=== PATIENT | female | born 1955 | race Caucasian/White ===

== ENCOUNTER 2023-04-16 07:13 | Outpatient (OUT) | payer MEDICARE, SELFPAY ==
[2023-04-16 07:57] LABS: Basophils Absolute Auto 0.1 10^3/uL (0.0-0.1); Basophils Percent Auto 1.3 % (0.2-2.0); Eosinophils Absolute Auto 0.5 10^3/uL (0.0-0.7); Eosinophils Percent Auto 8.5 % (0.9-7.0); Hematocrit 40.3 % (36.0-48.0); Hemoglobin 13.4 g/dL (12.0-16.0); Immature Granulocytes Abs Auto 0.01 10^3/uL (0.00-0.03); Immature Granulocytes Pct Auto 0.2 % (0.0-0.5); Lymphocytes Absolute Auto 1.9 10^3/uL (1.2-3.8); Lymphocytes Percent Auto 32.1 % (20.5-60.0); Mean Corpuscular HGB Conc 33.3 g/dL (29.9-35.2); Mean Corpuscular Hemoglobin 28.9 pg (26.7-34.0); Mean Corpuscular Volume 86.9 fL (81.0-99.0); Mean Platelet Volume 10.9 fL (9.5-13.5); Monocytes Absolute Auto 0.5 10^3/uL (0.3-0.8); Monocytes Percent Auto 8.8 % (1.7-12.0); Neutrophils Percent Auto 49.1 % (43.0-75.0); Platelet Count 254 10^3/uL (150-450); Red Blood Count 4.64 10^6/uL (4.20-5.40); Red Cell Distribution Width 14.3 % (11.0-15.0)
[2023-04-16 08:22] LABS: Alanine Aminotransferase 41 U/L (14-59); Albumin Globulin Ratio 0.9; Albumin Level 3.4 g/dL (3.4-5.0); Alkaline Phosphatase 111 U/L (46-116); Anion Gap 10.9; Aspartate Amino Transferase 24 U/L (15-37); BUN Creatinine Ratio 16.2; Bilirubin Total 0.2 mg/dL (0.2-1.0); Carbon Dioxide 29.3 mmol/L (21.0-32.0); Chloride 105 mmol/L (98-107); Cholesterol 163 mg/dL (<=200); Estimated GFR (African America >60 (>=60); Estimated GFR (Non-African Ame >60 (>=60); Globulin 3.8 g/dL; Glucose 82 mg/dL (74-106); HDL Cholesterol 54 mg/dL (40-60); LDL Cholesterol Calculated 82.4 mg/dL; Potassium 4.2 mmol/L (3.5-5.1); Sodium 141 mmol/L (136-145); Thyroid Stimulating Hormone 6.297 uIU/mL (0.358-3.740); Total Protein 7.2 g/dL (6.4-8.2); Triglycerides 133 mg/dL (<=150); VLDL CHOLESTEROL 26.6 mg/dL
[2023-04-16 10:04] LABS: Free T4 0.85 ng/dL (0.76-1.46)
== END 2023-04-16 07:14 | disposition home or self-care (01) ==
LOC: LAB 07:13
PROVIDERS: PCP Family Medicine; Visit Provider Family Medicine
DX: N18.2 Chronic kidney disease, stage 2 (mild) (principal); R53.82 Chronic fatigue, unspecified; E78.2 Mixed hyperlipidemia
CPT/HCPCS: 36415; 80053; 80061; 84439; 84443; 85025

== ENCOUNTER 2023-08-08 07:14 | Outpatient (OUT) | payer MEDICARE, SELFPAY ==
--- NOTE | 2023-08-08 | MM_ITS ---
Patient: MOE CAROLINA Exam Date: 08/08/2023 : 1955 Gender:F Ordering : DR RADHA GOLDSMITH . Admission #: [id number] Family : Order #: [id number] CLICK HERE TO VIEW EXAM RADIOLOGY REPORT PROCEDURE: MM TOMOSYNTHESIS SCREENING BI COMPARISON: MG MAMM SCREEN 3D [facility] CAD, 06/17/2021. MG MAMM SCREEN 3D [facility] CAD, 08/06/2022. INDICATIONS: Screening mammogram Calculator Name NCI Breast Cancer Risk Assessment Tool 5 Year Breast Cancer Risk 1.80% Lifetime Breast Cancer Risk 6.10% Personal Breast Cancer No Personal Ovarian Cancer No Treatments None Family Cancers None LOCATION: [facility] BREAST COMPOSITION: Heterogeneously dense,which may obscure small masses. FINDINGS: DIAGNOSTIC CATEGORY 2--BENIGN FINDING. NO CHANGE FROM COMPARISON. Scattered benign-appearing calcifications are present. Scattered benign-appearing lymph nodes are present. RIGHT BREAST: No significant suspicious finding. LEFT BREAST: No significant suspicious finding. RECOMMENDATIONS: ROUTINE MAMMOGRAM AND CLINICAL EVALUATION IN 12 MONTHS. PLEASE NOTE: A NORMAL MAMMOGRAM DOES NOT EXCLUDE THE POSSIBILITY OF BREAST CANCER. A CLINICALLY SUSPICIOUS PALPABLE LUMP SHOULD BE BIOPSIED. Dictated by: Wei Jolly MD on 08/08/2023 at 09:00 Approved by: Wei Jolly MD on 08/08/2023 at 09:02
== END 2023-08-08 07:15 | disposition home or self-care (01) ==
LOC: MAMMO 07:14
PROVIDERS: PCP Family Medicine; Visit Provider Family Medicine
DX: Z12.31 Encounter for screening mammogram for malignant neoplasm of breast (principal)
CPT/HCPCS: 77063; 77067

== ENCOUNTER 2023-10-28 08:37 | Outpatient (OUT) | payer MEDICARE, SELFPAY ==
--- NOTE | 2023-10-28 | RT_ITS ---
[facility] Test Date: 2023-10-28 Pat Name: MOE CAROLINA Department: Room: - Gender: Female Private Wealth Advisor: Karissa Cerda RRT : 1955 Requested By: [id number] Order Number: [id number] Reading MD: Favio Marlow Interpretive Statements Pulmonary function testing was completed according to ATS criteria. Findings were considered accurate and reproducible. No bronchodilator was administered due to normal spirometric values. Spirometry: -FEV1/FVC: Normal @ 76% -FEV1: Normal @ 94% -FVC: Normal @ 94% -MEV76-51%: Normal @ 87% Lung volumes by plethysmography: -RV: Normal @ 92% -TLC: Normal @ 99% Diffusion capacity: -DLCO: Mild reduction @ 78% when corrected for Hb 12.9g/dL Flow-volume loop: -Subtle scooping of the expiratory limb. Je in inspiratory loop suggestive of a glottic maneuver (e.g. cough). Impressions: -Technically normal spirometry, lung volumes, and mild diffusion impairment. Scooping of flow-volume loop may suggest mild obstruction. A decreased DLCO can be seen in, but not restricted to, cardiopulmonary vascular disorders, early interstitial lung disease, and early emphysema. Clinical correlation required. Electronically Signed On 11-09-2023 7:34:02 EST by Favio Marlow
--- OUTSIDE RECORDS SUMMARY | 2023-10-28 08:40 | XMS_ITS | CCD ---
Author Name Unknown Address [address] [place] [address] Organization [facility] Care Team Providers Care Cut Off Machine Helper Name Role Phone MERLINE DAVID Unavailable Unavailable APLINGDAVID Unavailable Unavailable Provider, Unlisted Unavailable Unavailable Agus REDD, Rip Valladares Primary Care Provider VIGREEMA, NICANOR S Referring Unavailable RIP GOLDSMITH Primary Care Unavailable VIGESAA, NICANOR S Referring Unavailable RIP GOLDSMITH Primary Care Unavailable VIGESAA, NICANOR S Referring Unavailable HEMETOPHER, RIP Valladares Primary Care Unavailable VIGESAA, NICANOR S Referring Unavailable HEMETOHPER, RIP Valladares Primary Care Unavailable VIGESAA, NICANOR S Referring Unavailable HEMETOPHER, RIP Valladares Primary Care Unavailable VIGESAA, NICANOR S Referring Unavailable HEMETOPHER, RIP Valladares Primary Care Unavailable VIGESAA, NICANOR S Referring Unavailable HEMETOPHER, RIP Valladares Primary Care Unavailable VIGESAA, NICANOR S Referring Unavailable HEMETOPHER, RIP Valladares Primary Care Unavailable VIGESAA, NICANOR S Referring Unavailable HEMETOPHER, RIP Valladares Primary Care Unavailable VIGESAA, NICANOR S Referring Unavailable HEMETOPHER, RIP Valladares Primary Care Unavailable VIGESAA, JUSTIN OSBORN Admitting Unavailab le VIGESAA, JUSTIN OSBORN Attending Unavailab le AGUS, DR GARCIA Admitting Unavailable HEMETOPHER, DR GARCIA Attending Unavailable AGUS, DR GARCIA Consulting Unavailable AGUS, DR GARCIA Primary Care Unavailable HEMEYER, DR GARCIA Primary Care Unavailable HEMEYER, DR GARCIA Admitting Unavailable HEMETOPHER, DR GARCIA Attending Unavailable HEMEYER, DR GARCIA Consulting Unavailable MARTÍN, DR MARIA E Mena Consulting Unavailable MARIA E CRAWFORD Consulting Unavailable Jacob Jay Unavailable Kizzy Glass Unavailable Rip Goldsmith Primary Care Unavailable Jacob Jay Attending Unavailable Jacob Jay Admitting Unavailable Allergies Allergy Classification Reported Allergen(s) Allergy Type Date of Onset Reaction(s) Facility (6 sources) Shellfish Propensity to adverse reactions to drug 8 Hives, Shortness Of Breath [facility] (6 sources) sweet potato allergenic extract Drug Allergy 8 [facility] (6 sources) Chicken Allergy Propensity to adverse reactions to drug 1 [facility] (6 sources) Shellfish-Deriv ed Products Propensity to adverse reactions to drug 8 [facility] (2 sources) potato allergenic extract; Translations: [POTATO] Drug Allergy 1 [facility] (1 source) Shellfish; Translations: [SHELLFISH DERIVED] Propensity to adverse reactions to drug (disorder) 1 [facility] (1 source) CHICKEN DERIVED; Translations: [CHICKEN DERIVED] Propensity to adverse reactions to drug (disorder) 1 [facility] Rep[facility] (5 sources) Egg Propensity to adverse reactions Unknown [facility] Other (5 sources) Shellfish Propensity to adverse reactions Unknown [facility] [facility] Other (5 sources) Wheat Propensity to adverse reactions Unknown [facility] Other (5 sources) cane sugar Propensity to adverse reactions Unknown [facility] Other (5 sources) potatoes Propensity to adverse reactions Unknown [facility] Other Medications Current Medications Medication Drug Class(es) Dates Sig (Normalized) Sig (Original) 0.25 MG, 0.5 MG Dose 3 ML semaglutide 0.68 MG/ML Pen Injector [Ozempic] (5 sources) Start: 04-25-2023 inject 0.25 mg by subcutaneous injection every week, then inject 0.5 mg by subcutaneous injection every week Ozempic (0.25 or 0.5 MG/DOSE) 2 MG/3ML As directed Subcutaneous Once weekly for 28 days 0.25 mg once weekly for 4 weeks, followed by 0.5 mg once weekly for 4 weeks Apr, Active Ozempic (0.25 or 0.5 MG/DOSE) 2 MG/3ML INJECT 0.25MG SUBCUTANEOUSLY WEEKLY FOR 4 WEEKS FOLLOWED BY 0.5MG ONCE A WEEK FOR 4 WEEKS for 28 Active [id number] 200 actuat albuterol 0.09 mg/actuat metered dose inhaler (12 sources) beta2-Adrenergic Agonist Start: 02-09-2016 take 2 puff(s) by inhalation every four hours as needed Albuterol Sulfate HFA 108 (90 Base) MCG/ACT 2 puffs as needed Inhalation every 4 hrs for 30 days January, Active Start: 02-09-2016 take 2 puff(s) by in halation every four hours as needed Albuterol Sulfate HFA 108 (90 Base) MCG/ACT 2 puffs as needed Inhalation every 4 hrs for 30 days January, Active take 2 puff(s) by in halation every six hours as needed for wheezing albuterol sulfate HFA (VENTOLIN HFA) 108 (90 Base) MCG/ACT inhaler Inhale 2 puffs into the lungs every 6 hours as needed for Wheezing 0 Active aspirin 81 mg chewable tablet (12 sources) Platelet Aggregation Inhibitor, Nonsteroidal Anti-inflammatory Drug take 1 tablet by mouth every twenty-four hours Aspirin 81 MG 1 tablet Orally Once a day Active aspirin 81 MG EC tablet Take 81 mg by mouth daily 3 times a week. 0 Active 120 actuat budesonide 0.16 mg/actuat / formoterol fumarate 0.0045 mg/actuat metered dose inhaler (12 sources) Corticosteroid, beta2-Adrenergic Agonist Symbicort 160-4 .5 MCG/ACT Inhalation for 90 Active take 2 puff(s) by in halation twice daily budesonide-formoterol (SYMBICORT) 160-4. 5 MCG/ACT AERO Inhale 2 puffs into the lungs 2 times daily 0 Active cefuroxime 250 mg oral tablet (5 sources) Cephalosporin Antibacterial take 1 tablet by mouth every twelve hours Cefuroxime Axetil 250 MG 1 tablet Orally every 12 hrs Active cetirizine hydrochloride 10 mg oral tablet (7 sources) Histamine-1 Receptor Antagonist take 1 tablet by mouth once daily cetirizine (ZYRTEC) 10 MG tablet Take 10 mg by mouth daily 0 Active citalopram 10 mg oral tablet (7 sources) Serotonin Reuptake Inhibitor take 1 tablet by mouth once daily citalopram (CELEXA) 10 MG tablet Take 10 mg by mouth daily 0 Active dilTIAZem hydrochloride 30 mg oral tablet (2 sources) Calcium Channel Jami Start: take 1 tablet by mouth twice daily dilTIAZem (CARDIZEM) 30 MG tablet Take 1 tablet by mouth 2 times daily 60 tablet 11 08/13/2021 Active EPINEPHrine (5 sources) alpha-Adrenergic Agonist, beta-Adrenergic Agonist, Catecholamine EpiPen Active metoprolol tartrate 25 mg oral tablet (7 sources) beta-Adrenergic Jami Start: take 1 tablet by mouth twice daily metoprolol tartrate (LOPRESSOR) 25 MG tablet TAKE 1 TABLET BY MOUTH TWICE A DAY 60 tablet 3 08/31/2021 Active montelukast 10 mg oral tablet (7 sources) Leukotriene Receptor Antagonist take 1 tablet by mouth once daily montelukast (SINGULAIR) 10 MG tablet Take 10 mg by mouth nightly 0 Active Multiple Vitamins-Minerals (THERAPEUTIC MULTIVITAMIN-MINERALS ) tablet (7 sources) take 1 tablet by mouth once daily Multiple Vitamins-Minerals (THERAPEUTIC MULTIVITAMIN-MINERA LS) tablet Take 1 tablet by mouth daily 0 Active omeprazole 20 mg delayed release oral capsule (7 sources) Proton Pump Inhibitor take 1 capsule by mouth once daily omeprazole (PRILOSEC) 20 MG delayed release capsule Take 20 mg by mouth daily 0 Active predniSONE 20 mg oral tablet (2 sources) Start: predniSONE (DELTASONE) 20 MG tablet Take 3 tablets night prior to procedure and 3 tablets day of procedure 6 tablet 0 08/13/2021 Active ProAir HFA 108 (90 Base) MCG/ACT (5 sources) take 2 puff(s) by inhalation every four hours as needed ProAir HFA 108 (90 Base) MCG/ACT 2 puffs as needed Inhalation every 4 hrs Active rosuvastatin calcium 20 mg oral tablet (7 sources) HMG-CoA Reductase Inhibitor Start: take 1 tablet by mouth once daily rosuvastatin (CRESTOR) 20 MG tablet TAKE 1 TABLET BY MOUTH EVERY DAY 30 tablet 5 08/24/2021 Active Start: 07-29-2021 take 1 tablet by maurice th once daily rosuvastatin (CRESTOR) 20 MG tablet Take 1 tablet by mouth daily 30 tablet 5 07/29/2021 Active simvastatin 20 mg oral tablet (5 sources) HMG-CoA Reductase Inhibitor take 1 tablet by mouth every twenty-four hours Simvastatin 20 MG 1 tablet in the evening Orally Once a day Active Singulair unknown (5 sources) take 1 tablet by mouth once daily in the evening 5 ml sodium chloride 9 mg/ml injection (1 source) Start: End: sodium chloride (PF) 0.9 % injection 10 mL Completed/Discontinued Medications Medication Drug Class(es) Dates Sig (Normalized) Sig (Original) regadenoson (LEXISCAN) injection 0.4 mg (1 source) Start: 08-04-2021 End: 08-04-2021 regadenoson (LEXISCAN) injection 0.4 mg technetium sestamibi (CARDIOLITE) injection 10 millicurie (1 source) Start: 08-04-2021 End: 08-04-2021 technetium sestamibi (CARDIOLITE) injection 10 millicurie technetium sestamibi (CARDIOLITE) injection 30 millicurie (1 source) Start: 08-04-2021 End: 08-04-2021 technetium sestamibi (CARDIOLITE) injection 30 millicurie Problems Problem Classification Problem Date Documented Date Episodic/Chronic Abdominal pain (1 source) Right lower quadrant pain; Translations: [RIGHT LOWER QUADRANT PAIN] Onset: 08-12-2022 Episodic Asthma (5 sources) Asthma; Translations: [Unspecified asthma, uncomplicated] Chronic Conditions associated with dizziness or vertigo (2 sources) Dizziness; Translations: [Dizziness and giddiness] Episodic Disorders of lipid metabolism (9 sources) Mixed hyperlipidemia; Translations: [Dyslipidemia] Onset: 10-31-2021 Chronic Esophageal disorders (5 sources) Gastroesophageal reflux disease; Translations: [Gastro-esophageal reflux disease without esophagitis] Chronic Essential hypertension (5 sources) Essential hypertension; Translations: [Essential (primary) hypertension] Chronic Genitourinary symptoms and ill-defined conditions (5 sources) Blood in urine; Translations: [Hematuria] Episodic Malaise and fatigue (1 source) Fatigue; Translations: [Other fatigue] Episodic Nonspecific chest pain (3 sources) Chest pain; Translations: [Chest pain, unspecified] Episodic Nutritional deficiencies (1 source) Vitamin D deficiency; Translations: [Vitamin D deficiency, unspecified] Chronic Osteoarthritis (6 sources) Arthritis of knee; Translations: [Unilateral primary osteoarthritis, unspecified knee] Chronic Other lower respiratory disease (1 source) Dyspnea; Translations: [Shortness of breath] Episodic Other nutritional; endocrine; and metabolic disorders (8 sources) Obesity; Translations: [Obesity, unspecified] Chronic Other nutritional; endocrine; and metabolic disorders (5 sources) Obesity, unspecified; Translations: [Obesity, Class I, BMI 30-34.9] Onset: 06-22-2023 Chronic Other nutritional; endocrine; and metabolic disorders (4 sources) Obese class I; Translations: [Body mass index (BMI) 31.0-31.9, adult] Chronic Other nutritional; endocrine; and metabolic disorders (4 sources) Body mass index 40+ - severely obese; Translations: [Body mass index (BMI) 40.0-44.9, adult] Chronic Other nutritional; endocrine; and metabolic disorders (1 source) Body mass index (BMI) 31.0-31.9, adult Chronic Other nutritional; endocrine; and metabolic disorders (1 source) Body mass index (BMI) 40.0-44.9, adult Chronic Other screening for suspected conditions (not mental disorders or infectious disease) (4 sources) Encounter for screening mammogram for malignant neoplasm of breast; Translations: [ENC SCR MAMMO MALIG NEOPLASM BREAST] Onset: 08-06-2022 Episodic Syncope (1 source) Syncope; Translations: [Syncope and collapse] Episodic Urinary tract infections (5 sources) Urinary tract infectious disease; Translations: [UTI (lower urinary tract infection)] Episodic Results Test Name Value Interpretation Reference Range Facility MG MAMM SCREEN 3D ADRIEN CADon 08-06-2022 MG MAMM SCREEN 3D ADRIEN CAD Patient: MOE BRUCE Exam Date: 08/06/2022 : 1955 Gender:F Ordering : DR RIP GOLDSMITH . Admission #: [id number] Family : Order #: [id number] CLICK HERE TO VIEW EXAM RADIOLOGY REPORT PROCEDURE: MAMMOGRAM SCREENING 3D BILATERAL CAD COMPARISON: MG MAMM SCREEN 3D ADRIEN CAD, 06/17/2021. INDICATIONS: Screening mammography Calculator Name NCI Breast Cancer Risk Assessment Tool 5 Year Breast Cancer Risk 1.80% Lifetime Breast Cancer Risk 6.40% Personal Breast Cancer No Personal Ovarian Cancer No Treatments None Family Cancers None LOCATION: [facility] BREAST COMPOSITION: Heterogeneously dense,which may obscure small masses. FINDINGS: DIAGNOSTIC CATEGORY 2--BENIGN FINDING. NO CHANGE FROM COMPARISON. Scattered benign-appearing nodules are present. Scattered benign-appearing calcifications are present. Scattered benign-appearing lymph nodes are present. RIGHT BREAST: No significant suspicious finding. LEFT BREAST: No significant suspicious finding. RECOMMENDATIONS: ROUTINE MAMMOGRAM AND CLINICAL EVALUATION IN 12 MONTHS. PLEASE NOTE: A NORMAL MAMMOGRAM DOES NOT EXCLUDE THE POSSIBILITY OF BREAST CANCER. A CLINICALLY SUSPICIOUS PALPABLE LUMP SHOULD BE BIOPSIED. Dictated by: Maria E Jolly MD on 08/06/2022 at 09:23 Approved by: Maria E Jolly MD on 08/06/2022 at 09:28 Normal [facility] US PELVIS TRANSVAGon 022 US PELVIS TRANSVAG EXAM: Pelvic ultrasound. HISTORY: . Right lower quadrant pain . COMPARISON: None. TECHNIQUE: Transvaginal scanning was performed FINDINGS: Scanning of the pelvis demonstrates uterus to be anteverted and measures 5.7 x 2.2 x 3.6 cm. Within the myometrium of the fundus of uterus there is a 4 x 2 mm hyperechoic area with shadowing consistent with a small uterine fibroid. Endometrial complex measures 5 mm. Right ovary measures 1.4 x 1.8 x 1 cm. Color-flow is noted. No masses are noted. Left ovary measures 1.5 x 1.2 x 1.2 cm. Color-flow is noted. No masses are noted. No free fluid is noted in the cul-de-sac. IMPRESSION: 1. Uterus is anteverted. Within the myometrium of the uterus there is a 4 mm echogenic focus with shadowing consistent with a small calcified fibroid. 2. Both ovaries are unremarkable. 3. No fluid in the cul-de-sac. Electronically authenticated by: MARIA E CRAWFORD Date: 2022-08-06 09:00 Normal [facility] CNOVon 02-17-2022 CNOV Office Visit (OTOLST ) MOE BRUCE ([id number]) 1955 F Date Time Provider Department 02/17/22 3:00 PM TED AYALA During your visit today, we recorded the following information about you: Ted Ayala MD 02/17/2022 3:58 PM Signed HPI HPI Moe Bruce is a 66 year old female who presents with with hearing loss left ear. Patient notes very little change in her hearing. Patient still complains of being slightly off balance and still having tinnitus. ROS General Weight loss: No Fatigue: No Night sweats:No Cardiac Chest pain:No Fast heart rate:No Swelling in the feet:No Respiratory Short of breath:No Cough:No Wheezing:No Gastrointestinal Nausea:No Vomiting:No Indigestion:No Past medical history, family history, and social history reviewed. PE There were no vitals taken for this visit. General: Patient is awake, alert, NAD. Voice is normal. Skin: normal Eyes: Extraocular motion and Gaze is normal. Ears: Right external auditory canal is normal. TMJ: normal. Right tympanic membranes normal. Left external auditory canal is normal. Left tympanic membrane normal. Nose: Septum is normal. Turbinates are normal. Nasopharynx:normal Oral Cavity/Oropharynx: Lips normal Dentition normal Tongue normal. Tonsils normal. Palate and uvula normal. Pharynx posterior normal Hypopharynx: Base of tongue normal Pyriform sinus normal. Larynx: Vocal cords normal. Epiglottis normal. Post cricoid normal. Salivary glands: Parotid normal. Submandibular and sublingual normal. Thyroid: normal. Lymphatic/Neck: Lymph nodes normal. Neurologic: Facial nerve normal. Audiogram reviewed ASSESSMENT/PLAN: 1. Labyrinthitis of left ear - ICD9: 386.30, ICD10: H83.02 (primary diagnosis) 2. Tinnitus, left ear - ICD9: 388.30, ICD10: H93.12 Consider hearing aid evaluation follow-up as needed Ted Ayala MD Findings will be communicated to the referring physician via mail or electronic medical record. Referring Provider: SELF [[id number]] Allergies As of Date: 02/17/2022 Noted Allergy Reaction POTATO 03/08/2018 11 - Vomiting Comments: Violent nausea CHICKEN DERIVED 06/15/2021 11 - Vomiting SHELLFISH CONTAINING PRODUCTS 02/13/2018 4 - Hives 12 - Shortness of Breath Date Reviewed: 02/17/2022 Reviewed by: Temi Harmon Ma - Fully Assessed Reason for Visit: had Audio today [Other] Cmt: hearing seems aobut the same as before. Primary Visit Diagnosis:Labyrinthit is of left ear [H83.02] Other Visit Diagnosis:Tinnitus, left ear [H93.12] Prescriptions as of 02/17/2022 - metoprolol tartrate, short acting, (LOPRESSOR) 25 mg tablet - dilTIAZem (CARDIZEM) 30 mg tablet - citalopram hydrobromide (CELEXA) 10 mg tablet Take 10 mg by mouth once daily. - simvastatin (ZOCOR) 20 mg tablet Take 20 mg by mouth daily at bedtime. - amoxicillin (AMOXIL) 125 mg/5 mL suspension - LOW-DOSE ASPIRIN ORAL - cetirizine (ZYRTEC) 10 mg tablet Take 10 mg by mouth. - Esomeprazole Magnesium 20 mg packet - predniSONE 10 mg tablet pack - montelukast (SINGULAIR) 10 mg tablet Take 10 mg by mouth once daily. Problem List As Of Date 02/17/2022 Noted Resolved Sensorineural hearing loss (SNHL) of left ear w*06/19/2021 Sudden left hearing loss [H91.22] 06/23/2021 Tinnitus, left ear [H93.12] 06/23/2021 Encounter Status:Closed by TED AYALA on 02/17/22 [facility] CNOV Office Visit (PRASANNA ) MOE BRUCE ([id number]) 1955 F Date Time Provider Department 02/17/22 2:30 PM LALA TAVAREZ During your visit today, we recorded the following information about you: Lala Noland, TAI 02/17/2022 4:04 PM Signed [facility] AUDIOLOGIC EVALUATION REPORT Name: Moe Bruce [facility]#: [id number] Date of Service: 02/17/2022 Date of : 1955 Age: [age] year old Referred by: [place] [id number] [id number] Referred for: Evaluation of suspected change in hearing, tinnitus, or balance. Referral documented: In an order in [facility] Patient's major complaints: Reduced hearing in the left ear, Tinnitus in the left ear. balance problem Moe Bruce is a 66 year old female who presents for follow up on a sudden hearing loss in her left ear 6 months ago. She was treated with Prednisone and she reports that her hearing has not improved over the past 6 months. She reports left-sided tinnitus and describes it as static. She also reports feel off balance at times. She denies ear pain or drainage. Ms. Bruce was seen for a recheck audiologic evaluation. See SmartForm Audiogram for additional reported history and symptoms. Risk of Falls Documentation for over 65 years old: No history of falls reported so minimal to no risk INTERPRETATION OF HEARING STATUS RIGHT EAR: Hearing within normal limits LEFT EAR: Sensorineural hearing loss IMPACT ON COMMUNICATION FUNCTION RIGHT EAR: No impact on communication function LEFT EAR: Significant impact on communication function COMPARISON TO PREVIOUS TESTING, if applicable Comparison of today?s results with previous testing on 08/19/2021 suggests a decrease in left hearing thresholds at 250, 500 6000, and 8000 Hz. Her word recognition score improved from 37% to 60%. TESTING, AND RESULTS Following is a brief interpretation of the obtained findings from the audiologic evaluation. Refer to the Auditory Test Record for complete audiometric results. The patient was counseled about the test findings and appropriate audiologic recommendations were made. SUMMARY: Audiogram can be viewed under Forms/Audiology/Smart Form. OUTER EAR: via otoscopic inspection RIGHT EAR: Otoscopic inspection revealed ear canal was clear with minimal amount of nonoccluding cerumen present and identifiable cone of light suggesting WNL middle ear system. LEFT EAR: Otoscopic inspection revealed ear canal was clear with minimal amount of nonoccluding cerumen present and identifiable cone of light suggesting WNL middle ear system. MIDDLE EAR: via acoustic immittance testing RIGHT EAR Tympanometry: Normal ME function. LEFT EAR Tympanometry: Normal ME function. AUDITORY/FACIAL NERVE FUNCTION: via acoustic reflex testing RIGHT EAR PROBE EAR: (ipsi right stimulus ear; contralateral left stimulus ear): Acoustic Reflex Pattern Did not test Acoustic Reflex Decay (left stimulus ear): Did not test. LEFT EAR PROBE EAR: (ipsi left stimulus ear; contralateral right stimulus ear): Acoustic Reflex Pattern (Did not test Acoustic Reflex Decay (right stimulus ear):Did not test. HEARING ASSESSMENT: via pure tone and speech testing RIGHT EAR: Hearing Sensitivity: Normal hearing sensitivity from 250-4000 Hz with a slight notch from 6000 to 8000 Hz. Word Recognition Score: Excellent (90-100%). WRS is consistent with hearing sensitivity. Words were presented at 60 dB HL which approximates the intensity level for normal conversational speech. The NU-6 Order by Difficulty Word List (10 words) was used for testing. LEFT EAR: Hearing Sensitivity: Mild sloping to moderately severe sensorineural hearing loss from 250-4000 Hz sloping to a severe to profound unspecified loss at 6000 and 8000 Hz. Word Recognition Score: Poor (60-69%). WRS is consistent with hearing sensitivity. Words were presented at 85 dB HL which is above intensity level for normal conversational speech. NU-6 word list (25 words) was used. MANAGEMENT PLAN: * Continue medical follow-up with Ted Ayala MD. * The patient was counseled regarding effective communication strategies to enhance communication ability. * The patient was counseled regarding benefits/limitations of hearing aids and provided written educational materials. * Call [phone] to schedule an appointment to assess your need for hearing aids. Request a HAE appointment. Lala Noland, Tai, [facility] Abbrev- iation Definition Degree of hearing sensitivity dB range WNL within normal limits WNL 0 - 20 SNHL sensorineural hearing loss Mild 20-40 CHL conductive hearing loss Moderate 40-55 MHL mixed hearing loss Moderately-Severe 55-70 WRS word recognition score Severe 70-90 ME middle ear Profound 90 + TM tympanic membrane Referring Provider: JAMILA (more content not included)... Normal [facility] LIPID PROFILEon 10-31-2021 CHOL-HDL RATIO NORM SEE BELOW Normal [facility] Comment on above: Result Comment: 3.3 - 4.4 LOW RISK 4.4 - 7.1 AVERAGE RISK 7.1 - 11.0 MODERATE RISK >11.0 HIGH RISK Performed By: #### L IPID, AST #### [facility] [address] [address] [address] Uriel Solomon Cholesterol [Mass/Vol] 192 mg/dL Normal <=200 [facility] Comment on above: Performed By: #### L IPID, AST #### [facility] [address] [address] [address] Uriel Solomon Cholesterol in HDL [Mass/Vol] 65 mg/dL Normal [facility] Comment on above: Performed By: #### L IPID, AST #### [facility] [address] [address] [address] Uriel Solomon Cholesterol in LDL [Mass/Vol] 109.6 mg/dL Normal [facility] Comment on above: Performed By: #### L IPID, AST #### [facility] [address] [address] [address] Uriel Solomon Cholesterol.total/Cho lesterol in HDL [Mass ratio] 3.0 {ratio} Normal [facility] Comment on above: Performed By: #### L IPID, AST #### [facility] [address] [place] [address] Dr. Uriel Solomon HDL NORMAL > or = 60 mg/dl - LO W CARDIOVASCULAR RISK <40 mg/dl - HIGH CARDIOVASCULAR RISK Normal [facility] Comment on above: Performed By: #### L IPID, AST #### [facility] [address] [place] [address] Dr. Uriel Solomon LDL CALC NORMAL SEE BELOW Normal [facility] Comment on above: Result Comment: <100 mg/dl OPTIMAL 100 - 129 mg/dl NEAR OR ABOVE OPTIMAL 130 - 159 mg/dl BORDERLINE HIGH 160 - 189 mg/dl HIGH >190 mg/dl VERY HIGH Performed By: #### L IPID, AST #### [facility] [address] [address] [address] Uriel Solomon Triglyceride [Mass/Vol] 87 mg/dL Normal <=150 [facility] Comment on above: Performed By: #### L IPID, AST #### [facility] [address] [place], [place] [address] Dr. Uriel Solomon VLDL CALC 17.4 mg/dL Normal [facility] Comment on above: Performed By: #### L IPID, AST #### [facility] [address] [place], [place] [address] Dr. Uriel Solomon SGOTon 10-31-2021 AST [Catalytic activity/Vol] 18 U/L Normal 14-36 [facility] Comment on above: Performed By: #### L IPID, AST #### [facility] [address] [place], [place] [address] Dr. Uriel Solomon LEFT HEART CATHon 09-11-2021 LEFT HEART CATH This is a summary report. The complete report is available in the patient's medical record. If you cannot access the medical record, please contact the sending organization for a detailed fax or copy. Recommendations: ?? Continue medical therapy ?? Follow-up with primary care physician Coronary Findings Diagnostic Dominance: Co-dominant Left Main: The vessel is large and is angiographically normal. Gives rise to LAD, HLCx and Cx Left Anterior Descending: The vessel is large. The vessel exhibits minimal luminal irregularities. Gives rise to several diagonal branches which are unremarkable Ramus Intermedius: The vessel is moderate in size. The vessel exhibits minimal luminal irregularities. Left Circumflex: The vessel is large. The vessel exhibits minimal luminal irregularities. Gives rise to High Lateral Cx and OM which branches into sub branches Right Posterior Descending Artery: The vessel is moderate in size. The vessel exhibits minimal luminal irregularities. Large posterior ventricular and PDA which are unremarkable Intervention No interventions have been documented. Left Ventricle Ejection Fraction: 60%.The left ventricular size is normal. The left ventricular systolic function is normal. LV systolic pressure is normal. LV end diastolic pressure is normal. There are no wall motion abnormalities in the left ventricle. The outflow tract is normal. Wall Motion All segments of the heart are normal. Normal [facility] CBC Auto Differentialon 12-0 Absolute Eos # 0.60 High [facility] Absolute Immature Granulocyte NOT REPORTED [facility] Lymph # 1.20 [facility] Absolute Grainger # 0.40 [facility] Basophils (Bld) [#/Vol] 0.00 10*3/uL [facility] Basophils/100 WBC (Bld) 1 % 0 - 2 % [facility] Differential Type YES [facility] ealt Eosinophils/100 WBC (Bld) 11 % High 0 - 5 % [facility] Hematocrit (Bld) [Volume fraction] 40.5 % 36 - 46 % [facility] Hemoglobin.gastrointe stinal spec 1 Ql (Stl) 13.7 g/dL 12.0 - 16.0 g/dL [facility] Immature Granulocytes NOT REPORTED 0 % [facility] [place] Interpretation and review of laboratory results Abnormal [facility] Lymphocytes/100 WBC (Bld) 22 % 15 - 40 % [facility] MCH (RBC) [Entitic mass] 28.9 pg 26 - 34 pg [facility] MCHC (RBC) [Mass/Vol] 33.7 g/dL 31 - 37 g/dL [facility] [place] MCV (RBC) [Entitic vol] 85.7 fL 80 - 100 fL [facility] Monocytes/100 WBC (Bld) 8 % 4 - 8 % [facility] NRBC Automated NOT REPORTED per 100 WBC [facility] Platelet distribution width (Bld) [Ratio] 14.1 % 12.1 - 15.2 % [facility] Platelet Estimate NOT REPORTED [facility] Platelet mean volume (Bld) [Entitic vol] NOT REPORTED 6.0 - 12.0 fL [facility] Platelets (Bld) [#/Vol] 224 10*3/uL [facility] RBC (Bld) [#/Vol] 4.73 10*6/uL 4.0 - 5.2 m/uL [facility] RBC (Bld) [#/Vol] NOT REPORTED [facility] Segmented neutrophils/100 WBC (Bld) 58 % 47 - 75 % [facility] Segs Absolute 3.30 [facility] WBC (Bld) [#/Vol] 5.6 10*3/uL [facility] WBC (Bld) [#/Vol] NOT REPORTED [facility] CBC with Diffon 09-04-2021 Abs. Basophil 0.00 k/uL Normal 0.0-0.2 [facility] Comment on above: Performed By: #### C DP, JOYCELYN, CP #### [facility] [address] [id number] Library Services Dean: Maria E Moy MD #### LIPR #### [place] [phone] Library Services Dean: Moncho Lim MD Abs.Neutrophil (Seg) 3.30 k/uL Normal 2.5-7.0 [facility] Comment on above: Performed By: #### C SOFIYA ZFAST, CP #### [facility] [address] [place] [address] Library Services Dean: Maria E Moy MD #### LIPR #### [place] [phone] Library Services Dean: Moncho Lim MD Auto Diff Performed YES Normal [facility] Comment on above: Performed By: #### C DEE ARRIAZAAST, CP #### [facility] [address] [place] [address] Library Services Dean: Maria E Moy MD #### LIPR #### [place] [address] Library Services Dean: Moncho Lim MD Basophils/100 WBC (Bld) 1 % Normal 0-2 [facility] Comment on above: Performed By: #### C SOFIYA ZFAST, CP #### [facility] [address] [place] [address] Library Services Dean: Maria E Moy MD #### LIPR #### [place] [address] Library Services Dean: Moncho Lim MD Eosinophils (Bld) [#/Vol] 0.60 10*3/uL High 0.0-0.4 [facility] Comment on above: Performed By: #### C DP, ZFAST, CP #### [facility] [address] [phone] ( Library Services Dean: Maria E Moy MD #### LIPR #### [address] [place], [place] [phone] Library Services Dean: Moncho Lim MD Eosinophils/100 WBC (Bld) 11 % High 0-5 [facility] Comment on above: Performed By: #### C DP, ZFAST, CP #### [facility] [address] [place], [place] [phone] Library Services Dean: Maria E Moy MD #### LIPR #### [address] [phone] Library Services Dean: Moncho Lim MD Erythrocyte distribution width (RBC) [Ratio] 14.1 % Normal 12.1-15.2 [facility] Comment on above: Performed By: #### C DP, ZFAST, CP #### [facility] [address] [place], [place] [phone] Library Services Dean: Maria E Moy MD #### LIPR #### [address] [phone] Library Services Dean: Moncho Lim MD Hematocrit (Bld) [Volume fraction] 40.5 % Normal 36-46 [facility] Comment on above: Performed By: #### C DP, ZFAST, CP #### [facility] [address] [place], [place] [phone] Library Services Dean: Maria E Moy MD #### LIPR #### [address] [phone] Library Services Dean: Moncho Lim MD Hemoglobin (Bld) [Mass/Vol] 13.7 g/dL Normal 12.0-16.0 [facility] Comment on above: Performed By: #### C DP, ZFAST, CP #### [facility] [address] [place], [place] [phone] Library Services Dean: Maria E Moy MD #### LIPR #### [facility] [address] [place] [address] Library Services Dean: Moncho Lim MD Lymphocytes (Bld) [#/Vol] 1.20 10*3/uL Normal 1.0-4.8 [facility] Comment on above: Performed By: #### C SOFIYA ZFAST, CP #### [facility] [address] [place] [address] Library Services Dean: Maria E Moy MD #### LIPR #### [address] [phone] Library Services Dean: Moncho Lim MD Lymphocytes/100 WBC (Bld) 22 % Normal 15-40 [facility] Comment on above: Performed By: #### C SOFIYA ZFAST, CP #### [facility] [address] [place] [address] Library Services Dean: Maria E Moy MD #### LIPR #### [address] [address] Library Services Dean: Moncho Lim MD MCH (RBC) [Entitic mass] 28.9 pg Normal 26-34 [facility] Comment on above: Performed By: #### C SOFIYA ZFAST, CP #### [facility] [address] [place] [address] Library Services Dean: Maria E Moy MD #### LIPR #### [address] [address] Library Services Dean: Moncho Lim MD MCHC (RBC) [Mass/Vol] 33.7 g/dL Normal 31-37 [facility] Comment on above: Performed By: #### C DP, ZFAST, CP #### [facility] [address] [place] [address] Library Services Dean: Maria E Moy MD #### LIPR #### [facility] [address] [place] [address] Library Services Dean: Moncho Lim MD MCV (RBC) [Entitic vol] 85.7 fL Normal 80-100 [facility] Comment on above: Performed By: #### C DEE ARRIAZAAST, CP #### [facility] [address] [place] [address] Library Services Dean: Maria E Moy MD #### LIPR #### [address] [address] Library Services Dean: Moncho Lim MD Monocytes (Bld) [#/Vol] 0.40 10*3/uL Normal 0.0-1.0 [facility] Comment on above: Performed By: #### C JOYCELYN ARRIAZA, CP #### [facility] [address] [place] [address] Library Services Dean: Maria E Moy MD #### LIPR #### [address] [address] Library Services Dean: Moncho Lim MD Monocytes/100 WBC (Bld) 8 % Normal 4-8 [facility] Comment on above: Performed By: #### C JOYCELYN ARRIAZA, CP #### [facility] [address] [place] [address] Library Services Dean: Maria E Moy MD #### LIPR #### [address] [address] Library Services Dean: Moncho Lim MD Neutrophil (Seg) 58 % Normal 47-75 [facility] Comment on above: Performed By: #### C JOYCELYN ARRIAZA, CP #### [facility] [address] [place] [address] Library Services Dean: Maria E Moy MD #### LIPR #### [address] [address] Library Services Dean: Moncho Lim MD Platelets (Bld) [#/Vol] 224 10*3/uL Normal 140-450 [facility] Comment on above: Performed By: #### C JOYCELYN ARRIAZA, CP #### [facility] [address] [place], [place] [phone] Library Services Dean: Maria E Moy MD #### LIPR #### [address] [address] Library Services Dean: Moncho Lim MD RBC (Bld) [#/Vol] 4.73 10*6/uL Normal 4.0-5.2 [facility] Comment on above: Performed By: #### C JOYCELYN ARRIAZA, CP #### [facility] [address] [place] [address] Library Services Dean: Maria E Moy MD #### LIPR #### [address] [address] Library Services Dean: Moncho Lim MD WBC (Bld) [#/Vol] 5.6 10*3/uL Normal 3.5-11.0 [facility] Comment on above: Performed By: #### C JOYCELYN ARRIAZA, CP #### [facility] [address] [place], [place] [phone] Library Services Dean: Maria E Moy MD #### LIPR #### [address] [address] Library Services Dean: Moncho Lim MD Abs.Imm.Granulocyte NOT REPORTED Normal 0.00-0.30 [facility] Comment on above: Performed By: #### C JOYCELYN ARRIAZA, CP #### [facility] [address] [place] [address] Library Services Dean: Maria E Moy MD #### LIPR #### [address] [address] Library Services Dean: Moncho Lim MD Immature Granulocyte NOT REPORTED Normal 0 Me [facility] Comment on above: Performed By: #### C DEE ARRIAZAAST, CP #### [facility] [address] [place] [address] Library Services Dean: Maria E Moy MD #### LIPR #### [address] [address] Library Services Dean: Moncho Lim MD MPV NOT REPORTED Normal 6.0-12.0 [facility] Comment on above: Performed By: #### C SOFIYA ZFAST, CP #### [facility] [address] [place] [address] Library Services Dean: Maria E Moy MD #### LIPR #### [address] [address] Library Services Dean: Moncho Lim MD NRBC Automated NOT REPORTED Normal [facility] Comment on above: Performed By: #### C DEE ARRIAZAAST, CP #### [facility] [address] [place] [address] Library Services Dean: Maria E Moy MD #### LIPR #### [address] [address] Library Services Dean: Moncho Lim MD Platelet Comment NOT REPORTED Normal [facility] Comment on above: Performed By: #### C DP ZFAST, CP #### [facility] [address] [place] [address] Library Services Dean: Maria E Moy MD #### LIPR #### [address] [address] Library Services Dean: Moncho Lim MD RBC morphology finding Nom (Bld) NOT REPORTED Normal [facility] Comment on above: Performed By: #### C DP, ZFAST, CP #### [facility] [address] [place], [place] [phone] Library Services Dean: Maria E Moy MD #### LIPR #### [facility] [address] [place], [place] [phone] Library Services Dean: Moncho Lim MD WBC Morphology NOT REPORTED Normal [facility] Comment on above: Performed By: #### C JOYCELYN ARRIAZA CP #### [facility] [address] [place], [place] [phone] Library Services Dean: Maria E Moy MD #### LIPR #### [facility] [address] [place], [place] [phone] Library Services Dean: Moncho Lim MD Comp Metabolic Profon 2020 (cont.) Normal [facility] Comment on above: Result Comment: Aver age GFR for 60-69 years old: 85 mL/min/1.73sq m Chronic Kidney Disease: <60 mL/min/1.73sq m Kidney failure: <15 mL/min/1.73sq m eGFR calculated using average adult body mass. Additional eGFR calculator available at: http://[email or web address].Catacel/multiple_crcl_2012.htm Performed By: #### C JOYCELYN ARRIAZA CP #### [facility] [address] [place], [place] [phone] Library Services Dean: Maria E Moy MD #### LIPR #### [facility] [address] [place] [address] Library Services Dean: Moncho Lim MD Albumin [Mass/Vol] 4.1 g/dL Normal 3.5-5.2 [facility] Comment on above: Performed By: #### C JOYCELYN ARRIAZA CP #### [facility] [address] [place], [place] [phone] Library Services Dean: Maria E Moy MD #### LIPR #### [facility] [address] [place] [address] [phone] Library Services Dean: Moncho Lim MD Alkaline Phos 125 U/L High 35-104 [facility] Comment on above: Performed By: #### C JOYCELYN ARRIAZA, CP #### [facility] [address] [place] [address] Library Services Dean: Maria E Moy MD #### LIPR #### [address] [address] Library Services Dean: Moncho Lim MD ALT [Catalytic activity/Vol] 12 U/L Normal 5-33 [facility] Comment on above: Performed By: #### C JOYCELYN ARRIAZA, CP #### [facility] [address] [place], [place] [phone] Library Services Dean: Maria E Moy MD #### LIPR #### [address] [address] Library Services Dean: Moncho Lim MD Anion gap [Moles/Vol] 11 mmol/L Normal 9-17 [facility] Comment on above: Performed By: #### C JOYCELYN ARRIAZA, CP #### [facility] [address] [place] [address] Library Services Dean: Maria E Moy MD #### LIPR #### [address] [address] Library Services Dean: Moncho Lim MD AST [Catalytic activity/Vol] 15 U/L Normal <32 [facility] Comment on above: Performed By: #### C JOYCELYN ARRIAZA, CP #### [facility] [address] [place] [address] Library Services Dean: Maria E Moy MD #### LIPR #### [address] [address] Library Services Dean: Moncho Lim MD Bilirubin [Mass/Vol] 0.15 mg/dL Low 0.30-1.20 [facility] Comment on above: Performed By: #### C DEE ARRIAZAAST, CP #### [facility] [address] [place], [place] [phone] Library Services Dean: Maria E Moy MD #### LIPR #### [address] [phone] Library Services Dean: Moncho Lim MD BUN/CRE Ratio 18 Normal 9-20 [facility] Comment on above: Performed By: #### C DEE ARRIAZAAST, CP #### [facility] [address] [place], [place] [phone] Library Services Dean: Maria E Moy MD #### LIPR #### [address] [phone] Library Services Dean: Moncho Lim MD Calcium [Mass/Vol] 9.4 mg/dL Normal 8.6-10.4 [facility] Comment on above: Performed By: #### C DEE ARRIAZAAST, CP #### [facility] [address] [place], [place] [phone] Library Services Dean: Maria E Moy MD #### LIPR #### [address] [phone] Library Services Dean: Moncho Lim MD Chloride [Moles/Vol] 103 mmol/L Normal 98-107 [facility] Comment on above: Performed By: #### C DEE ARRIAZAAST, CP #### [facility] [address] [place], [place] [phone] Library Services Dean: Maria E Moy MD #### LIPR #### [address] [phone] Library Services Dean: Moncho Lim MD CO2 [Moles/Vol] 25 mmol/L Normal 20-31 [facility] Comment on above: Performed By: #### C DP, ZFAST, CP #### [facility] [address] [place] [address] Library Services Dean: Maria E Moy MD #### LIPR #### [facility] [address] [place] [address] Library Services Dean: Moncho Lim MD Creatinine [Mass/Vol] 0.71 mg/dL Normal 0.50-0.90 [facility] Comment on above: Performed By: #### C DP ZFAST, CP #### [facility] [address] [place], [place] [phone] Library Services Dean: Maria E Moy MD #### LIPR #### [address] [phone] Library Services Dean: Moncho Lim MD GFR, Amer >60 Normal >60 [facility] Comment on above: Performed By: #### C DP, ZFAST, CP #### [facility] [address] [place] [address] Library Services Dean: Maria E Moy MD #### LIPR #### [address] [address] Library Services Dean: Moncho Lim MD GFR,non Amer >60 Normal >60 [facility] Comment on above: Performed By: #### C DP, ZFAST, CP #### [facility] [address] [place] [address] Library Services Dean: Maria E Moy MD #### LIPR #### [address] [address] Library Services Dean: Moncho Lim MD Glucose [Mass/Vol] 85 mg/dL Normal 70-99 [facility] Comment on above: Performed By: #### C DP, ZFAST, CP #### [facility] [address] [place], [place] [phone] Library Services Dean: Maria E Moy MD #### LIPR #### [address] [phone] Library Services Dean: Moncho Lim MD Potassium [Moles/Vol] 4.3 mmol/L Normal 3.7-5.3 [facility] Comment on above: Performed By: #### C JOYCELYN ARRIAZA, CP #### [facility] [address] [place], [place] [phone] Library Services Dean: Maria E Moy MD #### LIPR #### [address] [phone] Library Services Dean: Moncho Lim MD Protein [Mass/Vol] 7.1 g/dL Normal 6.4-8.3 [facility] Comment on above: Performed By: #### C JOYCELYN ARRIAZA, CP #### [facility] [address] [place], [place] [phone] Library Services Dean: Maria E Moy MD #### LIPR #### [address] [phone] Library Services Dean: Moncho Lim MD Sodium [Moles/Vol] 139 mmol/L Normal 135-144 [facility] Comment on above: Performed By: #### C DEE ARRIAZAAST, CP #### [facility] [address] [place], [place] 1996390 Library Services Dean: Maria E Moy MD #### LIPR #### [address] [phone] Library Services Dean: Moncho Lim MD Urea nitrogen [Mass/Vol] 13 mg/dL Normal 8-23 [facility] Comment on above: Performed By: #### C JOYCELYN ARRIAZA, CP #### [facility] [address] [place], [place] [phone] Library Services Dean: Maria E Moy MD #### LIPR #### [facility] [address] [place], [place] [phone] Library Services Dean: Moncho Lim MD Albumin/Glob Ratio NOT REPORTED Normal 1.0-2.5 [facility] Comment on above: Performed By: #### C DP, ZFAST, CP #### [facility] [address] [place], [place] [phone] Library Services Dean: Maria E Moy MD #### LIPR #### [facility] [address] [place], [place] [phone] Library Services Dean: Moncho Lim MD Staging: NOT REPORTED Normal [facility] Comment on above: Performed By: #### C DP, ZFAST, CP #### [facility] [address] [place], [place] [phone] Library Services Dean: Maria E Moy MD #### LIPR #### [facility] [address] [place], [place] [phone] Library Services Dean: Moncho Lim MD Comprehensive Metabolic [facility] 09-04-2021 Albumin [Mass/Vol] 4.1 g/dL 3.5 - 5.2 g/dL [facility] Albumin/Globulin Ratio NOT REPORTED [facility] ALP (Bld) [Catalytic activity/Vol] 125 U/L High 35 - 104 U/L [facility] ALT [Catalytic activity/Vol] 12 U/L 5 - 33 U/L [facility] Anion gap [Moles/Vol] 11 mmol/L 9 - 17 mmol/L [facility] AST [Catalytic activity/Vol] 15 U/L <32 [facility] Bilirubin [Mass/Vol] 0.15 mg/dL Low 0.30 - 1.20 mg/dL [facility] Calcium [Mass/Vol] 9.4 mg/dL 8.6 - 10. 4 mg/dL [facility] Chloride [Moles/Vol] 103 mmol/L 98 - 10 7 mmol/L [facility] CO2 [Moles/Vol] 25 mmol/L 20 - 31 mmol/L [facility] Creatinine [Mass/Vol] 0.71 mg/dL 0.50 - 0.90 mg/dL [facility] Free PSA/Total PSA [Mass fraction] 7.1 g/dL 6.4 - 8.3 g/dL [facility] GFR >60 >60 mL/min [facility] GFR Non- >60 >60 mL/min [facility] GFR/1.73 sq M.predicted MDRD (S/P/Bld) [Vol rate/Area] [facility] Comment on above: Average GFR for 60-6 9 years old: 85 mL/min/1.73sq m Chronic Kidney Disease: <60 mL/min/1.73sq m Kidney failure: <15 mL/min/1.73sq m eGFR calculated using average adult body mass. Additional eGFR calculator available at: http://www.[employer]/multiple_crcl_2012.htm GFR/1.73 sq M.predicted MDRD (S/P/Bld) [Vol rate/Area] NOT REPORTED [facility] Glucose [Mass/Vol] 85 mg/dL 70 - 99 mg/dL [facility] [place] Interpretation and review of laboratory results Abnormal [facility] Potassium [Moles/Vol] 4.3 mmol/L 3.7 - 5.3 mmol/L [facility] Sodium [Moles/Vol] 139 mmol/L 135 - 144 mmol/L [facility] Urea nitrogen (BldV) [Mass/Vol] 13 mg/dL 8 - 23 mg/dL [facility] Urea nitrogen/Creatinine (Bld) [Mass ratio] 18 [facility] Lipid Panelon 09-04-2021 Cholesterol [Mass/Vol] 173 mg/dL <200 [facility] Comment on above: Cholesterol Guidelines: <200 Desirable 200-240 Borderline >240 Undesirable Cholesterol in HDL [Mass/Vol] 61 mg/dL >40 [facility] Comment on above: HDL Guidelines: <40 Undesirable 40-59 Borderline >59 Desirable Cholesterol in LDL [Mass/Vol] 95 mg/dL 0 - 130 mg/dL [facility] Comment on above: LDL Guidelines: <100 Desirable 100-129 Near to/above Desirable 130-159 Borderline >159 Undesirable Direct (measured) LDL and calculated LDL are not interchangeable tests. Cholesterol in VLDL [Mass/Vol] NOT REPORTED 1 - 30 mg/dL [facility] Cholesterol.total/Cho lesterol in HDL [Mass ratio] 2.8 {ratio} <5 [facility] Triglyceride [Mass/Vol] 85 mg/dL <150 [facility] Comment on above: Triglyceride Guidelines: <150 Desirable 150-199 Borderline 200-499 High >499 Very high Based on AHA Guidelines for fasting triglyceride, July 2012. [facility] Lipid Profileon 09-04-2021 Cholesterol [Mass/Vol] 173 mg/dL Normal <200 [facility] Comment on above: Result Comment: Cholesterol Guidelines: <200 Desirable 200-240 Borderline >240 Undesirable Performed By: #### C JOYCELYN ARRIAZA, CP #### [facility] [address] [place], [place] [phone] Library Services Dean: Maria E Moy MD #### LIPR #### [address] [phone] Library Services Dean: Moncho Lim MD Cholesterol in HDL [Mass/Vol] 61 mg/dL Normal >40 [facility] Comment on above: Result Comment: HDL Guidelines: <40 Undesirable 40-59 Borderline >59 Desirable Performed By: #### C JOYCELYN ARRIAZA, CP #### [facility] [address] [place], [place] [id number] Library Services Dean: Maria E Moy MD #### LIPR #### [facility] Indeed [address] [place] [id number] Library Services Dean: Moncho Lim MD Cholesterol in LDL [Mass/Vol] 95 mg/dL Normal 0-130 [facility] Comment on above: Result Comment: LDL Guidelines: <100 Desirable 100-129 Near to/above Desirable 130-159 Borderline >159 Undesirable Direct (measured) LDL and calculated LDL are not interchangeable tests. Performed By: #### C JOYCELYN ARRIAZA, CP #### [facility] [address] [place], [place] [id number] Library Services Dean: Maria E Moy MD #### LIPR #### [facility] [address] [place] [id number] Library Services Dean: Moncho Lim MD Cholesterol.total/Cho lesterol in HDL [Mass ratio] 2.8 {ratio} Normal <5 [facility] Comment on above: Performed By: #### C JOYCELYN ARRIAZA, CP #### [facility] [address] [place] [address] Library Services Dean: Maria E Moy MD #### LIPR #### [address] [id number] Library Services Dean: Moncho Lim MD Triglyceride [Mass/Vol] 85 mg/dL Normal <150 [facility] Comment on above: Result Comment: Triglyceride Guidelines: <150 Desirable 150-199 Borderline 200-499 High >499 Very high Based on AHA Guidelines for fasting triglyceride, July 2012. Performed By: #### C JOYCELYN ARRIAZA, CP #### [facility] [address] [place], [place] [phone] Library Services Dean: Maria E Moy MD #### LIPR #### [address] [phone] Library Services Dean: Moncho Lim MD Cholesterol,VLDL NOT REPORTED Normal 11-01 [facility] Comment on above: Performed By: #### C JOYCELYN ARRIAZA, CP #### [facility] [address] [place], [place] [phone] Library Services Dean: Maria E Moy MD #### LIPR #### [address] [address] Library Services Dean: Moncho Lim MD Patient Fasting?on 1 Patient Fasting? YES [facility] ashish [facility] Patient fasting?on 1 Patient fasting? YES Normal [facility] Comment on above: Performed By: #### C JOYCELYN ARRIAZA, CP #### [facility] [address] [place], [place] [phone] Library Services Dean: Maria E Moy MD #### LIPR #### [facility] [address] [place] [address] Library Services Dean: MD Beverly Alcaraz 08-19-2021 CNOV Office Visit (OTOLST ) MOE BRUCE ([id number]) 1955 F Date Time Provider Department 08/19/21 2:30 PM TED AYALA OTRIKI During your visit today, we recorded the following information about you: Ted Ayala MD 08/19/2021 4:24 PM Signed HPI Moe Bruce is a 65 year old female who presents with follow-up hearing loss left. Patient still complains of tinnitus on the left and also slightly dizzy. Patient notes no change in her hearing after the 3 injections. ROS General Weight loss: No Fatigue: No Night sweats:No Cardiac Chest pain:No Fast heart rate:No Swelling in the feet:No Respiratory Short of breath:No Cough:No Wheezing:No Gastrointestinal Nausea:No Vomiting:No Indigestion:No Past medical history, family history, and social history reviewed. PE There were no vitals taken for this visit. General: Patient is awake, alert, NAD. Voice is normal. Skin: normal Eyes: Extraocular motion and Gaze is normal. Ears: Right external auditory canal is normal. TMJ: normal. Right tympanic membranes normal. Left external auditory canal is normal. Left tympanic membrane normal. Nose: Septum is normal. Turbinates are normal. Nasopharynx:normal Oral Cavity/Oropharynx: Lips normal Dentition normal Tongue normal. Tonsils normal. Palate and uvula normal. Pharynx posterior normal Hypopharynx: Base of tongue normal Pyriform sinus normal. Larynx: Vocal cords normal. Epiglottis normal. Post cricoid normal. Salivary glands: Parotid normal. Submandibular and sublingual normal. Thyroid: normal. Lymphatic/Neck: Lymph nodes normal. Neurologic: Facial nerve normal. Audiogram reviewed ASSESSMENT/PLAN: 1. Sensorineural hearing loss (SNHL) of left ear with unrestricted hearing of right ear - ICD9: 389.15, ICD10: H90.42 (primary diagnosis) - COMPREHENSIVE AUDIOLOGIC EXAM 2. Dizziness - ICD9: 780.4, ICD10: R42 3. Tinnitus, left ear - ICD9: 388.30, ICD10: H93.12 Follow-up 6 months with audiogram Ted Ayala MD Findings will be communicated to the referring physician via mail or electronic medical record. Referring Provider: SELF [[id number]] Allergies As of Date: 08/19/2021 Noted Allergy Reaction POTATO 03/08/2018 11 - Vomiting Comments: Violent nausea CHICKEN DERIVED 06/15/2021 11 - Vomiting SHELLFISH CONTAINING PRODUCTS 02/13/2018 4 - Hives 12 - Shortness of Breath Date Reviewed: 08/19/2021 Reviewed by: Temi Harmon Ma - Fully Assessed Reason for Visit: 4 week follow up [Other] Cmt: had 3 injections in left ear. no improvement noticed Primary Visit Diagnosis:Sensorineur al hearing loss (SNHL) of left ear with unrestricted hearing of right ear [H90.42] Other Visit Diagnoses:Dizziness [R42] Tinnitus, left ear [H93.12] Order(s):COMPREHENSIV E AUDIOLOGIC EXAM [[id number]] Order #: [id number] Prescriptions as of 08/19/2021 - metoprolol tartrate, short acting, (LOPRESSOR) 25 mg tablet - dilTIAZem (CARDIZEM) 30 mg tablet - citalopram hydrobromide (CELEXA) 10 mg tablet Take 10 mg by mouth once daily. - simvastatin (ZOCOR) 20 mg tablet Take 20 mg by mouth daily at bedtime. - amoxicillin (AMOXIL) 125 mg/5 mL suspension - LOW-DOSE ASPIRIN ORAL - cetirizine (ZYRTEC) 10 mg tablet Take 10 mg by mouth. - Esomeprazole Magnesium 20 mg packet - predniSONE 10 mg tablet pack - montelukast (SINGULAIR) 10 mg tablet Take 10 mg by mouth once daily. Problem List As Of Date 08/19/2021 Noted Resolved Sensorineural hearing loss (SNHL) of left ear w*06/19/2021 Sudden left hearing loss [H91.22] 06/23/2021 Tinnitus, left ear [H93.12] 06/23/2021 Encounter Status:Closed by TED AYALA on 08/19/21 Normal [facility] CNOV Office Visit (OTAUST ) MOE BRUCE ([id number]) 1955 F Date Time Provider Department 08/19/21 2:00 PM LALA TAVAREZ During your visit today, we recorded the following information about you: TAI Castro 08/19/2021 3:31 PM Signed [facility] AUDIOLOGIC EVALUATION REPORT Name: Moe Bruce [facility]#: [id number] Date of Service: 08/19/2021 Date of : 1955 Age: [age] year old [place]erred by: [place] [id number] [place] [address] Referred for: Determination of the effect of treatment for disorder of hearing, tinnitus, or balance. Referral documented: Under recommendations in referring physican's progress note Patient's major complaints: Tinnitus in the right ear, Dizziness/vertigo/imb alance, Sudden hearing loss right Moe Bruce is a 65 year old female who presents with follow up on a sudden sensorineural hearing loss in her left ear. She reports that she has had 3 intratympanic injections and she perceives some improvement though not a lot. She also reports static in her left ear. She reports having balance problems and feeling unsteady. She denies ear pain. Ms. Bruce was seen for a recheck audiologic evaluation. See SmartForm Audiogram for additional reported history and symptoms. Risk of Falls Documentation for over 65 years old: No history of falls reported so minimal to no risk INTERPRETATION OF HEARING STATUS RIGHT EAR: Hearing within normal limits LEFT EAR: Sensorineural hearing loss IMPACT ON COMMUNICATION FUNCTION RIGHT EAR: No impact on communication function LEFT EAR: Significant impact on communication function COMPARISON TO PREVIOUS TESTING, if applicable Comparison of today?s results with previous testing on 06/19/2021 suggests no significant improvement in hearing thresholds and slightly better word understanding. TESTING, AND RESULTS Following is a brief interpretation of the obtained findings from the audiologic evaluation. Refer to the Auditory Test Record for complete audiometric results. The patient was counseled about the test findings and appropriate audiologic recommendations were made. SUMMARY: Audiogram can be viewed under Forms/Audiology/Smart Form. OUTER EAR: via otoscopic inspection RIGHT EAR: Otoscopic inspection revealed ear canal was clear with an identifiable cone of light suggesting WNL middle ear system. LEFT EAR: Otoscopic inspection revealed ear canal was clear with an identifiable cone of light suggesting WNL middle ear system. MIDDLE EAR: via acoustic immittance testing RIGHT EAR Tympanometry: Normal ME function. LEFT EAR Tympanometry: Normal ME function. AUDITORY/FACIAL NERVE FUNCTION: via acoustic reflex testing RIGHT EAR PROBE EAR: (ipsi right stimulus ear; contralateral left stimulus ear): Acoustic Reflex Pattern Did not test Acoustic Reflex Decay (left stimulus ear): Did not test. LEFT EAR PROBE EAR: (ipsi left stimulus ear; contralateral right stimulus ear): Acoustic Reflex Pattern (Did not test Acoustic Reflex Decay (right stimulus ear):Did not test. HEARING ASSESSMENT: via pure tone and speech testing RIGHT EAR: Hearing Sensitivity: Normal hearing sensitivity. Word Recognition Score: Excellent (90-100%). WRS is consistent with hearing sensitivity. Words were presented at 55 dB HL which approximates/is above intensity level for normal conversational speech. The NU-6 Order by Difficulty Word List (10 words) was used for testing. LEFT EAR: Hearing Sensitivity: Normal hearing at 250 and 500 Hz precipitously sloping to a moderately severe sensorineural hearing loss through 4000 Hz and a severe unspecified loss at 8000 Hz. Word Recognition Score: Very Poor (0-59%). WRS is consistent with hearing sensitivity. Words were presented at 80 dB HL which is above intensity level for normal conversational speech. NU-6 word list (50 words) was used. There was contralateral masking for this test. MANAGEMENT PLAN: * Continue medical follow-up with Ted Ayala MD. * The patient was counseled regarding effective communication strategies to enhance communication ability. * The patient was counseled regarding benefits/limitations of hearing aids and provided written educational materials. Briefly discussed CROS technology. * Call [phone] to schedule an appointment to assess your need for hearing aids. Request a HAE appointment. Tai Castro, [facility] Abbrev- iation Definition Degree of hearing sensitivity dB range WNL within normal limits WNL 0 - 20 SNHL sensorineural hearing loss Mild 20-40 CHL conductive hearing loss Moderate 40-55 MHL mixed hearing loss Moderately-Severe 55-70 WRS word recognition score Severe 70-90 ME middle ear Profound 90 + TM tympanic membrane Referring Provider: TED AYALA [1 (more content not included)... Normal [facility] CARDIAC STRESS TESTon 2020 [place] [address] CARDIAC STRESS TEST PATIENT NAME: MOE BRUCE : 1955 MED REC NO: [id number] ROOM: ACCOUNT NO: [id number] ADMIT DATE: 08/04/2021 PROVIDER: Aquilino Ravi DATE OF STUDY: 08/04/2021 Cardiovascular Diagnostics Department Ordering Provider: Justin Ramirez MD Primary Care Provider: Rip Goldsmith MD Interpreting Physician: Aquilino Ravi MD MYOCARDIAL PERFUSION STRESS IMAGING The stress ECG results are reported separately. NUCLEAR IMAGING RESULTS: The overall quality of the study is good. Mild/moderate attenuation artifact was seen. There is no evidence of abnormal lung uptake. Additionally, the right ventricle appears normal. The left ventricular cavity is noted to be normal in size on stress images. There is evidence of transient ischemic dilatation (TID) of the left ventricle. Gated SPECT imaging reveals normal myocardial thickening and wall motion with a calculated left ventricular ejection fraction (EF) of 72%. The rest images demonstrate homogenous tracer distribution throughout the myocardium. On stress imaging, a small/moderate perfusion abnormality of mild/moderate intensity was noted in the anterior and anterolateral regions, which may be due to artifact. IMPRESSION: 1. Equivocal myocardial perfusion study. There is a small/moderate perfusion defect of mild/moderate intensity in the anterior and anterolateral regions during stress imaging, which is most consistent with artifact, but may be due to a small degree of coronary ischemia. In addition, transient ischemic dilatation (TID) of the left ventricle is seen, which can be seen with uncontrolled hypertension, severe left main coronary artery disease or severe three-vessel coronary artery disease (TID: 1.36). 2. Global left ventricular systolic function was normal without regional wall motion abnormalities. Overall these results are most consistent with an intermediate risk for significant coronary artery disease. Additional testing including cardiac catheterization may be indicated. The results of this test were discussed with Dr. Ramirez on 08/04/2021 at 1420. AQUILINO RAVI ULISSES/JAKE_ALEX Doc#: Unknown CC: Rip Vickory James [facility] [place] [address] CARDIAC STRESS TEST PATIENT NAME: MOE BRUCE : 1955 MED REC NO: [id number] ROOM: ACCOUNT NO: [id number] ADMIT DATE: 08/04/2021 PROVIDER: Justin Ramirez DATE OF STUDY: 08/04/2021 LEXISCAN CARDIOLITE STRESS TEST: INDICATION: Dizziness and chest pain. IMPRESSION: 1. We gave 0.4 mg of Lexiscan intravenously. 2. This was followed in 20 seconds by Cardiolite infusion. 3. There was no chest pain. 4. There was no ST depression. 5. It was an overall negative Lexiscan stress test. 6. Cardiolite to follow. JUSTIN RAMIREZ [id number] Doc#: [id number] CC: Rip Goldsmith [facility] NM Cardiac Stress Test Nucle ar ImagingOrdered By: Nicanor Ramirez on 08-04-2021 Radiology exam is complete. No Radiologist dictation. Please follow up with ordering provider. SQMOS Phone: SQMOS Phone: NM MYOCARDIAL SPECT REST EXE RCISE OR RXon 08-04-2021 NM MYOCARDIAL SPECT REST EXERCISE OR RX Radiology exam is complete. No Radiologist dictation. Please follow up with ordering provider. Final result Normal [facility] Vitamin D 25 OHon 07-30-2021 Vitamin D 25 OH 33.9 ng/mL Normal 30.0-100.0 [facility] Comment on above: Result Comment: Reference Range: Vitamin D status Range Deficiency <20 ng/mL Mild Deficiency 20-30 ng/mL Sufficiency 30-100 ng/mL Toxicity >100 ng/mL Performed By: #### T SHX #### [facility] [address] [place] [address] Library Services Dean: Maria E Moy MD #### VD25 #### [facility] Indeed [facility] [place], [place] [phone] Library Services Dean: Moncho Lim MD TSH w/reflex to FT4on 2020 TSH Qn 2.37 m[IU]/L Normal 0.30-5.00 [facility] Comment on above: Performed By: #### T SHX #### [facility] [address] [place] [address] Library Services Dean: Maria E Moy MD #### VD25 #### [id number] [place], [place] [phone] Library Services Dean: Moncho Lim MD TSH with ReflexOrdered By: Michel Ramirez on 07-29-2021 TSH Qn 2.37 m[IU]/L SQMOS Phone: SQMOS Phone: Vitamin D 25 HydroxyOrdered By: Nicanor Ramirez on 07-29-2021 Vit D, 25-Hydroxy 33.9 ng/mL 30.0 - 100 .0 ng/mL SQMOS Phone: Comment on above: Reference Range: Vitamin D status Range Deficiency <20 ng/mL Mild Deficiency 20-30 ng/mL Sufficiency 30-100 ng/mL Toxicity >100 ng/mL SQMOS Phone: XR CHEST (2 VW)on 07-29-2021 XR CHEST (2 VW) EXAM: XR CHEST (2 VW ) HISTORY: R 55. Near syncope . Dizziness. R 42. COMPARISON: Chest 05/15/2021. TECHNIQUE: PA and lateral views FINDINGS: Heart size is satisfactory. There is aortic arch calcification. Central vasculature appears symmetrical and satisfactory. Lung quezada are expanded without acute infiltration, consolidation, edema, or effusion. Left diaphragmatic adhesional density is noted. Lower level dorsal arthrosis is noted. IMPRESSION: No acute cardiopulmonary abnormality. Interpreted by: Olivier Luevano DO Signed by: Olivier Luevano DO 07/29/21 Final result Normal [facility] CNOVon 07-22-2021 CNOV Office Visit (OTOLST ) MOE BRUCE ([id number]) 1955 F Date Time Provider Department 07/22/21 9:00 AM TED AYALA OTOLSNishi During your visit today, we recorded the following information about you: Ted Ayala MD 07/22/2021 9:48 AM Signed Preop diagnosis sudden hearing loss left Postop diagnosis same Procedure?Intratympan ic injection left dexamethasone Surgeon Lucy Anesthesia phenol Procedure: After verbal consent patient was placed in a semirecumbent position microscope was brought in place ear speculum was inserted tympanic membrane is visualized phenol was applied onto the tympanic membrane without difficulty using a 25-gauge needle approximately 0.5 cc of dexamethasone was injected. ?Patient maintained that position with the ear up for 20 minutes. ?Patient tolerated position without complication ? Referring Provider: TED AYALA [[id number]] Allergies As of Date: 07/22/2021 Noted Allergy Reaction POTATO 03/08/2018 11 - Vomiting Comments: Violent nausea CHICKEN DERIVED 06/15/2021 11 - Vomiting SHELLFISH CONTAINING PRODUCTS 02/13/2018 4 - Hives 12 - Shortness of Breath Date Reviewed: 07/22/2021 Reviewed by: Temi Harmon Ma - Fully Assessed Reason for Visit: THIRD INJ IN LEFT EAR [Other] Cmt: has noticed some improvment Primary Visit Diagnosis:Sensorineur al hearing loss (SNHL) of left ear with unrestricted hearing of right ear [H90.42] Order(s):COMPREHENSIV E AUDIOLOGIC EXAM [[id number]] Order #: [id number] [] buffered dexAMETHasone sodium phosphate solution 24 mg/mLDisp: Rfl: Prescriptions as of 07/22/2021 - citalopram hydrobromide (CELEXA) 10 mg tablet Take 10 mg by mouth once daily. - simvastatin (ZOCOR) 20 mg tablet Take 20 mg by mouth daily at bedtime. - amoxicillin (AMOXIL) 125 mg/5 mL suspension - LOW-DOSE ASPIRIN ORAL - cetirizine (ZYRTEC) 10 mg tablet Take 10 mg by mouth. - Esomeprazole Magnesium 20 mg packet - predniSONE 10 mg tablet pack - montelukast (SINGULAIR) 10 mg tablet Take 10 mg by mouth once daily. Problem List As Of Date 07/22/2021 Noted Resolved Sensorineural hearing loss (SNHL) of left ear w*06/19/2021 Sudden left hearing loss [H91.22] 06/23/2021 Tinnitus, left ear [H93.12] 06/23/2021 Prescriptions ordered this encounter Disp Refills Start End BUFFERED DEXAMETHASONE SODIUM PHOSPH* 07/22/2021 07/22/2021 Route: LEFT EAR Encounter Status:Closed by TED AYALA on 07/22/21 [facility] (OTOLMM ) MOE BRUCE ([id number]) 1955 F Date Time Provider Department 07/20/21 9:00 AM TED AYALA OTOLMM During your visit today, we recorded the following information about you: Ted Ayala MD 07/21/2021 8:25 AM Signed cancelled Referring Provider: TED AYALA [[id number]] Allergies As of Date: 07/20/2021 Noted Allergy Reaction POTATO 03/08/2018 11 - Vomiting Comments: Violent nausea CHICKEN DERIVED 06/15/2021 11 - Vomiting SHELLFISH CONTAINING PRODUCTS 02/13/2018 4 - Hives 12 - Shortness of Breath Date Reviewed: 07/20/2021 Reviewed by: Temi Harmon Ma - Fully Assessed Reason for Visit: here for 3rd inj to left ear [Other] Cmt: has noticed some improvement Primary Visit Diagnosis:Sensorineur al hearing loss (SNHL) of left ear with unrestricted hearing of right ear [H90.42] Prescriptions as of 07/21/2021 - citalopram hydrobromide (CELEXA) 10 mg tablet Take 10 mg by mouth once daily. - simvastatin (ZOCOR) 20 mg tablet Take 20 mg by mouth daily at bedtime. - amoxicillin (AMOXIL) 125 mg/5 mL suspension - LOW-DOSE ASPIRIN ORAL - cetirizine (ZYRTEC) 10 mg tablet Take 10 mg by mouth. - Esomeprazole Magnesium 20 mg packet - predniSONE 10 mg tablet pack - montelukast (SINGULAIR) 10 mg tablet Take 10 mg by mouth once daily. Problem List As Of Date 07/20/2021 Noted Resolved Sensorineural hearing loss (SNHL) of left ear w*06/19/2021 Sudden left hearing loss [H91.22] 06/23/2021 Tinnitus, left ear [H93.12] 06/23/2021 Encounter Status:Closed by TED AYALA on 07/21/21 [facility] CNOVon 07-06-2021 CNOV Office Visit (OTOLMM ) MOE BRUCE ([id number]) 1955 F Date Time Provider Department 07/06/21 9:45 AM [facility] During your visit today, we recorded the following information about you: Ted Ayala MD 07/06/2021 10:15 AM Signed Procedure none Preop diagnosis sudden hearing loss left Postop diagnosis same Procedure Intratympanic injection left dexamethasone Surgeon Lucy Anesthesia phenol Procedure: After verbal consent patient was placed in a semirecumbent position microscope was brought in place ear speculum was inserted tympanic membrane is visualized phenol was applied onto the tympanic membrane without difficulty using a 25-gauge needle approximately 0.5 cc of dexamethasone was injected. Patient maintained that position with the ear up for 20 minutes. Patient tolerated position without complication ? Referring Provider: TED AYALA [[id number]] Allergies As of Date: 07/06/2021 Noted Allergy Reaction POTATO 03/08/2018 11 - Vomiting Comments: Violent nausea CHICKEN DERIVED 06/15/2021 11 - Vomiting SHELLFISH CONTAINING PRODUCTS 02/13/2018 4 - Hives 12 - Shortness of Breath Date Reviewed: 07/06/2021 Reviewed by: Temi Harmon Ma - Fully Assessed Reason for Visit: 2 week follow up [Other] Cmt: dizziness still present but may be a little better. Unable to tell if hearing has changed. Still gets wooshing sounds. Primary Visit Diagnosis:Sensorineur al hearing loss (SNHL) of left ear with unrestricted hearing of right ear [H90.42] Order(s):[] buffered dexAMETHasone sodium phosphate solution 24 mg/mL with 2% lidocaine 0.1 mLDisp: Rfl: Prescriptions as of 07/06/2021 - citalopram hydrobromide (CELEXA) 10 mg tablet Take 10 mg by mouth once daily. - simvastatin (ZOCOR) 20 mg tablet Take 20 mg by mouth daily at bedtime. - amoxicillin (AMOXIL) 125 mg/5 mL suspension - LOW-DOSE ASPIRIN ORAL - cetirizine (ZYRTEC) 10 mg tablet Take 10 mg by mouth. - Esomeprazole Magnesium 20 mg packet - predniSONE 10 mg tablet pack - montelukast (SINGULAIR) 10 mg tablet Take 10 mg by mouth once daily. Problem List As Of Date 07/06/2021 Noted Resolved Sensorineural hearing loss (SNHL) of left ear w*06/19/2021 Sudden left hearing loss [H91.22] 06/23/2021 Tinnitus, left ear [H93.12] 06/23/2021 Prescriptions ordered this encounter Disp Refills Start End BUFFERED DEXAMETHASONE 24 MG/ML WITH* 07/06/2021 07/06/2021 Route: LEFT EAR Encounter Status:Closed by TED AYALA on 07/06/21 [facility] CNOVon 06-19-2021 CNOV Office Visit (OTAUME ) MOE BRUCE ([id number]) 1955 F Date Time Provider Department 06/19/21 11:00 AM STAT AUDIO OTAUME During your visit today, we recorded the following information about you: Annabella LUJAN, AUD 06/23/2021 3:25 PM Signed [facility] AUDIOLOGIC EVALUATION REPORT Name: Moe Bruce [facility]#: [id number] Date of Service: 06/19/2021 Date of : 1955 Age: [age] year old Referred by: Ted Ayala [address] [address] Referred for: Determination of the effect of treatment for disorder of hearing, tinnitus, or balance. Referral documented: In an order in [facility] Patient's major complaints: Reduced hearing in the left ear, Tinnitus in the left ear, Dizziness/vertigo/imb alance, pressure in the left ear. Patient was seen for an audiogram in conjunction with ENT second opinion appointment for sudden SNHL that she experienced in the left ear approximately 1 month ago. She was treated at that time with prednisone and she does not feel she has had any improvement in hearing. She continues to experience tinnitus in the left ear and some dizziness. Ms. Bruce was seen for a recheck audiologic evaluation. [facility] for additional reported history and symptoms. Ms. Bruce was seen as a Same Day Add-On patient upon request of the medical provider. Results may be limited due to time constraints; further testing may be warranted at a scheduled appointment. See recommendations. INTERPRETATION OF HEARING STATUS RIGHT EAR: Hearing within normal limits LEFT EAR: Sensorineural hearing loss TESTING, AND RESULTS Following is a brief interpretation of the obtained findings from the audiologic evaluation. Refer to the Auditory Test Record for complete audiometric results. The patient was counseled about the test findings and appropriate audiologic recommendations were made. SUMMARY: Audiogram can be viewed under Forms/Audiology/Smart Form. OUTER EAR: via otoscopic inspection RIGHT EAR: Otoscopic inspection revealed ear canal was clear with an identifiable cone of light. LEFT EAR: Otoscopic inspection revealed ear canal was clear with an identifiable cone of light. MIDDLE EAR: via acoustic immittance testing RIGHT EAR Tympanometry: Normal ME function. LEFT EAR Tympanometry: Normal ME function. AUDITORY/FACIAL NERVE FUNCTION: via acoustic reflex testing RIGHT EAR PROBE EAR: (ipsi right stimulus ear; contralateral left stimulus ear): Acoustic Reflex Pattern Did not test Acoustic Reflex Decay (left stimulus ear): Did not test. LEFT EAR PROBE EAR: (ipsi left stimulus ear; contralateral right stimulus ear): Acoustic Reflex Pattern (Did not test Acoustic Reflex Decay (right stimulus ear):Did not test. HEARING ASSESSMENT: via pure tone and speech testing RIGHT EAR: Hearing Sensitivity: WNL Word Recognition Score: Excellent (100%). WRS is consistent with hearing sensitivity. Words were presented at 45 dB HL which approximates intensity level for normal conversational speech. The NU-6 Order by Difficulty Word List (10 words) was used for testing. LEFT EAR: Hearing Sensitivity: WNL through 500 Hz sloping mild to severe HL* Word Recognition Score: Very Poor (28%). WRS is poorer than expected given hearing sensitivity. Words were presented at 90 dB HL which is above intensity level for normal conversational speech. The NU-6 Order by Difficulty Word List (10 words) was attempted but the additional 15 words were required for testing (total 25 words). * Bone conduction testing could not be completed as patient became ill, feeling as if she was going to pass out . The manager medical was retrieved to help assess the patient and returned her to ENT exam room. However, results were consistent with audiogram patient brought with her from an outside facility, revealing a SNHL. MANAGEMENT PLAN: * Continue medical follow-up with Ted Ayala MD. * The patient was counseled regarding the need to continue to monitor hearing and have regular hearing assessments. * The patient was counseled regarding effective communication strategies to enhance communication ability.. Tai Shanks, [facility]/A Doctor of Audiology copied to: Ted Ayala MD MARINO Abbrev- iation Definition Degree of hearing sensitivity dB range WNL within normal limits WNL 0 - 20 SNHL sensorineural hearing loss Mild 20-40 CHL conductive hearing loss Moderate 40-55 MHL mixed hearing loss Moderately-Severe 55-70 WRS word recognition score Severe 70-90 ME middle ear Profound 90 + TM tympanic membrane Referring Provider: TED AYALA [[id number]] Allergies As of Date: 06/19/2021 Noted Allergy Reaction POTATO 03/08/2018 11 - Vomiting Comments: Violent nausea CHICKEN DERIVED 06/15/2021 11 - Vomiting SHELLFISH CONTAINING PRODUCTS 02/13/2018 4 (more content not included)... Normal [facility] Office Visit (OTOLMM ) MOE BRUCE ([id number]) 1955 F Date Time Provider Department 06/19/21 10:30 AM TED AYALA OTOLMM During your visit today, we recorded the following information about you: Pulse Blood pressure 81/minute 90/65 Ted Ayala MD 06/19/2021 12:23 PM Signed HPI Moe Bruce is a 65 year old female who presents with hearing loss left ear and dizziness. Patient states approximately 4 weeks ago she had a sudden onset of hearing loss and dizziness in the left ear. Patient was actually hospitalized saw ENT did have prednisone had a CT and an MRI patient was noted to have sinusitis on the CT and MRI otherwise was unremarkable except for some chronic changes. Patient presently states her dizziness is improving she still has hearing loss in the left ear which has not changed and also tinnitus.. ROS General Weight loss: No Fatigue: No Night sweats:No Cardiac Chest pain:No Fast heart rate:No Swelling in the feet:No Respiratory Short of breath:No Cough:No Wheezing:No Gastrointestinal Nausea:No Vomiting:No Indigestion:No Past medical history, family history, and social history reviewed. PE BP 90/65 (BP Site: Right Arm, BP Position: Sitting, BP Cuff Size: Large Adult) Pulse 81 SpO2 98% General: Patient is awake, alert, NAD. Voice is normal. Skin: normal Eyes: Extraocular motion and Gaze is normal. Ears: Right external auditory canal is normal. TMJ: normal. Right tympanic membranes normal. Left external auditory canal is normal. Left tympanic membrane normal. Nose: Septum is normal. Turbinates are normal. Nasopharynx:normal Oral Cavity/Oropharynx: Lips normal Dentition normal Tongue normal. Tonsils normal. Palate and uvula normal. Pharynx posterior normal Hypopharynx: Base of tongue normal Pyriform sinus normal. Larynx: Vocal cords normal. Epiglottis normal. Post cricoid normal. Salivary glands: Parotid normal. Submandibular and sublingual normal. Thyroid: normal. Lymphatic/Neck: Lymph nodes normal. Neurologic: Facial nerve normal. Audiogram reviewed MRI reviewed ASSESSMENT/PLAN: 1. Sensorineural hearing loss (SNHL) of left ear with unrestricted hearing of right ear - ICD9: 389.15, ICD10: H90.42 (primary diagnosis) - COMPREHENSIVE AUDIOLOGIC EXAM 2. Labyrinthitis of left ear - ICD9: 386.30, ICD10: H83.02 I recommended an intratympanic injection on the left of dexamethasone Procedure none Preop diagnosis sudden hearing loss left Postop diagnosis same Procedure Intratympanic injection left dexamethasone Surgeon Lucy Anesthesia phenol Procedure: After verbal consent patient was placed in a semirecumbent position microscope was brought in place ear speculum was inserted tympanic membrane is visualized phenol was applied onto the tympanic membrane without difficulty using a 25-gauge needle approximately 0.5 cc of dexamethasone was injected. Patient maintained that position with the ear up for 20 minutes. Patient tolerated position without complication Follow-up 2 weeks MD Ted Connelly MD Findings will be communicated to the referring physician via mail or electronic medical record. Mer Us 06/19/2021 12:10 PM Signed Pt wasn't feeling well during audiogram. Took vitals. Clammy and hot. 90/65. 98% oxygen. 81- pulse. Gave some water. Monitored. Pt sat awhile in exam room before leaving. Ted Ayala MD 06/23/2021 2:32 PM Signed Addended by: TED AYALA on: 06/23/2021 02:32 PM Modules accepted: Orders Referring Provider: SELF [[id number]] Allergies As of Date: 06/19/2021 Noted Allergy Reaction POTATO 03/08/2018 11 - Vomiting Comments: Violent nausea CHICKEN DERIVED 06/15/2021 11 - Vomiting SHELLFISH CONTAINING PRODUCTS 02/13/2018 4 - Hives 12 - Shortness of Breath Date Reviewed: 06/19/2021 Reviewed by: Mer Us - Fully Assessed Reason for Visit: Hearing Loss [1119] Cmt: left ear, ringing, came on suddenly 40%, sx since 05/15/21, had audiogram done at the [facility] Dizziness [36] Cmt: [facility] on 05/15/21, CT scan- sinuses full, then was admitted on 05/17/21 to [facility] in [place], had MRI- ruled out stroke Primary Visit Diagnosis: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 - Esomeprazole Magnesium 20 mg packet - predniSONE 10 mg tablet pack - montelukast (SINGULAIR) 10 mg tablet (more content not included)... Normal [facility] CNOVon 06-15-2021 CNOV Office Visit (NEMSMN ) MOE BRUCE ([id number]) 1955 F Date Time Provider Department 06/15/21 9:15 AM THERON PABLO During your visit today, we recorded the following information about you: Pulse Blood pressure Weight Height 88/minute 128/83 77.9 kg 1.626 m Theron Pablo MD 06/22/2021 10:52 AM [facility] MULTIPLE SCLEROSIS NEW PATIENT EVALUATION/CONSULTATI ON Referral source: SELF Also followed by: No care nut steamer to display PRINCIPAL NEUROLOGIC DIAGNOSIS: HISTORY OF ILLNESS: An opinion on this 65 year old right handed woman was requested by the patient for a second opinion on neurological symptoms. The patient was accompanied by self. Previous records (physician notes, laboratory reports, and radiology reports) and imaging studies were reviewed and summarized. My recommendations will be communicated back to the patient's physician(s) via electronic medical record. Follow-up is expected to be with me or the referring physician based on results of planned workup. In may 2020, she started havng waves of dizziness. CT showed full sinuses pansinusitis . Went home with Flonase and a decongestant. brain hallpike negative although complained of diplopia with rt end gaze. Two days later, she developed vertigo, began vomiting and was sent home again with motion sickness medicine. Stroke was ruled out with MRI. She was on a course of antibiotics and steroids. She has occas popping sound in the ear, as well as whooshing sound regularly. Neuro-Qol Functions (higher = better functioning) 06/15/2021 Upper Extremity Domain T Score 49 06/15/2021 Lower Extremity Domain T Score 42 06/15/2021 Cognitive Function Domain T Score 50 06/15/2021 Ability To Participate In Social Roles T Score 39 06/15/2021 Satisfaction With Social Roles T Score 41 Neuro-Qol Symptoms (higher = worse symptoms) 06/15/2021 Sleep Domain T Score 59 06/15/2021 Fatigue Domain T Score 57 06/15/2021 Anxiety Domain T Score 55 06/15/2021 Depression Domain T Score 51 06/15/2021 Stigma Domain T Score 51 *NeuroQoL is a multi-domain patient-reported quality of life questionnaire. PHQ-9 Office Visit from 06/15/2021 in [facility] PHQ-9 Score 6 *PHQ-9 is a questionnaire for depressive symptoms, with scores 0-4 indicating none, 5-9 mild, 10-14 moderate, 15-19 moderately severe, and 20-27 severe symptoms. PROMIS-10 Office Visit from 06/15/2021 in [facility] Global Physical Health T Score 42.3 Global Mental Health T Score 48.3 0-10 Standard Pain Scale 4 *PROMIS-10 is a patient-reported quality of life measure, typically reported as physical and mental domains. Here scores are expressed as percentiles, where the lowest possible score is one, the highest possible score is 99, and 50 is average. PAST HISTORY: PAST MEDICAL HISTORY Diagnosis Date - Moderate persistent asthma with acute exacerbation PAST SURGICAL HISTORY Procedure Laterality Date - BREAST LUMPECTOMY HX - TOTAL KNEE REPLACEMENT X2 Transfusions: None Current Outpatient Medications Medication Sig - amoxicillin (AMOXIL) 125 mg/5 mL suspension - LOW-DOSE ASPIRIN ORAL - cetirizine (ZYRTEC) 10 mg tablet Take 10 mg by mouth. - Esomeprazole Magnesium 20 mg packet - predniSONE 10 mg tablet pack - montelukast (SINGULAIR) 10 mg tablet Take 10 mg by mouth once daily. No current facility-administered medications for this visit. 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 She lives in [place], twice and newly engaged. Marital Status: FAMILY HISTORY Problem Relation Age of Onset - Ischemic Heart Disease Mother - Ischemic Heart Disease Father - Multiple Sclerosis No Family History REVIEW OF SYSTEMS: Comprehensive review of systems otherwise was negative, including constitutional, head and neck, cardiovascular, pulmonary, gastrointestinal, endocrine, urologic, reproductive, rheumatic, hematologic, immunologic, dermatologic, and psychiatric. PHYSICAL EXAM: BP 128/83 Pulse 88 Ht 162.6 cm (5' 4 ) Wt 77.9 kg (171 lb 11.2 oz) BMI 29.47 kg/m? Hair, skin, nails, and joints were normal. There was no peripheral edema. The patient was alert and oriented to person, place, and time with normal language, attention and concentration, recent and remote memory, praxis, and intellectual function. Affect was normal. The patient did not appear depressed. Visual quezada were full to confrontation. Pupils were 2mm without a relative afferent pupillary defect. Ocular ductions were full without nystagmus (more content not included)... Normal [facility] Coding Summary.on 06-02-2021 Coding Summary. [id number] G h0bWw+PGhlYWQ+NT9WFDD vZ22khLEkgX5LC3aTBF9E CPPGOCRVNR0PHB3mvND7S FrgR5SyjaHz VdfxxWGvTB85CLr1KUV4o FfyUSjrnV3wbDJsM9u1Qi FnGJ86kK66LQkfJUEdImW 3LjZpbjsgbWFy K6urGbRewWNmAfq+PHRhY mxlIHdpZHRoPScxMDAlJy ZxsEogRT9eCt1iQPYyGQZ vbGxhcHNlOiBj k5ziPZKaSXgyFW0igZwrI 4NkeLO5LCYtj9z5Zr45qG I+TQFyGVY3tIqySZraz16 5QnSig0pqGON6 dBYnMOrsQUR8J25ni0Z2R SYlUGKxYBC1hNO8hO1buG sjmtypC2FgkKPwVcG1OLR 6sKSaqG3cnIqj lkbhpE3cGaw+Q06IVS3ZE RWVHE9UIqm5A6IcMyhniY I+EF55YAOzHT20oLPrvCE ah6zddIz3CwXm GSOnYFG8yXmpBPdhb9ElC NJzC03zaPLyz0E8XUUpiU ehuZFvUgEnrJS6qO8zDZl vviuud3xbymec Neuft9jwgh95hO84T88kX KhoTJTmJIW5JJFfRKSouX mdkn0gzV2dWc2+GHhhw4b fn8duzXc0CoMw RHVlszMidEtlDAN7z2XvZ b86F1FkkMtuf4XlJjn7yl 86dUIuy8L0qQG3ZHzlFXV wzF9eFRsiLrS8 IZXgIiZiuB58hEAoAFrkF r5ouPcjbAgsGG5bGLAooz ltBRGeoC7jXBZxmHAdwMl zCU4xRRFgjjck b357OhAlJKB2JFFpuPLeI 5CozS0qYzFrKXHlZLEoQ0 LekEGwLAiuS610AUerToH 2JSRvmlFfL2Pi YHZcmTdyDbW2h5N6Vz7Kj 7EjfoduYBH2BAmhIIK4Kp PtLdKgAjE5L9ImHfj6LQY ilWycDR8hL5Qx VIHaouijbwcuuBL1PCJvX EApqX24tWQuSKmvPa9lu3 E4f490FFFfOEOaxJ56Gx5 udDogMTBwdCBU cX4bcausf7mrjqldElBjT HHxERx7RXt4TSPicGiaNj UyTEC9NyC3QPN9iGHahJ0 osMhiwnedvU9h Oyc+H99qiO9tKXM3VNM7o ywwSGDvsyCxLN95EZ57L8 RyPjwvdGFibGU+PGRpdiB gdZlePC5hJlOc s2hyd4NaDYgdG4XzRWTvU HonYoi0WKTmKDI0rHJ4qY 0mMWFhCVtor3X6gBH1D7O jnvNott6zg0qa BOXdASslJ04mhWKhn7W8W UTogRI0DLQayJcmOlRgeF 93Oyc+COHjdYqlz3NxOvc ym4pdr6hspYq4 JyEsHUQwfhHggXcdEON6e 7FpJk56V73rVFzxHBZhMG GlZSSyYALbtGkgah8ouP6 wIi8+PGNvbCB3 eGS4yC0wDJFoVzU6WNxxW 806RoHpcYYmMiqwg8wtb3 zooWq9MsHkGSXiatOvlJi wXYE2q9CoQk45 J76qVOtiHXOkLMUdSQYjK GUgpMrfqq8rgD9gGp1+PC 7te5ruae38uY00hCY+PHR aELR8eXtfAGjh DJAdgY2kPOpoZsU5SNWqJ vXraS76tIXsPApyHm4idR bhaXsrXQ5zBUNxaixhk33 4KvRcg6tbGUDt gIFgGVuoPLC1Q44sc0A1P UEzURFjYQT4xPI0bH2ryM lnbjogbGVmdDsgdmVydGl gLKzgPEhgR580 IHRvcDsnPlBhdGllbnQgT yGgILk7L2AdMmp3LKUhqL ozHI0baZPaGQjfVd3edKz lwNqyQC3lRIBc dkehj168GcAfp2dlKYTzq CAaHUpxKPU7J48ht4O2RW JgHFCbFJY9sKV6oB9bpVs nbjogbGVmdDsg unLdmHvfRUalXJfvW477W HRvcDsnPkJpcnRoIERhdG N8WZ74LM86rXKss8R1lFZ 4M2TgJGEuogkv crjsmJX3EUPaKEWpqB74Q p4owOioCq8pNFQdPVW4BY FedAJlQ1NytT9iKgYmBIR cEJHrY5GweAEg DRktL771ETzxCaC9VWPyy oXeT5EmISNvrObmByH0i3 T9Nz5JN1I9EK01FB60zIV mi7L3qZT3W7Uf TKUsaoejvkcbeZM0KDYcR YWynZ95Mc4oaGyoGy7xZN GsLKM1XRYyiYMxS8QubO1 yOiAjMDAwMDAw J8YzeLCxBUwyY404HLzdZ jR3QPKbtmCnY0SrIJHdaC rvCoM1g3H1Jk6QMZg1ZV3 6HU01dCIpi3C8 eHA3F4LwDGIeozgsaejmd KB5BGXjOTZjtG33Oa8drW rkBl6bANRiOJA9IWDfqBP rN9IybR7vUmUq CXAgRMDrP2EbiEZtFIvjD 969EDxrDnD7GLQztrXdK7 RwCDAhpTdhHtZ6j5G8Tq7 MYYMgYP02WQL1 cAP9BI77XG82K4ToNrich GFibGU+PHRhYmxlIHdpZH RoPScxMDAlJyBzdHlsZT0 hZo3vSBGpSJBf lSkjvNCrUhDyl7efPNZnL RzsFQ8teNjdF7ApjGA2MF Hkq3f0Wg26N35gZ9UunFR +SGDtdZF9qWQ5 hF1xObQmMqM3FZdjC606S gQfrXWzYzexp9qhi1ygyV b1CuG2MKSgqeUahTknMKP 4z4EoEl45O22o IHdpZHRoPSIxNSUiIHZhb Xruex1ejJ7hWx5+PGNvbC A0pLE6yQ9fOfOjRoU4LGv lU727HrAquVJh Yenwb2acu7rkqNi1PrSuG GPknoWroYkrBVO6h5GhIo 78K4JhiOrgw3SuDuz7hf6 8zZBqp4Z0kVA6 B9HqITUmjwjcmMFziHjjH G4eSTBtotdoTFWxjP2oDB PtE4w0SxZrAxI1QGlaK0N ptrE5ZUZstPCz TSaiTST2G34dh8Y2OUPnG UUzYUA8eZU4wI0xpAonyg ogbGVmdDsgdmVydGljYWw oUFryS592OIYm vNgjOGTpqD2zCMNfaUGri PypIT0uFKCimsbaCaGWFE VNE4NzMCLQA4DMROn8U2Q iIwn0YXKwfMiq ZY7ctUAcCPpqNt5crHfkp MuhQI0xIWLeetozHBMtkM 9oDPBanUTsjMycFS4bPXQ funwfk058PxZl BYL7EOGscQYcU7UloT6lO bEcRTXaYUUsY4PwjOSeZN oqX806BTkuXzF8OJMxpcS yD9KcFTGzlTkq JaE3q3G7Wg1oKg2rEP5cX OQ3CX33DN59aIRdt0V0iW N7M0FfEWGiawnmlqdvaAB 5UCAsSNUueG08 dGRiNDcxAe2wt8Z2u838D XFsWFIrlR25Af8baSdkIH UyvRUAvS6ahjslm0phvwd gIzAwMDAwMDt0 DAn5PNMqiEnnRmQeJQA7S tD4NAQ9tGWwzM0dpTgeek iabM4dJjx+NjUgWWVhcnM 0F9CaEtc5XAVx zZdvFB0hyGLuNIfdJz2or LewbTiiME8oDXWqgrmtLL QijQ0iEJZlpZFtsKzyGE5 tLMBdahbvg003 QzDoEQD8NSDmcIJnL4Kug D6aPgOkCIVcEWMcS6CpoS TyUSrjR941SAktAhZ5FTJ jxgZbP7TdCXKs cCpxGiH1x0Z3Ud2KEX3ht RW5A7GwJqd7LIQjgLpyWK 0mdBUoQKklBu3lgAvukYx bQX7tKBGcnhdc LNFajI0aQNXagJVsfJjbT L4tFFAbnpkks541ZeTzCQ D4UJOvkDYtD1UeoM6wEaG nCWYzFPVtW7Zy fFZrZMrfF594UQvuBuN3Q YNzbeUtN2SlLPYfjFpeVu P3k0B3Mz7EGtVnznIzmLa vbjwvdGQ+PC90 jw39Z4PtPmtaZzo7WGLyU DF7sPR8eF6gENSmZOevw1 F3vLF6Y3EylgWgzl4oq4o iKRGkIPxwO06w cANkg5C4BERorJZ3QNEpz HmpUrUzcN83Zhl+PGNvbG npn9VpTwcse8tsx9vizEw 9IjMwJSIgdmFs xGbiVKI1p8DbWs46O03oQ HdpZHRoPSIzMCUiIHZhbG pxds7taF5vHk3+PGNvbCB 7nAY6kN6rYxDb UiY6EScmD453HaDckKKfS xsph7qnr0uugCu3YtErBR FmexZnnQkjEXS3d5TtHt6 7L2PimKkhn2Nl Qjt9rk16iUPjy9A8lYS2Z 3BhZGRpbmctbGVmdDogMC 5eEMHhcxnbSAKxsO6sQXQ dD6p4RyJgBpM5 GFzgK3DsbwU3KQZzeUWyQ BTawXCHuZ8apctwh3icoh mtWfDlTUOoALx8XBy7PAA saWduOiBsZWZ0 LcV9QID3wOJesX9xhVqbv vaidJ3fNvm+TNz0b9oimF NtVI2xtRY9XZ31IE78gZQ op7Z8pEE4Z0Ac IKIfnzjxmphpmAJ6UESoS VBkgA11Yj3mdYnsOm0sKZ YtPTE9XUIgqOXbP3BkvQ6 yOiAjMDAwMDAw O7XomYMuBYgfF014LKaaH sL4GCIdwhDzX0ZzKUZuvP peMtV6v4B8Tz6KGC77HL4 2KQ83wSKip5P8 uPN7Q0JjWCMlhzcjxturi BO9TPXvRDScaQ66Tm5vwV ynTn0nJYXzETX7VHJohVL eT2JxjQ1oEhJu CFYfCNHdB2FyoMOwSSjsR 574HQieYdA4ASXppmQtB5 PdRGYboEksTlE8s2D5Xv6 SYx23QJ62EY61 sDUdw7B3fVI9G1RaOBByo qmwdkaybUL4KUUuVSCmiH 23Se4lxTqxTl2hSJNvNDL 3TXNxsNYiQ7Hq nQ8rIoQrYDEyEJHnW5Pmj FOrMPhjU263DVjqDlE3CB DlvdFjN3AfYOVceRbfNgH 7v8J8Tp4DVGbq dud3P2TsLgypeUD+PC90Y UAdJG19fSKknHDtn7ukvT g7VmYuWXXiIEP4jCadQGg ab6NxRCMwP01b bGFw (more content not included)... 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 ED: H/P: Janneth Profit: partial PIS (OBS/IN): OBS 05/07/21 18:13, TF 05/07/21 16:40 Chgs: D/C: VTE: N/A MCG: -obs/chest pain, -inpt/chest pain Tele: yes ICU: no >2mn: messaged physician Insurance: [employer] PAT (tests): MRI Brain w/o Contrast ordered 05/18/21-Sent 05/18 PAT Readmit: MM: OBS Log: ED: Blade H/P: Janneth Profit: partial PIS (OBS/IN): OBS 05/07/21 18:13, TF 05/07/21 16:40 Chgs: done D/C: done VTE: N/A MCG: -obs/chest pain, -inpt/chest pain Tele: yes ICU: no <2mn: done Insurance: [employer] PAT (tests): MRI Brain w/o Contrast ordered 05/18/21-Sent 05/18 PAT Readmit: MM: done OBS Log: done [facility] Comment on above: Result Comment: Elec tronically Signed By: Gisela GARCIA, Chana You\.felice\Date and Time Signed: 06/02/21 11:22 EDT ED Note-Physicianon 05-23- ED Note-Physician Basic Information Time Seen: Mariano MURRAYPapo 05/17/2021 10:24 Chief Complaint dizziness History of Present Illness Very pleasant 65-year-old female presents to emergency department chief complaint of nausea and vomiting with continued dizziness. Patient states that she was seen at [facility] on 05/15/2021 for similar complaints. Was told that she had sinusitis, she had CT and lab work performed which were unremarkable. She states that she was told to take Claritin and that would clear up. She states she continues to have the vomiting and dizziness and felt she needed to be evaluated. Review of Systems A 10 point review of systems is negative except as noted above. Medical and Surgical History: Reviewed and noted Social history: Lives at home Tobacco: Denies Physical Exam Vitals & Measurements T: 36.4 ?C (Oral) HR: 69(Monitored) RR: 16 BP: 129/78 BP: 134/91(Standing) BP: 147/85(Supine) SpO2: 96% HT: 163 cm WT: 75 kg BMI: 28.23 General: Alert and oriented, No acute distress, Comfortable in bed. Eye: Pupils are equal, round and reactive to light, Extraocular movements are intact. HENT: Normocephalic. Neck: Supple, Non-tender, No jugular venous distention. Respiratory: Respirations are non-labored, Symmetrical chest wall expansion, No chest wall tenderness, no wheezing rhonchi rales or rubs noted.. Cardiovascular: Normal rate, Regular rhythm, Good pulses equal in all extremities. Gastrointestinal: Soft, Non-tender, Non-distended, Normal bowel sounds. Musculoskeletal: Normal range of motion, Normal strength. Neurologic: Alert, Oriented, Normal sensory, Normal motor function. Cognition and Speech: Oriented, Speech clear and coherent. Psychiatric: Cooperative, Appropriate mood & affect. Integumentary: Warm, Dry, [place] Medical Decision Making Lab work from [facility] was reviewed including CT of the head which showed no acute abnormalities. Lab work today was unremarkable. We did administer meclizine, Zofran and IV fluids. Initially she stated that she felt much better, however when she attempted to get up to go to the bathroom the vertigo had returned and she began vomiting once again. She was admitted to the hospitalist service for further evaluation of the vertigo and intractable vomiting. Assessment/Plan 1. Vertigo (R42: Dizziness and giddiness) 2. Nausea & vomiting (R11.2: Nausea with vomiting, unspecified) 3. Asthma (J45.909: Unspecified asthma, uncomplicated) 4. Chronic GERD (K21.9: Gastro-esophageal reflux disease without esophagitis) 5. DVT prophylaxis (Z29.9: Encounter for prophylactic measures, unspecified) Orders: Automated Diff Basic Metabolic Panel CBC w/ Auto Diff Ear Irrigation ED Physician consult Hospitalist for continued care eGFR Extra Blue Tube Hepatic Function Panel Troponin 0 Hr. Troponin 3 Hr. Troponin 6 Hr. Troponin 9 Hr. UA With Cult Reflex XR Chest Single View Medications Administered Given Sodium Chloride 0.9% IV Maribell 1000 mL 1,000 mL, 1000 mL, IV Sodium Chloride 0.9% IV Maribell 1000 mL 1,000 mL, 1000 mL, IV Sodium Chloride 0.9% IV Maribell 1000 mL 500 mL, 500 mL, IV albuterol 0.083% Inh Maribell 3 mL UD, 2.5 mg, Inhalation budesonide 0.5 mg/2 mL Inh Susp, 0.5 mg, NEB diphenhydrAMINE 50 mg/mL Inj, 25 mg, IV heparin 5000 units/mL Inj, 5000 unit(s), SubCutaneous meclizine 12.5 mg Tab, 25 mg, Oral Phenergan 25 mg/mL Injection, 12.5 mg, IV Push Zofran 4 mg/2 mL Injection, 4 mg, IV Push Disposition Plan Patient Discharge Condition Stable Discharge Disposition Admitted to hospital service Discharge Prescription List Prescriptions No active prescription medications Follow-up With When Contact Information IRP GOLDSMITH In 3 days 05/20/2021 EDT [address] [place] [address] Business (1) Additional Instructions: Elvis Harrison DO, YASH Within [address] to [address], [place] [address]- Additional Instructions: Patient Education Vertigo Nausea and Vomiting, Adult Labyrinthitis, [id number] Attestation This 65-year-old female presented to the emergency department with complaint of nausea vomiting and dizziness. This has been going on for several days. She was already seen at another local emergency department for the same complaint and states she has not improved. Vital signs are stable. The patient is awake and alert she is nontoxic. HEENT demonstrates no meningeal signs. The patient does have a rather prominent horizontal nystagmus. Lung sounds are clear bilaterally. Cardiac auscultation demonstrates a normal rate. The abdomen is soft and benign. All extremities are well-perfused. Neurologic examination demonstrates cranial nerves II through XII to be grossly intact. Laboratory studies are reasonably physiologic. The patient is treated with IV fluids antiemetics and continues to be symptomatic. She was admitted to the hospitalist service. Final diagnosis (more content not included)... Normal [facility] Comment on above: Result Comment: Elec tronically Signed By: Papo Quintana PA-C\.br\Date and Time Signed: 05/18/21 23:44 EDT\.br\Electronically Co-Signed By: Mihai Murguia DO\.br\Date and Time Co-Signed: 05/23/21 15:45 EDT C Urineon 05-20-2021 Bacteria identified Cx Nom (U) Microbiology PROCEDURE: Urine Culture [R1] SOURCE: U CleanCatch BODY SITE: COLLECTED DATE/TIME: 05/18/2021 20:01 EDT RECEIVED DATE/TIME: 05/18/2021 20:51 EDT START DATE/TIME: 05/18/2021 20:51 EDT FREE TEXT SOURCE: Papo Quintana PA-C, PA-C, Papo FINAL REPORTS Final Report [] Verified Date/Time: 05/20/2021 12:18 EDT 1,000 cfu/ml Mixed skin contaminants Performing Locations R1: This test was performed at: [facility], [address] [place] [address], [id number]- , [place], [facility] Comment on above: Performed By: #### 2 [id number] ####[facility] [id number] [place] [address] BMPon 05-19-2021 Anion gap [Moles/Vol] 10 mmol/L Normal 6-16 [facility] Comment on above: Performed By: #### 1 [id number] #### [facility] [address] [place] [address] Calcium [Mass/Vol] 8.2 mg/dL Low 8.9-11.1 [facility] Comment on above: Performed By: #### 1 [id number] #### [facility] [address] [place] [address] Chloride [Moles/Vol] 111 mmol/L Normal 101-111 [facility] Comment on above: Performed By: #### 1 [id number] #### [facility] [address] [place] [address] CO2 [Moles/Vol] 23 mmol/L Normal 21-31 [facility] Comment on above: Performed By: #### 1 [id number] #### [facility] [address] [place] [address] Creatinine [Mass/Vol] 0.8 mg/dL Normal 0.5-1.3 [facility] Comment on above: Performed By: #### 1 [id number] #### [facility] [address] [place] [address] Glucose [Mass/Vol] 90 mg/dL Normal 55-199 [facility] Comment on above: Result Comment: If t his glucose result represents a fasting glucose, interpretation should refer to the following reference range: 55-99 mg/dL Performed By: #### 1 [id number] #### [facility] [address] [place] [address] Potassium [Moles/Vol] 3.3 mmol/L Low 3.5-5.3 [facility] Comment on above: Performed By: #### 1 [id number] #### [facility] [address] [place] [address] Sodium [Moles/Vol] 141 mmol/L Normal 135-145 [facility] Comment on above: Performed By: #### 1 [id number] #### [facility] [address] [place] [address] Urea nitrogen [Mass/Vol] 14 mg/dL Normal 5-21 [facility] Comment on above: Performed By: #### 1 [id number] #### [facility] [address] [place] [address] Urea nitrogen/Creatinine [Mass ratio] 18 No Units Normal 07-22 [facility] Comment on above: Performed By: #### 1 [id number] #### [facility] [address] [place] [address] Discharge Instructionson Discharge Instructions [id number]# 1.00CD:127 Normal [facility] Inpatient Clinical Summaryon 05-19-2021 Inpatient Clinical Summary [address] [address] Clinical Summary Person Information: Name: MOE BRUCE Age: 65 Years : 1955 Sex: Female PCP: RIP GOLDSMITH MD Marital Status: Race: White Ethnicity: Non- or Language: Ukrainian Visit Id: Visit Reason: Vomiting; Nausea; Dizziness; LABYRINTHITIS OF RT EAR, VERTIGO, INTRACTABAE VOMITING Speciality: Acuity: Enc Type: Observation Med Service: Medical Arrival: 05/17/2021 10:05:10 Discharge: Dispo Type: Admitted as IP to this [facility] Address: [address] [place] [phone] Provider Notes: Diagnosis: 1:Vertigo; 2:Nausea & vomiting; 3:Asthma; 4:Chronic GERD; 5:DVT prophylaxis Problems No Problems Documented Smoking Status: Never Smoker Functional Status: Sensory Deficits: History of Falls: Mobility Assistance Prior to Admission: Partial assistance ADLs: Minimal assistance Current Level of Assistance for Self-Care/Mobility: Cognitive Status: Oriented x 3 Allergies No Known Medication Allergies shellfish (Unknown) Chicken (Unknown) Potatoes (Unknown) Measurements: Height: 163 cm Weight: 75.8 kg Blood Pressure: 135 mmHg / 80 mmHg BMI: 28.23 kg/m2 Procedures Knee replacement Immunizations No Immunizations Documented This Visit Final Med List: budesonide-formoterol (Symbicort 160/4.5 inhalation aerosol with adapter) 2 Puffs Inhalation 2 times a day. lansoprazole (Prevacid) By Mouth. meclizine (meclizine 25 mg oral tablet, chewable) 1 Tablets Chewed 3 times a day as needed for dizziness. Refills: 0. montelukast (montelukast 10 mg Tab) ondansetron (Zofran ODT 4 mg Tab-Dis) 1 Tablets By Mouth 3 times a day. Refills: 0. Care Team Members: Attending Physician: PATT REDD, Michele Consulting Physician: John Paul REDD, Aquilino Referring Physician: Follow up: With: Address: When: Elvis Harrison DO, [place] [address] 06/15/2021 9:00 AM With: Address: When: RIP GOLDSMITH [address] [place] [phone] Business (1) 05/21/2021 1:40 PM Patient Education Information: Vertigo; Nausea and Vomiting, Adult; Labyrinthitis, Iilx-ae-Vvic Normal [facility] Inpatient Patient Summaryon 05-19-2021 Inpatient Patient Summary [address] [address] Patient Discharge Instructions PERSON INFORMATION Name: MOE BRUCE Date of : 1955 Current Date: 05/19/2021 15:23:43 PHYSICIANS Admitting Physician: Michele BELTRE MD Primary Care Physician: RIP GOLDSMITH MD PCP Comment: Discharge Diagnosis: 1:Vertigo; 2:Nausea & vomiting; 3:Asthma; 4:Chronic GERD; 5:DVT prophylaxis Condition at Discharge: Improved MOE BRUCE has been given the following list of follow-up instructions, prescriptions, and patient education materials: PATIENT FOLLOW-UP INFORMATION Diet: Discharge Activity: Discharge Restrictions: Wound Care Instructions: Remove Your Dressing In Days Call Your Doctor For: IF UNABLE TO CONTACT YOUR PHYSICIAN AND YOU FEEL IT IS AN EMERGENCY, GO TO THE NEAREST EMERGENCY ROOM OR CALL 911 Home Treatment: Devices/Equipment: Nebulizer Special Services: Additional Instructions: Primary Care Physician to provide the following pending test results: Urine culture, Other: Follow-up neurologist as outpatient Follow up: With: Address: When: Elvis Harrison DO, [address] [place] [address] 06/15/2021 9:00 AM With: Address: When: RIP GOLDSMITH [address] [place] [address] [place] [phone] Business (1) 05/21/2021 1:40 PM In the event that this physician does not participate in your insurance network, please consult with your insurance company to find a nearby participating provider. Comment: ICAITY SUSAN H, have received the attached patient education materials/instruction s and have verbalized understanding: Patient Signature Date Clinican/Nurse Signature Date HERE ARE THE MEDICATION CHANGES THAT OCCURRED DURING YOUR HOSPITAL STAY New Medications [id number], [address] [facility] [place], [place] [id number], [phone] meclizine (meclizine 25 mg oral tablet, chewable) 1 Tablets Chewed 3 times a day as needed for dizziness. Refills: 0. Last Dose: ____Next Dose: ____ Medications to Continue with No Changes Printed Prescriptions ondansetron (Zofran ODT 4 mg Tab-Dis) 1 Tablets By Mouth 3 times a day. Refills: 0. Last Dose: ____Next Dose: ____ Other Medications budesonide-formoterol (Symbicort 160/4.5 inhalation aerosol with adapter) 2 Puffs Inhalation 2 times a day. Last Dose: ____Next Dose: ____ lansoprazole (Prevacid) By Mouth. Last Dose: ____Next Dose: ____ montelukast (montelukast 10 mg Tab) Last Dose: ____Next Dose: ____ Comment: MEDICATION LIST PROVIDED FOR YOU IS A LIST OF YOUR CURRENT MEDICATIONS. PLEASE CARRY THIS WITH YOU AT ALL TIMES. budesonide-formoterol (Symbicort 160/4.5 inhalation aerosol with adapter) 2 Puffs Inhalation 2 times a day. lansoprazole (Prevacid) By Mouth. meclizine (meclizine 25 mg oral tablet, chewable) 1 Tablets Chewed 3 times a day as needed for dizziness. Refills: 0. montelukast (montelukast 10 mg Tab) ondansetron (Zofran ODT 4 mg Tab-Dis) 1 Tablets By Mouth 3 times a day. Refills: 0. Pharmacy Information: [facility] Comment: PATIENT EDUCATION INFORMATION Instructions: Vertigo Vertigo is the feeling that you or your surroundings are moving when they are not. This feeling can come and go at any time. Vertigo often goes away on its own. Vertigo can be dangerous if it occurs while you are doing something that could endanger you or others, such as driving or operating machinery. Your health care provider will do tests to determine the cause of your vertigo. Tests will also help your health care provider decide how best to treat your condition. Follow these instructions at home: Eating and drinking ? Drink enough fluid to keep your urine pale yellow. ? Do not drink alcohol. Activity ? Return to your normal activities as told by your health care provider. Ask your health care provider what activities are safe for you. ? In the morning, first sit up on the side of the bed. When you feel okay, stand slowly while you hold onto something until you know that your balance is fine. ? Move slowly. Avoid sudden body or head movements or certain positions, as told by your health care provider. ? If you have trouble walking or keeping your balance, try using a cane for stability. If you feel dizzy or unstable, sit down right away. ? Avoid doing any tasks that would cause danger to you or others if vertigo occurs. ? Avoid bending down if you feel dizzy. Place items in your home so that they are easy for you to reach (more content not included)... [facility] Interdisciplinary Note - Dirk e Manageron 05-19-2021 Interdisciplinary Note - Warehouse Shipping Supervisor Pt is awake and alert in bed, previously rounded with Dr. Moralez . PCP verified and insurance information reviewed DME discussed. Contact information provided and white board updated. Pt reports she is feeling better today, has not yet tried to get out ob bed. Observation status reviewed. Discussed Pt evals from yesterday and FWW and HH recommendation. Pt has FWW at home and unsure if HH will be needed. States she lives at home with her luís and [facility]. Reports she is self motivated normally and declines any concerns or anticipated needs. Also discussed OPPT. Pt till discuss HH and OPPT with luís and update CRM later in day. Aware of possible DC today. crm returned to room. Pt has worked with therapy and has decided to [facility]. [facility], referral to resource center. Nursing updated. [facility] Comment on above: Result Comment: Elec tronically Signed By: Salty GARCIA, Tereza\.felice\Date and Time Signed: 05/19/21 12:03 EDT Monitor Recordon 05-19-2021 Monitor Record [id number]# 1.00CD:127 [facility] Monitor Record [id number]# 1.00CD:127 [facility] Progress Note-Physicianon Progress Note-Physician Basic Information 65-year-old female with past medical history of asthma, chronic GERD who presented to the ER with dizziness nausea vomiting. The patient had the same presentation a few days ago to [facility] and was discharged home from the ED. The patient states that her symptoms started 3 days ago, never had similar episode before, The patient stated that she had this sinusitis, headache, 3 days ago, fullness sensation in both ears. No loss of consciousness, no fall, No fever no chills, No abdominal pain no urinary symptoms no change in bowel habits The patient finished course of antibiotics ( ? Doxycycline last week) She will be admitted under hospitalist service and who I was asked to see in neurological consultation for dizzness. [1] For me, she says that her second day was worse than the first in terms of vertigo. She still notices that when she sits up she can get room spinning vertigo. She has only been up once this morning around 530. Is able to ambulate without significant difficulty. She noticed diplopia when looking rightward during part of our encounter. Her ears feel full, her voice sounds congested, and she can get a whooshing or pulsatile sound in her left ear. She does not have any ear pain. Her hearing seems to be somewhat muffled. She has a mild cough [1] Assessment/Plan Room spinning vertigo, positional, and best elicited when she sits up from a reclined/supine position. Ongoing for 3+ days now. Patient states his symptoms are similar to yesterday. She is having sinus congestion, muffled hearing, mild cough related to postnasal drainage, Patient may have a component of vestibulitis or labyrinthitis contributing to her symptoms PLAN: MRI brain without contrast is negative and does not reveal evidence of an intracranial process If the patient's symptoms do not improve I recommend a CT angiogram head and neck to assess for any intracranial or extracranial cerebral artery stenosis which may be contributing to the patient's symptoms Vestibular physical therapy Patient can follow-up in the adult outpatient neurology clinic I discussed the case with the hospitalist 1. Vertigo (R42: Dizziness and giddiness) 2. Nausea & vomiting (R11.2: Nausea with vomiting, unspecified) 3. Asthma (J45.909: Unspecified asthma, uncomplicated) 4. Chronic GERD (K21.9: Gastro-esophageal reflux disease without esophagitis) 5. DVT prophylaxis (Z29.9: Encounter for prophylactic measures, unspecified) [2] 1. Dizziness and giddiness, (R42: Dizziness and giddiness)Vertigo 2. Nausea & vomiting, (R11.2: Nausea with vomiting, unspecified)Nausea with vomiting, unspecified 3. Asthma, (J45.909: Unspecified asthma, uncomplicated)Unspeci fied asthma, uncomplicated 4. Chronic GERD, (K21.9: Gastro-esophageal reflux disease without esophagitis)Gastro-es ophageal reflux disease without esophagitis 5. DVT prophylaxis, (Z29.9: Encounter for prophylactic measures, unspecified)Encounter for prophylactic measures, unspecified Subjective Review of Systems Constitutional: no fever, no chills, no sweats, no weakness Respiratory: no shortness of breath, mild cough, no orthopnea, no wheezing Cardiovascular: no chest pain, no palpitations, no edema Additional ROS info: Except as noted in the above Review of Systems and in the History of Present Illness all other systems have been reviewed and are negative or noncontributory. [3] Objective Vitals & Measurements T: 36.6 ?C (Oral) TMIN: 36.4 ?C (Oral) TMAX: 36.6 ?C (Oral) HR: 68(Monitored) RR: 16 BP: 112/70 SpO2: 96% WT: 75.8 kg Intake & Output This visit (24 hour periods starting at 07:00 EDT) 05/19/21 * 05/18/21 05/17/21 Total Summary Intake mL -- 731.08 3 Output mL -- 350 -- Fluid Balance -- 381.08 3 Intake (4) Sodium Chloride 0.9% intravenous solution 1,000 mL mL -- 731.08 -- diphenhydrAMINE mL -- -- 0.5 ondansetron mL -- -- 2 promethazine mL -- -- 0.5 Total -- 731.08 3 Output (1) Urine Voided mL -- 350 -- Total -- 350 -- Counts (0) * This column has not completed the indicated time period. Physical Exam MS: Affect is normal. Patient is alert and generally oriented. Normal attention. LANG: Speech is fluent and non-dysarthric. EYES: Pupils appear equal and are reactive. Ocular motility is full. Mild fast phase right beating horizontal nystagmus with right lateral gaze. Brain-Hallpike negative. Diplopia when looking laterally to the right but gaze still appears conjugate. Ocular motility seems full. CN: Facial sensation normal. Hearing acuity normal. Face without droop and with normal motor function. MOTOR: Muscle bulk normal. Muscle tone normal. Muscle strength normal. No tremors. REFLEXES: Reflexes hypoactive throughout. No pathologic reflexes. SENSORY: Light touch normal. Pinprick normal. CEREBELLAR: No limb dysmetria with qiynms-ooxr-svhocw or heel-alexis. [4] Lab Results Glucose Lvl: 90 mg/ (more content not included)... Normal [facility] Comment on above: Result Comment: Elec tronically Signed By: Nichelle Zhao RN\.br\Date and Time Signed: 05/19/21 09:00 EDT\.br\Electronically Co-Signed By: Aquilino Coker MD\.br\Date and Time Co-Signed: 05/19/21 09:49 EDT Transfer Documentson 021 Transfer Documents [id number]# 1.00CD:127 Normal [facility] eGFRon 05-19-2021 GFR/1.73 sq M.predicted among blacks MDRD (S/P/Bld) [Vol rate/Area] mL/min/{1.73_m2} Normal >=59 [facility] Comment on above: Order Comment: pt on floor, in room 302. Result Comment: eGFR is race adjusted. AA=. Performed By: #### 1 [id number] #### [facility] [address] [place] [address] GFR/1.73 sq M.predicted among non-blacks MDRD (S/P/Bld) [Vol rate/Area] mL/min/{1.73_m2} Normal >=59 [facility] Comment on above: Order Comment: pt on floor, in room 302. Result Comment: Drafter (Cad) Electrical keri kidney disease could be indicated at eGFR's of less than 60 mL/min/1.73m2. Kidney failure is indicated at less than 15 mL/min/1.73m2. Performed By: #### 1 [id number] #### [facility] [address] [place] [address] Interdisciplinary Note - Dirk e Manageron 05-18-2021 Interdisciplinary Note - Warehouse Shipping Supervisor CRM spoke with patient in room. Patient is alert and oriented and participates in discharge planning. No family in room. Patient white board updated, and CRM contact information provided. Discussed CRM spoke with Dr Moralez who saw patient earlier today as well as neurology. Will get MRI today and possible discharge later today or tomorrow. Patient verified PCP, insurance and DME. Patient lives with fiance and denies any needs at discharge. Will wait PT eval. reviewed VIGIL form and she denies any questions and signs form. Normal [facility] Comment on above: Result Comment: Elec tronically Signed By: Prasanna GARCIA, Consuelo\.br\Date and Time Signed: 05/18/21 09:33 EDT MRI Brain w/o Contraston MRI Brain w/o Contrast Exam Date/Time: 05/18/2021 14:03 EDT Reason for Exam: Other (please specify) Report IMPRESSION: NO EVIDENCE OF ACUTE/RECENT CEREBRAL INFARCTION. CLINICAL HISTORY: Dizziness. Headaches. COMMENT: Images were obtained without intravenous contrast. The ventricles and basal cisterns and cortical sulci are within normal limits. There is no mass effect nor midline shift. On T2-weighted and FLAIR images, there is a relatively small focal area of increased signal intensity involving subcortical white matter at the left frontoparietal junction, with a mildly prominent medullary vein extending to this area. The findings suggest signal intensity changes associated with a small developmental venous anomaly. On T2-weighted and FLAIR images, there are multiple small focal areas of increased signal intensity involving cerebral white matter, mainly subcortical, with the findings nonspecific, but suggesting small vessel ischemic changes. There is no evidence of recent infarction on the diffusion weighted images. There is no evidence of brain hemorrhage nor extra-axial hematoma. No mass lesion is evident. FINAL REPORT Dictated: 05/18/2021 3:28 pm Mahesh Martell M.D. Signed (Electronic Signature): 05/18/2021 3:28 pm Signed by: Mahesh Martell M.D. Transcribed by: SOFIYA Technologist: BONNIE Technical Comments None Normal [facility] Message from Medicareon 05-03 Message from Medicare [id number]# 1.00CD:127 Normal [facility] Monitor Recordon 05-18-2021 Monitor Record [id number]# 1.00CD:127 Normal [facility] Progress Note-Physicianon Progress Note-Physician Assessment/Plan 1. Vertigo (R42: Dizziness and giddiness) Dizziness better than yesterday, symptoms increased on movement Likely peripheral vestibular etiology Meclizine Neurology consult, discussed in the morning MRI results PT Ordered: meclizine, 25 mg = 2 tab(s), Tab, Oral, q8hr, Routine, Start date 05/18/21 21:00:00 EDT, 05/18/21 20:25:00 EDT 2. Nausea & vomiting (R11.2: Nausea with vomiting, unspecified) Resolved 3. Asthma (J45.909: Unspecified asthma, uncomplicated) Not in acute exacerbation continue nebulizer 4. Chronic GERD (K21.9: Gastro-esophageal reflux disease without esophagitis) EDGAR 5. DVT prophylaxis (Z29.9: Encounter for prophylactic measures, unspecified) Heparin subcu Orders: Physical Therapy Additional Tx Physical Therapy Evaluate Patient, Develop a Plan of Care and Implement Plan This report was transcribed using voice recognition software , Every effort was made to ensure accuracy , however, inadvertently computerized marketing operations manager mistakes may be present . Subjective The patient was laying on bed, states symptoms getting better increase movement Review of Systems Negative except as above Objective Vitals & Measurements T: 36.5 ?C (Oral) TMIN: 36.2 ?C (Oral) TMAX: 36.7 ?C (Oral) HR: 84(Monitored) RR: 16 BP: 115/71 SpO2: 96% WT: 75.9 kg Intake & Output This visit (24 hour periods starting at 07:00 EDT) 05/18/21 * 05/17/21 05/16/21 Total Summary Intake mL -- 3 -- Output mL 150 -- -- Fluid Balance -150 3 -- Intake (3) diphenhydrAMINE mL -- 0.5 -- ondansetron mL -- 2 -- promethazine mL -- 0.5 -- Total -- 3 -- Output (1) Urine Voided mL 150 -- -- Total 150 -- -- Counts (0) * This column has not completed the indicated time period. Physical Exam General: alert, no acute distress Skin: warm, dry Head: no trauma, normocephalic Neck: Trachea midline, no adenopathy, no tenderness Eye: normal conjunctiva, sclera clear ENMT: TM's clear, oral mucosa moist, no pharyngeal erythema or exudate Cardiovascular: regular rate and rhythm, normal peripheral perfusion Respiratory: Lungs CTA, respirations non labored Chest wall: no deformity. Gastrointestinal: soft, non distended, no tenderness, no guarding. Back: No tenderness, Normal ROM, Normal alignment. Extremities: no deformity, no trauma Neurological: oriented x 4, LOC appropriate for age, CN II-XII intact, motor strength equal & normal bilaterally, sensation equal & normal bilaterally, speech normal Psychiatric: cooperative, affect appropriate for age, normal judgement, normal psychiatric thoughts Lab Results UA Spec Desc: Clean Catch (05/18/21 20:01:00) UA Color: Yellow2 (05/18/21 20:01:00) UA Clarity: SL CLOUDY (05/18/21 20:01:00) UA Spec Grav: 1.020 (05/18/21 20:01:00) UA pH: 6.0 (05/18/21 20:01:00) UA Protein: NEGATIVE1 (05/18/21 20:01:00) UA Glucose: NEGATIVE1 (05/18/21 20:01:00) UA Ketones: NEGATIVE1 (05/18/21 20:01:00) UA Bili: NEGATIVE1 (05/18/21 20:01:00) UA Blood: NEGATIVE1 (05/18/21 20:01:00) UA Nitrite: NEGATIVE1 (05/18/21 20:01:00) UA Urobilinogen: 0.2 (05/18/21 20:01:00) UA Leuk Est: 2+ Abnormal (05/18/21 20:01:00) UA RBC: 0-3 (05/18/21 20:01:00) UA Squam Epithelial: 0-2 (05/18/21 20:01:00) UA WBC: 16-25 Abnormal (05/18/21 20:01:00) UA Bacteria: 1+ Abnormal (05/18/21 20:01:00) Problem List/Past Medical History Ongoing No qualifying data Historical No qualifying data Medications Inpatient acetaminophen 325 mg Tab, 650 mg= 2 tab(s), Oral, q6hr, PRN albuterol 0.083% Inh Maribell 3 mL UD, 2.5 mg= 3 mL, Inhalation, QID budesonide 0.5 mg/2 mL Inh Susp, 0.5 mg= 2 mL, NEB, BID heparin 5000 units/mL Inj, 5000 unit(s)= 1 mL, SubCutaneous, BID meclizine 12.5 mg Tab, 25 mg= 2 tab(s), Oral, q8hr NS 1000 mL Soln-IV 1,000 mL, 1000 mL, IV Pantoprazole [address] Tab, 40 mg= 1 tab(s), Oral, Daily Sodium Chloride 0.9% IV Maribell 1000 mL 1,000 mL, 1000 mL, IV Sodium Chloride 0.9% IV Maribell 1000 mL 1,000 mL, 1000 mL, IV Sodium Chloride 0.9% IV Maribell 1000 mL 500 mL, 500 mL, IV Zofran 4 mg/2 mL Injection, 4 mg= 2 mL, IV Push, q6hr, PRN Home meclizine 25 mg Tab, 25 mg= 1 tab(s), Oral, TID, PRN montelukast 10 mg Tab Prevacid, Oral Symbicort 160/4.5 inhalation aerosol with adapter, 2 puff(s), Inhalation, BID Zofran ODT 4 mg Tab-Dis, 4 mg= 1 tab(s), Oral, TID Normal [facility] Comment on above: Result Comment: Elec tronically Signed By: Kirt REDD, Edward\.br\Date and Time Signed: 05/18/21 20:32 EDT RAD - MRI Screening Formon 0 05-18-2021 RAD - MRI Screening Form [id number]# 1.00CD:127 Normal [facility] UA With Cult Reflexon 2020 Bacteria LM Ql (Urine sed) 1+ /HPF Abnormal Trace [facility] Comment on above: Performed By: #### 2 [id number], [id number] ####[facility] [address] [facility] [place] [address] Bilirubin Ql (U) Negative Normal Negative [facility] Comment on above: Performed By: #### 2 788023, [id number] ####[facility] [address] [facility] [place] [address] Clarity (U) SL CLOUDY Invalid Interpretation Code [facility] Comment on above: Performed By: #### 2 035795, [id number] ####[facility] [address] [place] [address] Color (U) YELLOW Normal Yellow [facility] Comment on above: Performed By: #### 2 364509, [id number] ####[facility] [address] [facility] [place] [address] Epithelial cells.squamous LM.HPF (Urine sed) [#/Area] 0-2 Normal 0-2 [facility] Comment on above: Performed By: #### 2 233109, [id number] ####[facility] [address] [place] [address] Glucose Test strip (U) [Mass/Vol] Negative Normal Negative [facility] Comment on above: Performed By: #### 2 820030, [id number] ####[facility] [address] [facility] [place] [address] Hemoglobin Ql (U) Negative Normal Negative [facility] Comment on above: Performed By: #### 2 729318, [id number] ####[facility] [address] [facility] [place] [address] Ketones (U) [Mass/Vol] Negative Normal Negative [facility] Comment on above: Performed By: #### 2 015939, 56341789 ####[facility] [address] [facility] [place] [address] Howe.plasma/Lithiu m.RBC (Bld) [Mass ratio] 0-3 Normal 0-3 [facility] Comment on above: Performed By: #### 2 290063, [id number] ####[address] [address] Nitrite Ql (U) Negative Normal Negative [facility] Comment on above: Performed By: #### 2 089653, [id number] ####[address] [address] pH (U) 6.0 [pH] Invalid Interpretation Code 5.0-9.0 [facility] Comment on above: Performed By: #### 2 566802, [id number] ####[address] [address] Protein (U) [Mass/Vol] Negative Normal Negative [facility] Comment on above: Performed By: #### 2 880652, [id number] ####[address] [address] Specific gravity (U) [Rel density] 1.020 Invalid Interpretation Code 1.005-1.030 [facility] Comment on above: Performed By: #### 2 707545, [id number] ####[address] [address] Type of Urine collection method Clean Catch Normal [facility] Comment on above: Performed By: #### 2 040337, [id number] ####[address] [address] Urobilinogen Qn (U) 0.2 {Jenaro'U}/dL Normal 0.0-1.0 [facility] Comment on above: Performed By: #### 2 201595, 07976712 ####[address] [address] WBC Auto Ql (U) 2+ Abnormal Negative [facility] Comment on above: Performed By: #### 2 222852, [id number] ####[address] [address] WBC LM.HPF (Urine sed) [#/Area] 16-25 Abnormal 0-5 [facility] Comment on above: Performed By: #### 2 238568, [id number] ####[address] [place] [address] Auto Diffon 05-17-2021 Basophils/100 WBC (Bld) 0.5 % Normal 0.0-2.0 [facility] Comment on above: Order Comment: Order Added by Discern Expert. Performed By: #### 1 9834535, 3518168, 04428824, 8883784, 1766879, 3900276 ####[address] [address] Basophils/Leukocytes Auto (Bld) [Pure # fraction] 0.0 E9/L Normal 0.0-0.2 [facility] Comment on above: Order Comment: Order Added by Discern Expert. Performed By: #### 1 0034039, 8590478, 40241589, 7915887, 6305877, 5918529 ####[address] [address] Eosinophils/100 WBC (Bld) 1.7 % Normal 0.0-8.0 [facility] Comment on above: Order Comment: Order Added by Discern Expert. Performed By: #### 1 9513283, 4738677, 14887221, 7988398, 8653728, 0698731 ####[address] [address] Eosinophils/Leukocyte s Auto (Bld) [Pure # fraction] 0.1 E9/L Normal 0.0-0.5 [facility] Comment on above: Order Comment: Order Added by Discern Expert. Performed By: #### 1 1176770, 0090353, 57582869, 4950626, 8867293, 0273067 ####[address] [place] [address] Lymphocytes/100 WBC (Bld) 10.3 % Low 14.0-50.0 [facility] Comment on above: Order Comment: Order Added by Discern Expert. Performed By: #### 1 2030897, 9689271, 12424656, 3060868, 6155872, 9148136 ####[facility] [address] [place] [address] Lymphocytes/Leukocyte s Auto (Bld) [Pure # fraction] 0.9 E9/L Low 1.0-4.0 [facility] Comment on above: Order Comment: Order Added by Discern Expert. Performed By: #### 1 1485019, 8895786, 37857446, 1953254, 8073516, 5849209 ####[address] [address] Monocytes/100 WBC (Bld) 5.8 % Normal 4.0-14.0 [facility] Comment on above: Order Comment: Order Added by Discern Expert. Performed By: #### 1 3269289, 4775566, 80185178, 8593831, 8167608, 8990044 ####[address] [address] Monocytes/Leukocytes Auto (Bld) [Pure # fraction] 0.5 E9/L Normal 0.2-1.0 [facility] Comment on above: Order Comment: Order Added by Linus Expert. Performed By: #### 1 7879875, 9747412, 52554276, 2313170, 6052129, 0260752 ####[address] [address] Neutrophils/100 WBC (Bld) 81.7 % High 36.0-75.0 [facility] Comment on above: Order Comment: Order Added by Discern Expert. Performed By: #### 1 2103727, 7142932, 58542714, 7305973, 1617713, 4885953 ####[address] [place] [address] Neutrophils/Leukocyte s Auto (Bld) [Pure # fraction] 7.0 E9/L Normal 2.0-7.5 [facility] Comment on above: Order Comment: Order Added by Linus Expert. Performed By: #### 1 8719123, 1960008, 68970284, 9439792, 7202323, 3506956 ####[address] [place] [address] BMPon 05-17-2021 Creatinine [Mass/Vol] 0.8 mg/dL Normal 0.5-1.3 [facility] Comment on above: Performed By: #### 1 4490891 #### [facility] [address] [place] [address] Urea nitrogen [Mass/Vol] 12 mg/dL Normal 5-21 [facility] Comment on above: Performed By: #### 1 6083134 #### [facility] [address] [place] [address] Urea nitrogen/Creatinine [Mass ratio] 15 No Units Normal 10-20 [facility] Comment on above: Performed By: #### 1 5412989 #### [facility] [address] [place] [address] Anion gap [Moles/Vol] 13 mmol/L Normal 6-16 [facility] Comment on above: Performed By: #### 1 6133983 #### [facility] [address] [place] [address] Calcium [Mass/Vol] 9.1 mg/dL Normal 8.9-11.1 [facility] Comment on above: Performed By: #### 1 6485785 #### [facility] [address] [place] [address] Chloride [Moles/Vol] 100 mmol/L Low 101-111 [facility] Comment on above: Performed By: #### 1 9926309 #### [facility] [address] [place] [address] CO2 [Moles/Vol] 25 mmol/L Normal 21-31 [facility] Comment on above: Performed By: #### 1 9223347 #### [facility] [address] [place] [address] Glucose [Mass/Vol] 124 mg/dL Normal 55-199 [facility] Comment on above: Result Comment: If t his glucose result represents a fasting glucose, interpretation should refer to the following reference range: 55-99 mg/dL Performed By: #### 1 3004444 #### [facility] [address] [place] [address] Potassium [Moles/Vol] 3.7 mmol/L Normal 3.5-5.3 [facility] [place] Comment on above: Performed By: #### 1 7792324 #### [facility] [address] [place] [address] Sodium [Moles/Vol] 134 mmol/L Low 135-145 [facility] Comment on above: Performed By: #### 1 1889134 #### [facility] [address] [place] [address] CBC w/ Auto Diffon 1 Erythrocyte distribution width (RBC) [Ratio] 14.1 % Normal 10.9-14.2 [facility] Comment on above: Performed By: #### 1 6305194, 1998193, 72067930, 6173874, 0285474, 5890007 ####[facility] [address] Hematocrit (Bld) [Volume fraction] 44.6 % Normal 34.0-46.0 [facility] Comment on above: Performed By: #### 1 1185727, 3589208, 25588679, 8498018, 7551609, 5987603 ####[facility] [address] [place] [address] Hemoglobin (Bld) [Mass/Vol] 14.9 g/dL Normal 12.0-16.0 [facility] Comment on above: Performed By: #### 1 8264573, 0716508, 64479239, 6494345, 0093275, 8102078 ####[facility] [address] [place] [address] MCH (RBC) [Entitic mass] 28.5 pg Normal 27.0-34.0 [facility] Comment on above: Performed By: #### 1 0253805, 3083257, 56528737, 5230865, 3279125, 6592930 ####[facility] [address] [place] [address] MCHC (RBC) [Mass/Vol] 33.5 g/dL Normal 31.4-36.0 [facility] Comment on above: Performed By: #### 1 4725238, 5837199, 34202247, 0929494, 4588512, 6977023 ####[facility] [address] [place] [address] MCV (RBC) [Entitic vol] 85.1 fL Normal 80.0-100.0 [facility] Comment on above: Performed By: #### 1 8261783, 0534080, 57101388, 9212222, 8954594, 7041778 ####[address] [place] [address] Platelet mean volume (Bld) [Entitic vol] 9.0 fL Normal 6.4-10.8 [facility] Comment on above: Performed By: #### 1 7520471, 8783259, 18961086, 4743764, 2024283, 3190974 ####[facility] [address] [place], [place] [address] Platelets (Bld) [#/Vol] 231.0 E9/L Normal 150.0-500.0 [facility] Comment on above: Performed By: #### 1 7507348, 1439773, 56842797, 8867183, 3379059, 2930636 ####[address] RBC (Bld) [#/Vol] 5.2 E12/L Normal 4.3-5.9 [facility] Comment on above: Performed By: #### 1 1993277, 6190626, 25874366, 8563562, 9990824, 1059028 ####[address] WBC corrected for nucl RBC Auto (Bld) [#/Vol] 8.6 E9/L Normal 4.0-11.0 [facility] Comment on above: Performed By: #### 1 6356414, 6272549, 66377393, 1996263, 7116337, 9391730 ####[facility] [address] [place] [address] Capillary Glucose POCon 05-03 Glucose [Mass/Vol] 101 mg/dL High 55-99 [facility] Comment on above: Result Comment: Nicole stephens Meter Performed By: #### 1 7429645 #### [facility] [address] [place] [address] Consent for Treatmenton 05-03 Consent for Treatment [id number] 1.00CD:127 Normal [facility] ED Clinical Summaryon 2020 ED Clinical Summary [address] [address] ED Clinical Summary Person Information Name: MOE BRUCE Jordana/[facility] Age: 65 Years : 1955 Sex: Female Language: Ukrainian PCP: RIP GOLDSMITH MD Marital Status: Visit Id: Visit Reason: Vomiting; Nausea; Dizziness; NAUSEA, VOMITTING, DIZZINESS Speciality: Acuity: 3 Enc Type: Emergency Med Service: Emergency Arrival: 05/17/2021 10:05:10 Discharge: LOS: 000 06:36 Checkin: 05/17/2021 10:05:10 Checkout: 05/17/2021 16:41:08 Dispo Type: Admitted as IP to this [facility] EVENTS: Event Name Event Status Request Date/Time Start Date/Time Complete Date/Time Arrive Complete 05/17/2021 10:05:10 05/17/2021 10:05:10 05/17/2021 10:05:10 Document Home Meds Request 05/17/2021 10:05:10 Triage Complete 05/17/2021 10:05:10 05/17/2021 10:33:51 05/17/2021 10:33:51 Bed Assign Complete 05/17/2021 10:17:13 05/17/2021 10:17:13 05/17/2021 10:17:13 Dr Exam Complete 05/17/2021 10:17:13 05/17/2021 10:24:48 05/17/2021 10:24:48 RN Exam Complete 05/17/2021 10:17:13 05/17/2021 10:55:41 05/17/2021 10:55:41 EKG Complete 05/17/2021 10:18:25 05/17/2021 10:25:05 Registration Complete 05/17/2021 10:24:48 05/17/2021 10:53:12 05/17/2021 10:53:12 Meds Admin Request 05/17/2021 10:46:51 Pending Labs Request 05/17/2021 10:46:51 Lab Request 05/17/2021 10:46:51 Urine Collect Request 05/17/2021 10:46:51 X-Ray Complete 05/17/2021 10:46:51 05/17/2021 11:05:00 05/17/2021 11:17:08 Reg Complete Request 05/17/2021 10:53:12 Reg Bed Request Complete 05/17/2021 10:53:12 05/17/2021 10:53:12 05/17/2021 10:53:12 Pending Labs Complete 05/17/2021 10:55:04 05/17/2021 10:55:04 05/17/2021 10:55:04 Pending Labs Complete 05/17/2021 10:57:43 05/17/2021 10:57:43 05/17/2021 11:19:53 Lab Complete 05/17/2021 10:57:43 05/17/2021 10:57:43 05/17/2021 11:19:53 Pending Labs Complete 05/17/2021 11:02:52 05/17/2021 11:02:52 05/17/2021 11:02:58 Lab Complete 05/17/2021 11:02:52 05/17/2021 11:02:52 05/17/2021 11:02:58 Wet Read Request 05/17/2021 11:17:08 Meds Admin Complete 05/17/2021 11:19:32 05/17/2021 11:25:15 Meds Admin Request 05/17/2021 11:24:39 Meds Admin Complete 05/17/2021 11:56:17 05/17/2021 12:17:50 Patient Care Complete 05/17/2021 11:56:17 05/17/2021 14:12:28 Dr Exam Complete 05/17/2021 12:35:30 05/17/2021 12:35:30 05/17/2021 12:35:30 Registration Complete 05/17/2021 12:35:30 05/17/2021 14:14:14 05/17/2021 14:14:14 Discharge Cancel 05/17/2021 13:45:55 05/17/2021 13:55:13 Consult Request 05/17/2021 14:06:01 Hospitalist Consult Request 05/17/2021 14:06:08 Meds Admin Request 05/17/2021 14:06:08 Pending Labs Complete 05/17/2021 15:22:20 05/17/2021 15:22:20 05/17/2021 15:22:20 Patient Care Request 05/17/2021 16:40:03 Inpatient Bed Ready Complete 05/17/2021 16:41:08 05/17/2021 16:41:08 05/17/2021 16:41:08 ADDRESS: [facility] [id number] PHYS DOC NOTES: MEDICAL INFORMATION: Prescriptions Given: New Medications Printed Prescriptions meclizine (meclizine 25 mg Tab) 1 Tablets By Mouth 3 times a day as needed for dizziness. Refills: 0. ondansetron (Zofran ODT 4 mg Tab-Dis) 1 Tablets By Mouth 3 times a day. Refills: 0. PATIENT EDUCATION INFORMATION: Instructions: Vertigo; Nausea and Vomiting, Adult; Labyrinthitis, Rnqn-vo-Jfwz Follow up: With: Address: When: RIP GOLDSMITH [address] [place], [place] [id number] Business (1) In 3 days 05/20/2021 DIAGNOSIS: 1:Intractable vomiting; 2:Labyrinthitis of right ear; 3:Vertigo Normal [facility] ED Patient Education Noteon 05-17-2021 ED Patient Education Note ENT Vertigo Vertigo is the feeling that you or your surroundings are moving when they are not. This feeling can come and go at any time. Vertigo often goes away on its own. Vertigo can be dangerous if it occurs while you are doing something that could endanger you or others, such as driving or operating machinery. Your health care provider will do tests to determine the cause of your vertigo. Tests will also help your health care provider decide how best to treat your condition. Follow these instructions at home: Eating and drinking ? Drink enough fluid to keep your urine pale yellow. ? Do not drink alcohol. Activity ? Return to your normal activities as told by your health care provider. Ask your health care provider what activities are safe for you. ? In the morning, first sit up on the side of the bed. When you feel okay, stand slowly while you hold onto something until you know that your balance is fine. ? Move slowly. Avoid sudden body or head movements or certain positions, as told by your health care provider. ? If you have trouble walking or keeping your balance, try using a cane for stability. If you feel dizzy or unstable, sit down right away. ? Avoid doing any tasks that would cause danger to you or others if vertigo occurs. ? Avoid bending down if you feel dizzy. Place items in your home so that they are easy for you to reach without leaning over. ? Do not drive or use heavy machinery if you feel dizzy. General instructions ? Take mbws-xiw-yzytaqi and prescription medicines only as told by your health care provider. ? Keep all follow-up visits as told by your health care provider. This is important. Contact a health care provider if: ? Your medicines do not relieve your vertigo or they make it worse. ? You have a fever. ? Your condition gets worse or you develop new symptoms. ? Your family or friends notice any behavioral changes. ? Your nausea or vomiting gets worse. ? You have numbness or a prickling and tingling sensation in part of your body. Get help right away if you: ? Have difficulty moving or speaking. ? Are always dizzy. ? Faint. ? Develop severe headaches. ? Have weakness in your hands, arms, or legs. ? Have changes in your hearing or vision. ? Develop a stiff neck. ? Develop sensitivity to light. Summary ? Vertigo is the feeling that you or your surroundings are moving when they are not. ? Your health care provider will do tests to determine the cause of your vertigo. ? Follow instructions for home care. You may be told to avoid certain tasks, positions, or movements. ? Contact a health care provider if your medicines do not relieve your symptoms, or if you have a fever, nausea, vomiting, or changes in behavior. ? Get help right away if you have severe headaches or difficulty speaking, or you develop hearing or vision problems. This information is not intended to replace advice given to you by your health care provider. Make sure you discuss any questions you have with your health care provider. Document Released: 06/29/2006 Document Revised: 08/13/2019 Document Reviewed: 08/13/2019 Emergency [employer] Patient Education ? 2020 [employer] Labyrinthitis Labyrinthitis is an infection of the inner ear. Your inner ear is made up of tubes and canals (labyrinth). These are filled with fluid. There are nerve cells in your inner ear that send hearing and balance signals to your brain. When germs get inside the tubes and canals, they harm the nerve cells that send signals to the brain. This condition is often caused by a virus. You may have: ? Dizziness. ? Ringing in the ears. ? Loss of hearing. ? Loss of balance. ? Stomach upset. ? Throwing up. Follow these instructions at home: Medicines ? Take umwj-pbw-vxkcvgc and prescription medicines only as told by your doctor. ? If you were given an antibiotic medicine, take it as told by your doctor. Do not stop taking the antibiotic even if you start to feel better. Activity ? Rest as told by your doctor. ? Limit the things you do as told. Ask your doctor what is safe for you to do. ? Do not make any sudden movements until you no longer feel dizzy. ? Do physical therapy as told by your doctor. General instructions ? Avoid loud noises and bright lights. ? Do not drive until your doctor says that it is safe for you. ? Drink enough fluid to keep your pee (urine) pale yellow. ? Keep all follow-up visits as told by your doctor. This is important. Contact a doctor if: ? Your symptoms do not get better. ? You do not get better after two weeks. ? You have a fever. Get help right away if: ? You are very dizzy. ? You keep throwing up. ? You keep feeling sick to your stomach. ? Your hearing gets much worse all of a sudden. Summary ? Labyrinthitis is an infection of the i (more content not included)... Normal [facility] ED Patient Summaryon 021 ED Patient Summary [address] [address] Patient Discharge Instructions Person Information Name: MOE BRUCE Age: 65 Years Arrival Date: 05/17/2021 10:05:10 Discharge Diagnosis: 1:Intractable vomiting; 2:Labyrinthitis of right ear; 3:Vertigo Primary Care Physician: RIP GOLDSMITH MD Provider Information Primary Provider: Mihai Murguia DO Advanced Stoker Erector:Papo Quintana PA-C The exam and treatment you received in the Emergency Department were for an urgent problem and are not intended as complete care. It is important that you follow up with a doctor, nurse practitioner, or physician?s bookkeeping assistant for ongoing care. If your symptoms become worse or you do not improve as expected and you are unable to reach your usual health care provider, you should return to the Emergency Department. We are available 24 hours a day. MOE BRUCE has been given the following list of patient education materials, prescriptions and follow-up instructions: Follow-up Instructions: With: Address: When: RIP GOLDSMITH [address] [place] [id number] [facility] (1) In 3 days 05/20/2021 In the event that this physician does not participate in your insurance network, please consult with your insurance company to find a nearby participating provider. Patient Education Materials: Vertigo; Nausea and Vomiting, Adult; Labyrinthitis, Yyad-hx-Yjjr A MESSAGE TO ALL PATIENTS REGARDING OPIOIDS PRESCRIPTION OPIOIDS: WHAT YOU NEED TO KNOW Prescription opioids can be used to help relieve fkdfhjoz-yi-isxfmw pain and are often prescribed following a surgery or injury, or for certain health conditions. These medications can be an important part of the treatment but also come with serious risks. It is important to work with your healthcare provider to make sure you are getting the safest, most effective care. WHAT ARE THE RISKS AND SIDE EFFECTS OF OPIOID USE? Prescription opioids carry serious risks of addiction and overdose, especially with prolonged use. An opioid overdose, often marked by slowed breathing, can cause sudden . The use of prescription opioids can have a number of side effects as well, even when taken as directed: ? Tolerance?meaning you might need to take more of the medication for the same pain relief ? Physical dependence?meaning you have symptoms of withdrawal when a medication is stopped ? Increased sensitivity to pain ? Constipation ? Nausea, vomiting, and dry mouth ? Sleepiness and dizziness ? Confusion ? Depression ? Low levels of testosterone that can result in lower sex drive, energy, and strength ? Itching and sweating RISKS ARE GREATER WITH: ? History of drug misuse, substance use disorder, or overdose ? Mental health conditions (such as depression or anxiety) ? Sleep apnea ? Older age (65 years and older) ? Avoid alcohol while taking prescription opioids. Also, unless specifically advised by your health care provider, medications to avoid include: ? Benzodiazepines (such as Xanax or Valium) ? Muscle relaxants (such as Soma or Flexeril) ? Hypnotics (such as Ambien or Lunesta) ? Other prescription opioids KNOW YOUR OPTIONS Talk to your health care provider about ways to manage your pain that don?t involve prescription opioids. Some of these options may actually work better and have fewer risks and side effects. Options may include: ? Pain relievers such as acetaminophen, ibuprofen, and naproxen ? Some medication that are also used for depression or seizures ? Physical therapy and exercise ? Cognitive behavioral therapy, a psychological, goal-directed approach, in which patients learn how to modify physical, behavioral, and emotional triggers of pain and stress. IF YOU ARE PRESCRIBED OPIOIDS FOR PAIN: ? Never take opioids in greater amounts or more often than prescribed. ? Follow up with your primary health care provider. o Work together to create a plan on how to manage your pain. o Talk about ways to help manage your pain that don?t involve prescription opioids. o Talk about any and all concerns and side effects. ? Help prevent misuse and abuse o Never sell or share prescription opioids. o Never use another person?s prescription opioids. ? Store prescription opioids in a secure place and out of reach of others (this may include visitors, children, friends, and family). ? Safely dispose of unused prescription opioids: Find your community drug take-back program or your pharmacy mail-back program, or flush them down the toilet, following guidance from the Food and Drug Administration (www.fda.gov/Drugs/Re sourcesForYou). ? Visit www.cdc.gov/drugoverd ose to learn about the risks of opioids abuse and overdose. ? If you believe you may be struggling with addiction, tell your health care professi (more content not included)... Normal [facility] Hep Func Panelon 05-17-2021 Bilirubin.indirect [Mass or moles/Vol] UTC Abnormal 0.1-0.9 [facility] Comment on above: Result Comment: Resu lt verified by Discern [employer]. Performed result UTC (Unable to Calculate) was sent as an Alpha code due the inability to calculate a valid numeric value. Performed By: #### 1 [id number] #### [facility] [address] [place] [address] Albumin [Mass/Vol] 3.8 g/dL Normal 3.3-5.0 [facility] Comment on above: Performed By: #### 1 [id number] #### [facility] [address] [place] [address] Albumin/Globulin (S) [Mass conc ratio] 1.0 Low 1.1-2.2 [facility] Comment on above: Performed By: #### 1 [id number] #### [facility] [address] [place] [address] ALP [Catalytic activity/Vol] 96 Int._Unit/L Normal 21-98 [facility] Comment on above: Performed By: #### 1 [id number] #### [facility] [address] [place] [address] ALT No additional P-5'-P [Catalytic activity/Vol] 19 Int._Unit/L Normal 6-46 [facility] Comment on above: Performed By: #### 1 [id number] #### [facility] [address] [place] [address] AST [Catalytic activity/Vol] 21 Int._Unit/L Normal 5-43 [facility] Comment on above: Performed By: #### 1 [id number] #### [facility] [address] [place] [address] Bilirubin [Mass/Vol] 0.6 mg/dL Normal 0.0-1.1 [facility] Comment on above: Performed By: #### 1 [id number] #### [facility] [address] [place] [address] Bilirubin.direct [Mass/Vol] mg/dL Normal 0.1-0.4 [facility] Comment on above: Performed By: #### 1 [id number] #### [facility] [address] [place] [address] Globulin (S) [Mass/Vol] 3.7 g/dL Normal 1.4-4.0 [facility] Comment on above: Performed By: #### 1 [id number] #### [facility] [address] [place] [address] Protein [Mass/Vol] 7.5 g/dL Normal 6.0-7.8 [facility] Comment on above: Performed By: #### 1 [id number] #### [facility] [address] [place] [address] Outside Recordson 05-17-2021 Outside Records [id number] 1.00CD:127 Normal [facility] Progress Note-Nurseon 2020 Progress Note-Nurse pt. ambulated to the restroom, pt. states I feel unsteady. Pt. threw up in the bathroom, Dr. Murguia and Mariano FINLEY made aware. Normal [facility] Progress Note-Nurse Per Mariano FINLEY, urine not needed at this time. Normal [facility] Progress Note-Nurse Pt. states her nausea and headache feel better. Normal [facility] Troponin 0 Hr.on 05-17-2021 Troponin I.cardiac [Mass/Vol] 2.60 pg/mL Low 10.10-27.10 [facility] Comment on above: Result Comment: The 95% CI (Confidence Interval) PPV (Positive Predictive Value) for myocardial infarction in females is 38 pg/mL, in males 51 pg/mL. The results should be used in conjunction with clinical conditions of myocardial infarction. (Access High Sensitivity Troponin I Instructions For Use, Vimty, May 2018) Performed By: #### 1 [id number] #### [facility] [address] [place] [address] Troponin 3 Hr.on 05-17-2021 Troponin I.cardiac [Mass/Vol] 2.40 pg/mL Low 10.10-27.10 [facility] Comment on above: Result Comment: The 95% CI (Confidence Interval) PPV (Positive Predictive Value) for myocardial infarction in females is 38 pg/mL, in males 51 pg/mL. The results should be used in conjunction with clinical conditions of myocardial infarction. (Access High Sensitivity Troponin I Instructions For Use, VimtyMay 2018) Performed By: #### 1 [id number] ####[facility] [address] [place] [address] Troponin 6 Hr.on 05-17-2021 Troponin I.cardiac [Mass/Vol] 3.10 pg/mL Low 10.10-27.10 [facility] Comment on above: Order Comment: pt on floor, in room 302. Result Comment: The 95% CI (Confidence Interval) PPV (Positive Predictive Value) for myocardial infarction in females is 38 pg/mL, in males 51 pg/mL. The results should be used in conjunction with clinical conditions of myocardial infarction. (Access High Sensitivity Troponin I Instructions For Use, VimtyMay 2018) Performed By: #### 1 [id number] #### [facility] [address] [place] [address] Troponin 9 Hr.on 05-17-2021 Troponin I.cardiac [Mass/Vol] 3.40 pg/mL Low 10.10-27.10 [facility] Comment on above: Result Comment: The 95% CI (Confidence Interval) PPV (Positive Predictive Value) for myocardial infarction in females is 38 pg/mL, in males 51 pg/mL. The results should be used in conjunction with clinical conditions of myocardial infarction. (Access High Sensitivity Troponin I Instructions For Use, Vimty, May 2018) Performed By: #### 1 [id number] ####[facility] [address] [place] [address] XR Chest Single Viewon 05-17 XR Chest Single View Exam Date/Time: 05/17/2021 11:17 EDT Reason for Exam: Shortness of breath (SOB) Report IMPRESSION: No acute radiographic abnormality. EXAMINATION: XR Chest Single View Clinical History: Shortness of breath (SOB). Comparison: None RESULT: No consolidation. No pleural effusion. No pneumothorax. Normal pulmonary vascular pattern. Normal cardiomediastinal silhouette. No acute osseous findings. FINAL REPORT Dictated: 05/17/2021 11:32 am King Oconnor MD Signed (Electronic Signature): 05/17/2021 11:32 am Signed by: King Oconnor MD Transcribed by: SOFIYA Technologist: AO Normal [facility] eGFRon 05-17-2021 GFR/1.73 sq M.predicted among blacks MDRD (S/P/Bld) [Vol rate/Area] mL/min/{1.73_m2} Normal >=59 [facility] Comment on above: Order Comment: pt on floor, in room 302. Result Comment: eGFR is race adjusted. AA=. Performed By: #### 1 [id number] #### [facility] [address] [place] [address] GFR/1.73 sq M.predicted among non-blacks MDRD (S/P/Bld) [Vol rate/Area] mL/min/{1.73_m2} Normal >=59 [facility] Comment on above: Order Comment: pt on floor, in room 302. Result Comment: Drafter (Cad) Electrical keri kidney disease could be indicated at eGFR's of less than 60 mL/min/1.73m2. Kidney failure is indicated at less than 15 mL/min/1.73m2. Performed By: #### 1 [id number] #### [facility] [address] [place] [address] Provider Orderson 03-22-2018 Provider Orders [id number]. 00OTGTIFF [facility] Coding Summaryon 03-16-2018 Coding Summary CODING DATE: 03/16/2018 [facility] STATUS: Home PAYOR: Commercial Insurance APC DESCRIPTION 5522 Level 2 Imaging without Contrast ADMIT DX: REASON FOR VISIT DX: M79.662 Pain in left lower leg FINAL DX: PRINCIPAL: M79.662 Pain in left lower leg SECONDARY: PYMT PROC APC STAT DESCRIPTION DOCTOR NAME DATE NOTE: The code number assigned matches the documented diagnosis and / or procedure in the patient's chart. However, the narrative phrase printed from the coding software may appear abbreviated, or result in slightly different terminology. Coded By: Yun Cabrera Date Saved: 03/16/2018 07:37 am [facility] Rad - Other Radiology Report on 03-16-2018 Rad - Other Radiology Report [id number]. 00OTGTIFF [facility] US LE Venous Duplex Lefton 0 03-14-2018 US LE Venous Duplex Left ULTRASOUND LOWER EXTREMITY VENOUS DUPLEX LEFTCLINICAL DATA: Status post left knee arthroplasty and 03/08/2018, left legpain and swelling for one dayUtilizing color flow duplex scanning and Doppler flow analysis, deep venoussystem of the left leg was evaluated. There is normal compressibility seenthroughout. There is gross patency identified. Augmentation is seen. Thereis no evidence of focal area of increased echogenicity within the deep venoussystem to suggest thrombosis.IMPRESSION : GROSSLY UNREMARKABLE IMAGING STUDY OF THE DEEP VENOUS SYSTEM OFTHE LEFT LEG DESCRIBED, NO DEFINITE EVIDENCE OF DEEP VENOUS THROMBOSIS CANBE IDENTIFIED.LAXMI Cabrera #: [id number]: 03/15/2018T: 03/15/2018 Final Dictated by: Velasquez Berry MD SDictated DT/TM: 03/15/18 6:03Signed (Electronic Signature): Velasquez Berry MD 03/15/18 8:47 amTechnologist: AMNA [facility] Vital Signs Date Time Vital Sign Value Performing Clinician Facility 06-22-2023 11:15-0400 Body height 161.29 cm Kizzy Fitt Other [employer] Other 05-02-2023 08:45-0400 Body height 161.29 cm Kizzyselena Glass Other [employer] Other 04-28-2023 11:00-0400 Body height 161.29 cm Jacob Jay Other [employer] Other 04-28-2023 11:00-0400 Body mass index (BMI) [Ratio] 31.94 kg/m2 Jacobjudi Jay Other [employer] Other 04-28-2023 11:00-0400 Body weight 83.1 kg Jacob Jay Other [employer] Other 08-04-2021 10:27-0400 Diastolic blood pressure 77 mm[Hg] [facility] [employer] Phone: 08-04-2021 10:27-0400 Heart rate 100 /min [employer] Phone: 08-04-2021 10:27-0400 Systolic blood pressure 143 mm[Hg] [facility] [employer] Phone: Encounters Encounter Date Encounter Type Care Provider Facility Start: 06-22-2023 End: 06-22-2023 ambulatory Rip Goldsmith [place] [employer] Other Start: 06-22-2023 IBT FOR OBESITY GROU P 2-10 30M Kizzy Glass [facility] Start: 05-23-2023 End: 05-23-2023 ambulatory Jacob Jay Other [employer] Other Start: 05-23-2023 Telephone encounter Jacob Gongora [facility] Start: 05-02-2023 End: 05-02-2023 ambulatory Kizzy Glass Other [employer] Other Start: 05-02-2023 IBT FOR OBESITY GROU P 2-[address] [facility] Start: 05-02-2023 Telephone encounter Kizzy Gongora [facility] Start: 04-28-2023 End: 04-28-2023 ambulatory Jacob Jay Other [employer] Other Start: 04-28-2023 Nursing evaluation o f patient and report Jacob Jay [facility] Start: 08-06-2022 End: 08-07-[address] RIP GOLDSMITH Facility:[facility] Start: 10-31-2021 End: 11-01-[address] RIP GOLDSMITH Facility:[facility] Start: 09-11-2021 End: 09-11-2021 ambulatory JUSTIN [facility] Start: 09-04-2021 End: 09-05-2021 ambulatory [facility] Start: 09-04-2021 End: 09-04-2021 Subsequent hospital visit by physician Rip Goldsmith MD Work Phone: [facility] Comment on above: Chest pain, unspecif ied type Start: 08-04-2021 End: 08-07-2021 ambulatory [facility] Start: 08-04-2021 End: 08-06-2021 Subsequent hospital visit by physician Edith Stress [facility] Comment on above: Arrived Dizziness; Syncope, unspecified syncope type; SOB (shortness of breath); Arthritis of knee; Chest pain, unspecified type Start: 07-29-2021 End: 07-30-2021 ambulatory [facility] Start: 07-29-2021 End: 07-29-2021 Subsequent hospital visit by physician Rip Goldsmith MD Work Phone: [facility] Comment on above: Dizziness; Fatigue, unspecified type; Vitamin D deficiency disease Start: 07-29-2021 End: 08-01-2021 ambulatory [facility] Start: 03-15-2018 End: 03-16-2018 Ambulatory DAVID APLING Facility:[facility] Procedures Date Procedure Procedure Detail Performing Clinician Start: 09-04-2021 Comprehensive metabo lic panel Nicanor Ramirez MD Work Phone: Start: 09-04-2021 Lipid panel Nicanor santana MD Work Phone: Start: 09-04-2021 PATIENT FASTING? Nicanor Ramirez MD Work Phone: Start: 09-04-2021 Ecg routine ecg w/le ast 12 lds w/i&r iNcanor Ramirez MD Work Phone: Start: 08-04-2021 Myocardial spect mul tiple studies Nicanor Ramirez MD Work Phone: Start: 07-29-2021 25 hydroxy includes fractions if performed Nicanor Ramirez MD Work Phone: Screening for malign ant neoplasm of colon Jacob Jay Other Plan of Treatment Date Care Activity Detail Author Start: 07-11-2022 Pneumococcal 65+ yea rs Vaccine (1 of 1 - PPSV23) Pneumococcal 65+ years Vaccine (1 of 1 - PPSV23) [facility] Start: 09-11-2021 End: 09-11-2021 Nursing evaluation of patient and report 09/11/[address] [facility] [employer] Start: 08-13-2021 End: 08-13-2021 Patient encounter procedure 08/13/2021 Office Visit Cardiology Nicanor Ramirez MD [address] [place] [address] [id number] [facility] [employer] Start: 08-04-2021 End: 08-04-2021 Patient encounter procedure [facility] Start: 07-29-2021 Annual Wellness Visi t (AWV) Annual Wellness Visit (AWV) [facility] Start: 06-03-2021 Influenza vaccination Flu vaccine (# 1) [facility] Work Phone: Start: 2020 Pneumococcal 65+ yea rs Vaccine (1 of 1 - PPSV23) Pneumococcal 65+ years Vaccine (1 of 1 - PPSV23) [facility] Phone: Start: 2010 Screening for osteoporosis DEXA (modify frequency per FRAX score) [employer] Start: 2005 Screening for malign ant neoplasm of breast Breast cancer screen [employer] Start: 2000 Screening for malign ant neoplasm of colon Colon cancer screen colonoscopy [employer] Start: 1985 Screening for malign ant [facility]oplasm [facility] cervix [facility] Start: 1976 Screening for malign ant neoplasm of cervix Pap smear [employer] Start: 1974 DTaP/Tdap/Td vaccine (1 - Tdap) DTaP/Tdap/Td vaccine (1 - Tdap) [employer] Start: 1970 HIV screening HIV screen [facility] Start: 1967 COVID-19 Vaccine (1) COVID-19 Vaccin e (1) [employer] Start: 1965 Lipid panel [facility] Start: 1955 Hepatitis C screening Hepatitis C sc [facility] [employer] EKG 12 Lead EKG 12 Lead ECG Routine Chest pain, unspecified type 09/04/2021 8:57 AM EST [facility] Phone: NM MYOCARDIAL SPECT REST EXERCISE OR RX NM MYOCARDIAL SPECT REST EXERCISE OR RX Imaging Ordered: 08/06/2021 [facility] Phone: Comment on above: Ordered: 08/06/2021 End: 08-04-2021 Stress test, lexiscan Stress test, lexiscan Cardiac Services Routine Dizziness Syncope, unspecified syncope type SOB (shortness of breath) Arthritis of knee Chest pain, unspecified type 1 Occurrences starting 08/04/2021 until 08/04/2021 [facility] Phone: Comment on above: 1 Occurrences starti ng 08/04/2021 until 08/04/2021 Payers Date Payer Category Payer Self-pay 2020 Medicare [id number] 1.2.84 [id number] 2018 Unknown [id number] 1959 Medicare [id number] 1955 Unknown [id number] 2.16.8 [id number] 1955 Unknown [id number] 2.16.8 [id number] 1955 Unknown [id number] 2.16.8 40.1.630739.3.579.2.174 1955 Unknown [id number] 2.16.8 40.1.531902.3.579.2.174 1955 Unknown [id number] 2.16.8 40.1.453038.3.579.2.174 1955 Unknown [id number] 2.16.8 40.1.739359.3.579.2.174 1955 Unknown [id number] 2.16.8 40.1.470260.3.579.2.174 1955 Unknown [id number] 2.16.8 40.1.751862.3.579.2.174 1955 Unknown [id number] 2.16.8 40.1.596044.3.579.2.174 1955 Unknown [id number] 2.16.8 40.1.189437.3.579.2.174 1955 Unknown [id number] 2.16. [id number] 1955 Unknown [id number] 2.16.84 0.1.525541.3.579.2.593 1955 Unknown [id number] 2.16.84 0.1.206567.3.579.2.593 Unknown [id number] 2.16.8 [id number] Social History Date Type Detail Facility Start: 07-23-2015 End: 07-29-2021 Tobacco smoking status [email or web address] Never smoker [facility] Start: 07-23-2015 End: 07-29-2021 Tobacco use and exposure Never used [employer] Start: 07-29-2021 End: 08-13-2021 Alcohol intake Current drinker of alcohol (finding) [facility] Phone: Start: 07-23-2015 Alcohol Comment social [employer] Work Phone: Start: 1955 Sex Assigned At Not on file [employer] Phone: Sex Assigned At Sex Assigned At Bir th [employer] Other Clinical Notes 05-18-2021 to 06-22-2023 Note Date & Type Note Facility 06-22-2023 Evaluation note Encounter Date Diagnosis Assessment Notes Jun, Obesity, unspecified classification, unspecified obesity type, unspecified whether serious comorbidity present (ICD-10 - E66.9) Jun, BMI 40.0-44.9, adult (ICD-10 - Z68.41) Jun, Other Summary of Visit: (A) Group discussion regarding topic of Beverages (B) discussed markers of hydration and general rec's for fluid / day (C) Discussed pros / cons of various beverages (D) group provided support for one another Patient set the following goals: - not reviewed today [employer] Other 07-31-2023 Evaluation note* Encounter Date Diagnosis Assessment Notes Treatment Notes Treatment Clinical Notes Apr, Obesity, unspecified classification, unspecified obesity type, unspecified whether serious comorbidity present (ICD-10 - E66.9) Apr, BMI 31.0-31.9,adult (ICD-10 - Z68.31) Apr, Other Summary of Visi t: (A) Presentation of Plate Method discussed (B) Sample meal ideas reviewed (C) exercise recommendations reviewed Patient set the following goals: - patient set personal goal using given handout. [employer] Other 07-27-2023 Evaluation note* Encounter Date Diagnosis Assessment Notes Treatment Notes Treatment Clinical Notes Apr, Obesity, Class I, BMI 30-34.9 (ICD-10 - E66.9) Patient here today for an appointment, Ozempic training completed. Patient cleaned her skin with alcohol pad to administer her first injection for Ozempic 0.25mg SQ in her left upper quadrant of her abdomen without difficulty. Patient states she is very anxious, I have never given myself an injection . Patient was able to use correct technique. Instructed patient to dose 0.25 mg once a week for 4 weeks, then may slowly increase dose up to 0.50 mg once a week thereafter. Discussed possible side effects and encouraged to maintain a healthy well-balanced diet. Encouraged to decrease carbonated beverages, avoid caffeine drinks like regular soda, tea, coffee, fatty dairy foods, spices, fried or high fat/carb foods, and alcohol. Consume lean protien, non-starchy vegetables for improved glycemia. Patient is in agreement with plan. All questions answered. No further concerns. Encouraged to return for follow up visit. 30 minutes spent on education with Pam ROGERS RN. [employer] Other 05-18-2022 NoteHNO ID: [id number] Author: Ted Ayala MD Service: ? Author Type: Physician Type: Progress Notes Filed: 02/17/2022 3:58 PM Note Text: HPI HPI Moe Bruce is a 66 year old female who presents with with hearing loss left ear. Patient notes very little change in her hearing. Patient still complains of being slightly off balance and still having tinnitus. ROS General Weight loss: No Fatigue: No Night sweats:No Cardiac Chest pain:No Fast heart rate:No Swelling in the feet:No Respiratory Short of breath:No Cough:No Wheezing:No Gastrointestinal Nausea:No Vomiting:No Indigestion:No Past medical history, family history, and social history reviewed. PE There were no vitals taken for this visit. General: Patient is awake, alert, NAD. Voice is normal. Skin: normal Eyes: Extraocular motion and Gaze is normal. Ears: Right external auditory canal is normal. TMJ: normal. Right tympanic membranes normal. Left external auditory canal is normal. Left tympanic membrane normal. Nose: Septum is normal. Turbinates are normal. Nasopharynx:normal Oral Cavity/Oropharynx: Lips normal Dentition normal Tongue normal. Tonsils normal. Palate and uvula normal. Pharynx posterior normal Hypopharynx: Base of tongue normal Pyriform sinus normal. Larynx: Vocal cords normal. Epiglottis normal. Post cricoid normal. Salivary glands: Parotid normal. Submandibular and sublingual normal. Thyroid: normal. Lymphatic/Neck: Lymph nodes normal. Neurologic: Facial nerve normal. Audiogram reviewed ASSESSMENT/PLAN: 1. Labyrinthitis of left ear - ICD9: 386.30, ICD10: H83.02 (primary diagnosis) 2. Tinnitus, left ear - ICD9: 388.30, ICD10: H93.12 Consider hearing aid evaluation follow-up as needed Ted Ayala MD Findings will be communicated to the referring physician via mail or electronic medical record.[facility]05-18-2022 NoteHNO ID: [id number] Author: TAI Castro Service: ? Author Type: Clothes Ironer Type: Progress Notes Filed: 02/17/2022 4:04 PM Note Text: [facility] AUDIOLOGIC EVALUATION REPORT Name: Moe Bruce [facility]#: [id number] Date of Service: 02/17/2022 Date of : 1955 Age: [age] year old [place]erred by: [place] [id number] [address] [place] [address] Referred for: Evaluation of suspected change in hearing, tinnitus, or balance. Referral documented: In an order in [facility] Patient's major complaints: Reduced hearing in the left ear, Tinnitus in the left ear. balance problem Moe Bruce is a 66 year old female who presents for follow up on a sudden hearing loss in her left ear 6 months ago. She was treated with Prednisone and she reports that her hearing has not improved over the past 6 months. She reports left-sided tinnitus and describes it as static. She also reports feel off balance at times. She denies ear pain or drainage. Ms. Bruce was seen for a recheck audiologic evaluation. See [facility] Audiogram for additional reported history and symptoms. Risk of Falls Documentation for over 65 years old: No history of falls reported so minimal to no risk INTERPRETATION OF HEARING STATUS RIGHT EAR: Hearing within normal limits LEFT EAR: Sensorineural hearing loss IMPACT ON COMMUNICATION FUNCTION RIGHT EAR: No impact on communication function LEFT EAR: Significant impact on communication function COMPARISON TO PREVIOUS TESTING, if applicable Comparison of today?s results with previous testing on 08/19/2021 suggests a decrease in left hearing thresholds at 250, 500 6000, and 8000 Hz. Her word recognition score improved from 37% to 60%. TESTING, AND RESULTS Following is a brief interpretation of the obtained findings from the audiologic evaluation. Refer to the Auditory Test Record for complete audiometric results. The patient was counseled about the test findings and appropriate audiologic recommendations were made. SUMMARY: Audiogram can be viewed under Forms/Audiology/SmartForm. OUTER EAR: via otoscopic inspection RIGHT EAR: Otoscopic inspection revealed ear canal was clear with minimal amount of nonoccluding cerumen present and identifiable cone of light suggesting WNL middle ear system. LEFT EAR: Otoscopic inspection revealed ear canal was clear with minimal amount of nonoccluding cerumen present and identifiable cone of light suggesting WNL middle ear system. MIDDLE EAR: via acoustic immittance testing RIGHT EAR Tympanometry: Normal ME function. LEFT EAR Tympanometry: Normal ME function. AUDITORY/FACIAL NERVE FUNCTION: via acoustic reflex testing RIGHT EAR PROBE EAR: (ipsi right stimulus ear; contralateral left stimulus ear): Acoustic Reflex Pattern Did not test Acoustic Reflex Decay (left stimulus ear): Did not test. LEFT EAR PROBE EAR: (ipsi left stimulus ear; contralateral right stimulus ear): Acoustic Reflex Pattern (Did not test Acoustic Reflex Decay (right stimulus ear):Did not test. HEARING ASSESSMENT: via pure tone and speech testing RIGHT EAR: Hearing Sensitivity: Normal hearing sensitivity from 250-4000 Hz with a slight notch from 6000 to 8000 Hz. Word Recognition Score: Excellent (90-100%). WRS is consistent with hearing sensitivity. Words were presented at 60 dB HL which approximates the intensity level for normal conversational speech. The NU-6 Order by Difficulty Word List (10 words) was used for testing. LEFT EAR: Hearing Sensitivity: Mild sloping to moderately severe sensorineural hearing loss from 250-4000 Hz sloping to a severe to profound unspecified loss at 6000 and 8000 Hz. Word Recognition Score: Poor (60-69%). WRS is consistent with hearing sensitivity. Words were presented at 85 dB HL which is above intensity level for normal conversational speech. NU-6 word list (25 words) was used. MANAGEMENT PLAN: * Continue medical follow-up with Ted Ayala MD. * The patient was counseled regarding effective communication strategies to enhance communication ability. * The patient was counseled regarding benefits/limitations of hearing aids and provided written educational materials. * Call [phone] to schedule an appointment to assess your need for hearing aids. Request a HAE appointment. Tai Castro, CCC-A MAR[place] Abbrev- iation Definition Degree of hearing sensitivity dB range WNL within normal limits WNL 0 - 20 SNHL sensorineural hearing loss Mild 20-40 CHL conductive hearing loss Moderate 40-55 MHL mixed hearing loss Moderately-Severe 55-70 WRS word recognition score Severe 70-90 ME middle ear Profound 90 + TM tympanic membraneKindred Healthcare11-17-2021 NoteHNO ID: [id number] Author: Ted Ayala MD Service: ? Author Type: Physician Type: Progress Notes Filed: 08/19/2021 4:24 PM Note Text: ANISHA Bruce is a 65 year old female who presents with follow-up hearing loss left. Patient still complains of tinnitus on the left and also slightly dizzy. Patient notes no change in her hearing after the 3 injections. ROS General Weight loss: No Fatigue: No Night sweats:No Cardiac Chest pain:No Fast heart rate:No Swelling in the feet:No Respiratory Short of breath:No Cough:No Wheezing:No Gastrointestinal Nausea:No Vomiting:No Indigestion:No Past medical history, family history, and social history reviewed. PE There were no vitals taken for this visit. General: Patient is awake, alert, NAD. Voice is normal. Skin: normal Eyes: Extraocular motion and Gaze is normal. Ears: Right external auditory canal is normal. TMJ: normal. Right tympanic membranes normal. Left external auditory canal is normal. Left tympanic membrane normal. Nose: Septum is normal. Turbinates are normal. Nasopharynx:normal Oral Cavity/Oropharynx: Lips normal Dentition normal Tongue normal. Tonsils normal. Palate and uvula normal. Pharynx posterior normal Hypopharynx: Base of tongue normal Pyriform sinus normal. Larynx: Vocal cords normal. Epiglottis normal. Post cricoid normal. Salivary glands: Parotid normal. Submandibular and sublingual normal. Thyroid: normal. Lymphatic/Neck: Lymph nodes normal. Neurologic: Facial nerve normal. Audiogram reviewed ASSESSMENT/PLAN: 1. Sensorineural hearing loss (SNHL) of left ear with unrestricted hearing of right ear - ICD9: 389.15, ICD10: H90.42 (primary diagnosis) - COMPREHENSIVE AUDIOLOGIC EXAM 2. Dizziness - ICD9: 780.4, ICD10: R42 3. Tinnitus, left ear - ICD9: 388.30, ICD10: H93.12 Follow-up 6 months with audiogram Ted Ayala MD Findings will be communicated to the referring physician via mail or electronic medical record.[facility]11-17-2021 NoteHNO ID: [id number] Author: TAI Castro Service: ? Author Type: Clothes Ironer Type: Progress Notes Filed: 08/19/2021 3:31 PM Note Text: [facility] AUDIOLOGIC EVALUATION REPORT Name: Moe Bruce CC#: [id number] Date of Service: 08/19/2021 Date of : 1955 Age: [age] year old [place]erred by: [place] [id number] [address] [address] Referred for: Determination of the effect of treatment for disorder of hearing, tinnitus, or balance. Referral documented: Under recommendations in referring physican's progress note Patient's major complaints: Tinnitus in the right ear, Dizziness/vertigo/imbalance, Sudden hearing loss right Moe Bruce is a 65 year old female who presents with follow up on a sudden sensorineural hearing loss in her left ear. She reports that she has had 3 intratympanic injections and she perceives some improvement though not a lot. She also reports static in her left ear. She reports having balance problems and feeling unsteady. She denies ear pain. Ms. Bruce was seen for a recheck audiologic evaluation. See SmartForm Audiogram for additional reported history and symptoms. Risk of Falls Documentation for over 65 years old: No history of falls reported so minimal to no risk INTERPRETATION OF HEARING STATUS RIGHT EAR: Hearing within normal limits LEFT EAR: Sensorineural hearing loss IMPACT ON COMMUNICATION FUNCTION RIGHT EAR: No impact on communication function LEFT EAR: Significant impact on communication function COMPARISON TO PREVIOUS TESTING, if applicable Comparison of today?s results with previous testing on 06/19/2021 suggests no significant improvement in hearing thresholds and slightly better word understanding. TESTING, AND RESULTS Following is a brief interpretation of the obtained findings from the audiologic evaluation. Refer to the Auditory Test Record for complete audiometric results. The patient was counseled about the test findings and appropriate audiologic recommendations were made. SUMMARY: Audiogram can be viewed under Forms/Audiology/SmartForm. OUTER EAR: via otoscopic inspection RIGHT EAR: Otoscopic inspection revealed ear canal was clear with an identifiable cone of light suggesting WNL middle ear system. LEFT EAR: Otoscopic inspection revealed ear canal was clear with an identifiable cone of light suggesting WNL middle ear system. MIDDLE EAR: via acoustic immittance testing RIGHT EAR Tympanometry: Normal ME function. LEFT EAR Tympanometry: Normal ME function. AUDITORY/FACIAL NERVE FUNCTION: via acoustic reflex testing RIGHT EAR PROBE EAR: (ipsi right stimulus ear; contralateral left stimulus ear): Acoustic Reflex Pattern Did not test Acoustic Reflex Decay (left stimulus ear): Did not test. LEFT EAR PROBE EAR: (ipsi left stimulus ear; contralateral right stimulus ear): Acoustic Reflex Pattern (Did not test Acoustic Reflex Decay (right stimulus ear):Did not test. HEARING ASSESSMENT: via pure tone and speech testing RIGHT EAR: Hearing Sensitivity: Normal hearing sensitivity. Word Recognition Score: Excellent (90-100%). WRS is consistent with hearing sensitivity. Words were presented at 55 dB HL which approximates/is above intensity level for normal conversational speech. The NU-6 Order by Difficulty Word List (10 words) was used for testing. LEFT EAR: Hearing Sensitivity: Normal hearing at 250 and 500 Hz precipitously sloping to a moderately severe sensorineural hearing loss through 4000 Hz and a severe unspecified loss at 8000 Hz. Word Recognition Score: Very Poor (0-59%). WRS is consistent with hearing sensitivity. Words were presented at 80 dB HL which is above intensity level for normal conversational speech. NU-6 word list (50 words) was used. There was contralateral masking for this test. MANAGEMENT PLAN: * Continue medical follow-up with Ted Ayala MD. * The patient was counseled regarding effective communication strategies to enhance communication ability. * The patient was counseled regarding benefits/limitations of hearing aids and provided written educational materials. Briefly discussed CROS technology. * Call [phone] to schedule an appointment to assess your need for hearing aids. Request a HAE appointment. Tai Castro, [facility] [place] Abbrev- iation Definition Degree of hearing sensitivity dB range WNL within normal limits WNL 0 - 20 SNHL sensorineural hearing loss Mild 20-40 CHL conductive hearing loss Moderate 40-55 MHL mixed hearing loss Moderately-Severe 55-70 WRS word recognition score Severe 70-90 ME middle ear Profound 90 + TM tympanic membraneKindred Healthcare11-02-2021 History of Present illness Narrative* Lillie Wilson RN - 08/04/2021 10:27 AM EDT Testing complete - patient tolerated well. Drink and snack provided. * Lillie Wilson RN - 08/04/2021 10:26 AM EDT Patient denies any pain/discomfort or shortness of breath. * Lillie Wilson RN - 08/04/2021 10:26 AM EDT Patient reports shortness of breath has subsided. * Lillie Wilson RN - 08/04/2021 10:20 AM EDT Patient reports slight shortness of breath * Lillie Wilson RN - 08/04/2021 10:18 AM EDT Testing started * Lillie Wilson RN - 08/04/2021 10:17 AM EDT Allergies and home medications reviewed/updated with patient. Patient verbalized understanding of test/procedure. documented in this [facility] Work Phone: [phone] 478-569410-20-2021 NoteHNO ID: [id number] Author: Ted Ayala MD Service: ? Author Type: Physician Type: Progress Notes Filed: 07/22/2021 9:48 AM Note Text: Preop diagnosis sudden hearing loss left Postop diagnosis same Procedure?Intratympanic injection left dexamethasone Surgeon Lucy Anesthesia phenol Procedure: After verbal consent patient was placed in a semirecumbent position microscope was brought in place ear speculum was inserted tympanic membrane is visualized phenol was applied onto the tympanic membrane without difficulty using a 25-gauge needle approximately 0.5 cc of dexamethasone was injected. ?Patient maintained that position with the ear up for 20 minutes. ?Patient tolerated position without complication ?[facility]10-19-2021 NoteHNO ID: [id number] Author: Ted Ayala MD Service: ? Author Type: Physician Type: Progress Notes Filed: 07/21/2021 8:25 AM Note Text: cancelledKind[facility] Healthcare10-04-2021 NoteHNO ID: [id number] Author: Ted Ayala MD Service: ? Author Type: Physician Type: Progress Notes Filed: 07/06/2021 10:15 AM Note Text: Procedure none Preop diagnosis sudden hearing loss left Postop diagnosis same Procedure Intratympanic injection left dexamethasone Surgeon Lucy Anesthesia phenol Procedure: After verbal consent patient was placed in a semirecumbent position microscope was brought in place ear speculum was inserted tympanic membrane is visualized phenol was applied onto the tympanic membrane without difficulty using a 25-gauge needle approximately 0.5 cc of dexamethasone was injected. Patient maintained that position with the ear up for 20 minutes. Patient tolerated position without complication ?[facility]09-17-2021 NoteHNO ID: [id number] Author: TAI Navarro Service: ? Author Type: Clothes Ironer Type: Progress Notes Filed: 06/23/2021 3:25 PM Note Text: Head [facility] AUDIOLOGIC EVALUATION REPORT Name: Moe Bruce [facility]#: [id number] Date of Service: 06/19/2021 Date of : 1955 Age: [age] year old Referred by: Ted Ayala [address] [address] Referred for: Determination of the effect of treatment for disorder of hearing, tinnitus, or balance. Referral documented: In an order in Epic Patient's major complaints: Reduced hearing in the left ear, Tinnitus in the left ear, Dizziness/vertigo/imbalance, pressure in the left ear. Patient was seen for an audiogram in conjunction with ENT second opinion appointment for sudden SNHL that she experienced in the left ear approximately 1 month ago. She was treated at that time with prednisone and she does not feel she has had any improvement in hearing. She continues to experience tinnitus in the left ear and some dizziness. Ms. Bruce was seen for a recheck audiologic evaluation. See SmartForm Audiogram for additional reported history and symptoms. Ms. Bruce was seen as a Same Day Add-On patient upon request of the medical provider. Results may be limited due to time constraints; further testing may be warranted at a scheduled appointment. See recommendations. INTERPRETATION OF HEARING STATUS RIGHT EAR: Hearing within normal limits LEFT EAR: Sensorineural hearing loss TESTING, AND RESULTS Following is a brief interpretation of the obtained findings from the audiologic evaluation. Refer to the Auditory Test Record for complete audiometric results. The patient was counseled about the test findings and appropriate audiologic recommendations were made. SUMMARY: Audiogram can be viewed under Forms/Audiology/SmartForm. OUTER EAR: via otoscopic inspection RIGHT EAR: Otoscopic inspection revealed ear canal was clear with an identifiable cone of light. LEFT EAR: Otoscopic inspection revealed ear canal was clear with an identifiable cone of light. MIDDLE EAR: via acoustic immittance testing RIGHT EAR Tympanometry: Normal ME function. LEFT EAR Tympanometry: Normal ME function. AUDITORY/FACIAL NERVE FUNCTION: via acoustic reflex testing RIGHT EAR PROBE EAR: (ipsi right stimulus ear; contralateral left stimulus ear): Acoustic Reflex Pattern Did not test Acoustic Reflex Decay (left stimulus ear): Did not test. LEFT EAR PROBE EAR: (ipsi left stimulus ear; contralateral right stimulus ear): Acoustic Reflex Pattern (Did not test Acoustic Reflex Decay (right stimulus ear):Did not test. HEARING ASSESSMENT: via pure tone and speech testing RIGHT EAR: Hearing Sensitivity: [facility] Word Recognition Score: Excellent (100%). WRS is consistent with hearing sensitivity. Words were presented at 45 dB HL which approximates intensity level for normal conversational speech. The NU-6 Order by Difficulty Word List (10 words) was used for testing. LEFT EAR: Hearing Sensitivity: WNL through 500 Hz sloping mild to severe HL* Word Recognition Score: Very Poor (28%). WRS is poorer than expected given hearing sensitivity. Words were presented at 90 dB HL which is above intensity level for normal conversational speech. The NU-6 Order by Difficulty Word List (10 words) was attempted but the additional 15 words were required for testing (total 25 words). * Bone conduction testing could not be completed as patient became ill, feeling as if she was going to pass out . The manager medical was retrieved to help assess the patient and returned her to ENT exam room. However, results were consistent with audiogram patient brought with her from an outside facility, revealing a SNHL. MANAGEMENT PLAN: * Continue medical follow-up with Ted Ayala MD. * The patient was counseled regarding the need to continue to monitor hearing and have regular hearing assessments. * The patient was counseled regarding effective communication strategies to enhance communication ability.. Tai Shanks, [facility]/A Doctor of Audiology copied to: Ted Ayala MD [place] Abbrev- iation Definition Degree of hearing sensitivity dB range WNL within normal limits WNL 0 - 20 SNHL sensorineural hearing loss Mild 20-40 CHL conductive hearing loss Moderate 40-55 MHL mixed hearing loss Moderately-Severe 55-70 WRS word recognition score Severe 70-90 ME middle ear Profound 90 + TM tympanic membraneKindred Healthcare09-17-2021 NoteHNO ID: [id number] Author: Mer Us Service: ? Author Type: ? Type: Progress Notes Filed: 06/19/2021 12:10 PM Note Text: Pt wasn't feeling well during audiogram. Took vitals. Clammy and hot. 90/65. 98% oxygen. 81- pulse. Gave some water. Monitored. Pt sat awhile in exam room before leaving.[facility]09-17-2021 NoteHNO ID: [id number] Author: Ted Ayala MD Service: ? Author Type: Physician Type: Progress Notes Filed: 06/19/2021 12:23 PM Note Text: HPI Moe Bruce is a 65 year old female who presents with hearing loss left ear and dizziness. Patient states approximately 4 weeks ago she had a sudden onset of hearing loss and dizziness in the left ear. Patient was actually hospitalized saw ENT did have prednisone had a CT and an MRI patient was noted to have sinusitis on the CT and MRI otherwise was unremarkable except for some chronic changes. Patient presently states her dizziness is improving she still has hearing loss in the left ear which has not changed and also tinnitus.. ROS General Weight loss: No Fatigue: No Night sweats:No Cardiac Chest pain:No Fast heart rate:No Swelling in the feet:No Respiratory Short of breath:No Cough:No Wheezing:No Gastrointestinal Nausea:No Vomiting:No Indigestion:No Past medical history, family history, and social history reviewed. PE BP 90/65 (BP Site: Right Arm, BP Position: Sitting, BP Cuff Size: Large Adult) Pulse 81 SpO2 98% General: Patient is awake, alert, NAD. Voice is normal. Skin: normal Eyes: Extraocular motion and Gaze is normal. Ears: Right external auditory canal is normal. TMJ: normal. Right tympanic membranes normal. Left external auditory canal is normal. Left tympanic membrane normal. Nose: Septum is normal. Turbinates are normal. Nasopharynx:normal Oral Cavity/Oropharynx: Lips normal Dentition normal Tongue normal. Tonsils normal. Palate and uvula normal. Pharynx posterior normal Hypopharynx: Base of tongue normal Pyriform sinus normal. Larynx: Vocal cords normal. Epiglottis normal. Post cricoid normal. Salivary glands: Parotid normal. Submandibular and sublingual normal. Thyroid: normal. Lymphatic/Neck: Lymph nodes normal. Neurologic: Facial nerve normal. Audiogram reviewed MRI reviewed ASSESSMENT/PLAN: 1. Sensorineural hearing loss (SNHL) of left ear with unrestricted hearing of right ear - ICD9: 389.15, ICD10: H90.42 (primary diagnosis) - COMPREHENSIVE AUDIOLOGIC EXAM 2. Labyrinthitis of left ear - ICD9: 386.30, ICD10: H83.02 I recommended an intratympanic injection on the left of dexamethasone Procedure none Preop diagnosis sudden hearing loss left Postop diagnosis same Procedure Intratympanic injection left dexamethasone Surgeon Lucy Anesthesia phenol Procedure: After verbal consent patient was placed in a semirecumbent position microscope was brought in place ear speculum was inserted tympanic membrane is visualized phenol was applied onto the tympanic membrane without difficulty using a 25-gauge needle approximately 0.5 cc of dexamethasone was injected. Patient maintained that position with the ear up for 20 minutes. Patient tolerated position without complication Follow-up 2 weeks MD Ted Connelly MD Findings will be communicated to the referring physician via mail or electronic medical record.[facility]09-13-2021 NoteHNO ID: [id number] Author: Theron Pablo MD Service: ? Author Type: Physician Type: Progress Notes Filed: 06/22/2021 10:52 AM Note Text: [facility] MULTIPLE SCLEROSIS NEW PATIENT EVALUATION/CONSULTATION Referral source: SELF Also followed by: No care nut steamer to display PRINCIPAL NEUROLOGIC DIAGNOSIS: HISTORY OF ILLNESS: An opinion on this 65 year old right handed woman was requested by the patient for a second opinion on neurological symptoms. The patient was accompanied by self. Previous records (physician notes, laboratory reports, and radiology reports) and imaging studies were reviewed and summarized. My recommendations will be communicated back to the patient's physician(s) via electronic medical record. Follow-up is expected to be with me or the referring physician based on results of planned workup. In may 2020, she started havng waves of dizziness. CT showed full sinuses pansinusitis . Went home with Flonase and a decongestant. brain hallpike negative although complained of diplopia with rt end gaze. Two days later, she developed vertigo, began vomiting and was sent home again with motion sickness medicine. Stroke was ruled out with MRI. She was on a course of antibiotics and steroids. She has occas popping sound in the ear, as well as whooshing sound regularly. Neuro-Qol Functions (higher = better functioning) 06/15/2021 Upper Extremity Domain T Score 49 06/15/2021 Lower Extremity Domain T Score 42 06/15/2021 Cognitive Function Domain T Score 50 06/15/2021 Ability To Participate In Social Roles T Score 39 06/15/2021 Satisfaction With Social Roles T Score 41 Neuro-Qol Symptoms (higher = worse symptoms) 06/15/2021 Sleep Domain T Score 59 06/15/2021 Fatigue Domain T Score 57 06/15/2021 Anxiety Domain T Score 55 06/15/2021 Depression Domain T Score 51 06/15/2021 Stigma Domain T Score 51 *NeuroQoL is a multi-domain patient-reported quality of life questionnaire. PHQ-9 Office Visit from 06/15/2021 in [facility] PHQ-9 Score 6 *PHQ-9 is a questionnaire for depressive symptoms, with scores 0-4 indicating none, 5-9 mild, 10-14 moderate, 15-19 moderately severe, and 20-27 severe symptoms. PROMIS-10 Office Visit from 06/15/2021 in [facility] Global Physical Health T Score 42.3 Global Mental Health T Score 48.3 0-10 Standard Pain Scale 4 *PROMIS-10 is a patient-reported quality of life measure, typically reported as physical and mental domains. Here scores are expressed as percentiles, where the lowest possible score is one, the highest possible score is 99, and 50 is average. PAST HISTORY: PAST MEDICAL HISTORY Diagnosis Date - Moderate persistent asthma with acute exacerbation PAST SURGICAL HISTORY Procedure Laterality Date - BREAST LUMPECTOMY HX - TOTAL KNEE REPLACEMENT X2 Transfusions: None Current Outpatient Medications Medication Sig - amoxicillin (AMOXIL) 125 mg/5 mL suspension - LOW-DOSE ASPIRIN ORAL - cetirizine (ZYRTEC) 10 mg tablet Take 10 mg by mouth. - Esomeprazole Magnesium 20 mg packet - predniSONE 10 mg tablet pack - montelukast (SINGULAIR) 10 mg tablet Take 10 mg by mouth once daily. No current facility-administered medications for this visit. 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 She lives in [place], twice and newly engaged. Marital Status: FAMILY HISTORY Problem Relation Age of Onset - Ischemic Heart Disease Mother - Ischemic Heart Disease Father - Multiple Sclerosis No Family History REVIEW OF SYSTEMS: Comprehensive review of systems otherwise was negative, including constitutional, head and neck, cardiovascular, pulmonary, gastrointestinal, endocrine, urologic, reproductive, rheumatic, hematologic, immunologic, dermatologic, and psychiatric. PHYSICAL EXAM: BP 128/83 Pulse 88 Ht 162.6 cm (5' 4 ) Wt 77.9 kg (171 lb 11.2 oz) BMI 29.47 kg/m? Hair, skin, nails, and joints were normal. There was no peripheral edema. The patient was alert and oriented to person, place, and time with normal language, attention and concentration, recent and remote memory, praxis, and intellectual function. Affect was normal. The patient did not appear depressed. Visual quezada were full to confrontation. Pupils were 2mm without a relative afferent pupillary defect. Ocular ductions were full without nystagmus or ataxia. Muscles of mastication and facial expression moved normally. Hearing was decreased on left to finger rub. There was no dysarthria. Motor Examination: There was no pronator drift. Right Upper Extremity: Left Upper Extremity: Deltoid 5 (more content not included)...[facility]08-22-2021 NoteAdmission Information Admitting Physician - Michele BELTRE MD Admitting Diagnoses: 1. Dizziness and giddiness, 05/19/2021 2. Nausea with vomiting, unspecified, 05/19/2021 3. Unspecified asthma, uncomplicated, 05/19/2021 4. Gastro-esophageal reflux disease without esophagitis, 05/19/2021 5. Encounter for prophylactic measures, unspecified, 05/19/2021 Hospital Course Significant Findings 65-year-old female with past medical history of asthma, GERD who presented to the ER with the dizziness nausea vomiting at home, symptoms started 3 days ago, never had this before the patient states that she had sinusitis headache fullness sensation in both ears, No loss of consciousness no fall no fever no chills The patient was evaluated by neurologist who recommended to do MRI brain : Which did not show him any acute intracranial process, The patient received meclizine while she was in the hospital, no nausea no vomiting., Component of vestibulitis labyrinthitis On the day of discharge the patient evaluated again she states that her dizziness resolved, and shewould like to go home and to follow-up with neurologist as outpatient, cleared to be discharged home by neurologist as her symptoms resolved. , and Outpatient vestibular physical therapy The patient will follow up with her PCP and neurologist after discharge PCP will be notified over the phone Physical Exam Vitals & Measurements T: 36.5 ?C (Oral) TMIN: 36.5 ?C (Oral) TMAX: 36.6 ?C (Oral) HR: 76(Monitored) RR: 16 BP: 135/80 SpO2: 98% WT: 75.8 kg General: alert, no acute distress Skin: warm, dry Head: no trauma, normocephalic Neck: Trachea midline, no adenopathy, no tenderness Eye: normal conjunctiva, sclera clear ENMT: TM's clear, oral mucosa moist, no pharyngeal erythema or exudate Cardiovascular: regular rate and rhythm, normal peripheral perfusion Respiratory: Lungs CTA, respirations non labored Chest wall: no deformity. Gastrointestinal: soft, non distended, no tenderness, no guarding. Back: No tenderness, Normal ROM, Normal alignment. Extremities: no deformity, no trauma Neurological: oriented x 4, LOC appropriate for age, CN II-XII intact, motor strength equal & normal bilaterally, sensation equal & normal bilaterally, speech normal Psychiatric: cooperative, affect appropriate for age, normal judgement, normal psychiatric thoughts. Discharge Plan Discharge Date/Time:05/19/2021 16:41 1. Dizziness and giddiness, (R42: Dizziness and giddiness)Vertigo Ordered: meclizine, 25 mg = 2 tab(s), Tab, Oral, q8hr, Routine, Start date 05/19/21 8:00:00 EDT Basic Metabolic Panel Discharge Patient eGFR Extra Lav Tube Observation Care Discharge Day Sbsq Observation Care/Day Moderate 25 min 51169 2. Nausea & vomiting, (R11.2: Nausea with vomiting, unspecified)Nausea with vomiting, unspecified Ordered: Basic Metabolic Panel Discharge Patient eGFR Extra Lav Tube Observation Care Discharge Day Sbsq Observation Care/Day Moderate 25 min 69193 3. Asthma, (J45.909: Unspecified asthma, uncomplicated)Unspecified asthma, uncomplicated Ordered: Basic Metabolic Panel Discharge Patient eGFR Extra Lav Tube Observation Care Discharge Day Sbsq Observation Care/Day Moderate 25 min 66324 4. Chronic GERD, (K21.9: Gastro-esophageal reflux disease without esophagitis)Gastro-esophageal reflux disease without esophagitis Ordered: Basic Metabolic Panel Discharge Patient eGFR Extra Lav Tube Observation Care Discharge Day Sbsq Observation Care/Day Moderate 25 min 38017 5. DVT prophylaxis, (Z29.9: Encounter for prophylactic measures, unspecified)Encounter for prophylactic measures, unspecified Ordered: Basic Metabolic Panel Discharge Patient eGFR Extra Lav Tube Observation Care Discharge Day Sbsq Observation Care/Day Moderate 25 min 98522 Orders: meclizine, 25 mg = 1 tab(s), Chewed, TID, PRN for dizziness, # 18 tab(s), Refills(s) 0, Pharmacy: [facility]/pharmacy #[id number], 163, cm, 05/17/21 10:33:00 EDT, Height/Length Dosing, 75, kg, 05/17/21 10:33:00 EDT, Weight Dosing Patient Discharge Condition Stable Discharge Disposition Home Discharge Medication List Prescriptions meclizine 25 mg oral tablet, chewable, 25 mg= 1 tab(s), Chewed, TID, PRN Zofran ODT 4 mg Tab-Dis, 4 mg= 1 tab(s), Oral, TID Home montelukast 10 mg Tab Prevacid, Oral Symbicort 160/4.5 inhalation aerosol with adapter, 2 puff(s), Inhalation, BID Follow-up With When Contact Information Elvis Harrison DO, NEU 06/15/2021 09:00 AM EDT [address] [place] [address]- Additional Instructions: RIP GOLDSMITH 05/21/2021 01:40 PM EDT [address] [place] [id number] Business (1) Additional Instructions: Patient Education Vertigo Nausea and Vomiting, Adult Labyrinthitis, Lajt-ex-MiodJqdeel [facility] above:Result Comment: Electronically Signed By: Kirt REDD, Edward\.br\Date and Time Signed: 05/24/21 13:31 [id number] NoteChief Complaint dizziness History of Present Illness 65-year-old female with past medical history of asthma, chronic GERD who presented to the ER with dizziness nausea vomiting The patient had the same presentation yesterday to [facility] and was discharged home from the ED. The patient states that her symptoms started 3 days ago, never had similar episode before, The patient stated that she had this sinusitis, headache, 3 days ago, fullness sensation in both ears. No loss of consciousness, no fall, No fever no chills No abdominal pain no urinary symptoms no change in bowel habits The patient finished course of antibiotics ( ? Doxycycline last week) She will be admitted under hospitalist service, anticipate less than 2 midnight hospital stay Review of Systems Constitutional: no fever, no chills, no sweats, no weakness Skin: no Jaundice, no rash, no lesions, nopetechiae ENMT: , no sore throat, mild congestion, no hoarseness Respiratory: no shortness of breath, no cough, no orthopnea, no wheezing Cardiovascular: no chest pain, no palpitations, no edema Gastrointestinal: See above no diarrhea, no GI bleeding Genitourinary: no dysuria, no hematuria, no discharge, no pain Musculoskeletal: no back pain, no trauma Neurologic: no headache, mild dizziness, no numbness, no weakness Psychiatric: no sleeping problems, no irritability, no mood swings/depression. Heme/Lymph: no bleeding tendency, no bruising tendency, no petechiae, no swollen nodes Allergy/Immunologic: no seasonal allergies, no food allergies, no recurrent infections, no impairedimmunity Additional ROS info: Except as noted in the above Review of Systems and in the History of Present Illness all other systems have been reviewed and are negative or noncontributory. Physical Exam Vitals & Measurements T: 36.4 ?C (Oral) TMIN: 36.4 ?C (Oral) TMAX: 36.5 ?C (Oral) HR: 72(Peripheral) RR: 18 BP: 141/86 BP: 134/91(Standing) BP: 147/85(Supine) SpO2: 98% WT: 75 kg General: alert, no acute distress Skin: warm, dry Head: no trauma, normocephalic Neck: Trachea midline, no adenopathy, no tenderness Eye: normal conjunctiva, sclera clear ENMT: TM's clear, oral mucosa moist, no pharyngeal erythema or exudate Cardiovascular: regular rate and rhythm, normal peripheral perfusion Respiratory: Lungs CTA, respirations non labored Chest wall: no deformity. Gastrointestinal: soft, non distended, no tenderness, no guarding. Back: No tenderness, Normal ROM, Normal alignment. Extremities: no deformity, no trauma Neurological: oriented x 4, LOC appropriate for age, CN II-XII intact, motor strength equal & normal bilaterally, sensation equal & normal bilaterally, speech normal Psychiatric: cooperative, affect appropriate for age, normal judgement, normal psychiatric thoughts. Lab Results WBC: 8.6 E9/L (05/17/21 10:53:00) RBC: 5.2 E12/L (05/17/21 10:53:00) Hgb: 14.9 gm/dL (05/17/21 10:53:00) Hct: 44.6 % (05/17/21 10:53:00) MCV: 85.1 fL (05/17/21 10:53:00) MCH: 28.5 pg (05/17/21 10:53:00) MCHC: 33.5 gm/dL (05/17/21 10:53:00) RDW: 14.1 % (05/17/21 10:53:00) Platelet: 231 E9/L (05/17/21 10:53:00) MPV: 9 fL (05/17/21 10:53:00) Neutro Auto: 81.7 % High (05/17/21 10:53:00) Lymph Auto: 10.3 % Low (05/17/21 10:53:00) Grainger Auto: 5.8 % (05/17/21 10:53:00) Eos Auto: 1.7 % (05/17/21 10:53:00) Basophil Auto: 0.5 % (05/17/21 10:53:00) Neutro Absolute: 7 E9/L (05/17/21 10:53:00) Lymph Absolute: 0.9 E9/L Low (05/17/21 10:53:00) Grainger Absolute: 0.5 E9/L (05/17/21 10:53:00) Eos Absolute: 0.1 E9/L (05/17/21 10:53:00) Basophil Absolute: 0 E9/L (05/17/21 10:53:00) Glucose Lvl: 124 mg/dL (05/17/21 10:53:00) BUN: 12 mg/dL (05/17/21 10:53:00) Creatinine: 0.8 mg/dL (05/17/21 10:53:00) eGFR: >60 (05/17/21 10:53:00) eGFR AA: >60 (05/17/21 10:53:00) BUN/Creat Ratio: 15 (05/17/21 10:53:00) Sodium Lvl: 134 mmol/L Low (05/17/21 10:53:00) Potassium Lvl: 3.7 mmol/L (05/17/21 10:53:00) Chloride: 100 mmol/L Low (05/17/21 10:53:00) CO2: 25 mmol/L (05/17/21 10:53:00) AGAP: 13 mEq/L (05/17/21 10:53:00) Calcium Lvl: 9.1 mg/dL (05/17/21 10:53:00) Alk Phos: 96 Int._Unit/L (05/17/21 10:53:00) ALT: 19 Int._Unit/L (05/17/21 10:53:00) AST: 21 Int._Unit/L (05/17/21 10:53:00) Total Protein: 7.5 gm/dL (05/17/21 10:53:00) Albumin Lvl: 3.8 gm/dL (05/17/21 10:53:00) Globulin: 3.7 gm/dL (05/17/21 10:53:00) A/G Ratio: 1 Low (05/17/21 10:53:00) Bili Total: 0.6 mg/dL (05/17/21 10:53:00) Bili Direct: <0.1 (05/17/21 10:53:00) Bili Indirect: Unable to Calculate Abnormal (05/17/21 10:53:00) Troponin: 3.1 pg/mL Low (05/17/21 17:01:00) Glucose Cap: 101 mg/dL High (05/17/21 10:53:00) POC Device SN: [id number] (05/17/21 10:53:00) POC User ID: [id number] (05/17/21 10:53:00) POC Username: [email or web address] (05/17/21 10:53:00) Assessment/Plan 1. Vertigo (R42: Dizziness and giddiness) Episode of dizziness with nausea vomiting, ? ear symptoms , recent sinusitis labyrint (more content not included)...[facility]:Result Comment: Electronically Signed By: Kirt REDD, Edward\.br\Date and Time Signed: 05/20/21 06:51 [id number] NotePT Evaluation completed with an AM PAC score of 18/24. Pt was able to perform bed mobility with Mi, but does have dizziness with movement. Pt was able to stand and ambulate with CGA. Would recommend pt to use a FWW for more stability due to the dizziness she is experiencing. Did perform oculomotor testing with corrective sacades with tests. [place] Hallpike then performed with a positive test on left side. Did perform Haylee x 2 on left side. Not fully convinced peripheral is the cause of dizzines s, but will await MRI results. Will follow daily. Would recommend PT services to follow to improve dizziness symptomsC[facility] Clinic Luther[facility] Hospital08-16-2021 NoteChief Complaint dizziness Reason for Consultation dizziness History of Present Illness 65-year-old female with past medical history of asthma, chronic GERD who presented to the ER with dizziness nausea vomiting. The patient had the same presentation a few days ago to [facility] and was discharged home from the ED. The patient states that her symptoms started 3 days ago, never had similar episode before, The patient stated that she had this sinusitis, headache, 3 days ago, fullness sensation in both ears. No loss of consciousness, no fall, No fever no chills, No abdominal pain no urinary symptoms no change in bowel habits The patient finished course of antibiotics ( ? Doxycycline last week) She will be admitted under hospitalist service and who I was asked to see in neurological consultation for dizzness. [1] For me, she says that her second day was worse than the first in terms of vertigo. She still notices that when she sits up she can get room spinning vertigo. She has only been up once this morning around 530. Is able to ambulate without significant difficulty. She noticed diplopia when looking rightward during part of our encounter. Her ears feel full, her voice sounds congested, and she can get a whooshing or pulsatile sound in her left ear. She does not have any ear pain. Her hearing seems rachel somewhat muffled. She has a mild cough. Review of Systems Constitutional: no fever, no chills, no sweats, no weakness Respiratory: no shortness of breath, mild cough, no orthopnea, no wheezing Cardiovascular: no chest pain, no palpitations, no edema Additional ROS info: Except as noted in the above Review of Systems and in the History of Present Illness all other systems have been reviewed and are negative or noncontributory. Physical Exam Vitals & Measurements T: 36.5 ?C (Oral) TMIN: 36.4 ?C (Oral) TMAX: 36.7 ?C (Oral) HR: 78(Monitored) RR: 16 BP: 126/78 BP:134/91(Standing) BP: 147/85(Supine) SpO2: 95% WT: 75.9 kg GEN: General appearance normal. Well-kempt. No distress. No deformities/trauma aside from linear scars on both knees. CARDIO/VASC: Limbs without significant edema and appear well-perfused. PULM: Normal work of breathing. SKIN: Visualized skin is intact and without lesions aside from age-related findings. MS: Affect is normal. Patient is alert and generally oriented. Normal attention. LANG: Speech is fluent and non-dysarthric. EYES: Pupils appear equal and are reactive. Ocular motility is full. Mild fast phase right beating horizontal nystagmus with right lateral gaze. Brain-Hallpike negative. Diplopia when looking laterallyto the right but gaze still appears conjugate. Ocular motility seems full. CN: Facial sensation normal. Hearing acuity normal. Face without droop and with normal motor function. MOTOR: Muscle bulk normal. Muscle tone normal. Muscle strength normal. No tremors. REFLEXES: Reflexes hypoactive throughout. No pathologic reflexes. SENSORY: Light touch normal. Pinprick normal. CEREBELLAR: No limb dysmetria with [id number]-[id number] or heel-alexis. NIHSS is 0 Assessment/Plan Room spinning vertigo, positional, and best elicited when she sits up from a reclined/supine position. Ongoing for 3+ days now. Not severe to the extent that she vomits or is unable to ambulate. She is having sinus congestion, muffled hearing, mild cough related to postnasal drainage, all of which makes me think there could be a peripheral vestibular inner ear process going on here. But Brain-Hallpike maneuver did not elicit any provoked nystagmus, and she reports diplopia with far rightwardgaze that is concerning for posterior circulation central nervous system process such as cerebrovascular syndrome. PLAN: MRI brain without contrast Vestibular physical therapy If MRI is negative, I would presume this to be peripheral and no other recommendations at this time If MRI reveals a ENGRAVER PANTOGRAPH insult/lesion, further recommendations to follow 1. Vertigo (R42: Dizziness and giddiness) 2. Nausea & vomiting (R11.2: Nausea with vomiting, unspecified) 3. Asthma (J45.909: Unspecified asthma, uncomplicated) 4. Chronic GERD (K21.9: Gastro-esophageal reflux disease without esophagitis) 5. DVT prophylaxis (Z29.9: Encounter for prophylactic measures, unspecified) Problem List/Past Medical History Ongoing No qualifying data Historical No qualifying data Procedure/Surgical History Knee replacement. Medications Inpatient acetaminophen 325 mg Tab, 650 mg= 2 tab(s), Oral, q6hr, PRN albuterol 0.083% Inh Maribell 3 mL UD, 2.5 mg= 3 mL, Inhalation, QID budesonide 0.5 mg/2 mL Inh Susp, 0.5 mg= 2 mL, NEB, BID heparin 5000 units/mL Inj, 5000 unit(s)= 1 mL, SubCutaneous, BID meclizine 12.5 mg Tab, 25 mg= 2 tab(s), Oral, q6hr, PRN NS 1000 mL Soln-IV 1,000 mL, 1000 mL, IV Pantoprazole [address] Tab, 40 mg= 1 tab(s), Oral, Daily Sodium Chloride 0.9% IV Maribell 1000 mL 1,000 mL, 1000 mL, IV Sodium Chloride 0.9% IV Maribell 1000 mL 1,000 mL, 1000 mL, IV (more content not included)...[facility] HospitalComment on above:Result Comment: Electronically Signed By: Janet Hodgson RN\.br\Date and Time Signed: 05/18/21 07:17 EDT\.br\Electronically Co-Signed By: Elvis Harrison DO\.br\Date and Time Co-Signed: 05/18/21 09:20 EDTEvaluation note* Diagnosis Dizziness Dizziness and giddiness Fatigue, unspecified type Vitamin D deficiency disease Unspecified vitamin D deficiency documented in this encounter [facility] Phone: evaluation note* Diagnosis Dizziness Dizziness and giddiness Syncope, unspecified syncope type SOB (shortness of breath) Shortness of breath Arthritis of knee Unspecified arthropathy, lower leg Chest pain, unspecified type documented in this encounter [facility] Phone: evaluation note* Diagnosis Chest pain, unspecified type documented in this encounter [facility] Phone: evaluation note* Diagnosis Chest pain, unspecified type documented in this encounter [facility] Phone: evaluation noteNo InformationNort CHARMS PPEC Other History general Narrative - Reported* Type Description Date Medical History asthma Medical History GERD Medical History high cholesterol Medical History high blood pressure Surgical History lumpectomy Surgical History heart catheterization 2020 Surgical History knee replacement, total bilater al Hospitalization History See Above [employer] Other Summary Purpose Family History No Family History Records FoundNo Family History Records FoundNo Family History Records FoundNo Family History Records FoundNo Family History Records FoundNo Family History Records FoundNo Family History Records Found Advance Directives No Advanced Directives Records FoundDocuments on File Type Date Recorded 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 Expl 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 ACP-Advance Directive ACP-Power of Ammunition Officer Documents on File Type Date Recorded 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 Expl 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 ACP-Advance Directive ACP-Power of Ammunition Officer Reason for Referral Status Reason Specialty Diagnoses / Procedures Referred By Contact Referred To Contact Pending Review Cardiology Diagnoses Dizziness Syncope, unspecified syncope type SOB (shortness of breath) Arthritis of knee Chest pain, unspecified type R42 (ICD-10-CM) - Dizziness R55 (ICD-10-CM) - Syncope, unspecified syncope type R06.02 (ICD-10-CM) - SOB (shortness of breath) M17.10 (ICD-10-CM) - Arthritis of knee R07.9 (ICD-10-CM) - Chest pain, unspecified type Procedures Stress test, lexiscan CHG MYOCARDIAL SPECT MULTIPLE STUDIES 94514 - CHG MYOCARDIAL SPECT MULTIPLE STUDIES Nicanor Ramirez MD [address] [place] [address] [facility] [address] [place] [address] Specialty Diagnoses / Procedures Referred By Contac t Referred To Contact Cardiology Diagnoses Chest pain, unspecified type Procedures EKG 12 Lead Nicanor Ramirez MD [address] [place] [address] Referral ID Status Reason Start Date Expiration Date Visits Re quested Visits Authorized [id number] Open 08/28/2021 08/28/2022 1 1 Additional Source Comments INFORMATION SOURCE (unrecogn ized section and content) DATE CREATED AUTHOR 03/22/2018 [facility] DATE CREATED AUTHOR AUTHOR'S ORGANIZ ATION 06/03/2021 [facility] DATE CREATED AUTHOR AUTHOR'S ORGANIZ ATION 09/05/2021 [facility] DATE CREATED AUTHOR AUTHOR'S ORGANIZ ATION 09/12/2021 [facility] DATE CREATED AUTHOR AUTHOR'S ORGANIZ ATION 02/20/2022 [facility] DATE CREATED AUTHOR AUTHOR'S ORGANIZ ATION 08/13/2022 [facility] DATE CREATED AUTHOR AUTHOR'S ORGANIZ ATION 06/24/2023 [facility] Reason for Visit (unrecogniz ed section and content) Status Reason Specialty Diagnoses / Procedures Referred By Contact Referred To Contact Pending Review Cardiology Diagnoses Dizziness Syncope, unspecified syncope type SOB (shortness of breath) Arthritis of knee Chest pain, unspecified type R42 (ICD-10-CM) - Dizziness R55 (ICD-10-CM) - Syncope, unspecified syncope type R06.02 (ICD-10-CM) - SOB (shortness of breath) M17.10 (ICD-10-CM) - Arthritis of knee R07.9 (ICD-10-CM) - Chest pain, unspecified type Procedures Stress test, lexiscan CHG MYOCARDIAL SPECT MULTIPLE STUDIES 03260 - CHG MYOCARDIAL SPECT MULTIPLE STUDIES Nicanor Ramirez MD [address] [place] [address] [facility] [address] [place] [address] Care Teams (unrecognized sec tion and content) Cut Off Machine Helper Relationship Specialty Start Date End Date Rip Goldsmith MD [address] [place] [address] PCP - General 06/25/21 Cut Off Machine Helper Relationship Specialty Start Date End Date Rip Goldsmith MD [address] [place] [address] PCP - General 06/25/21 FOR RECORDS PERTAINING TO PATIENTS WHO ARE OR HAVE BEEN ENROLLED IN A CHEMICAL DEPENDENCY/SUBSTANCEABUSE PROGRAM, SOME INFORMATION MAY BE OMITTED. This clinical summary was aggregated from multiple sources. Caution should be exercised in using it in the provision of clinical care. This summary normalizes information from multiple sources, and as a consequence, information in this document may materially change the coding, format and clinical context of patient data. In addition, data may be omitted in some cases. CLINICAL DECISIONS SHOULD BE BASED ON THE PRIMARY CLINICAL RECORDS. [employer] [facility]. provides no warranty or guarantee of the accuracy or completeness of information in this document.
[2023-10-28 08:49] LABS: Hemoglobin 12.9 g/dL (12.0-16.0)
== END 2023-10-28 08:38 | disposition home or self-care (01) ==
LOC: CARD 08:38
PROVIDERS: PCP Family Medicine
DX: J45.40 Moderate persistent asthma, uncomplicated (principal)
CPT/HCPCS: 36415; 85018; 94010; 94726; 94729

== ENCOUNTER 2024-08-09 09:25 | Outpatient (OUT) | payer MEDICARE, SELFPAY ==
--- NOTE | 2024-08-09 09:30 | MM_ITS ---
Patient Name: MOE CAROLINA MR#: [id number] : 1955 Exam Date: 08/09/2024 Ordering Doctor: DR RADHA GOLDSMITH . RADIOLOGY REPORT PROCEDURE: MM TOMOSYNTHESIS SCREENING BI COMPARISON: MM TOMOSYNTHESIS SCREENING BI, 08/08/2023. MG MAMM SCREEN 3D ADRIEN CAD, 08/06/2022. MG MAMM SCREEN 3D ADRIEN CAD, 06/17/2021. MG MAMM SCREEN 3D ADRIEN CAD, 12/05/2017. INDICATIONS: Screening Calculator Name NCI Breast Cancer Risk Assessment Tool 5 Year Breast Cancer Risk 1.80% Lifetime Breast Cancer Risk 5.90% Personal Breast Cancer No Personal Ovarian Cancer No Treatments None Family Cancers None LOCATION: [facility] BREAST COMPOSITION: The breasts are heterogeneously dense,which may obscure small masses. FINDINGS: DIAGNOSTIC CATEGORY 2--BENIGN FINDING: RIGHT BREAST: No significant suspicious finding. Scattered benign-appearing calcifications are present. No significant change has occurred. LEFT BREAST: No significant suspicious finding. Scattered benign-appearing calcifications are present. No significant change has occurred. RECOMMENDATIONS: ROUTINE MAMMOGRAM AND CLINICAL EVALUATION IN 12 MONTHS. PLEASE NOTE: A NORMAL MAMMOGRAM DOES NOT EXCLUDE THE POSSIBILITY OF BREAST CANCER. A CLINICALLY SUSPICIOUS PALPABLE LUMP SHOULD BE BIOPSIED. Dictated by: Kade Montes M.D. on 08/10/2024 at 08:17 Approved by: Kade Montes M.D. on 08/10/2024 at 08:20
== END 2024-08-09 09:26 | disposition home or self-care (01) ==
LOC: MAMMO 09:25
PROVIDERS: PCP Family Medicine; Visit Provider Family Medicine
DX: Z12.31 Encounter for screening mammogram for malignant neoplasm of breast (principal)
CPT/HCPCS: 77063; 77067

== ENCOUNTER 2025-09-02 11:17 | Outpatient (OUT) | payer MEDICARE, SELFPAY ==
--- OUTSIDE RECORDS SUMMARY | 2025-09-02 11:20 | XMS_ITS | Clinical Summary ---
Author Organization [facility] Address Formerly [facility] [place] [address] Care Team Providers Care Preassembler [employer]ed [employer] Name Role Phone Rip Matthew MD Primary Care Provider + [phone] Allergies Active AllergyReactionsCriticalityNoted DateCommentsChicken DerivedGI MhrwsxxibwhVlvf53/10/2021otatoGI MvzlmxmhzzbHkun13/10/2021hellfish Derived TafwxnjtowzXsqy09/10/2021 Medications MedicationSigDispense QuantityRefillsLast FilledStart DateEnd DateStatus predniSONE (DELTASONE) 20 MG tablet Take 20 mg by mouth daily 3 tabs night before procedure, 3 tabs day of procedure .08/13/2021ctive metoprolol tartrate (LOPRESSOR) 25 MG tablet Take 1 tablet by mouth 2 (two) times a day .08/05/2021ctive rosuvastatin (CRESTOR) 20 MG tablet Take 1 tablet by mouth daily .08/24/2021ctive aspirin 81 MG EC tablet Take 81 mg by mouth daily .05/21/2021ctive citalopram (CELEXA) 10 MG tablet Take 10 mg by mouth daily .06/24/2021ctive montelukast (SINGULAIR) 10 mg tablet Take 10 mg by mouth daily .04/22/2021ctive omeprazole (PRILOSEC) 20 MG capsule Take 20 mg by mouth daily .Active budesonide-formoteroL (SYMBICORT) 160-4.5 mcg/actuation inhaler Inhale 2 puffs 2 (two) times a day .Active Family History Medical HistoryRelationCommentsHeart diseaseBrotherHeart diseaseFather HyperlipidemiaFatherHeart diseaseMotherHyperlipidemiaMotherHypertensionMother Heart diseaseSisterRelationStatusCommentsBrotherFatherMotherSister Social History Tobacco UseTypesPacks/DayYears UsedDateSmoking Tobacco: NeverSmokeless Tobacco: NeverAlcohol UseStandard Drinks/WeekCommentsYes0 (1 standard drink = 0.6 oz pure alcohol)social drinker on occassionCommentsUnknownSex and Gender InformationValueDate RecordedSex Assigned at BirthNot on fileLegal SexFemale 08/20/2021 2:14 PM ESTGender IdentityNot on fileSexual OrientationNot on file Last Filed Vital Signs Vital SignReadingTime TakenCommentsBlood Zeqlvpcv337/7709/11/2021 11:58 AM EST Fojij859509/11/2021 11:58 AM PMHKfvmyinwekb83.5 ??C (97.7 ??F)09/11/2021 7:23 AM ESTRespiratory Vfms976411/12/2020 11:58 AM ESTOxygen Impsedtlef47%09/11/2021 11:29 AM ESTInhaled Oxygen Concentration--Ltudur28.8 kg (176 lb)09/11/2021 7:00 AM EST Xsjild571.6 cm (5' 4 )09/11/2021 7:00 AM ESTBody Mass Index30. 7:00 AM EST Plan of Treatment Not on file Insurance * Guarantor: Katya Bruce TypeRelation to PatientDate of BirthPhone Billing AddressPersonal/AzmgmvRtxr1955 [phone] (Home) [address] [place] [id number] Advance Directives For more information, please contact: [phone] * Full Code (Latest Code Status on File) Date ActivatedDate OfdlbspicgnXahyuskq38/10/2021 7:00 AM09/11/2021 9:42 AM Care Teams Team MemberRelationshipSpecialtyStart DateEnd Date Rip Matthew MD [address] [place] [address] PCP - GeneralFamily Crksewqj09/10/21
--- OUTSIDE RECORDS SUMMARY | 2025-09-02 11:20 | XMS_ITS | Clinical Summary ---
Author Organization [facility] Address [address] [place] [id number] Care Team Providers Care Maintenance Service Supervisor Name Role Phone Unavailable Primary Care Provider Unavailabl e Allergies Active AllergyReactionsCriticalityNoted DateCommentsChicken DerivedVomiting 06/15/20211251ZbhqlmXnvydqqyKeth82/06/2018 Violent nausea Shellfish Containing ProductsHives,Shortness of Jabgsc4402/13/2018 Medications MedicationSigDispense QuantityRefillsLast FilledStart DateEnd DateStatus amoxicillin (AMOXIL) 125 mg/5 mL suspension 05/21/2021ctive LOW-DOSE ASPIRIN ORAL 05/21/2021ctive cetirizine (ZYRTEC) 10 mg tablet Take 10 mg by mouth.Active Esomeprazole Magnesium 20 mg packet Active predniSONE 10 mg tablet pack 06/05/2021ctive montelukast (SINGULAIR) 10 mg tablet Take 10 mg by mouth once daily.04/22/2021ctive citalopram hydrobromide (CELEXA) 10 mg tablet Take 10 mg by mouth once daily.06/24/2021ctive simvastatin (ZOCOR) 20 mg tablet Take 20 mg by mouth daily at bedtime.06/24/2021ctive metoprolol tartrate, short acting, (LOPRESSOR) 25 mg tablet 08/05/2021ctive dilTIAZem (CARDIZEM) 30 mg tablet 08/13/2021ctive Active Problems ProblemNoted DateDiagnosed DateSudden left hearing loss06/23/2021Tinnitus, left ear06/23/2021ensorineural hearing loss (SNHL) of left ear with unrestricted hearing of right ear06/19/2021 Family History Medical HistoryRelationCommentsIschemic Heart DiseaseFatherIschemic Heart DiseaseMotherMultiple SclerosisNo Family HistoryRelationStatusCommentsFather DeceasedMotherDeceased Social History Tobacco UseTypesPacks/DayYears UsedDateSmoking Tobacco: NeverSmokeless Tobacco: NeverAlcohol UseStandard Drinks/WeekCommentsYes0 (1 standard drink = 0.6 oz pure alcohol)occasionalPHQ-2AnswerDate RecordedPHQ-2 ymdhv6061Area Deprivation IndexAnswerDate RecordedNational Score (1-100), lower number is lower risk73 10/31/2022State Score (1-10), lower number is lower riskNot on file10/31/2022 Data from: https://www.neighborhoodatlas.[facility].edu/. Last address used for yz[address]/31/2022CommentsNoSex and Gender InformationValueDate RecordedSex Assigned at BirthNot on fileLegal SexFemale 06/09/2021 12:43 PM EDTGender IdentityNot on fileSexual OrientationNot on file Last Filed Vital Signs Vital SignReadingTime TakenCommentsBlood Nxrqswtv26/6509 11:17 AM EDT Xexzj160306/19/2021 11:17 AM EDTTemperature--Respiratory Rate--Oxygen Saturation 98%06/19/2021 11:17 AM EDTInhaled Oxygen Concentration--Ztvqbh29.9 kg (171 lb 11.2 oz)06/15/2021 8:43 AM MEVUrsbcs516.6 cm (5' 4 )06/15/2021 8:43 AM EDTBody Mass Index29.4709 8:43 AM EDT Plan of Treatment Health MaintenanceDue DateLast DoneCommentsAnxiety Neeilauih84/15/1973Depression Sjgxbakhr97/15/1973Hepatitis C Owwlkzmve43/15/1973DTaP,Tdap,Td Vaccine (1 - Tdap)1974Mammogram Shptfopxt44/15/1995CT Llqblrokgcfc85/15/2000Cologuard (FIT-DNA)09/16/20002154Hnquvvqgoww24/15/2000Colorectal Cancer Spdpnstuf17/15/2000 Fecal Occult Blood09/16/20009693Evwkfgxzfqrnf97/15/2000Pneumococcal Vaccine: 50+ (2 of 2 - PCV), 05/27/2017Bone Density Tnjlvlyno66/15/2020 Diabetes Oviyrrbsn11/12/2020, 03/10/2018Advance Directive Discussion 5Covid-19 Vaccine (3 - 2024- season)504/06/2021, 12/12/2020 Influenza Vaccine (#1)/, 07/08/2019, 06/14/2018, Additional history existsLipid Admljfsvy10/SV Vaccine (1 - 1-dose 75+ series)2030Shingrix AdqzewiHxfrlqpqm99/09/2019, 05/02/2019 Insurance * Guarantor: Katya Bruce TypeRelation to PatientDate of BirthPhone Billing AddressPersonal/ZxusdeIvhq1955 [facility] [place] [address]
--- OUTSIDE RECORDS SUMMARY | 2025-09-02 11:20 | XMS_ITS | Clinical Summary ---
Author Organization [facility] Address [address] [facility], [address] [place] [address] Care Team Providers Care Middle [employer] Technology Teacher Name Role Phone Rip Matthew MD Primary Care Provider Allergies Active AllergyReactionsCriticalityNoted DateCommentsChicken AllergyHives 1Shellfish AllergyHives,Shortness Of CfdjqyWdno96/14/2018Shellfish Protein-Containing Drug Rbvdgxeo33/14/2018Sweet SvzlmnZsyelSrus97/06/2018 Violent nausea Violent nausea Potato allergy Medications MedicationSigDispense QuantityRefillsLast FilledStart DateEnd DateStatus Multiple Vitamins-Minerals (THERAPEUTIC MULTIVITAMIN-MINERALS) tablet Take 1 tablet by mouth dailyActive cetirizine (ZYRTEC) 10 MG tablet Take 10 mg by mouth dailyActive montelukast (SINGULAIR) 10 MG tablet Take 10 mg by mouth nightlyActive citalopram (CELEXA) 10 MG tablet Take 10 mg by mouth dailyActive omeprazole (PRILOSEC) 20 MG delayed release capsule Take 20 mg by mouth dailyActive budesonide-formoterol (SYMBICORT) 160-4.5 MCG/ACT AERO Inhale 2 puffs into the lungs 2 times dailyActive albuterol sulfate HFA (VENTOLIN HFA) 108 (90 Base) MCG/ACT inhaler Inhale 2 puffs into the lungs every 6 hours as needed for WheezingActive aspirin 81 MG EC tablet Take 81 mg by mouth daily 3 times a week.Active predniSONE (DELTASONE) 20 MG tablet Take 3 tablets night prior to procedure and 3 tablets day of procedure 6 tablet 08/13/2021ctive rosuvastatin (CRESTOR) 20 MG tablet TAKE 1 TABLET BY MOUTH EVERY DAY 30 tablet ctive dilTIAZem (CARDIZEM) 30 MG tablet TAKE 1 TABLET BY MOUTH TWICE A DAY 60 tablet 11111/08/2020ctive metoprolol tartrate (LOPRESSOR) 25 MG tablet TAKE 1 TABLET BY MOUTH TWICE A DAY 180 tablet ctive Social History Tobacco UseTypesPacks/DayYears UsedDateSmoking Tobacco: NeverSmokeless Tobacco: NeverAlcohol UseStandard Drinks/WeekCommentsYes0 (1 standard drink = 0.6 oz pure alcohol)socialCommentsUnknownSex and Gender InformationValueDate RecordedSex Assigned at BirthNot on fileLegal NxpJboadh41/23/2021 11:33 AM EDT Gender IdentityNot on fileSexual OrientationNot on file Last Filed Vital Signs Vital SignReadingTime TakenCommentsBlood Fxvxpgyt045/8408/13/2021 1:54 PM EST Ehurs029308/13/2021 1:54 PM QHYBikooevcyqv14.9 ??C (98.5 ??F)07/23/2015 10:46 AM EDTRespiratory Mejk6829 10:46 AM EDTOxygen Iarkrymtzo50%08/13/2021 1:54 PM ESTInhaled Oxygen Concentration--Jwofax42.2 kg (179 lb)08/13/2021 1:54 PM EST Height--Body Mass Index-- Plan of Treatment Not on file Insurance Care Teams Team MemberRelationshipSpecialtyStart DateEnd Date Rip Matthew MD [facility]06/25/21
--- OUTSIDE RECORDS SUMMARY | 2025-09-02 11:20 | XMS_ITS | Clinical Summary ---
Author Organization [facility] Address [address] [place] [address] Care Team Providers Care Crimper Operator Name Role Phone Rip Matthew MD Unavailable [phone] Rip Matthew MD Primary Care Provider [phone] Rashard Zheng MD Unavailable [phone] Prabhu Gandhi MD Unavailable [phone] Jessica Burgess [facility] Unavailable Allergies Active AllergyReactionsCriticalityNoted DateCommentsBeta Wmkzcitb47/18/2023 Other Reaction(s): sinus congestion Chicken FfnmkbeOqwrgjx72/18/2023Dust Mite Ihvqldh9704/19/2023 Other Reaction(s): sinus congestion Shellfish Protein-Containing Drug Aghonxzq18/18/2023 Other Reaction(s): passes out, ER visits Xkqmby1004/19/2023 Other Reaction(s): vomiting Medications MedicationSigDispense QuantityRefillsLast FilledStart DateEnd DateStatus ASPIRIN 81 MG chewable tablet Chew 81 mg 3 (three) times a week. 1 tablet Orally M-W-FActive cetirizine (ZyrTEC ALLERGY) 10 MG tablet Take 10 mg by mouth 1 (one) time each day at the same time.Active esomeprazole (NexIUM) [address] capsule Take 20 mg by mouth in the morning. Take before meals. Do not open capsule.. Active EPINEPHrine (EpiPen 2-Luis F) 0.3 MG/0.3ML injection syringe Indications:Moderate persistent asthma without complication (HCC),Food allergy Inject 0.3 mL (0.3 mg) as directed See administration instructions as directed Injection [facility] 1 year 4 each 4Active albuterol (2.5 MG/3ML) 0.083% nebulizer solution Indications:Moderate persistent asthma without complication (HCC)Take 3 mL (2.5 mg) by nebulization every 6 (six) hours if needed for wheezing 100 mL 5Active budesonide-formoterol (Symbicort) 160-4.5 MCG/ACT inhaler Indications:Moderate persistent asthma without complication (HCC)Inhale 2 puffs 2 (two) times a day as needed for wheezing, shortness of breath or cough 3 each 5Active albuterol HFA 90 mcg/act inhaler Indications:Moderate persistent asthma without complication (HCC)INHALE 2 PUFFS EVERY 6 HOURS NEEDED FOR SHORTNESS OF BREATH OR FOR WHEEZE 18 g 5Active nebivolol (Bystolic) 10 MG tablet Indications:PalpitationsTake 1 tablet (10 mg) by mouth Daily 90 tablet /6Active atorvastatin (Lipitor) 20 MG tablet Indications:Mixed dyslipidemiaTake 1 tablet (20 mg) by mouth at bedtime 90 tablet ctive Active Problems ProblemNoted DateDiagnosed DateChronic allergic celofquoaqkquz23/22/2025Seasonal affective usyjgdoh99/03/2023Food xpjtiqx3905/25/2023llergic rhinitis due to nxpzpr8404/19/2023nxiety about qtuzrn0004/19/2023trophy of qzdnhx4604/19/2023hronic pndwxfrtjedf31/18/2023iverticulosis of colon04/19/2023astro-esophageal reflux disease without lclfbmufuwf97/18/2023History of total knee nandrjfoqhd82/18/2023 Overview (06/26/2024): bilateral Moderate persistent asthma without afmxtojpzsvw87/18/2023Non morbid obesity due to excess fwialbch16/18/7147Mnkplldqivfy53/18/2023Sudden idiopathic hearing loss of left ear with unrestricted hearing of right ear04/19/2023Tinnitus, left ear 04/19/2023Venous insufficiency of both lower rrswttccabl08/18/2023Vestibular disequilibrium involving left inner ear04/19/2023White matter disease, tpfiosjkwcu83/18/2023hronic pandkmt4904/14/2023hronic kidney disease, stage II (mild)04/14/2023Mixed rjnpkjwqrayb36/13/2023 Resolved Problems ProblemNoted DateDiagnosed DateResolved DateAsthma in adult/01/2023 Balance wjoadnj65Unsteadiness on feet/01/2023 Inflamed seborrheic qczfgmhca85/Near fqnobxu6804/19/2023 06/26/2024 Encounters DateTypeDepartmentCare HpwnThyturibrhs05/06/2025Orders Only [facility] [place] [facility] [address] [place] [address] Neville Iraida, Other screening gmnscjqyq15/25/2025 8:00 AM EDTOffice Visit [facility] [address] [facility] [address] [place] [address] Rip Matthew MD Palpitations; Mixed dyslipidemia ; Non morbid obesity due to excess beqxmnju66/25/2025amboo flowsheet [facility] [address] [place] [address] [address] [place] [address] Rip Matthew MD 06/27/2025Travelfrom Last 3 Months Immunizations ImmunizationAdministration DatesNext DueInfluenza, High Dose Seasonal, Preservative Free08/13/2024Influenza, High-dose Seasonal, Quadrivalent, Preservative Free08/31/2023,08/11/2021Influenza, Seasonal, Quadrivalent, Goimzxyvgg00/18/2022Influenza, injectable, MDCK, preservative free, quadrivalent 07/09/2019Influenza, injectable, quadrivalent, preservative free07/31/2020, 08/08/2017,07/14/2017,07/03/2015Influenza, live, intranasal, quadrivalent 06/14/2018Influenza, seasonal, intradermal, preservative free07/13/2016 Pneumococcal Conjugate PCV 4Pneumococcal Polysaccharide PPSV23 07/11/2017,05/27/2017RSV, recombinant, protein subunit RSVpreF, adjuvant reconstitu, 120mcg/0.5mL, PF (Arexvy)08/31/2023Zoster, Qcligajkupa80/10/2019, 05/03/2019 Family History Medical HistoryRelationNameCommentsCoronary artery diseaseBrotherHeart disease FatherHeart diseaseMotherCoronary artery diseaseSisterBreast cancerNeg HxColon cancerNeg HxOvarian cancerNeg BtKyfosmpjWapbQcrkwuKylilurcEahnyfry6BgzazitpWfblv l9VyydkwDdbnmMyqfcnrz GrandmotherAliveMotherDeceasedSisterx2 Social History Tobacco UseTypesPacks/DayYears UsedDateSmoking Tobacco: NeverSmokeless Tobacco: Never Tobacco Cessation:Counseling Given: Yes Alcohol UseStandard Drinks/WeekCommentsYes2 (1 standard drink = 0.6 oz pure alcohol)Caffeine intake: more than 4 cups per day PopHumiliation, Afraid, Rape, and Kick questionnaireAnswerDate RecordedWithin the last year, have you been afraid of your partner or ex-partner?No06/09/2023Within the last year, have you been humiliated or emotionally abused in other ways by your partner or ex-partner?06/09/2023Within the last year, have you been kicked, hit, slapped, or otherwise physically hurt by your partner or ex-partner?06/09/2023Within the last year, have you been raped or forced to have any kind of sexual activity by your partner or ex-partner?No06/09/2023Social Connection and Isolation Panel AnswerDate RecordedIn a typical week, how many times do you talk on the phone with family, friends, or neighbors?More than three times a week06/09/2023How often do you get together with friends or relatives?Three times a week06/09/2023 How often do you attend restoration or sabianist services?More than 4 times per year 06/09/2023o you belong to any clubs or organizations such as restoration groups, unions, fraternal or athletic groups, or school groups?Yes06/09/2023How often do you attend meetings of the clubs or organizations you belong to?More than 4 times per year06/09/2023re you , , , , never , or living with a partner?Nzjehaw7606/09/2023UDIT-CAnswerDate RecordedQ1: How often do you have a drink containing alcohol?Monthly or less06/09/2023Q2: How many drinks containing alcohol do you have on a typical day when you are drinking?1 or Q3: How often do you have six or more drinks on one occasion?Never06/09/2023Overall Financial Resource Strain (CARDIA)AnswerDate RecordedHow hard is it for you to pay for the very basics like food, housing, medical care, and heating?Not hard at all06/09/2023HQ-2AnswerDate Recorded Patient Health Questionnaire-2 [facility] [place] [facility] - Occupational Stress QuestionnaireAnswerDate RecordedDo you feel stress - tense, restless, nervous, or anxious, or unable to sleep at night because your mind is troubled all the time - these days?Not at all06/09/2023Exercise Vital SignAnswerDate RecordedOn average, how many days per week do you engage in moderate to strenuous exercise (like a brisk walk)?5 days06/09/2023On average, how many minutes do you engage in exercise at this level?20 min06/09/2023Hunger Vital SignAnswerDate RecordedWithin the past 12 months, you worried that your food would run out before you got the money to buymore.Never true06/09/2023 Within the past 12 months, the food you bought just didn't last and you didn't have money to get more.Never true06/09/2023RAPARE - TransportationAnswerDate RecordedIn the past 12 months, has lack of transportation kept you from medical appointments or from getting medications?No06/09/2023In the past 12 months, has lack of transportation kept you from meetings, work, or from getting things needed for daily living?No06/09/2023Housing Stability Vital SignAnswerDate RecordedIn the last 12 months, was there a time when you were not able to pay the mortgage or rent on time?No06/09/2023In the last 12 months, how many places have you lived?In the last 12 months, was there a time when you did not have a steady place to sleep or slept in ashelter (including now)?No 3CommentsNoSex and Gender InformationValueDate RecordedSex Assigned at BirthNot on fileLegal KaePzypuw74/15/2023 6:52 PM EDTGender Identity Not on fileSexual OrientationNot on file Last Filed Vital Signs Vital SignReadingTime TakenCommentsBlood Uzubvkez602/6804 11:41 AM EDT Ntnun8525 11:41 AM EDTTemperature--Respiratory Rate--Oxygen Saturation 96%01/29/2025 11:41 AM EDTInhaled Oxygen Concentration--Xtmfow64 kg (172 lb) 01/29/2025 11:41 AM VLGXymmum797.6 cm (5' 4 )01/29/2025 11:41 AM EDTBody Mass Index29.5204 11:41 AM EDT Plan of Treatment DateTypeDepartmentCare Team (Latest Contact Info)Mrilmusxplf35/08/2025 9:50 AM ESTOffice Visit [facility] [address] [place] [address] Jessica Burgess APRN-MOLD INSERT CHANGER [address] [place] [address] 12/19/2025 8:30 AM EDTOffice Visit [facility] [address] [place] [address] Rip Matthew MD [address] [place] [address] (Fax) 01/23/2026 11:15 AM EDTOffice Visit [facility] [address] [place] [phone] Rashard Zheng MD [address] [place] [address] Health MaintenanceDue DateLast DoneCommentsCT Lctnebjosprk1955FIT-DNA 1955FIT1955FOBT1955 7321Mbzseevpjklhx1955OVID-19 Vaccine ( season)501/06/2024, 08/31/2021, 01/10/2021, Additional history existsInfluenza Vaccine (#1)/08/2024, 08/31/2023, 08/20/2022, Additional history tagpboGgqcwgwqp31/08/202511/05/2024, 08/08/2023, 08/06/2022, Additional history existsMedicare Annual Wellness (AWV)01/29/2026 01/29/2025, 12/26/2024, 06/26/2024, Additional history existsColonoscopy , 04/26/2022olorectal Cancer Cteteijgj47/25/2032 Pneumococcal Vaccine: 65+ HwanhCfzsvtzrl70/11/2024, 07/11/2017, 05/27/2017 Procedures Procedure NamePriorityDate/TimeAssociated DiagnosisCommentsMM TOMOSYNTHESIS SCREENING BI08/10/2024 8:20 AM EST PNLZQDWTPYJXwygybz64/25/2022 12:00 PM EDT Encounter for screening for malignant neoplasm of colon from Last 3 Months or Most Recently Relevant to Health Maintenance Results * MM TOMOSYNTHESIS SCREENING BI (08/10/2024 8:20 AM EST)Anatomical Region LateralityModalityOtherSpecimen (Source)Anatomical Location / Laterality Collection Method / VolumeCollection TimeReceived Time08/10/2024 8:20 AM EST Narrative 08/10/2024 8:21 AM EST [facility] ?[address] ? [place] [address] ? Mammography Report ? Signed ? Patient: BRUCE,CASI H ?MR#: [id number] ?? : 1955 ?Acct:[id number] ?? Age/Sex: 68 / F ?ADM Date: 08/09/24 ?? Loc: MAMMO ? Attending Dr: RIP MATTHEW ? Ordering Physician: RIP MATTHEW ? Results: ? Date of Service: 08/09/24 ?Follow Up: ? Procedure(s): MM tomosynthesis screening BI ?? Accession Number(s): [id number] ? cc: RIP MATTHEW ? Patient Name: ? CASI BRUCE ? MR#: [id number] ? : 1955 ? Exam Date: 08/09/2024 ?? Ordering Doctor: DR RIP MATTHEW . ? RADIOLOGY REPORT ? PROCEDURE: ? MM TOMOSYNTHESIS SCREENING BI ? COMPARISON: ? MM TOMOSYNTHESIS SCREENING BI, 08/08/2023. ??MG MAMM SCREEN 3D ?? ADRIEN CAD, 08/06/2022. ??MG MAMM SCREEN 3D ADRIEN CAD, 06/17/2021. ??MG MAMM SCREEN 3D ?? ADRIEN CAD, 12/05/2017. ? INDICATIONS: ? Screening ? Calculator Name ? NCI Breast Cancer Risk Assessment Tool ?? 5 Year Breast Cancer Risk ? 1.80% ?? Lifetime Breast Cancer Risk ? 5.90% ?? Personal Breast Cancer ?No ?? Personal Ovarian Cancer ? No ?? Treatments ? None ?? Family Cancers ? None ? LOCATION: ? [facility] ? BREAST COMPOSITION: ? The breasts are heterogeneously dense,which may ?? obscure small masses. ? FINDINGS: ? DIAGNOSTIC CATEGORY 2--BENIGN FINDING: ? RIGHT BREAST: ??No significant suspicious finding. ??Scattered benign-appearing ?? calcifications are present. ??No significant change has occurred. ? LEFT BREAST: ??No significant suspicious finding. ??Scattered benign-appearing ?? calcifications are present. ??No significant change has occurred. ? RECOMMENDATIONS: ? ROUTINE MAMMOGRAM AND CLINICAL EVALUATION IN 12 MONTHS. ? PLEASE NOTE: ??A NORMAL MAMMOGRAM DOES NOT EXCLUDE THE POSSIBILITY OF BREAST ?? CANCER. ??A CLINICALLY SUSPICIOUS PALPABLE LUMP SHOULD BE BIOPSIED. ? Dictated by: Kade Montes M.D. on 08/10/2024 at 08:17 ? Approved by: Kade Montes M.D. on 08/10/2024 at 08:20 ? Dictated By: ?Kade Montes M.D. ? Signed By: ?08/10/24820 ? DD/ 9 ? TD/TT: ? Precision Assembler: Procedure Note Radiology, Radiologist, - 08/10/2024 [place] [address] Mammography Report Signed Patient: CASI BRUCE R#: [id number] : 1955ct:[id number] Age/Sex: 68 / FADM Date: 08/09/24 Loc: MAMMO Attending Dr: RIP MATTHEW Ordering Physician: RIP MATTHEWResults: Date of Service: 08/09/24Follow Up: Procedure(s): MM tomosynthesis screening BI Accession Number(s): [id number] cc: RIP MATTHEW Patient Name: CASI BRUCE MR#: [id number] : 1955 Exam Date: 08/09/2024 Ordering Doctor: DR RIP MATTHEW . RADIOLOGY REPORT PROCEDURE: MM TOMOSYNTHESIS SCREENING BI COMPARISON: MM TOMOSYNTHESIS SCREENING BI, 08/08/2023. MG MAMM OVHZGL7G ADRIEN CAD, 08/06/2022. MG MAMM SCREEN 3D ADRIEN CAD, 06/17/2021. MG MAMMSCREEN 3D ADRIEN CAD, 12/05/2017. INDICATIONS: Screening Calculator Name NCI Breast Cancer Risk Assessment Tool 5 Year Breast Cancer Risk 1.80% Lifetime Breast Cancer Risk 5.90% Personal Breast Cancer No Personal Ovarian Cancer No Treatments None Family Cancers None LOCATION: [facility] BREAST COMPOSITION: The breasts are heterogeneously dense,which may obscure small masses. FINDINGS: DIAGNOSTIC CATEGORY 2--BENIGN FINDING: RIGHT BREAST: No significant suspicious finding. Scatteredbenign-appearing calcifications are present. No significant change has occurred. LEFT BREAST: No significant suspicious finding. Scatteredbenign-appearing calcifications are present. No significant change has occurred. RECOMMENDATIONS: ROUTINE MAMMOGRAM AND CLINICAL EVALUATION IN 12 MONTHS. PLEASE NOTE: A NORMAL MAMMOGRAM DOES NOT EXCLUDE THE POSSIBILITY OFBREAST CANCER. A CLINICALLY SUSPICIOUS PALPABLE LUMP SHOULD BE BIOPSIED. Dictated by: Kade Montes M.D. on 08/10/2024 at 08:17 Approved by: Kade Montes M.D. on 08/10/2024 at 08:20 Dictated By: Kade Montes M.D. Signed By:08/10/24820 DD/ 9 TD/TT: Precision Assembler: Authorizing ProviderResult TypeResult Fernanda Matthew MDCLINISYNC IMAGING Final Result * Colonoscopy (04/26/2022 12:00 PM EDT)Anatomical RegionLateralityModality EndoscopySpecimen (Source)Anatomical Location / LateralityCollection Method / VolumeCollection TimeReceived Time04/26/2022 12:00 PM EDT Narrative 04/26/2022 12:00 PM EDT PERFORMED AT [facility] LOCATION:[id number] Procedure Note CONVERSION, GENERIC - 02/16/2023 PERFORMED AT [facility] LOCATION:[id number] Authorizing ProviderResult TypeResult StatusFredric Jayce Mckeon DOENDOSCOPY PROCEDURE ORDERABLESFinal Result from Last 3 Months or Most Recently Relevant to Health Maintenance Insurance Advance Directives TypeDate RecordedPatient RepresentativeExplanationAdvance Directives and Living Will04/27/2023 9:33 AMLiving WillPower of Attorney04/27/2023 9:32 AM Care Teams Team MemberRelationshipSpecialtyStart DateEnd Date Rip Matthew MD [address] [place] [address] PCP - [employer]03/03/21 Rip Matthew MD [address] [place] [address] PCP - GeneralFamily Medicine04/14/23 Rashard Zheng MD [address] [place] [address] Obstetrics and Gynecology01/29/25 Prabhu Gandhi MD [address] [place] [address] Referring PhysicianAllergy and Immunology02/05/25 Jessica Burgess, LEAD RIDER-MOLD INSERT CHANGER [address] [place] [address] Nurse PractitionerDermatology02/05/25
--- OUTSIDE RECORDS SUMMARY | 2025-09-02 11:20 | XMS_ITS | Clinical Summary ---
Author Organization [employer] Address [id number] [address] [place] [address] Care Team Providers Care Garnett Feeder Name Role Phone Rip Matthew MD Primary Care Provider [phone] Allergies Active AllergyReactionsCriticalityNoted SqzuMupagpkqTheoaoTyhtnbse93/06/2018 Violent nausea Shellfish Swnglgt2702/13/2018 Medications MedicationSigDispense QuantityRefillsLast FilledStart DateEnd DateStatus cetirizine (ZyrTEC) 10 mg tablet Take 10 mg by mouth daily.Active montelukast (SINGULAIR) 10 mg tablet Take 10 mg by mouth nightly.Active raNITIdine (ZANTAC) 300 mg tablet Take 300 mg by mouth nightly.Active budesonide-formoterol (SYMBICORT) 160-4.5 mcg/actuation inhaler Inhale 2 puffs 2 (two) times a day.Active albuterol (PROVENTIL HFA;VENTOLIN HFA) 90 mcg/actuation inhaler Inhale 2 puffs every 6 (six) hours as needed for wheezing.Active Active Problems ProblemNoted DateDiagnosed DateOsteoarthritis of left knee03/08/2018 Tkjzlxaffzuggc44/06/2018 Family History Medical HistoryRelationNameCommentsHeart diseaseFatherHeart diseaseMother RelationNameStatusCommentsFatherDeceasedMotherDeceased Social History Tobacco UseTypesPacks/DayYears UsedDateSmoking Tobacco: NeverSmokeless Tobacco: NeverAlcohol UseStandard Drinks/WeekCommentsYes0 (1 standard drink = 0.6 oz pure alcohol)sociallyChildcareAnswerDate NcsoyiumJdalnhfhmIzbttxh68/12/2019Employment AnswerDate SzhzlifaUewghxomxvEdrewmv66/12/2019Purpose - LifeAnswerDate Recorded Purpose and direction in hqgaGhtaaar28/11/2021CommentsNoSex and Gender InformationValueDate RecordedSex Assigned at BirthNot on fileLegal SexFemale 12/09/2016 1:41 PM ESTGender IdentityNot on fileSexual OrientationNot on file Last Filed Vital Signs Vital SignReadingTime TakenCommentsBlood Xnqqwuit254/7706 8:20 AM EDT Diubd52966/08/2018 8:30 AM DCALwsfssdxfjj46.7 ??C (98 ??F)03/10/2018 8:20 AM EDT Respiratory Tzys036303/10/2018 8:30 AM EDTOxygen Vnltbaslpo63%03/10/2018 8:26 AM EDTInhaled Oxygen Concentration--Jvoxed98.9 kg (176 lb 2.4 oz)03/10/2018 8:20 AM UELZbutbj393.6 cm (5' 4 )03/08/2018 1:30 PM EDTBody Mass Index30.24003/08/2018 1:30 PM EDT Plan of Treatment Not on file Medical Devices ImplantedTypeAreaManufacturerDevice IdentifierShelf Expiration DateModel / Serial / LotCement Bn Palacos Radpq 40g Rpl [id number] - Sna - [id number] Implanted:Qty: 2 on 03/08/2018 [facility]: KneeLeommer [id number] / NA / [id number] Artc 14mm 6-9 Cd Kn Lt - Sna - [id number] Implanted:Qty: 1 on 03/08/2018 by Kushal Pagan DO at [facility] ImplantLeft: KneeZimmer [id number] / NA / [id number] Ptlr 32mm Persona Alply - Sna - [id number] Implanted:Qty: 1 on 03/08/2018 by Kushal Pagan DO at [facility] ImplantLeft: Shreya [id number] / NA / [id number] Fem 6 Std Kn Lt Cmnt Post - Sna - [id number] Implanted:Qty: 1 on 03/08/2018 by Kushal Pagan DO at [facility] ImplantLeft: BasiaHarsh [id number] / NA / [id number] Stm 30mm 14mm Kn Tib - Sna - [id number] Implanted:Qty: 1 on 03/08/2018 by Kushal Pagan DO at [facility] ImplantLeft: BasiaHarsh [id number] / NA / [id number] Tib 5d C Kn Lt Cmnt Stm - Sna - [id number] Implanted:Qty: 1 on 03/08/2018 by [facility]: BasiaLeocandelario [id number]/31/2027 27-9487-027-01 / NA / [id number]awxplCbdfkv IdentifierShelf Expiration DateModel / Serial / LotScr Gd 48mm Qd-Spr Hex Hd Mis - Sna - [id number] Explanted:Qty: 1 on 03/08/2018 by [facility]agan DO [facility]: Shreya [id number]/31/202819-1948-098-48 / NA / [id number] Gd 48mm Qd-Spr Hex Hd Mis - Sna - [id number] Explanted:Qty: 1 on 03/08/2018 by Kushal Pagan DO at [facility]US[facility]wLeft: Shreya [id number]/31/202810-6232-453-48 / NA / [id number] Bn Arnav 35mm 6.5mm Hip St Rpl [id number] + [id number] + 32 - Sna - [id number] Explanted:Qty: 2 on 03/08/2018 by Kushal Pagan DO at [facility]wLeft: Shreya [id number] / NA / [id number] Insurance Advance Directives * Full Code (Latest Code Status on File) Date ActivatedDate InactivatedComments03/08/2018 1:51 PM03/10/2018 9:29 PM Care Teams Team MemberRelationshipSpecialtyStart DateEnd Date Rip Matthew MD [facility]02/13/18
--- NOTE | 2025-09-02 11:23 | MM_ITS ---
Patient Name: MOE CAROLINA MR#: [id number] : 1955 Exam Date: 09/02/2025 Ordering Doctor: DR AARON BAUGH RADIOLOGY REPORT PROCEDURE: MM TOMOSYNTHESIS SCREENING BI COMPARISON: MM TOMOSYNTHESIS SCREENING BI, 08/09/2024. MM TOMOSYNTHESIS SCREENING BI, 08/08/2023. MG MAMM SCREEN 3D ADRIEN CAD, 08/06/2022. MG MAMM SCREEN 3D ADRIEN CAD, 12/05/2017. INDICATIONS: Screening Calculator Name NCI Breast Cancer Risk Assessment Tool 5 Year Breast Cancer Risk 1.80% Lifetime Breast Cancer Risk 5.60% Personal Breast Cancer No Personal Ovarian Cancer No Treatments None Family Cancers None LOCATION: [facility] BREAST COMPOSITION: The breasts are heterogeneously dense, which may obscure small masses. FINDINGS: RIGHT BREAST: No significant suspicious finding. Benign-appearing calcifications are redemonstrated. LEFT BREAST: No significant suspicious finding. Benign-appearing calcifications are redemonstrated. DIAGNOSTIC CATEGORY 2--BENIGN FINDING. NO CHANGE FROM COMPARISON. RECOMMENDATIONS: ROUTINE MAMMOGRAM AND CLINICAL EVALUATION IN 12 MONTHS. Dictated by: Hunter Rueda MD on 09/02/2025 at 14:49 Approved by: Hunter Rueda MD on 09/02/2025 at 14:53
--- OUTSIDE RECORDS SUMMARY | 2025-09-02 11:42 | XMS_ITS | CCD ---
Author Organization [facility] Care Team Providers Care Ventilation Worker Name Role Phone MERLINE, DAVID Unavailable Unavailable APLING, DAVID Unavailable Unavailable Provider, Unlisted Unavailable Unavailable Agus REDD, Rip Valladares Primary Care Provider [phone] VIGESAA, NICANOR S Referring Unavailable HEMEYER, RIP Valladares Primary Care Unavailable VIGESAA, NICANOR S Referring Unavailable HEMEYER, RIP Valladares Primary Care Unavailable VIGESAA, NICANOR S Referring Unavailable HEMETOPHER, RIP Valladares Primary Care Unavailable VIGESAA, NICANOR S Referring Unavailable HEMEYER, RIP Valladares Primary Care Unavailable VIGESAA, NICANOR S Referring Unavailable HEMEYER, RIP Valladares Primary Care Unavailable VIGESAA, NICANOR S Referring Unavailable HEMEYER, RPI Valladares Primary Care Unavailable VIGESAA, NICANOR S Referring Unavailable HEMEYER, RIP Valladares Primary Care Unavailable VIGESAA, NICANOR S Referring Unavailable HEMEYER, RIP Valladares Primary Care Unavailable VIGESAA, NICANOR S Referring Unavailable HEMEYER, RIP Valladares Primary Care Unavailable VIGESAA, NICANOR S Referring Unavailable HEMETOPHER, RIP Valladares Primary Care Unavailable VIGESAA, JUSTIN OSBORN Admitting Unavailab le VIGESAA, JUSTIN OSBORN Attending Unavailab le HEMEYER, DR GARCIA Admitting Unavailable HEMEYER, DR GARCIA Attending Unavailable HEMEYER, DR GARCIA Consulting Unavailable HEMEYER, DR GARCIA Primary Care Unavailable HEMEYER, DR GARCIA Primary Care Unavailable HEMEYER, DR GARCIA Admitting Unavailable AGUS, DR GARCIA Attending Unavailable AGUS, DR GARCIA Consulting Unavailable GRIMSTEAD, DR MARIA E Mena Consulting Unavailable MARIA E CRAWFORD Consulting Unavailable Jacob Jay Unavailable Kizzy Glass Unavailable Rip Goldsmith Primary Care Unavailable Jacob Jay Attending Unavailable Jacob Jay Admitting Unavailable Rip Goldsmith MD Unavailable Rip Goldsmith MD Primary Care Provider [phone] Rip Goldsmith MD Unavailable Rip Goldsmith MD Primary Care Provider Rip Goldsmith MD Unavailable [phone] Rip Goldsmith MD Primary Care Provider Rashard Baugh MD Unavailable Melissa Gandhi MD Unavailable Aditya OPERATIONS ASST-ENTERTAINER OR VARIETY ARTIST, Woody You Unavailable RIP GOLDSMITH Attending Unavailable RASHARD BAUGH Attending Unavailable RIP GOLDSMITH Attending Unavailable RASHARD BAUGH Attending Unavailable RIP GOLDSMITH Attending Unavailable RIP GOLDSMITH Attending Unavailable MELISSA GANDHI Attending Unavailable WOODY BURGESS Attending Unavailable RIP GOLDSMITH Attending Unavailable Allergies Allergy ClassificationReported Allergen(s)Allergy TypeDate of OnsetReaction(s) Facility (6 sources)ShellfishPropensity to adverse reactions to ybed01-17-6450Uqaja, Shortness Of BreathRegency Hospital Company (6 sources)sweet potato allergenic extractDrug Rutrrbb18-17-8206PxsorMcphm Health (20 sources)Chicken AllergyPropensity to adverse reactions to xqtr49-86-5794 Hives, UnknownMerProvidence [facility] (20 sources)Shellfish-Derived ProductsPropensity to adverse reactions to drug 21-15-1545[facility] (3 sources)potato allergenic extract; Translations: [POTATO]Drug Allergy 94-02-0828[facility] (2 sources)Shellfish; Translations: [SHELLFISH DERIVED]Propensity to adverse reactions to drug (disorder)49-51-1127[facility] (1 source)CHICKEN DERIVED; Translations: [CHICKEN DERIVED]Propensity to adverse reactions to drug (disorder)66-02-8322Xqkr [facility] (5 sources)EggPropensity to adverse reactionsUnkAdvanced Biomedical Technologies Other (5 sources)ShellfishPropensity to adverse reactionsUnkAdvanced Biomedical Technologies Other (6 sources)WheatPropensity to adverse uqypugpzw94-74-6627EpfrtfrUqvddfzjdSelect [facility] (6 sources)cane sugarPropensity to adverse yoghghndy53-49-1389KrallhpQgimwulkdSelect Medical Specialty Hospital [facility] (5 sources)potatoesPropensity to adverse reactionsWomen & Infants Hospital of [facility] [employer] [facility]) Other (1 source)Egg DerivedAllergy to nnqpsqkni35-72-2329YpracucuiWood County Hospital (20 sources)House dust miteAllergy to lnezerysb97-14-6890XTU[facility] (20 sources)StarchDrug Xmvylll05-56-6433AMKB [facility] (20 sources)Beta VulgarisPropensity to adverse kzkviotde05-46-0895YQFO [facility] (2 sources)Shellfish Protein-Containing Drug ProductsDrug Ydkwbss83-03-5974YNYB Healthcare Medications Current Medications MedicationDrug Class(es)DatesSig (Normalized)Sig (Original)0.25 MG, 0.5 MG Dose 3 ML semaglutide 0.68 MG/ML Pen Injector [Ozempic] (5 sources)Start: 23-21-1304awjeyp 0.25 mg by subcutaneous injection every week, then inject 0.5 mg by subcutaneous injection every weekOzempic (0.25 or 0.5 MG/DOSE) 2 MG/3ML As directed Subcutaneous Once weekly for 28 days 0.25 mg once weekly for 4 weeks, followed by 0.5 mg once weekly for 4 weeks Apr, ActiveOzempic (0.25 or 0.5 MG/DOSE) 2 MG/3ML INJECT 0.25MG SUBCUTANEOUSLY WEEKLY FOR 4 WEEKS FOLLOWED BY 0.5MG ONCE A WEEK FOR 4 WEEKS for 28 [id number] 200 actuat albuterol 0.09 mg/actuat metered dose inhaler (20 sources)beta2-Adrenergic AgonistStart: 12-17-2024 End: 16-63-4957cdjfcmkgf (2.5 MG/3ML) 0.083% nebulizer solution Indications: Moderate persistent asthma without complication (HCC) Take 3 mL (2.5 mg) by nebulization every 6 (six) hours if needed for wheezing 100 mL 1 12/17/2024 ActiveStart: 07-31-2024 End: 53-64-3100bsuj 2 puff(s) by inhalation every six hours as neededalbuterol HFA 90 mcg/act inhaler Indications: Moderate persistent asthma without complication (HCC)INHALE 2 PUFFS EVERY 6 HOURS NEEDED FOR SHORTNESS OF BREATH OR FOR WHEEZE 18 g 1 02/15/2025 ActiveStart: 05-25-2023 End: 79-53-1379fedk 2 puff(s) by inhalation every six hours for wheezing albuterol HFA (ProAir HFA) 90 mcg/act inhaler Indications: Moderate persistent asthma without complication (CMS/HCC) Inhale 2 puffs every 6 (six) hours if needed for wheezing or shortness of breath. 18 g 2 05/25/2023 07/31/2024 DiscontinuedStart: 35-08-1532inhu 2 puff(s) by inhalation every four hours as neededAlbuterol Sulfate HFA 108 (90 Base) MCG/ACT 2 puffs as needed Inhalation every 4 hrs for 30 days 2015 ActiveStart: 40-93-0709vcvt 2 puff(s) by inhalation every four hours as neededAlbuterol Sulfate HFA 108 (90 Base) MCG/ACT 2 puffs as needed Inhalation every 4 hrs for 30 days 2015 Activetake 2 puff(s) by inhalation every six hours as needed for wheezingalbuterol sulfate HFA (VENTOLIN HFA) 108 (90 Base) MCG/ACT inhaler Inhale 2 puffs into the lungs every 6 hours as needed for Wheezing 0 Activeaspirin 81 mg chewable tablet (20 sources)Platelet Aggregation Inhibitor, Nonsteroidal Anti-inflammatory Drug take 1 tablet by mouth three times weeklyASPIRIN 81 MG chewable tablet Chew 81 mg 3 (three) times a week. 1 tablet Orally -W- Activetake 1 tablet by mouth every twenty-four hoursAspirin 81 MG 1 tablet Orally Once a day Activeaspirin 81 MG EC tablet Take 81 mg by mouth daily 3 times a week. 0 Activeatorvastatin 20 mg oral tablet (20 sources)HMG-CoA Reductase InhibitorStart: 01-11-2024 End: 88-54-2675kqap 1 tablet by mouth at bedtimeatorvastatin (Lipitor) 20 MG tablet Indications: Mixed dyslipidemia Take 1 tablet (20 mg) by mouth at bedtime 90 tablet 1 06/27/2025 12/24/2025 Qkwyke89 actuat budesonide 0.16 mg/actuat / formoterol fumarate 0.0045 mg/actuat metered dose inhaler (20 sources)Corticosteroid, beta2-Adrenergic AgonistStart: 05-25-2023 End: 70-33-3987omws 2 puff(s) by inhalation twice daily as needed for cough budesonide-formoterol (Symbicort) 160-4.5 MCG/ACT inhaler Indications: Moderate persistent asthma without complication (HCC) Inhale 2 puffs 2 (two) times a day as needed for wheezing, shortness of breath or cough 3 each 1 01/03/2025 07/02/2025 ActiveSymbicort 160-4.5 MCG/ACT Inhalation for 90 Activetake 2 puff(s) by inhalation twice dailybudesonide-formoterol (SYMBICORT) 160-4.5 MCG/ACT AERO Inhale 2 puffs into the lungs 2 times daily 0 Activecefuroxime 250 mg oral tablet (5 sources)Cephalosporin Antibacterialtake 1 tablet by mouth every twelve hours Cefuroxime Axetil 250 MG 1 tablet Orally every 12 hrs Activecetirizine hydrochloride 10 mg oral tablet (20 sources)Histamine-1 Receptor Antagonisttake 1 tablet by mouth once daily cetirizine (ZyrTEC ALLERGY) 10 MG tablet Take 10 mg by mouth 1 (one) time each day at the same time. Activecitalopram 10 mg oral tablet (7 sources)Serotonin Reuptake Inhibitortake 1 tablet by mouth once daily citalopram (CELEXA) 10 MG tablet Take 10 mg by mouth daily 0 ActivedilTIAZem hydrochloride 30 mg oral tablet (2 sources)Calcium Channel BlockerStart: 28-23-7752wlto 1 tablet by mouth twice dailydilTIAZem (CARDIZEM) 30 MG tablet Take 1 tablet by mouth 2 times daily 60 tablet 11 08/13/2021 Ttfmspkwk757870 0.3 ml EPINEPHrine 1 mg/ml auto-injector (20 sources)alpha-Adrenergic Agonist, beta-Adrenergic Agonist, Catecholamine Start: 63-61-8452CUFIBRUjxub (EpiPen 2-Elmo) 0.3 MG/0.3ML injection syringe Indications: Moderate persistent asthma without complication (HCC) , Food allergy Inject 0.3 mL (0.3 mg) as directed See administration instructions as directed Injection outside of thigh prn for 1 year 4 each 1 07/26/2024 Active Start: 05-25-2023 End: 92-35-1336CyzNjj 2-Elmo 0.3 MG/0.3ML injection syringe Indications: Moderate persistent asthma without complication (CMS/HCC) , Food allergy Inject 0.3 mL (0.3 mg) as directed See administration instructions. as directed Injection outside of thigh prn for 1 year 1 each 3 05/25/2023 07/26/2024 Discontinued (Reo rder)EpiPen Activeesomeprazole 20 mg delayed release oral capsule (20 sources)Proton Pump Inhibitortake 1 capsule by mouth before mealtime esomeprazole (NexIUM) [address] capsule Take 20 mg by mouth in the morning. Take before meals. Do not open capsule.. Activemetoprolol tartrate 25 mg oral tablet (13 sources)beta-Adrenergic BlockerStart: 01-11-2024 End: 76-39-4579bmnj 1 tablet by mouth in the morningmetoprolol tartrate (Lopressor) 25 MG tablet Indications: Palpitations Take 1 tablet (25 mg) by mout h in the morning and 1 tablet (25 mg) in the evening. Take with meals. 180 tablet 1 01/11/2024 07/10/2024 Discontinued (Dose adjustment)Start: 08-31-2021 take 1 tablet by mouth twice dailymetoprolol tartrate (LOPRESSOR) 25 MG tablet TAKE 1 TABLET BY MOUTH TWICE A DAY 60 tablet 3 08/31/2021 ActiveMultiple Vitamins-Minerals (THERAPEUTIC MULTIVITAMIN-MINERALS) tablet (7 sources)take 1 tablet by mouth once dailyMultiple Vitamins-Minerals (THERAPEUTIC MULTIVITAMIN-MINERALS) tablet Take 1 tablet by mouth daily 0 Active nebivolol 10 mg oral tablet (20 sources)Start: 11-05-2024 End: 05-69-4367ljye 1 tablet by mouth once dailynebivolol (Bystolic) 10 MG tablet Indications: Palpitations Take 1 tablet (10 mg) by mouth Daily 90tablet 1 06/27/2025 12/24/2025 ActiveStart: 07-10-2024 End: 55-85-2126agnt 1 tablet by mouth once dailynebivolol (Bystolic) 10 MG tablet Indications: Palpitations Take 1 tablet (10 mg) by mouth Daily 90tablet 08/02/2024 10/31/2024 Activeomeprazole 20 mg delayed release oral capsule (7 sources)Proton Pump Inhibitortake 1 capsule by mouth once dailyomeprazole (PRILOSEC) 20 MG delayed release capsule Take 20 mg by mouth daily 0 Active predniSONE 10 mg oral tablet (7 sources)Start: 06-26-2024 End: 38-45-5458moltohQJFE (Deltasone) 10 MG tablet Indications: Moderate persistent asthma with acute exacerbation(CMS/HCC) Every 2 day tapering dose; 5,5,4,4,3,3,2,2,1,1,0.5,0.5 31 tablet 06/26/2024 07/10/2024 Discontinued (Therapy completed)Start: 93-42-4879yuhbvnWGWG (DELTASONE) 20 MG tablet Take 3 tablets night prior to procedure and 3 tablets day of procedure 6 tablet 0 08/13/2021 ActiveProAir HFA 108 (90 Base) MCG/ACT (5 sources)take 2 puff(s) by inhalation every four hours as neededProAir HFA 108 (90 Base) MCG/ACT 2 puffs as needed Inhalation every 4 hrs Activerosuvastatin calcium 20 mg oral tablet (7 sources)HMG-CoA Reductase InhibitorStart: 30-51-2210bnuc 1 tablet by mouth once dailyrosuvastatin (CRESTOR) 20 MG tablet TAKE 1 TABLET BY MOUTH EVERY DAY 30 tablet 5 08/24/2021 ActiveStart: 32-02-2516sgti 1 tablet by mouth once daily rosuvastatin (CRESTOR) 20 MG tablet Take 1 tablet by mouth daily 30 tablet 5 07/29/2021 Activesimvastatin 20 mg oral tablet (5 sources)HMG-CoA Reductase Inhibitortake 1 tablet by mouth every twenty-four hoursSimvastatin 20 MG 1 tablet in the evening Orally Once a day ActiveSingulair unknown (5 sources)take 1 tablet by mouth once daily in the evening5 ml sodium chloride 9 mg/ml injection (1 source)Start: 08-04-2021 End: 20-48-2941qjutxm chloride (PF) 0.9 % injection 10 mL Completed/Discontinued Medications MedicationDrug Class(es)DatesSig (Normalized)Sig (Original)famotidine 20 mg oral tablet (3 sources)Histamine-2 Receptor Antagonist End: 11-83-7505eatldrhpvq (Pepcid) 20 MG tablet Take 20 mg by mouth as needed at bedtime. 06/26/2024 Discontinued (Therapy completed)levoFLOXacin 750 mg oral tablet (5 sources)Quinolone AntimicrobialStart: 12-17-2024 End: 20-23-4657juvw 1 tablet by mouth once dailylevoFLOXacin (Levaquin) 750 MG tablet Indications: Pneumonia of left upper lobe due to infectious organism Take 1 tablet (750 mg) by mouth Daily for 10 days 10 tablet 12/17/2024 12/26/2024 Discontinued (Med list cleanup)montelukast 10 mg oral tablet (20 sources)Leukotriene Receptor AntagonistStart: 05-25-2023 End: 11-86-3346ggbb 1 tablet by mouth in the morningmontelukast (Singulair) 10 MG tablet Indications: Moderate persistent asthma without complication (CMS/HCC) Take 1 tablet (10 mg) by mouth in the morning. 90 tablet 2 05/25/2023 01/03/2025 Discontinued (Therapy completed)take 1 tablet by mouth once daily montelukast (SINGULAIR) 10 MG tablet Take 10 mg by mouth nightly 0 Active regadenoson (LEXISCAN) injection 0.4 mg (1 source)Start: 08-04-2021 End: 03-14-5332wqynxpgkaim (LEXISCAN) injection 0.4 mgtechnetium sestamibi (CARDIOLITE) injection 10 millicurie (1 source)Start: 08-04-2021 End: 12-75-9857nukurbmukk sestamibi (CARDIOLITE) injection 10 millicurie technetium sestamibi (CARDIOLITE) injection 30 millicurie (1 source)Start: 08-04-2021 End: 88-78-2999esenbafoeu sestamibi (CARDIOLITE) injection 30 millicurie Problems Active Problems Problem ClassificationProblemDateDocumented DateEpisodic/ChronicAbdominal pain (5 sources)Right lower quadrant pain; Translations: [Left lower quadrant pain] Onset: 776327-78-7881AmstgszhYncpuh (20 sources)Asthma; Translations: [Unspecified asthma, uncomplicated]Onset: 04-19-2023 Resolved: 44-12-517799307841-24-7821MlifzlwXlxycnx kidney disease (20 sources)Chronic kidney disease stage 2; Translations: [Chronic kidney disease, stage 2 (mild)]Onset: 756568-79-4660NoqvkqqNtqwmrhgw of lipid metabolism (20 sources)Mixed hyperlipidemia; Translations: [Dyslipidemia]Onset: 10-31-2021 ChronicDiverticulosis and diverticulitis (20 sources)Diverticulosis of colon; Translations: [Diverticulosis of large intestine without perforation or abscess without bleeding]Onset: 04-19-2023 83-85-4261CpqgkzoG Codes: Adverse effects of medical drugs (2 sources)Medication side effects present; Translations: [Adverse effect of unspecified drugs, medicaments and biological substances, initial encounter] 24-80-5365JdjhobjnBydfelgadj disorders (20 sources)Gastroesophageal reflux disease; Translations: [Gastro-esophageal reflux disease without esophagitis]Onset: 976862-66-0288NcxelrhUflrlkpic hypertension (5 sources)Essential hypertension; Translations: [Essential (primary) hypertension]ChronicGenitourinary symptoms and ill-defined conditions (5 sources)Blood in urine; Translations: [Hematuria]EpisodicInflammation; infection of eye (except that caused by tuberculosis or sexually transmitteddisease) (5 sources)Chronic allergic conjunctivitis; Translations: [Other chronic allergic conjunctivitis]Onset: 963171-61-7466KdwaylpTxnkqbe and fatigue (20 sources)Fatigue; Translations: [Chronic fatigue, unspecified]Onset: 612813-25-7517PkbngicRijsasp and fatigue (1 source)Fatigue; Translations: [Other fatigue]EpisodicMenopausal disorders (20 sources)Atrophy of vagina; Translations: [Postmenopausal atrophic vaginitis] Onset: 529396-53-6197ZsitcdyFtug disorders (20 sources)Seasonal affective disorder; Translations: [Other recurrent depressive disorders]Onset: 294046-82-7629BsvrnrcFupsrwoiuvq chest pain (3 sources)Chest pain; Translations: [Chest pain, unspecified]Episodic Nutritional deficiencies (1 source)Vitamin D deficiency; Translations: [Vitamin D deficiency, unspecified]ChronicOsteoarthritis (6 sources)Arthritis of knee; Translations: [Unilateral primary osteoarthritis, unspecified knee]ChronicOther and unspecified benign neoplasm (2 sources)Melanocytic nevus of trunk; Translations: [Melanocytic nevi of trunk] 93-45-3258GehquytdMjgcr and unspecified benign neoplasm (2 sources)Senile angioma; Translations: [Hemangioma of skin and subcutaneous tissue]30-19-0477SrblthguGxyim and unspecified benign neoplasm (2 sources)Dermatofibroma of right lower limb; Translations: [Other benign neoplasm of skin of right lower limb, including hip]33-13-6302GejsejreGqznv and unspecified benign neoplasm (2 sources)Dermatofibroma of left lower limb; Translations: [Other benign neoplasm of skin of left lower limb,including hip]84-06-8349GgvmzkoyCdxdz connective tissue disease (20 sources)History of total knee arthroplasty; Translations: [Presence of unspecified artificial knee joint]Onset: 124066-35-9262QhkweoiUvuhx lower respiratory disease (1 source)Dyspnea; Translations: [Shortness of breath]EpisodicOther non- traumatic joint disorders (2 sources)Multiple joint pain; Translations: [Pain in unspecified joint] 29-69-3233FxlzgtulGfwql non-traumatic joint disorders (2 sources)Pain in right shoulder; Translations: [Pain in joint, shoulder region]95-46-3387AzsquhduUarwj nutritional; endocrine; and metabolic disorders (8 sources)Obesity; Translations: [Obesity, unspecified]ChronicOther nutritional; endocrine; and metabolic disorders (5 sources)Obesity, unspecified; Translations: [Obesity, Class I, BMI 30-34.9] Onset: 72-87-6950QygjeugPasoe nutritional; endocrine; and metabolic disorders (4 sources)Obese class I; Translations: [Body mass index (BMI) 31.0-31.9, adult] ChronicOther nutritional; endocrine; and metabolic disorders (4 sources)Body mass index 40+ - severely obese; Translations: [Body mass index (BMI) 40.0-44.9, adult]ChronicOther nutritional; endocrine; and metabolic disorders (1 source)Body mass index (BMI) 31.0-31.9, adultChronicOther nutritional; endocrine; and metabolic disorders (1 source)Body mass index (BMI) 40.0-44.9, adultChronicOther nutritional; endocrine; and metabolic disorders (20 sources)Obesity caused by energy imbalance; Translations: [Other obesity due to excess calories]Onset: 480132-11-2404CkhwalkTbzny screening for suspected conditions (not mental disorders or infectious disease) (1 source)Endometrium thickened; Translations: [Abnormal findings on diagnostic imaging of other specified body structures]26-97-9156JxhfeorXhrzc screening for suspected conditions (not mental disorders or infectious disease) (16 sources)Encounter for screening mammogram for malignant neoplasm of breast; Translations: [Patient encounter status]Onset: 25-98-7025XmaykrdhUvgqj skin disorders (2 sources)Seborrheic keratosis; Translations: [Other seborrheic keratosis] 09-18-8658ZmbzraddPclgb skin disorders (2 sources)Epidermoid cyst; Translations: [Epidermal cyst]86-86-4901Xdiiqplc Other upper respiratory disease (20 sources)Allergic rhinitis due to pollen; Translations: [Allergic rhinitis due to pollen]Onset: 364684-74-3514OdxitsgWupng upper respiratory infections (20 sources)Chronic pansinusitis; Translations: [Chronic pansinusitis]Onset: 014153-50-7219QlgwrxmUdpcqbfs codes; unclassified (4 sources)Active advance directive (copy within chart) ; Translations: [Other specified health status]56-39-8035UujcaajyTqrnhgpm codes; unclassified (2 sources)Menopause present; Translations: [Asymptomatic menopausal state] 40-44-6474UmptgmxiCqikopqqd and history of mental health and substance abuse codes (4 sources)Patient encounter status; Translations: [Encounter for screening examination for other mental health and behavioral disorders]45-09-0825Kkyqcvdj Urinary tract infections (5 sources)Urinary tract infectious disease; Translations: [UTI (lower urinary tract infection)]Episodic Past or Other Problems Problem ClassificationProblemDateDocumented DateEpisodic/ChronicAllergic reactions (20 sources)Allergy to food; Translations: [Allergy to other foods]Onset: 816373-22-5312FigwncwmLlxninx dysrhythmias (20 sources)Palpitations; Translations: [Palpitations]Onset: 04-19-2023 69-15-8324DwpstzrvQufqtdegyv associated with dizziness or vertigo (20 sources)Dizziness; Translations: [Dizziness and giddiness]Onset: 04-19-2023 EpisodicMiscellaneous mental health disorders (20 sources)Anxiety about body function or health; Translations: [Other symptoms and signs involving emotional state]Onset: 293765-40-3680XtpozbmqQsso disorders (20 sources)Mood disordersOnset: 04-27-2023 Resolved: Other diseases of veins and lymphatics (20 sources)Venous insufficiency of leg; Translations: [Venous insufficiency (chronic) (peripheral)]Onset: 127621-02-6870EwexncwzYnome ear and sense organ disorders (20 sources)Sudden idiopathic hearing loss; Translations: [Sudden idiopathic hearing loss, left ear]Onset: 640213-19-8081YipqaoexXukpm ear and sense organ disorders (20 sources)Tinnitus of left ear; Translations: [Tinnitus, left ear]Onset: 655275-81-5581JjrwnuysDpbzv nervous system disorders (20 sources)Impairment of balance; Translations: [Other abnormalities of gait and mobility]Onset: 04-19-2023 Resolved: 537065-20-8456OtycysoyDcgny nervous system disorders (20 sources)White matter disease; Translations: [White matter disease, unspecified]Onset: 814280-59-8458FnrmbuzmTpgef nervous system disorders (20 sources)Unsteady when standing; Translations: [Unsteadiness on feet]Onset: 04-19-2023 Resolved: 688647-45-3392IimovjmkMzyls skin disorders (20 sources)Inflamed seborrheic keratosis; Translations: [Inflamed seborrheic keratosis]Onset: 04-19-2023 Resolved: 217451-71-3734XhbgyqrvZazpojj (20 sources)Syncope; Translations: [Syncope and collapse]Onset: 04-19-2023 Resolved: 12-57-9601Aszdqwrd Results Test NameValueInterpretationReference RangeFacilityEndometrial biopsyon 55-53-8205Ycwnmnavdeep Baugh MD 01/21/2025 10:37 AM Endometrial biopsy Date/Time: 01/21/2025 10:36 AM Performed by: Rashard Baugh MD Authorized by: Rashard Baugh MD Consent: Consent obtained: verbal Consent given by: patient Risks discussed: bleeding and pain Patient agrees, verbalizes understanding, and wants to proceed: yes Indications: Indications: thickened endometrium Pre-procedure: Urine test: N/A Procedure: Prepped with: Betadine Tenaculum used: no A local block was performed: no Cervix dilated: no Findings: Cervix: normal Specimen collected: low volume sample collected Patient tolerance: tolerated well, no immediate complicationsThe Rehabilitation InstituteNOMercy Hospital St. LouisCOMPREHENSIVE METABOLIC PANELon 57-72-1287Xnluqqc [Mass/Vol]4.1 g/dL Normal3.6-5.1Quest DiagnosticsComment on above:Performed By: #### [id number] #### [facility] [address], [address] [place] [address] Director Of Cath Lab: Zaki Underwood MD #### [id number] #### [facility] [address] [place], [place] [id number] Director Of Cath Lab: Leti Albert FlatiAlbumin/Globulin [Mass ratio]1.6 {ratio}Normal 1.0-2.5Quest DiagnosticsComment on above:Performed By: #### 7600 #### [facility] [address], [address] [place] [address] Director Of Cath Lab: Zaki Underwood MD #### [id number] #### [facility] [address] [place] [phone] Director Of Cath Lab: Leti Albert FlatiALP [Catalytic activity/Vol]87 U/UTaqzgd69-353 Quest DiagnosticsComment on above:Performed By: #### 7600 #### [facility] [address], [address] [place] [address] Director Of Cath Lab: Zaki Underwood MD #### [id number] #### [facility] [address] [place] [phone] Director Of Cath Lab: Leti Albert FlatiALT [Catalytic activity/Vol]14 U/LNormal6-29 Quest DiagnosticsComment on above:Performed By: #### 7600 #### [facility] [address], [address] [place] [address] Director Of Cath Lab: Zaki Underwood MD #### [id number] #### [facility] [address] [place] [address] Director Of Cath Lab: Leti GaliciaiAST [Catalytic activity/Vol]18 U/NYcrozr09-31 [facility] DiagnosticsComment on above:Performed By: #### 7600 #### [facility] [address], [address] [place] [address] Director Of Cath Lab: Zaki Underwood MD #### 58478 #### [facility] [address] Director Of Cath Lab: Leti Albert FlatiBilirubin [Mass/Vol]0.5 mg/dLNormal0.2-1.2 Quest DiagnosticsComment on above:Performed By: #### 7600 #### [facility] [address], [address] [place] [address] Director Of Cath Lab: Zaki Underwood MD #### 85114 #### [facility] [address] [place] [address] Director Of Cath Lab: Leti GaliciaiBUN/CREATININE RATIOSEE NOTE:Normal6-22Quest DiagnosticsComment on above:Result Comment: Not Reported: BUN and Creatinine are within reference range.Performed By: #### 7600 #### [facility] [address], [address] [place] [address] Director Of Cath Lab: Zaki Underwood MD #### [id number] #### [facility] [address] [place] [address] Director Of Cath Lab: Leti Albert FlatiCalcium [Mass/Vol]9.2 mg/dLNormal8.6-10.4Quest DiagnosticsComment on above:Performed By: #### 7600 #### [facility] of [address], [address] [place] [address] Director Of Cath Lab: Zaki Underwood MD #### 64495 #### [facility] [address] [place] [address] Director Of Cath Lab: Leti Albert FlatiChloride [Moles/Vol]103 mmol/UPzcjdg46-607 Quest DiagnosticsComment on above:Performed By: #### 7600 #### [facility] [address], [address] [place] [address] Director Of Cath Lab: Zaki Underwood MD #### 65731 #### [facility] [address] Director Of Cath Lab: Leti GaliciaiCO2 [Moles/Vol]25 mmol/EVfttmg27-22Iceoa DiagnosticsComment on above:Performed By: #### 7600 #### [facility] [address], [address] [place] [address] Director Of Cath Lab: Zaki Underwood MD #### 96655 #### [facility] [address] [place] [address] Director Of Cath Lab: Leti GaliciaiCreatinine [Mass/Vol]0.92 mg/dLNormal0.50-1.05 Quest DiagnosticsComment on above:Performed By: #### 7600 #### [facility] of [address], [address] [place] [address] Director Of Cath Lab: Zaki Underwood MD #### 69014 #### [facility] [address] [place], [place] [address] Director Of Cath Lab: Leti GaliciaiGFR/1.73 sq M.predicted among non-blacks MDRD (S/P/Bld) [Vol rate/Area]67 mL/min/{1.73_m2}Normal> OR = 60[facility] Comment on above:Performed By: #### 7600 #### [facility] of [address], [address] [place] [address] Director Of Cath Lab: Zaki Underwood MD #### 16770 #### [facility] [address] [place] [address] Director Of Cath Lab: Leti Albert FlatiGlobulin (S) [Mass/Vol]2.6 g/dLNormal1.9-3.7 Quest DiagnosticsComment on above:Performed By: #### 7600 #### [facility] [address], [address] [place] [address] Director Of Cath Lab: Zaki Underwood MD #### 81912 #### [facility] [address] Director Of Cath Lab: Leti Albert FlatiGlucose [Mass/Vol]85 mg/tHHypxss98-39Ermcp DiagnosticsComment on above:Result Comment: Fasting reference intervalPerformed By: #### 6050 #### [facility] [address], [address] [place] [address] Director Of Cath Lab: Zaki Underwood MD #### 68530 #### [facility] [address] Director Of Cath Lab: Leti Albert FlatiPotassium [Moles/Vol]4.4 mmol/LNormal3.5-5.3 Quest DiagnosticsComment on above:Performed By: #### 7600 #### [facility] [address], [address] [place] [address] Director Of Cath Lab: Zaki Underwood MD #### 12186 #### [facility] [address] [place] [address] Director Of Cath Lab: Leti Albert FlatiProtein [Mass/Vol]6.7 g/dLNormal6.1-8.1Quest DiagnosticsComment on above:Performed By: #### 8320 #### [facility] [address], [address] [place] [address] Director Of Cath Lab: Zaki Underwood MD #### 19706 #### [facility] [address] [place] [phone] Director Of Cath Lab: Leti GaliciaiSodium [Moles/Vol]138 mmol/PVrkyaa756-468Hzatk DiagnosticsComment on above:Performed By: #### 7600 #### [facility] [address], [address] [place], [place] [address] Director Of Cath Lab: Zaki Underwood MD #### 72544 #### [facility] [address] [place], [place] [address] Director Of Cath Lab: Leti GaliciaiUrea nitrogen [Mass/Vol]13 mg/dLNormal7-25 Quest DiagnosticsComment on above:Performed By: #### 7600 #### [facility] [address], [address] [place], [place] [address] Director Of Cath Lab: Zaki Underwood MD #### 19786 #### [facility] [address] [place], [place] [address] Director Of Cath Lab: Leti GaliciaiLIPIVarsha [facility], [facility] 19-91-1819Cgmyqmwpfqe [Mass/Vol]175 mg/dLNormal<200Quest DiagnosticsComment on above:Order Comment: FASTING:YES FASTING: YESPerformed By: #### 7600 #### [facility] [address], [address] [place] [address] Director Of Cath Lab: Zaki Underwood MD #### 37566 #### [facility] [address] [place], [place] [address] Director Of Cath Lab: Leti GaliciaiCholesterol in HDL [Mass/Vol]69 mg/dLNormal> OR = 50Quest DiagnosticsComment on above:Order Comment: FASTING:YES FASTING: YESPerformed By: #### 7600 #### [facility] [address], [address] [place] [address] Director Of Cath Lab: Zaki Underwood MD #### 01479 #### [facility] [address] [place], [place] [phone] Director Of Cath Lab: Leti GaliciaiCholesterol in LDL [Mass/Vol]90 mg/dLNormal [facility] DiagnosticsComment on above:Order Comment: FASTING:YES FASTING: YESResult Comment: Reference range: <100 Desirable range <100 mg/dL for primary prevention; <70 mg/dL for patients with CHD or diabetic patients with > or = 2 CHD risk factors. LDL-C is now calculated using the Irlanda calculation, which is a validated novel method providing better accuracy than the Friedewald equation in the estimation of LDL-C. Gerson SWAN et al. GINO. 2013;310(19): 0334-6832 (http://education.[employer].Oatmeal/faq/RPG968)Performed By: #### 7600 #### [facility] [address], [address] [place], [place] [address] Director Of Cath Lab: Zaki Underwood MD #### 75199 #### [facility] [address] Director Of Cath Lab: Leti GaliciaiCholesterol.total/Cholesterol in HDL [Mass ratio]2.5 {ratio}Normal<5.0Quest DiagnosticsComment on above:Order Comment: FASTING:YES FASTING: YESPerformed By: #### 7600 #### [facility] [address], [address] [place] [address] Director Of Cath Lab: Zaki Underwood MD #### 37083 #### [facility] [address] [place] [phone] Director Of Cath Lab: Leti GaliciaiNON HDL YLBJPSORBHN808 mg/dL (calc)Normal<130 [facility] DiagnosticsComment on above:Order Comment: FASTING:YES FASTING: YESResult Comment: For patients with diabetes plus 1 major ASCVD risk factor, treating to a non-HDL-C goal of <100 mg/dL (LDL-C of <70 mg/dL) is considered a therapeutic option.Performed By: #### 7600 #### [facility] [address], [address] [place], [place] [address] Director Of Cath Lab: Zaki Underwood MD #### 20831 #### [facility] [address] [place] [address] Director Of Cath Lab: Leti GaliciaiTriglyceride [Mass/Vol]75 mg/dLNormal<150Quest DiagnosticsComment on above:Order Comment: FASTING:YES FASTING: YESPerformed By: #### 7600 #### [facility] [address] [facility], [address] [place] [address] Director Of Cath Lab: Zaki Underwood MD #### 44880 #### [facility] [address] [place] [address] Director Of Cath Lab: Leti GaliciaiMM TOMOSYNTHESIS SCREENING BIon 33-22-6430[address] [address] Mammography Report Signed Patient: MOE BRUCE MR#: [id number] : 1955 Acct:[id number] Age/Sex: 68 / F ADM Date: 08/09/24 Loc: MAMMO Attending Dr: RIP GOLDSMITH Ordering Physician: RIP GOLDSMITH Results: Date of Service: 08/09/24 Follow Up: Procedure(s): MM tomosynthesis screening BI Accession Number(s): [id number] cc: RIP GOLDSMITH Patient Name: MOE BRUCE MR#: [id number] : 1955 Exam Date: 08/09/2024 Ordering Doctor: DR RIP GOLDSMITH . RADIOLOGY REPORT PROCEDURE: MM TOMOSYNTHESIS SCREENING BI COMPARISON: MM TOMOSYNTHESIS SCREENING BI, 08/08/2023. MG MAMM SCREEN 3D ADRIEN CAD, 08/06/2022. MG MAMM SCREEN 3D ADRIEN CAD, 06/17/2021. MG MAMM SCREEN 3D ADRIEN CAD, 12/05/2017. INDICATIONS: Screening Calculator Name NCI Breast Cancer Risk Assessment Tool 5 Year Breast Cancer Risk 1.80% Lifetime Breast Cancer Risk 5.90% Personal Breast Cancer No Personal Ovarian Cancer No Treatments None Family Cancers None LOCATION: [facility] BREAST COMPOSITION: The breasts are heterogeneously dense,which may obscure small masses. FINDINGS: DIAGNOSTIC CATEGORY 2--BENIGN FINDING: RIGHT BREAST: No significant suspicious finding. Scattered benign-appearing calcifications are present. No significant change has occurred. LEFT BREAST: No significant suspicious finding. Scattered benign-appearing calcifications are present. No significant change has occurred. RECOMMENDATIONS: ROUTINE MAMMOGRAM AND CLINICAL EVALUATION IN 12 MONTHS. PLEASE NOTE: A NORMAL MAMMOGRAM DOES NOT EXCLUDE THE POSSIBILITY OF BREAST CANCER. A CLINICALLY SUSPICIOUS PALPABLE LUMP SHOULD BE BIOPSIED. Dictated by: Aquilino Montes M.D. on 08/10/2024 at 08:17 Approved by: Aquilino Montes M.D. on 08/10/2024 at 08:20 Dictated By: Aquilino Montes M.D. Signed By: 08/10/24820 DD/ 9 TD/TT: Zigzag Tunnel Elastic Operator:TBHRadiology, Radiologist, MD - 08/10/2024 [place] [address] Mammography Report Signed Patient: MOE BRUCE MR#: [id number] : 1955 Acct:[id number] Age/Sex: 68 / F ADM Date: 08/09/24 Loc: MAMMO Attending Dr: RIP GOLDSMITH Ordering Physician: RIP GOLDSMITH Results: Date of Service: 08/09/24 Follow Up: Procedure(s): MM tomosynthesis screening BI Accession Number(s): [id number] cc: RIP GOLDSMITH Patient Name: MOE BRUCE MR#: [id number] : 1955 Exam Date: 08/09/2024 Ordering Doctor: DR RIP GOLDSMITH . RADIOLOGY REPORT PROCEDURE: MM TOMOSYNTHESIS SCREENING BI COMPARISON: MM TOMOSYNTHESIS SCREENING BI, 08/08/2023. MG MAMM SCREEN 3D ADRIEN CAD, 08/06/2022. MG MAMM SCREEN 3D ADRIEN CAD, 06/17/2021. MG MAMM SCREEN 3D ADRIEN CAD, 12/05/2017. INDICATIONS: Screening Calculator Name NCI Breast Cancer Risk Assessment Tool 5 Year Breast Cancer Risk 1.80% Lifetime Breast Cancer Risk 5.90% Personal Breast Cancer No Personal Ovarian Cancer No Treatments None Family Cancers None LOCATION: [facility] BREAST COMPOSITION: The breasts are heterogeneously dense,which may obscure small masses. FINDINGS: DIAGNOSTIC CATEGORY 2--BENIGN FINDING: RIGHT BREAST: No significant suspicious finding. Scattered benign-appearing calcifications are present. No significant change has occurred. LEFT BREAST: No significant suspicious finding. Scattered benign-appearing calcifications are present. No significant change has occurred. RECOMMENDATIONS: ROUTINE MAMMOGRAM AND CLINICAL EVALUATION IN 12 MONTHS. PLEASE NOTE: A NORMAL MAMMOGRAM DOES NOT EXCLUDE THE POSSIBILITY OF BREAST CANCER. A CLINICALLY SUSPICIOUS PALPABLE LUMP SHOULD BE BIOPSIED. Dictated by: Aquilino Montes M.D. on 08/10/2024 at 08:17 Approved by: Aquilino Montes M.D. on 08/10/2024 at 08:20 Dictated By: Aquilino Montes M.D. Signed By: 08/10/24820 DD/ 9 TD/TT: Zigzag Tunnel Elastic Operator: [facility] InstituteRadiology Study observation (narrative)[facility] TOMOSYNTHESIS SCREENING BIOrdered By: Radiologist Radiology on [id number] [email or web address] Work Phone: RT PULMONARY FUNCTION TESTon [id number] [address] Respiratory Report Signed Patient: MOE BRUCE MR#: [id number] : 1955 Acct:[id number] Age/Sex: 68 / F ADM Date: 10/28/23 Loc: CARD Attending Dr: MELISSA GANDHI Ordering Physician: MELISSA GANDHI Date of Service: 10/28/23 Procedure(s): RT pulmonary function test Accession Number(s): [id number] cc: [facility] Test Date: 2023-10-28 Pat Name: MOE BRUCE Department: Room: - Gender: Female Assistant Professor Of History: Karissa Cerda RRT : 1955 Requested By: [id number] Order Number: [id number] Jose MD: Favio Marlow Interpretive Statements Pulmonary function testing was completed according to ATS criteria. Findings were considered accurate and reproducible. No bronchodilator was administered due to normal spirometric values. Spirometry: -FEV1/FVC: Normal @ 76% -FEV1: Normal @ 94% -FVC: Normal @ 94% -GEM25-67%: Normal @ 87% Lung volumes by plethysmography: -RV: Normal @ 92% -TLC: Normal @ 99% Diffusion capacity: -DLCO: Mild reduction @ 78% when corrected for Hb 12.9g/dL Flow-volume loop: -Subtle scooping of the expiratory limb. Je in inspiratory loop suggestive of a glottic maneuver (e.g. cough). Impressions: -Technically normal spirometry, lung volumes, and mild diffusion impairment. Scooping of flow-volume loop may suggest mild obstruction. A decreased DLCO can be seen in, but not restricted to, cardiopulmonary vascular disorders, early interstitial lung disease, and early emphysema. Clinical correlation required. Electronically Signed On 11-09-2023 7:34:02 EST by Favio Marlow Dictated By: Favio Marlow D.O. Signed By: 11/09/23 0734 DD/ 0842 TD/TT: Zig[employer] Tunnel Elastic Operator:TBHRadiology, Radiologist, - 11/09/2023 [place] [address] Respiratory Report Signed Patient: MOE BRUCE MR#: [id number] : 1955 Acct:[id number] Age/Sex: 68 / F ADM Date: 10/28/23 Loc: CARD Attending Dr: MELISSA GANDHI Ordering Physician: MELISSA GANDHI Date of Service: 10/28/23 Procedure(s): RT pulmonary function test Accession Number(s): [id number] cc: [facility] Test Date: 2023-10-28 Pat Name: MOE BRUCE Department: Room: - Gender: Female Assistant Professor Of History: Karissa Cerda RRT : 1955 Requested By: [id number] Order Number: [id number] Reading MD: Favio Marlow Interpretive Statements Pulmonary function testing was completed according to ATS criteria. Findings were considered accurate and reproducible. No bronchodilator was administered due to normal spirometric values. Spirometry: -FEV1/FVC: Normal @ 76% -FEV1: Normal @ 94% -FVC: Normal @ 94% -JXE28-51%: Normal @ 87% Lung volumes by plethysmography: -RV: Normal @ 92% -TLC: Normal @ 99% Diffusion capacity: -DLCO: Mild reduction @ 78% when corrected for Hb 12.9g/dL Flow-volume loop: -Subtle scooping of the expiratory limb. Je in inspiratory loop suggestive of a glottic maneuver (e.g. cough). Impressions: -Technically normal spirometry, lung volumes, and mild diffusion impairment. Scooping of flow-volume loop may suggest mild obstruction. A decreased DLCO can be seen in, but not restricted to, cardiopulmonary vascular disorders, early interstitial lung disease, and early emphysema. Clinical correlation required. Electronically Signed On 11-09-2023 7:34:02 EST by Favio Marlow Dictated By: Favio Marlow D.O. Signed By: 11/09/23 0734 DD/ 0842 TD/TT: Zigzag Tunnel Elastic Operator: [facility] [email or web address] PULMONARY FUNCTION TESTOrdered By: Radiologist Radiology on [id number] [email or web address] Work Phone: RT PULMONARY FUNCTION TESTon 00-36-3740Iaeurhpvn Study observation (narrative)[facility] [employer] MAMM SCREEN 3D ADRIEN CADon 78-43-6831DI MAMM SCREEN 3D ADRIEN CADPatient: MOE BRUCE Exam Date: 08/06/2022 : 1955 Gender:F Ordering : DR RIP GOLDSMITH . Admission #: [id number] Family : Order #: [id number] CLICK HERE TO VIEW EXAM RADIOLOGY REPORT PROCEDURE: MAMMOGRAM SCREENING 3D BILATERAL CAD COMPARISON: MG MAMM SCREEN 3D ADRIEN CAD, 06/17/2021. INDICATIONS: Screening mammography Calculator Name NCI Breast Cancer Risk Assessment Tool 5 Year Breast Cancer Risk 1.80% Lifetime Breast Cancer Risk 6.40% Personal Breast Cancer No Personal Ovarian Cancer No Treatments None Family Cancers None LOCATION: [facility] BREAST COMPOSITION: Heterogeneously dense,which may obscure small [...] Maria E Jolly MD on 08/06/2022 at 09:28[facility] PELVIS TRANSVAGon 72-48-3015UM PELVIS TRANSVAGEXAM: Pelvic ultrasound. HISTORY: . Right lower quadrant [...] authenticated by: MARIA E CRAWFORD Date: 2022-08-06 09:00[facility] WestCNOVon 27-43-6827BNONWawbxy Visit (VAISHALI) MOE BRUCE ([id number]) 1955 F Date Time Provider Department 02/17/22 [...] aobut the same as before. Primary Visit Diagnosis:Labyrinthitis of left ear [H83.02] Other Visit Diagnosis:Tinnitus, [...] 06/23/2021 Encounter Status:Closed by TED AYALA on 02/17/22[facility] Visit (OTAUST) MOE BRUCE ([id number]) 1955 F Date Time Provider Department 02/17/22 2:30 PM LALA TAVAREZ During your visit today, we recorded the following information about you: TAI Castro 02/17/2022 4:04 PM Signed [facility] [place] AUDIOLOGIC EVALUATION REPORT Name: Moe Bruce [facility]#: [id number] Date of Service: 02/17/2022 Date of : 1955 Age: [age] year old [place]erred by: [place] [address] [place] [address] Referred for: Evaluation of suspected change in [...] and provided written educational materials. * Call [phone] to schedule an appointment to assess your [...] membrane Referring Provider: JAMILA (more content not included)...NormalGood Samaritan Hospital ClevelandLIPID PROFILEon 75-00-4649VMTX-HDL RATIO NORMSEE [facility] HospitalComment on above:Result Comment: 3.3 - 4.4 LOW RISK 4.4 - 7.1 AVERAGE RISK 7.1 - 11.0 MODERATE RISK >11.0 HIGH RISKPerformed By: #### LIPID, AST #### [facility] [address] [place] [address] Dr. Uriel SolomonCholesterol [Mass/Vol]192 mg/dLNormal<=200[facility] Comment on above:Performed By: #### LIPID, AST #### [facility] [address] [place] [address] [address] Uriel SolomonCholesterol in HDL [Mass/Vol]65 mg/dLRegency Hospital Cleveland West Comment on above:Performed By: #### LIPID, AST #### [facility] [address] [place] [address] [address] Uriel SolomonCholesterol in LDL [Mass/Vol]109.6 mg/dLRegency Hospital Cleveland WestComment on above:Performed By: #### LIPID, AST #### [facility] [address] [place] [address] [address] Uriel SolomonCholesterbandar.total/Cholesterol in HDL [Mass ratio]3.0 {ratio} NormalThe Christ HospitalComment on above:Performed By: #### LIPID, AST #### [facility] [address] [place] [address] [address] Uriel Sellers NORMAL> or = 60 mg/dl - LOW CARDIOVASCULAR RISK <40 mg/dl - HIGH CARDIOVASCULAR RISKRegency Hospital Cleveland WestComment on above:Performed By: #### LIPID, AST #### [facility] [address] [place] [address] [address] Uriel Chairez CALC NORMALSEE [facility] Mercy HospitalComment on above:Result Comment: <100 mg/dl OPTIMAL 100 - 129 mg/dl NEAR OR ABOVE OPTIMAL 130 - 159 mg/dl BORDERLINE HIGH 160 - 189 mg/dl HIGH >190 mg/dl VERY HIGH Performed By: #### LIPID, AST #### [facility] [address] [place] [address] [address] Uriel SolomonTriglyceride [Mass/Vol]87 mg/dLNormal<=150[facility] Comment on above:Performed By: #### LIPID, AST #### [facility] [address] [address] [address] Uriel SolomonVLDL CALC17.4 mg/dLRegency Hospital Cleveland WestComment on above: Performed By: #### LIPID, AST #### [facility] [address] [place] [address] [address] Uriel Bradshaw [id number] [Catalytic activity/Vol]18 U/XAciokd04-99Rjf Wilson HealthComment on above:Performed By: #### LIPID, AST #### [facility] [address] [place] [address] [address] Uriel Gentile HEART CATHon 43-09-9048XELN HEART CATHThis is a summary report. The complete report [...] Motion All segments of the heart are normal.St. Elizabeth HospitalCB Auto Differentialon 24-45-9414Bcqichlr Eos #0.60HighMercy HealthAbsolute Immature GranulocyteNOT REPORTEDMercy HealthAbsolute Lymph #1.20Mercy HealthAbsolute [place] #0.40Mercy HealthBasophils (Bld) [#/Vol]0.00 10*3/uLMercy HealthBasophils/100 WBC (Bld)1 %0 - 2 %Mercy HealthDifferential TypeYESMercy HealthEosinophils/100 WBC (Bld)11 %High0 - 5 %Mercy HealthHematocrit (Bld) [Volume fraction]40.5 %36 - 46 %[facility] CompanyHemoglobin.gastrointestinal spec 1 Ql (Stl)13.7 g/dL12.0 - 16.0 g/dLRegency Hospital CompanyImmature GranulocytesNOT REPORTED0 %[facility] CompanyInterpretation and review of laboratory resultsAbnormalRegency Hospital CompanyLymphocytes/100 WBC (Bld)22 %15 - 40 %[facility] HospitalH (RBC) [Entitic mass]28.9 pg26 - 34 pgEast Ohio Regional HospitalHC (RBC) [Mass/Vol]33.7 g/dL31 - 37 g/dLEast Ohio Regional HospitalV (RBC) [Entitic vol]85.7 fL 80 - 100 fLRegency Hospital CompanyMonocytes/100 WBC (Bld)8 %4 - 8 %[facility] CompanyNRBC AutomatedNOT REPORTEDper 100 WBCRegency Hospital CompanyPlatelet distribution width (Bld) [Ratio]14.1 %12.1 - 15.2 %[facility] CompanyPlatelet EstimateNOT REPORTEDRegency Hospital Company Platelet mean volume (Bld) [Entitic vol]NOT REPORTED6.0 - 12.0 fLRegency Hospital Company Platelets (Bld) [#/Vol]224 10*3/uLRegency Hospital CompanyRBC (Bld) [#/Vol]4.73 10*6/uL4.0 - 5.2 m/uLRegency Hospital CompanyRBC (Bld) [#/Vol]NOT REPORTEDRegency Hospital CompanySegmented neutrophils/100 WBC (Bld)58 %47 - 75 %[facility] CompanySegs Absolute3.30[facility] Company WBC (Bld) [#/Vol]5.6 10*3/[facility] Rittman Medical CenterWBC (Bld) [#/Vol]NOT REPORTEDAspirus Riverview Hospital and ClinicsCBC with Diffon 00-14-3999Erj. Basophil0.00 k/uLNormal0.0-0.2 [facility] Hospital - CincinnatiComment on above:Performed By: #### JOYCELYN ORDONEZ CP #### [facility] [address] [place] [address] Conference And Event Organiser: Maria E Moy MD #### HUMBLE #### [facility] [address] [place] [address] Conference And Event Organiser: Cortney Alcaraz.Neutrophil (Seg)3.30 k/uLNormal2.5-7.0[facility] Hospital - CincinnatiComuniversity of michigan health on above:Performed By: #### JOYCELYN ORDONEZ, CP #### [facility] [address] [place], [place] [phone] Conference And Event Organiser: Maria E Moy MD #### LIPR #### [address] [phone] Conference And Event Organiser: Otilio Alcaraz PerformedYESNormMagruder Memorial HospitalComment on above:Performed By: #### JOYCELYN ORDONEZ, CP #### [facility] [address] [phone] Conference And Event Organiser: Maria E Moy MD #### LIPR #### [place] [address] Conference And Event Organiser: Moncho Lim MDBasophils/100 WBC (Bld)1 %Normal0-2MUniversity Hospitals Ahuja Medical CenterComuniversity of michigan health on above:Performed By: #### JOYCELYN ORDONEZ, CP #### [facility] [address] [place], [place] [phone] Conference And Event Organiser: Maria E Moy MD #### LIPR #### [place] [address] Conference And Event Organiser: Moncho Lim MDEosinophils (Bld) [#/Vol]0.60 10*3/uLHigh0.0-0.4 [facility] on above:Performed By: #### JOYCELYN ORDONEZ, CP #### [facility] [address] [place], [place] [id number] Conference And Event Organiser: Maria E Moy MD #### LIPR #### [address] [phone] Conference And Event Organiser: Moncho Lim MDEosinophils/100 WBC (Bld)11 %High0-5St. Anthony's Hospitalment on above:Performed By: #### DEE ORDONEZAST, CP #### [facility] [address] [place], [place] [phone] Conference And Event Organiser: Maria E Moy MD #### LIPR #### [address] [phone] Conference And Event Organiser: Moncho Lim MDErythrocyte distribution width (RBC) [Ratio]14.1 %Tmxbnt31.1-15.2Mmount st[facility] m[facility] hospitaly Tallahatchie General HospitalComment on above:Performed By: #### DEE ORDONEZAST, CP #### [facility] [address] [place] [address] Conference And Event Organiser: Maria E Moy MD #### LIPR #### [place] [id number] Conference And Event Organiser: Moncho Lim MDHematocrit (Bld) [Volume fraction]40.5 %Normal 36-46Select [facility]ty Hospital - CincinnatiComment on above:Performed By: #### DEE ORDONEZAST, CP #### [facility] [address] [place] [address] Conference And Event Organiser: Maria E Moy MD #### LIPR #### [place] [id number] Conference And Event Organiser: Moncho Lim MDHemoglobin (Bld) [Mass/Vol]13.7 g/dLNormal 12.0-16.0Select [facility] Hospital - CincinnatiComment on above:Performed By: #### MERY ZFAST, CP #### [facility] [address] [place] [address] Conference And Event Organiser: Maria E Moy MD #### LIPR #### [address] [phone] Conference And Event Organiser: Moncho Lim MDLymphocytes (Bld) [#/Vol]1.20 10*3/uLNormal 1.0-4.8Select [facility] Hospital - CincinnatiComment on above:Performed By: #### JOYCELYN ORDONEZ, CP #### [facility] [address] [place], [place] 1906290 Conference And Event Organiser: Maria E Moy MD #### LIPR #### [address] [address] Conference And Event Organiser: Moncho Lim MDLymphocytes/100 WBC (Bld)22 %Exxjha32-76NwqsxSelect Medical Specialty Hospital - CincinnatiComment on above:Performed By: #### JOYCELYN ORDONEZ CP #### [facility] [address] [place], [place] [id number] Conference And Event Organiser: Maria E Moy MD #### LIPR #### [address] [address] Conference And Event Organiser: SHORTY AlcarazCH (RBC) [Entitic mass]28.9 rvNqbxqs94-70VkxpySelect Medical Specialty Hospital - CincinnatiComment on above:Performed By: #### JOYCELYN ORDONEZ, CP #### [facility] [address] [place], [place] [phone] Conference And Event Organiser: Maria E Moy MD #### LIPR #### [address] [address] Conference And Event Organiser: SHORTY AlcarazCHC (RBC) [Mass/Vol]33.7 g/rVIkivrr56-59JwgokSelect Medical Specialty Hospital - CincinnatiComment on above:Performed By: #### DEE ORDONEZAST, CP #### [facility] [address] [place], [place] [id number] Conference And Event Organiser: Maria E Moy MD #### LIPR #### [address] [address] Conference And Event Organiser: Moncho Lim MDMCV (RBC) [Entitic vol]85.7 iDXpdprh39-131OeyfqSelect Medical Specialty Hospital - CincinnatiComuniversity of michigan health on above:Performed By: #### DEE ORDONEZAST, CP #### [facility] [address] [place] [address] Conference And Event Organiser: Maria E Moy MD #### LIPR #### [address] [address] Conference And Event Organiser: SHORTY Alcarazonocytes (Bld) [#/Vol]0.40 10*3/uLNormal0.0-1.0 [facility] - CincinnatiComuniversity of michigan health on above:Performed By: #### DEE ORDONEZAST, CP #### [facility] [address] [place], [place] [phone] Conference And Event Organiser: Maria E Moy MD #### LIPR #### [address] [address] Conference And Event Organiser: SHORTY Alcarazonocytes/100 WBC (Bld)8 %Normal4-8Select [facility] Specialty Hospital - CincinnatiComment on above:Performed By: #### DEE ORDONEZAST, CP #### [facility] [address] [place] [address] Conference And Event Organiser: Maria E Moy MD #### LIPR #### [address] [address] Conference And Event Organiser: Moncho Lim MDNeutrophil (Seg)58 %Hapnml66-07IeezjSelect Medical Specialty Hospital - CincinnatiComuniversity of michigan health on above:Performed By: #### MERY ZFAST, CP #### [facility] [address] [place] [address] Conference And Event Organiser: Maria E Moy MD #### LIPR #### [address] [address] Conference And Event Organiser: Job Alcarazteencompass health rehabilitation hospital of [facility] (d) [#/Vol]224 10*3/fFFptgib161-751 [facility] on above:Performed By: #### JOYCELYN ORDONEZ, CP #### [facility] [address] [place] [address] Conference And Event Organiser: Maria E Moy MD #### LIPR #### [address] [address] Conference And Event Organiser: BERLIN Alcaraz (d) [#/Vol]4.73 10*6/uLNormal4.0-5.2MKettering Health Hamilton on above:Performed By: #### JOYCELYN ORDONEZ, CP #### [facility] [address] [place] [address] Conference And Event Organiser: Maria E Moy MD #### LIPR #### [address] [address] Conference And Event Organiser: Moncho Lim MDBELLEVUE HOSPITAL (d) [#/Vol]5.6 10*3/uLNormal3.5-11.0[facility] - CincinnatiComuniversity of mich[facility] health on above:Performed By: #### JOYCELYN ORDONEZ, CP #### [facility] [address] [place] [address] Conference And Event Organiser: Maria E Moy MD #### LIPR #### [address] [address] Conference And Event Organiser: Cortney Alcaraz.Imm.GranulocyteNOT REPORTEDNormal0.00-0.30 [facility] on above:Performed By: #### JOYCELYN ORDONEZ, CP #### [facility] [address] [place] [address] Conference And Event Organiser: Maria E Moy MD #### LIPR #### [address] [address] Conference And Event Organiser: Pierre Alcaraz GranulocyteNOT CWFXFXQJWvhhkd0HhfziSelect Medical Specialty Hospital - CincinnatiComment on above:Performed By: #### MERY, ZFAST, CP #### [facility] [address] [place] [address] Conference And Event Organiser: Maria E Moy MD #### LIPR #### [address] [address] Conference And Event Organiser: SHORTY AlcarazPVNOT REPORTEDNormal6.0-12.0[facility] Hospital - CincinnatiComment on above:Performed By: #### MERY ZFAST, CP #### [facility] [address] [place] [address] Conference And Event Organiser: Maria E Moy MD #### LIPR #### [address] [address] Conference And Event Organiser: IWONA Alcaraz AutomatedNOT REPORTEDNormalSelect Medical Specialty Hospital - CincinnatiComment on above:Performed By: #### DEE ORDONEZAST, CP #### [facility] [address] [place] [address] Conference And Event Organiser: Maria E Moy MD #### LIPR #### [address] [address] Conference And Event Organiser: Job Alcaraztelet CommentNOT REPORTEDNormalSelect Medical Specialty Hospital - CincinnatiComment on above:Performed By: #### MERY, ZFAST, CP #### [facility] [address] [place] [address] Conference And Event Organiser: Maria E Moy MD #### LIPR #### [facility] D[address] [place] [address] Conference And Event Organiser: ANDRIA Alcaraz morphology finding Nom (Bld)NOT REPORTED NormalSelect Medical Specialty Hospital - CincinnatiComment on above:Performed By: #### DEE ORDONEZAST, CP #### [facility] [address] [place], [place] [phone] Conference And Event Organiser: Maria E Moy MD #### LIPR #### [facility] [address] [place], [place] [phone] Conference And Event Organiser: Moncho Lim MDWBC MorphologyNOT REPORTEDNormalMerNewark-Wayne Community HospitalComment on above:Performed By: #### DEE ORDONEZAST, CP #### [facility] [address] [place], [place] [phone] Conference And Event Organiser: Maria E Moy MD #### LIPR #### [address] [phone] Conference And Event Organiser: CHRISTELLE Alcaraztooele valley hospital Metabolic Profon 09-04-2021(cont.)Normal [facility]ty Hospital - CincinnatiComment on above:Result Comment: Average GFR for 60-69 years old: 85 mL/min/1.73sq m Chronic Kidney Disease: <60 mL/min/1.73sq m Kidney failure: <15 mL/min/1.73sq m eGFR calculated using average adult body mass. Additional eGFR calculator available at: http://www.[employer].Oatmeal/multiple_crcl_2012.htmPerformed By: #### JOYCELYN ORDONEZ, CP #### [facility] [address] [place] [address] Conference And Event Organiser: Maria E Moy MD #### LIPR #### [facility] [address] [place] [address] [phone] Conference And Event Organiser: Carlos A Alcarazbumin [Mass/Vol]4.1 g/dLNormal3.5-5.2MKettering Health Hamilton on above:Performed By: #### DEE ORDONEZAST, CP #### [facility] [address] [place] [address] Conference And Event Organiser: Maria E Moy MD #### LIPR #### [facility] [address] [place] [address] Conference And Event Organiser: Faith Alcaraz Isaw572 U/UBpis50-039CwjrvPremier Health [facility] on above:Performed By: #### JOYCELYN ORDONEZ, CP #### [facility] [address] [place] [address] Conference And Event Organiser: Maria E Moy MD #### LIPR #### [address] [address] Conference And Event Organiser: Moncho Lim MDALT [Catalytic activity/Vol]12 U/LNormal5-33 [facility] on above:Performed By: #### JOYCELYN ORDONEZ, CP #### [facility] [address] [place] [address] Conference And Event Organiser: Maria E Moy MD #### LIPR #### [address] [address] Conference And Event Organiser: Antonio Alcaraz gap [Moles/Vol]11 mmol/LNormal9-17[facility] on above:Performed By: #### JOYCELYN ORDONEZ, CP #### [facility] [address] [place] [address] Conference And Event Organiser: Maria E Moy MD #### LIPR #### [address] [address] Conference And Event Organiser: Moncho Lim MDAST [Catalytic activity/Vol]15 U/LNormal<32[facility] on above:Performed By: #### JOYCELYN ORDONEZ, CP #### [facility] [address] [place] [address] Conference And Event Organiser: Maria E Moy MD #### LIPR #### [address] [phone] Conference And Event Organiser: Moncho Lim MDBilirubin [Mass/Vol]0.15 mg/dLLow0.30-1.20[facility] Hospital - CincinnatiComment on above:Performed By: #### JOYCELYN ORDONEZ CP #### [facility] [address] [place], [place] 5702290 Conference And Event Organiser: Maria E Moy MD #### LIPR #### [address] [phone] Conference And Event Organiser: Moncho Lim MDBUN/CRE Crquh68Uscmgz9-34Opqru [facility] Comment on above:Performed By: #### JOYCELYN ORDONEZ CP #### [facility] [address] [place] [address] Conference And Event Organiser: Maria E Moy MD #### LIPR #### [address] [address] Conference And Event Organiser: CHRISTELLE Alcarazalcium [Mass/Vol]9.4 mg/dLNormal8.6-10.4[facility] Hospital - CincinnatiComment on above:Performed By: #### JOYCELYN ORDONEZ CP #### [facility] [address] [place] [address] Conference And Event Organiser: Maria E Moy MD #### LIPR #### [address] [address] Conference And Event Organiser: CHRISTELLE Alcarazhloride [Moles/Vol]103 mmol/EXmmqzx55-682RqbhwSelect Medical Specialty Hospital - CincinnatiComment on above:Performed By: #### JOYCELYN ORDONEZ, CP #### [facility] [address] [place] [address] Conference And Event Organiser: Maria E Moy MD #### LIPR #### [address] [phone] Conference And Event Organiser: CHRISTELLE AlcarazO2 [Moles/Vol]25 mmol/IYmjrmi49-83ThvgeSelect Medical Specialty Hospital - CincinnatiComment on above:Performed By: #### JOYCELYN ORDONEZ, CP #### [facility] [address] [place], [place] [phone] Conference And Event Organiser: Maria E Moy MD #### LIPR #### [address] [phone] Conference And Event Organiser: CHRISTELLE Alcarazreatinine [Mass/Vol]0.71 mg/dLNormal0.50-0.90 [facility] - CincinnatiComment on above:Performed By: #### JOYCELYN ORDONEZ, CP #### [facility] [address] [place], [place] 2002790 Conference And Event Organiser: Maria E Moy MD #### LIPR #### [place] [address] Conference And Event Organiser: Moncho Lim MDGFR, Amer>60Normal>60[facility] Hospital - CincinnatiComment on above:Performed By: #### JOYCELYN ORDONEZ, CP #### [facility] [address] [place] [address] Conference And Event Organiser: Maria E Moy MD #### LIPR #### [address] [address] Conference And Event Organiser: Moncho Lim MDGFR,non Amer>60Normal>60[facility] - CincinnatiComuniversity of michigan health on above:Performed By: #### JOYCELYN ORDONEZ, CP #### [facility] [address] [place] [address] Conference And Event Organiser: Maria E Moy MD #### LIPR #### [address] [address] Conference And Event Organiser: Moncho Lim MDGlucose [Mass/Vol]85 mg/hTInewzr00-25AcispKettering Health Hamilton on above:Performed By: #### DEE ORDONEZAST, CP #### [facility] [address] [place] [address] Conference And Event Organiser: Maria E Moy MD #### LIPR #### [address] [address] Conference And Event Organiser: DHARMESH Alcarazotassium [Moles/Vol]4.3 mmol/LNormal3.7-5.3 [facility] Hospital - CincinnatiComment on above:Performed By: #### DEE ORDONEZAST, CP #### [facility] [address] [place], [place] [phone] Conference And Event Organiser: Maria E Moy MD #### LIPR #### [address] [phone] Conference And Event Organiser: DHARMESH Alcarazrotein [Mass/Vol]7.1 g/dLNormal6.4-8.3MUniversity Hospitals Ahuja Medical CenterComment on above:Performed By: #### DEE ORDONEZAST, CP #### [facility] [address] [place] [address] Conference And Event Organiser: Maria E Moy MD #### LIPR #### [address] [address] Conference And Event Organiser: HUMBERTO Alcarazodium [Moles/Vol]139 mmol/LBmzapv447-306VscxpPremier Health Upper [facility] Center on above:Performed By: #### DEE ORDONEZAST, CP #### [facility] [address] [place], [place] 1279890 Conference And Event Organiser: Maria E Moy MD #### LIPR #### [address] [address] Conference And Event Organiser: Moncho Lim MDUrea nitrogen [Mass/Vol]13 mg/dLNormal8-23[facility] Hospital - CincinnatiComment on above:Performed By: #### MERY, ZFAST, CP #### [facility] [address] [place] [address] Conference And Event Organiser: Maria E Moy MD #### LIPR #### [facility] [address] [place], [place] [phone] Conference And Event Organiser: Moncho Lim MDAlbumin/Glob RatioNOT REPORTEDNormal1.0-2.5[facility] Hospital - CincinnatiComment on above:Performed By: #### MERY, ZFAST, CP #### [facility] [address] [place] [address] Conference And Event Organiser: Maria E Moy MD #### LIPR #### [place] [address] [place], [place] [phone] Conference And Event Organiser: HUMBERTO Alcaraztaging:NOT REPORTEDNormalSelect Medical Specialty Hospital - Cincinnati Comment on above:Performed By: #### MERY, DEEAST, CP #### [facility] [address] [place], [place] [phone] Conference And Event Organiser: Maria E Moy MD #### LIPR #### [address] [phone] Conference And Event Organiser: CHRISTELLE Alcarazomprehensive Metabolic Panelon 09-04-2021 Albumin [Mass/Vol]4.1 g/dL3.5 - 5.2 g/dLMercy HealthAlbumin/Globulin RatioNOT REPORTEDMer HealthALP (Bld) [Catalytic activity/Vol]125 U/LHigh35 - 104 U/L Merc HealthALT [Catalytic activity/Vol]12 U/L5 - 33 U/LMercy HealthAnion gap [Moles/Vol]11 mmol/L9 - 17 mmol/LMercy HealthAST [Catalytic activity/Vol]15 U/L <32Mercy HealthBilirubin [Mass/Vol]0.15 mg/dLLow0.30 - 1.20 mg/dLMercy Health Calcium [Mass/Vol]9.4 mg/dL8.6 - 10.4 mg/dLSelect [facility]ty [facility] HealthChloride [Moles/Vol]103 mmol/L98 - 107 mmol/LMercy HealthCO2 [Moles/Vol]25 mmol/L20 - 31 mmol/LMercy HealthCreatinine [Mass/Vol]0.71 mg/dL0.50 - 0.90 mg/dLRegency Hospital CompanyFree PSA/Total PSA [Mass fraction]7.1 g/dL6.4 - 8.3 g/dLSelect Medical Specialty Hospital - Canton HealthGFR >60>60 mL/minMercy HealthGFR Non->60>60 mL/minMercy HealthGFR/1.73 sq M.predicted MDRD (S/P/Bld) [Vol rate/Area][facility] Hospital CompanyComment on above:Average GFR for 60-69 years old: 85 mL/min/1.73sq m Chronic Kidney Disease: <60 mL/min/1.73sq m Kidney failure: <15 mL/min/1.73sq m eGFR calculated using average adult body mass. Additional eGFR calculator available at: http://www.[employer]/multiple_crcl_2012.htm GFR/1.73 sq M.predicted MDRD (S/P/Bld) [Vol rate/Area]NOT REPORTEDRegency Hospital Company Glucose [Mass/Vol]85 mg/dL70 - 99 mg/dLRegency Hospital CompanyInterpretation and review of laboratory resultsAbnormalRegency Hospital CompanyPotassium [Moles/Vol]4.3 mmol/L3.7 - 5.3 mmol/LMercy HealthSodium [Moles/Vol]139 mmol/L135 - 144 mmol/LMercy HealthUrea nitrogen (BldV) [Mass/Vol]13 mg/dL8 - 23 mg/dLSelect Medical Specialty [facility] HealthUrea nitrogen/Creatinine (Bld) [Mass ratio]18[facility] and ClinicsLipid Panelon 62-96-8133Bbhldgcnosm [Mass/Vol]173 mg/dL<200Regency Hospital CompanyComment on above: Cholesterol Guidelines: <200 Desirable 200-240 Borderline >240 Undesirable Cholesterol in HDL [Mass/Vol]61 mg/dL>40Regency Hospital CompanyComment on above: HDL Guidelines: <40 Undesirable 40-59 Borderline >59 Desirable Cholesterol in LDL [Mass/Vol]95 mg/dL0 - 130 mg/dLRegency Hospital CompanyComment on above: LDL Guidelines: <100 Desirable 100-129 Near to/above Desirable 130-159 Borderline >159 Undesirable Direct (measured) LDL and calculated LDL are not interchangeable tests. Cholesterol in VLDL [Mass/Vol]NOT REPORTED1 - 30 mg/dLRegency Hospital Company Cholesterol.total/Cholesterol in HDL [Mass ratio]2.8 {ratio}<5[facility] Triglyceride [Mass/Vol]85 mg/dL<150Reg[facility] Hospital CompanyComment on above: Triglyceride Guidelines: <150 Desirable 150-199 Borderline 200-499 High >499 Very high Based on AHA Guidelines for fasting triglyceride, July 2012. [facility] Hospital CompanyLipid Profileon 62-99-7564Bqmzetaxvdl [Mass/Vol]173 mg/dLNormal<200 [facility] on above:Result Comment: Cholesterol Guidelines: <200 Desirable 200-240 Borderline >240 UndesirablePerformed By: #### DEE ORDONEZAST, CP #### [facility] [address] [place] [address] Conference And Event Organiser: Maria E Moy MD #### LIPR #### [address] [phone] Conference And Event Organiser: CHRISTELLE Alcarazholesterol in HDL [Mass/Vol]61 mg/dLNormal>40 [facility] on above:Result Comment: HDL Guidelines: <40 Undesirable 40-59 Borderline >59 DesirablePerformed By: #### DEE ORDONEZAST, CP #### [facility] [address] [place] [id number] Conference And Event Organiser: Maria E Moy MD #### LIPR #### [address] [address] Conference And Event Organiser: CHRISTELLE Alcarazholesterol in LDL [Mass/Vol]95 mg/dLNormal0-130 [facility] on above:Result Comment: LDL Guidelines: <100 Desirable 100-129 Near to/above Desirable 130-159 Borderline >159 Undesirable Direct (measured) LDL and calculated LDL are not interchangeable tests.Performed By: #### JOYCELYN ORDONEZ, CP #### [facility] [address] [place] [address] Conference And Event Organiser: Maria E Moy MD #### LIPR #### [facility] [address] [place] [address] Conference And Event Organiser: Rico Alcaraz.total/Cholesterol in HDL [Mass ratio]2.8 {ratio}Normal<5[facility] Hospital - CincinnatiComment on above:Performed By: #### JOYCELYN ORDONEZ, CP #### [facility] [address] [place] [address] Conference And Event Organiser: Maria E Moy MD #### LIPR #### [address] [address] Conference And Event Organiser: Moncho Lim MDTriglyceride [Mass/Vol]85 mg/dLNormal<150[facility] - CincinnatiComment on above:Result Comment: Triglyceride Guidelines: <150 Desirable 150-199 Borderline 200-499 High >499 Very high Based on AHA Guidelines for fasting triglyceride, July 2012.Performed By: #### JOYCELYN ORDONEZ, CP #### [facility] [address] [place] [address] Conference And Event Organiser: Maria E Moy MD #### LIPR #### [facility] [address] [place] [address] Conference And Event Organiser: Rico Alcaraz,VLDLNOT REPORTEDNormal1-30MerNewark-Wayne Community HospitalComment on above:Performed By: #### JOYCELYN ORDONEZ, CP #### [facility] [address] [place] [address] Conference And Event Organiser: Maria E Moy MD #### LIPR #### [address] [address] Conference And Event Organiser: DHARMESH Alcarazatiignacia Fasting?on 90-88-2221Yvblcpd Fasting?YES [facility] fasting?on 22-40-1101Ydddjvp fasting?YESNormal [facility] - CincinnatiComment on above:Performed By: #### JOYCELYN ORDONEZ CP #### [facility] [address] [place] [address] Conference And Event Organiser: Maria E Moy MD #### HUMBLE #### [facility] [address] [place] [address] Conference And Event Organiser: Moncho Lim [facility]AGONERAbdon [id number] Visit (OTOLST) CAITYMOE ([id number]) 1955 F Date Time Provider Department 08/19/21 2:30 PM TED AYALA During your visit today, [...] left ear. no improvement noticed Primary Visit Diagnosis:Sensorineural hearing loss (SNHL) of left ear with unrestricted hearing of right ear [H90.42] Other Visit Diagnoses:Dizziness [R42] Tinnitus, left ear [H93.12] Order(s):COMPREHENSIVE AUDIOLOGIC EXAM [40000YIY] Order #: [id number] Prescriptions as of 08/19/2021 - metoprolol tartrate, [...] 06/23/2021 Encounter Status:Closed by TED AYALA on 08/19/21[facility] Visit (OTAUST) BRUCEMOE NARANJO ([id number]) 1955 F Date Time Provider Department 08/19/21 2:00 PM LALA TAVAREZ During your visit today, we recorded the following information about you: TAI Castro 08/19/2021 3:31 PM Signed [place] AUDIOLOGIC EVALUATION REPORT Name: Moe Bruce [facility]#: [id number] Date of Service: 08/19/2021 Date of : 1955 Age: [age] year old Referred by: [place] [id number] [place] [phone] Referred for: Determination of the effect of [...] materials. Briefly discussed [employer] technology. * Call [phone] to schedule an appointment to assess your [...] Provider: TED AYALA [1 (more content not included)...Normal [facility] CenterDIAC STRESS TESTon [id number] [address] CARDIAC STRESS TEST PATIENT NAME: MOE BRUCE : 1955 MED REC NO: [id number] ROOM: ACCOUNT NO: [id number] ADMIT DATE: 08/04/2021 PROVIDER: Aquilino Ravi DATE OF STUDY: 08/04/2021 Cardiovascular Diagnostics Department Ordering Provider: Justin Carr MD Primary Care Provider: Rip Goldsmith MD [...] of this test were discussed with Dr. Carr on 08/04/2021 at 1420. AQUILINO RAVI HERMELINDA Doc#: Unknown CC: Rip Goldsmith [facility] [place] [address] CARDIAC STRESS TEST PATIENT NAME: MOE BRUCE : 1955 MED REC NO: [id number] ROOM: ACCOUNT NO: [id number] ADMIT DATE: 08/04/2021 PROVIDER: Justin Carr DATE OF STUDY: 08/04/2021 LEXISCAN CARDIOLITE STRESS TEST: INDICATION: Dizziness and chest pain. IMPRESSION: 1. We gave 0.4 mg of Lexiscan intravenously. 2. This was followed in 20 seconds by Cardiolite infusion. 3. There was no chest pain. 4. There was no ST depression. 5. It was an overall negative Lexiscan stress test. 6. Cardiolite to follow. JUSTIN CARR GV/V_TTRAD_I Doc#: [id number] CC: Rip GoldsmithHarrison Community Hospital Cardiac Stress Test Nuclear ImagingOrdered By: Nicanor Carr on 25-08-6722Gqtcuvkvr exam is complete. No Radiologist dictation. Please follow up with ordering provider.[employer] Work Phone: [facility] [employer] Phone: [place] MYOCARDIAL SPECT REST EXERCISE OR RXon [id number] MYOCARDIAL SPECT REST EXERCISE OR RXRadiology exam is complete. No Radiologist dictation. Please follow up with ordering provider. Final resultNormalSelect Medical Specialty Hospital - CincinnatiVitamin D 25 OHon 85-46-2110Xwyfeef D 25 OH33.9 ng/oBZvgarz53.0-100.0[facility] - CincinnatiComment on above:Result Comment: Reference Range: Vitamin D status Range Deficiency <20 ng/mL Mild Deficiency 20-30 ng/mL Sufficiency 30-100 ng/mL Toxicity >100 ng/mLPerformed By: #### TSHX #### [facility] [address] [place] [address] Conference And Event Organiser: Maria E Moy MD #### VD25 #### [employer] [address] [place] [address] [phone] Conference And Event Organiser: ALEXANDRIA Alcaraz w/reflex to FT4on 73-99-6499SGE Qn2.37 m[IU]/LNormal0.30-5.00[facility] - CincinnatiComment on above:Performed By: #### TSHX #### [facility] [address] [place] [address] Conference And Event Organiser: Maria E Moy MD #### VD25 #### [facility] [address] [place] [address] [phone] Conference And Event Organiser: ALEXANDRIA Alcaraz with ReflexOrdered By: Nicanor Carr on 83-53-5126RLV Qn2.37 m[IU]/LMercy Health Work Phone: [facility] SpaceFace Work Phone: Vitamin D 25 HydroxyOrdered By: Nicanor Carr on 13-90-7092Qlf D, 25-Qkorrnr16.9 ng/mL30.0 - 100.0 ng/mLGuguchu Phone: comment on above: Reference Range: Vitamin D status Range Deficiency <20 ng/mL Mild Deficiency 20-30 ng/mL Sufficiency 30-100 ng/mL Toxicity >100 ng/mL Guguchu Phone: XR CHEST (2 VW)on 33-45-7882IG CHEST (2 VW)EXAM: XR CHEST (2 VW) HISTORY: R 55. Near syncope . Dizziness. [...] Signed by: Olivier Luevano DO 07/29/21 Final resultNoGal[facility] 89-65-2551TPFQPbwfvu Visit (OTOLST) MOE BRUCE ([id number]) 1955 F Date Time Provider Department 07/22/21 9:00 AM TED AYALA During your visit today, we [...] without complication ? Referring Provider: TED AYALA [[id number]] Allergies As of Date: 07/22/2021 Noted Allergy Reaction POTATO 03/08/2018 11 - Vomiting Comments: Violent nausea CHICKEN DERIVED 06/15/2021 11 - Vomiting SHELLFISH CONTAINING PRODUCTS 02/13/2018 4 - Hives 12 - Shortness of Breath Date Reviewed: 07/22/2021 Reviewed by: Temi Harmon Ma - Fully Assessed Reason for Visit: THIRD INJ IN LEFT EAR [Other] Cmt: has noticed some improvment Primary Visit Diagnosis:Sensorineural hearing loss (SNHL) of left ear with unrestricted hearing of right ear [H90.42] Order(s):COMPREHENSIVE AUDIOLOGIC EXAM [[id number]] Order #: [id number] [] buffered dexAMETHasone sodium phosphate solution 24 [...] EAR Encounter Status:Closed by TED AYALA on 07/22/21[facility]-1403GXYRAieodk Visit (OTOLMM) MOE BRUCE ([id number]) 1955 F Date Time Provider Department 07/20/21 9:00 AM TED AYALA OTOLMM During your visit today, we recorded the following information about you: Ted Ayala MD 07/21/2021 8:25 AM Signed cancelled Referring Provider: TED AYALA [[id number]] Allergies As of Date: 07/20/2021 Noted Allergy Reaction POTATO 03/08/2018 11 - Vomiting Comments: Violent nausea CHICKEN DERIVED 06/15/2021 11 - Vomiting SHELLFISH CONTAINING PRODUCTS 02/13/2018 4 - Hives 12 - Shortness of Breath Date Reviewed: 07/20/2021 Reviewed by: Temi Harmon Ma - Fully Assessed Reason for Visit: here for 3rd inj to left ear [Other] Cmt: has noticed some improvement Primary Visit Diagnosis:Sensorineural hearing loss (SNHL) of left ear with [...] 06/23/2021 Encounter Status:Closed by TED AYALA on 07/21/21[facility] 68-60-4050MKDZAkwkqz Visit (OTOLMM) CAITYMOE ([id number]) 1955 F Date Time Provider Department 07/06/21 9:45 AM TED AYALA OTOLMM During your visit [...] without complication ? Referring Provider: TED AYALA [[id number]] Allergies As of Date: 07/06/2021 Noted Allergy [...] changed. Still gets wooshing sounds. Primary Visit Diagnosis:Sensorineural hearing loss (SNHL) of left ear with [...] EAR Encounter Status:Closed by TED AYALA on 07/06/21[facility] 76-85-1647AQVEIlgtnv Visit (OTAUME) MOE BRUCE ([id number]) 1955 F Date Time Provider Department 06/19/21 11:00 AM STAT AUDIO OTAUME During your visit today, we recorded the following information about you: Annabella LUJAN, AUD 06/23/2021 3:25 PM Signed Head [facility] Neck [place] AUDIOLOGIC EVALUATION REPORT Name: oMe Bruce CC#: [id number] Date of Service: 06/19/2021 Date of : 1955 Age: [age] year old Referred by: Ted Ayala [address] [address] Referred for: Determination of the effect of [...] was going to pass out . The medical biller/coder was retrieved to help assess the patient [...] strategies to enhance communication ability.. Tai Shanks, [facility]/A Doctor of Audiology copied to: Ted Ayala MD MARINO Abbrev- iation Definition Degree of hearing sensitivity dB range WNL within normal limits WNL 0 - 20 SNHL sensorineural hearing loss Mild 20-40 CHL conductive hearing loss Moderate 40-55 MHL mixed hearing loss Moderately-Severe 55-70 WRS word recognition score Severe 70-90 ME middle ear Profound 90 + TM tympanic membrane Referring Provider: TED AYALA [[id number]] Allergies As of Date: 06/19/2021 Noted Allergy Reaction POTATO 03/08/2018 11 - Vomiting Comments: Violent nausea CHICKEN DERIVED 06/15/2021 11 - Vomiting SHELLFISH CONTAINING PRODUCTS 02/13/2018 4 (more content not included)...Normal [facility] Visit (OTOLMM) MOE BRUCE ([id number]) 1955 F Date Time Provider Department 06/19/21 [...] since 05/15/21, [facility] Dizziness [36] Cmt: [facility] on 05/15/21, CT scan- sinuses full, then was admitted on 05/17/21 to [facility] [place], had MRI- ruled out stroke Primary Visit Diagnosis:Sensorineural hearing loss (SNHL) of left ear with unrestricted hearing of right ear [H90.42] Other Visit Diagnosis:Labyrinthitis of left ear [H83.02] Order(s):COMPREHENSIVE AUDIOLOGIC EXAM [[id number]] Order #: [id number] [] buffered dexAMETHasone sodium phosphate solution 24 mg/mL with 2% lidocaine 0.1 mLDisp: Rfl: Prescriptions as of 06/23/2021 - amoxicillin (AMOXIL) 125 mg/5 mL suspension - LOW-DOSE ASPIRIN ORAL - cetirizine (ZYRTEC) 10 mg tablet Take 10 mg by mouth. - Esomeprazole Magnesium 20 mg packet - predniSONE 10 mg tablet pack - montelukast (SINGULAIR) 10 mg tablet (more content not included)...NormalSouthern [facility] CenterOVon 06-15-2021 CNOVOffice Visit (NEMSMN) MOE BRUCE ([id number]) 1955 F Date Time Provider Department 06/15/21 9:15 AM THERON PABLO During your visit today, we recorded the following information about you: Pulse Blood pressure Weight Height 88/minute 128/83 77.9 kg 1.626 m Theron Pablo MD 06/22/2021 10:52 AM [facility] MULTIPLE SCLEROSIS NEW PATIENT EVALUATION/CONSULTATION Referral source: SELF Also followed by: No care production team leader to display PRINCIPAL NEUROLOGIC DIAGNOSIS: HISTORY OF [...] questionnaire. PHQ-9 Office Visit from 06/15/2021 in [facility] PHQ-9 Score 6 *PHQ-9 is a questionnaire for depressive symptoms, with scores 0-4 indicating none, 5-9 mild, 10-14 moderate, 15-19 moderately severe, and 20-27 severe symptoms. 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 She lives in [place], twice and newly engaged. Marital Status: FAMILY [...] were full without nystagmus (more content not included)...Normal [facility] Summary.on 43-73-5423Wuikgv Summary. CD:[id number]+PGhlYWQ+AN0VCXYkP53piEDqsY7XZ7sXMZ6CUITVPOQJCX2NFV0qj VE6BFhgI4SqweWs [file] bGFw (more content not included)...[facility] Interdisciplinary Note - Case Manageron 22-98-9042Jqtjykcjukhcpjxww Note - Case ManagerED: H/P: [facility] Profit: partial PIS (OBS/IN): OBS 05/07/21 18:13, TF 05/07/21 16:40 Chgs: D/C: VTE: N/A MCG: -obs/chest pain, -inpt/chest pain Tele: yes ICU: no >2mn: messaged physician Insurance: [employer] PAT (tests): MRI Brain w/o Contrast ordered 05/18/21-Sent 05/18 PAT Readmit: MM: OBS Log: ED: [place] H/P: [facility] Profit: partial PIS (OBS/IN): OBS 05/07/21 18:13, TF 05/07/21 16:40 Chgs: done D/C: done VTE: N/A MCG: -obs/chest pain, -inpt/chest pain Tele: yes ICU: no <2mn: done Insurance: [employer] PAT (tests): MRI Brain w/o Contrast ordered 05/18/21-Sent 05/18 PAT Readmit: MM: done OBS Log: Celine [facility] HospitalComment on above:Result Comment: Electronically Signed By: Gisela GARCIA, Chana You\.br\Date and Time Signed: 06/02/21 11:22 EDTED Note-Physicianon 65-54-4094QF Note-PhysicianBasic Information Time Seen: Papo Quintana PA-C 05/17/2021 10:24 Chief Complaint dizziness History of Present Illness Very pleasant 65-year-old female presents to emergency department chief complaint of nausea and vomiting with continued dizziness. Patient states that she was seen at [facility] on 05/15/2021 for similar complaints. Was told [...] 16 BP: 129/78 BP: 134/91(Standing) BP: 147/85(Supine) SpO2:96% HT: 163 cm WT: 75 kg BMI: [...] Appropriate mood & affect. Integumentary: Warm, Dry, [place] Medical Decision Making Lab work from [facility] was reviewed including CT of the head [...] prescription medications Follow-up With When Contact Information RIP GOLDSMITH In 3 days 05/20/2021 EDT [address] [place] [address] Business (1) Additional Instructions: Elvis Harrison DO, YASH Within 2 to [address], [place] [address]- Additional Instructions: Patient Education Vertigo Nausea and Vomiting, Adult Labyrinthitis, Eczx-rb-Bwsu Attestation This 65-year-old female presented to the emergency department with complaint of nausea vomiting anddizziness. This has been going on for several days. She was already seen at another local emergencydepartment for the same complaint and states she [...] hospitalist service. Final diagnosis (more content not included)...[facility] Comment on above:Result Comment: Electronically Signed By: Papo Quintana PA-C\.br\Date and Time Signed: 05/18/21 23:44 EDT\.br\Electronically Co- Signed By: Mihai Murguia DO\.br\Date and Time Co-Signed: 05/23/21 15:45 EDTC Urineon 44-21-6166Vhxyniqa identified Cx Nom (U)Microbiology PROCEDURE: Urine Culture [R1] SOURCE: U CleanCatch BODY SITE: COLLECTED DATE/TIME: 05/18/2021 20:01 EDT RECEIVED DATE/TIME: 05/18/2021 20:51 EDT START DATE/TIME: 05/18/2021 20:51 EDT FREE TEXT SOURCE: Papo Quintana PA-C, PA-C, Micheal FINAL REPORTS Final Report [] Verified Date/Time: 05/20/2021 12:18 EDT 1,000 cfu/ml Mixed skin contaminants Performing Locations R1: This test was performed at: [facility], [address] [place] [address], [address] , [place], TrztwfLexjxaOur Lady Of Mercy Hospital - AndersonComment on above:Performed By: #### [id number], [id number] ####[facility] [address] [place], [place] [address]LSDhx 12-43-4360Mniby gap [Moles/Vol]10 mmol/LNormal6-16 [facility] - AndersonComment on above:Performed By: #### [id number] #### [facility] [address] [place], [place] [address]Mfappzl [Mass/Vol]8.2 mg/dLLow8.9-11.1FWilson HealthComment on above:Performed By: #### [id number] #### [facility] [address] [place], [place] [address]Acsfcolq [Moles/Vol]111 mmol/DRshkar116-791SmkcglOur Lady Of Mercy Hospital - AndersonComment on above:Performed By: #### [id number] #### [facility] [address] [place], [place] [address]EC2 [Moles/Vol]23 mmol/PMrjhpf57-17OkcjccOur Lady Of Mercy Hospital - Anderson Comment on above:Performed By: #### [id number] #### [facility] [address] [place], [place] [address]Gbuxnfzuvz [Mass/Vol]0.8 mg/dLNormal0.5-1.3FWilson HealthComment on above:Performed By: #### [id number] #### [facility] [address] [place], [place] [address]Xmcxzsl [Mass/Vol]90 mg/lBPxiptr84-612AbbyecOur Lady Of Mercy Hospital - AndersonComment on above:Result Comment: If this glucose result represents a fasting glucose, interpretation should refer tothe following reference range: 55-99 mg/dLPerformed By: #### [id number] #### [facility] [address] [place], [place] [address]Nntsmpsng [Moles/Vol]3.3 mmol/LLow3.5-5.3FWilson HealthComment on above:Performed By: #### [id number] #### [facility] [address] [place] [address]Qbwivo [Moles/Vol]141 mmol/DQzsxen985-141McqjwoOur Lady Of Mercy Hospital - AndersonComment on above:Performed By: #### [id number] #### [facility] [address] [place] [address]Msth nitrogen [Mass/Vol]14 mg/dLNormal5-21[facility] - AndersonComment on above:Performed By: #### [id number] #### [facility] [address] [place] [address]Ywmn nitrogen/Creatinine [Mass ratio]18 No ZzvtoXugrkr15-02 [facility] - AndersonComment on above:Performed By: #### [id number] #### [facility] [address] [place] [address]Rehdcwskp Instructionson 00-89-5587Fcpiomwvh Instructions [id number]#1.00CD:127NoFirelands Regional Medical Center South CampusInpatient Clinical Summaryon 88-48-2626Aesnhjaty Clinical Summary [address] [address] Clinical Summary Person Information: Name: MOE BRUCE Age: 65 Years : 1955 Sex: Female PCP: RIP GOLDSMITH MD Marital Status: Race: White Ethnicity: Non- or Language: Ukrainian Visit Id: Visit Reason: Vomiting; Nausea; Dizziness; LABYRINTHITIS OF RT EAR, VERTIGO, INTRACTABAE VOMITING Speciality: Acuity: Enc Type: Observation Med Service: Medical Arrival: 05/17/2021 10:05:10 Discharge: Dispo Type: Admitted as IP to this Hosp Address: [address] [place] [address] [phone] Provider Notes: Diagnosis: 1:Vertigo; 2:Nausea & vomiting; [...] Attending Physician: PATT REDD, Michele Consulting Physician: Aquilino Coker MD Referring Physician: Follow up: With: Address: When: Elvis Harrison [place], [place] [address] 06/15/2021 9:00 AM With: Address: When: RIP GOLDSMITH [address] [place] [phone] [facility] (1) 05/21/2021 1:40 PM Patient Education Information: Vertigo; Nausea and Vomiting, Adult; Labyrinthitis, Hhqe-qn-UztzGdxokoTfpdcz [facility] HospitalInpatient Patient Summaryon 64-70-1358Mbryliqhc Patient Summary [address] [address] Patient Discharge Instructions PERSON INFORMATION Name: MOE [...] Address: When: Elvis Harrison DO, [address], [place] [address] 06/15/2021 9:00 AM With: Address: When: RIP GOLDSMITH [address] [place] [address] [phone] Business (1) 05/21/2021 1:40 PM In the event that this physician does not participate in your insurance network, please consult with your insurance company to find a nearby participating provider. Comment: ICAITY SUSAN H, have received the attached patient education materials/instructions and have verbalized understanding: Patient Signature Date Clinican/Nurse Signature Date HERE ARE THE MEDICATION CHANGES THAT OCCURRED DURING YOUR HOSPITAL STAY New Medications [id number], [address], [place] [phone], [phone] meclizine (meclizine 25 mg oral tablet, chewable) 1 Tablets Chewed 3 times a day as needed for dizziness. Refills: 0. Last Dose: Next Dose: Medications to Continue with No Changes Printed Prescriptions ondansetron (Zofran ODT 4 mg Tab-Dis) 1 Tablets By Mouth 3 times a day. Refills: 0. Last Dose: Next Dose: Other Medications budesonide-formoterol (Symbicort 160/4.5 inhalation aerosol with adapter) 2 Puffs Inhalation 2 times a day. Last Dose: Next Dose: lansoprazole (Prevacid) By Mouth. Last Dose: Next Dose: montelukast (montelukast 10 mg Tab) Last Dose: Next Dose: Comment: MEDICATION LIST PROVIDED FOR YOU IS [...] moving when they are not. This feeling cancome and go at any time. Vertigo often [...] for you to reach (more content not included)...[facility] CenterInterdisciplinary Note - Case Manageron 05-19-2021 Interdisciplinary Note - Case ManagerPt is awake and alert in bed, previously [...] her luís and he will transport at [place]. Reports she is selfmotivated normally and declines any concerns or anticipated needs. Also discussed OPPT. Pt till discuss HH and OPPT with luís and update CRM later in day. Aware of possible DC today. crm returned to room. Pt has worked with therapy and has decided to use HH at [place]. prefers [facility], referral to resource center. Nursing updated.[facility] CenterComment on above:Result Comment: Electronically Signed By: Salty GARCIA, Tereza\.felice\Date and Time Signed: 05/19/21 12:03 EDTMonitor Recordon 49-48-6759Widhrrh [id number]#1.00CD:127 [facility] CenterMonitor Record [id number]#1.00CD:127NoFirelands Regional Medical Center South CampusProgress Note-Physicianon 50-34-3251Euxcjywl Note-PhysicianBasic Information 65-year-old female with past medical history of asthma, chronic GERD who presented to the ER with dizziness nausea vomiting. The patient had the same presentation a few days ago to ED [place] and was discharged home from the ED. [...] rachel somewhat muffled. She has a mild cough [...] angiogram head and neck to assess for anyintracranial or extracranial cerebral artery stenosis which may [...] vomiting, unspecified 3. Asthma, (J45.909: Unspecified asthma, uncomplicated)Unspecified asthma, uncomplicated 4. Chronic GERD, (K21.9: Gastro-esophageal reflux disease without esophagitis)Gastro-esophageal reflux disease without esophagitis 5. DVT prophylaxis, [...] Pinprick normal. CEREBELLAR: No limb dysmetria with eqygei-cfpj-qagolq or heel-alexis. [4] Lab Results Glucose Lvl: 90 mg/ (more content not included)...[facility] CenterComment on above:Result Comment: Electronically Signed By: Nichelle Zhao RN\.br\Date and Time Signed: 05/19/21 09:00 EDT\.br\Electronically Co- Signed By: Aquilino Coker MD\.br\Date and Time Co-Signed: 05/19/21 09:49 EDT Transfer Documentson 41-16-4133Tyuwtyax Documents [id number]#1.00CD:127NormalOur Lady Of Mercy Hospital - AndersoneGFRon 86-47-1862JIU/1.73 sq M.predicted among blacks MDRD (S/P/Bld) [Vol rate/Area]mL/min/{1.73_m2}Normal>=59[facility] - AndersonComment on above: Order Comment: pt on floor, in room 302.Result Comment: eGFR is race adjusted. AA=.Performed By: #### [id number] #### [place] [facility] [address] [place], [place] [address]ADK/1.73 sq M.predicted among non-blacks MDRD (S/P/Bld) [Vol rate/Area]mL/min/{1.73_m2}Normal>=59[facility] Hospital - AndersonComment on above: Order Comment: pt on floor, in room 302.Result Comment: Chronic kidney disease could be indicated at eGFR's of less than 60 mL/min/1.73m2. Kidney failure is indicated at less than 15 mL/min/1.73m2.Performed By: #### [id number] #### [place] [facility] [address] [place], [place] [address]Flzvvtqxxuvurohuj Note - Case Manageron 05-18-2021 Interdisciplinary Note - Case ManagerCRM spoke with patient in room. Patient is alert and oriented and participates in discharge planning. No family in room. Patient white board updated, and CRM contact information provided. Discussed CRM spoke with Dr Moralez who saw patient earlier today as well as neurology. Will get MRI today andpossible discharge later today or tomorrow. Patient verified PCP, insurance and DME. Patient lives with fiance and denies any needs at discharge. Will wait PT eval. reviewed VIGIL form and she denies any questions and signs form.[facility] Medical CenterComment on above:Result Comment: Electronically Signed By: Prasanna GARCIA, Consuelo\.br\Date and Time Signed: 05/18/21 09:33 EDTMRI Brain w/o Contraston 51-72-4040HEA Brain w/o ContrastExam Date/Time: 05/18/2021 14:03 EDT Reason for Exam: [...] Transcribed by: SOFIYA Technologist: BONNIE Technical Comments NoneNoFirelands Regional Medical Center South CampusMessage from Medicareon 68-22-3873Ilsmthh from [id number]#1.00CD:127NoFirelands Regional Medical Center South CampusMonitor Recordon 05-81-5994Avquxvy Record [id number]#1.00CD:127[facility] CenterProgress Note-Physicianon 91-69-3934Sbgofkei Note-PhysicianAssessment/Plan 1. Vertigo (R42: Dizziness and giddiness) Dizziness [...] to ensure accuracy , however, inadvertently computerized loan workout officer mistakes may be present . Subjective The [...] Protein: NEGATIVE1 (05/18/21 20:01:00) UA Glucose: NEGATIVE1 (05/18/21::00) UA Ketones: NEGATIVE1 (05/18/21 20:01:00) UA Bili: NEGATIVE1 (05/18/21 20:01:00) UA Blood: NEGATIVE1 (05/18/21:01:00) UA Nitrite: NEGATIVE1 (05/18/21:01:00) UA Urobilinogen: 0.2 (05/18/21:01:00) UA Leuk Est: 2+ Abnormal (05/18/21:01:00) UA RBC: 0-3 (05/18/21::00) UA Squam Epithelial: 0-2 (05/18/21::00) UA WBC: 16-25 Abnormal (05/18/21 20:01:00) UA Bacteria: 1+ Abnormal (05/18/21:01:00) Problem List/Past Medical History Ongoing No qualifying [...] mg Tab-Dis, 4 mg= 1 tab(s), Oral, TIDNormalOur Lady Of Mercy Hospital - AndersonComment on above:Result Comment: Electronically Signed By: Kirt REDD, Edward\.br\Date and Time Signed: 05/18/21 20:32 EDTRAD - MRI Screening Formon 99-14-1842RXO - MRI Screening Form [id number]#1.00CD:127NoFirelands Regional Medical Center South CampusUA With Cult Reflexon 41-03-5900Blbptnak LM Ql (Urine sed)1+ /HPFAbnormal TraceOur Lady Of Mercy Hospital - AndersonComment on above:Performed By: #### [id number], [id number] ####[facility] [address] [place], [place] [address]Lfvahnlsq Ql (U)NegativeNormalNegativeOur Lady Of Mercy Hospital - AndersonComment on above:Performed By: #### [id number], [id number] ####[facility] [address] [place], [place] [address]Fffdcie (U)SL CLOUDYInvalid Interpretation CodeOur Lady Of Mercy Hospital - AndersonComment on above:Performed By: #### [id number], [id number] ####[facility] [address] [place], [place] [address]Erlqa (U)YELLOWNormalYellowOur Lady Of Mercy Hospital - Anderson Comment on above:Performed By: #### [id number], [id number] ####[facility] [address] [place], [place] [address]Kiofhuucjq cells.squamous LM.HPF (Urine sed) [#/Area]7-7Cgecvz5-6Pbbjmr [facility] Pediatric HospitalComment on above:Performed By: #### [id number], [id number] ####[facility] [address] [place], [place] [address]Tlrgmen Test strip (U) [Mass/Vol] NegativeNormalNegativeOur Lady Of Mercy Hospital - AndersonComment on above:Performed By: #### [id number], [id number] ####[address] [address]Tyrihoaypz Ql (U)NegativeNormalNegativeOur Lady Of Mercy Hospital - AndersonComment on above:Performed By: #### [id number], [id number] ####[address] [address]Flnlfgg (U) [Mass/Vol] NegativeNormalNegativeOur Lady Of Mercy Hospital - AndersonComment on above:Performed By: #### [id number], [id number] ####[address] [address]Gpwnacr.plasma/Commack.RBC (Bld) [Mass ratio]7-3Sftguh0-7 [facility] Hospital - AndersonComment on above:Performed By: #### [id number], [id number] ####[address] [address] Nitrite Ql (U)NegativeNormalNegativeOur Lady Of Mercy Hospital - AndersonComment on above: Performed By: #### [id number], [id number] ####[address] [address]oZ (U)6.0 [pH]Invalid Interpretation Code5.0-9.0[facility] Hospital - AndersonComment on above:Performed By: #### [id number], [id number] ####[address] [address]Kyxgqqj (U) [Mass/Vol]NegativeNormalNegativeOur Lady Of Mercy Hospital - AndersonComment on above:Performed By: #### [id number], [id number] ####[address] [address]Emzcophr gravity (U) [Rel density]1.020Invalid Interpretation Code1.005-1.030[facility] Hospital - AndersonComment on above:Performed By: #### [id number], [id number] ####[address] [address]Tiqm of Urine collection methodClean CatchNormalOur Lady Of Mercy Hospital - AndersonComment on above: Performed By: #### [id number], [id number] ####[address] [address]Nfawfahqsvrh Qn (U)0.2 {Jenaro'U}/dL Normal0.0-1.0[facility] Hospital - AndersonComment on above:Performed By: #### [id number], [id number] ####[address] [address]MIB Auto Ql (U)2+AbnormalNegativeOur Lady Of Mercy Hospital - [place] Comment on above:Performed By: #### [id number], [id number] ####[address] [address]UBX LM.HPF (Urine sed) [#/Area]24-07Tmspfivs5-4OvvdjdWilson HealthComment on above:Performed By: #### [id number], [id number] ####[address] [address]Jhxo Diffon 97-78-6192Asxulquws/100 WBC (Bld)0.5 % Normal0.0-2.0[facility] - AndersonComment on above:Order Comment: Order Added by Discern Expert.Performed By: #### [id number], 1917329, 74171295, 7484729, 0938619, 2993927 ####[address] [address]Mfnuyjubg/Leukocytes Auto (Bld) [Pure # fraction]0.0 E9/L Normal0.0-0.2FWilson HealthComment on above:Order Comment: Order Added by Discern Expert.Performed By: #### [id number], 2813714, 86274827, 2022768, 2495514, 2097870 ####[address] [address]Hnfbczllmeq/100 WBC (Bld)1.7 %Normal0.0-8.0[facility] - AndersonComment on above:Order Comment: Order Added by Discern Expert. Performed By: #### [id number], 4724768, 31965141, 3820091, 4110283, 7271173 ####[address] [address] Eosinophils/Leukocytes Auto (Bld) [Pure # fraction]0.1 E9/LNormal0.0-0.5FWilson HealthComment on above:Order Comment: Order Added by Discern Expert.Performed By: #### [id number], 3154157, 57650816, 1421900, 2257112, 8697881 ####[address] [address] Lymphocytes/100 WBC (Bld)10.3 %Low14.0-50.0[facility] - AndersonComment on above:Order Comment: Order Added by Discern Expert.Performed By: #### [id number], 7682096, 42079407, 1065912, 1530324, 8127166 ####[address] [address]Kewfjzfxcni/Leukocytes Auto (Bld) [Pure # fraction]0.9 E9/LLow1.0-4.0[facility] AndersonComment on above: Order Comment: Order Added by Discern Expert.Performed By: #### 74658466, 1013588, 93124476, 1214355, 4203869, 7263156 ####[place] [address] [address]Vvjyeqgud/100 WBC (Bld)5.8 %Normal 4.0-14.0[facility] AndersonComment on above:Order Comment: Order Added by Discern Expert.Performed By: #### 68827219, 2998702, 05444226, 5291214, 3616878, 0906129 ####[address] [address]Wwdtkckuz/Leukocytes Auto (Bld) [Pure # fraction]0.5 E9/L Normal0.2-1.0[facility] AndersonComment on above:Order Comment: Order Added by Discern Expert.Performed By: #### [id number], 9245613, 99126987, 8766821, 3190865, 7939554 ####[facility] [address] [place], [place] [address]Ujhoxsbhncm/100 WBC (Bld)81.7 %High36.0-75.0[facility] AndersonComment on above:Order Comment: Order Added by Discern Expert. Performed By: #### [id number], 3834397, 09249120, 8696752, 1292709, 7497730 ####[facility] [address] [place] [address] Neutrophils/Leukocytes Auto (Bld) [Pure # fraction]7.0 E9/LNormal2.0-7.5FWilson HealthComment on above:Order Comment: Order Added by Discern Expert.Performed By: #### [id number], 1995283, 36767885, 3288258, 5512648, 0822594 ####[facility] [address] [place], [place] [address]ITJwq 84-63-6516Ezyylsbmia [Mass/Vol]0.8 mg/dLNormal0.5-1.3FWilson Health Comment on above:Performed By: #### [id number] #### [facility] [address] [place], [place] [address]Jmui nitrogen [Mass/Vol]12 mg/dLNormal5-21[facility] AndersonComment on above:Performed By: #### [id number] #### [facility] [address] [place], [place] [address]Zlhm nitrogen/Creatinine [Mass ratio]15 No WoiqqBmndci92-76 [facility] AndersonComment on above:Performed By: #### [id number] #### [facility] [address] [place], [place] [address]Yjygn gap [Moles/Vol]13 mmol/LNormal6-16[facility] AndersonComment on above:Performed By: #### 44451655 #### [facility] [address], [place] [address]Eksbqzm [Mass/Vol]9.1 mg/dLNormal8.9-11.1FWilson HealthComment on above:Performed By: #### 16183973 #### [facility] [address], [place] [address]Fksknusv [Moles/Vol]100 mmol/THun793-192FqmrarOur Lady Of Mercy Hospital - AndersonComment on above:Performed By: #### [id number] #### [facility] [address], [place] [address]UI8 [Moles/Vol]25 mmol/BUwlusi02-81ZnuotrOur Lady Of Mercy Hospital - [place] Comment on above:Performed By: #### [id number] #### [facility] [address], [place] [address]Cckosdn [Mass/Vol]124 mg/tKZgzbll94-634PlyppbOur Lady Of Mercy Hospital - AndersonComment on above:Result Comment: If this glucose result represents a fasting glucose, interpretation should refer tothe following reference range: 55-99 mg/dLPerformed By: #### [id number] #### [facility] [address], [place] [address]Uofvftuac [Moles/Vol]3.7 mmol/LNormal3.5-5.3FWilson HealthComment on above:Performed By: #### [id number] #### [facility] [address], [place] [address]Puhnqg [Moles/Vol]134 mmol/LQhj139-352MfxgffOur Lady Of Mercy Hospital - AndersonComment on above:Performed By: #### [id number] #### [facility] [address] [place] [address], [place] [address]NOI w/ Auto Diffon 03-94-8187Brodinhupdb distribution width (RBC) [Ratio]14.1 %Xpqsmk47.9-14.2FWilson HealthComment on above: Performed By: #### 09411577, 6152718, 21095119, 7849800, 0663530, 7948149 ####[facility] [address] [place] [address] Hematocrit (Bld) [Volume fraction]44.6 %Ydzvyp99.0-46.0[facility] AndersonComment on above:Performed By: #### 28390693, 8415819, 99317953, 3012797, 3317030, 7841374 ####[facility] [address] [place], [place] [address]Asaostxkkj (Bld) [Mass/Vol]14.9 g/zSLuwxki95.0-16.0[facility] AndersonComment on above:Performed By: #### 36648506, 6140459, 64182817, 8508273, 9713836, 8340518 ####[address] [address]NXI (RBC) [Entitic mass]28.5 pgNormal 27.0-34.0[facility] AndersonComment on above:Performed By: #### 86112628, 0487458, 24533684, 6147885, 6838246, 8680080 ####[address] [address]URIV (RBC) [Mass/Vol]33.5 g/dL Eesfpw58.4-36.0[facility] AndersonComment on above:Performed By: #### 26069660, 8362975, 31288119, 0309698, 2879082, 0704450 ####[address] [address]QBM (RBC) [Entitic vol]85.1 fL Rwever39.0-100.0[facility] AndersonComment on above:Performed By: #### 43941926, 2033086, 90404453, 9862685, 6317035, 3407033 ####[address] [address]Eipbaynn mean volume (Bld) [Entitic vol]9.0 fLNormal6.4-10.8[facility] AndersonComment on above: Performed By: #### 39396622, 3037023, 93374090, 1034190, 0048538, 5060255 ####[facility] [address] [place] [address] Platelets (Bld) [#/Vol]231.0 E9/OMdnvhm265.0-500.0[facility] Comment on above:Performed By: #### 17267745, 8311491, 14719033, 6101394, 1398748, 9896914 ####[place] [address] [place], [place] [address]QII (Bld) [#/Vol]5.2 E12/LNormal4.3-5.9[facility] AndersonComment on above:Performed By: #### 16610529, 4141607, 66225059, 2908894, 7955633, 4352762 ####[facility] [address] [place], [place] [address]NEC corrected for nucl RBC Auto (Bld) [#/Vol]8.6 E9/LNormal 4.0-11.0[facility] AndersonComment on above:Performed By: #### 93239971, 7650788, 82560388, 6935612, 9773580, 7336431 ####[place] [address] [place], [place] [address]Axsevsxsr Glucose POCon 05-17-2021 Glucose [Mass/Vol]101 mg/uMYnuw25-97HutrycOur Lady Of Mercy Hospital - AndersonComment on above: Result Comment: Cleaned MeterPerformed By: #### [id number] #### [facility] [address], [place] [address]Uftmgkn for Treatmenton 64-72-4783Httjfby for Treatment [id number]#1.00CD:127NormalC[facility] Clinical Summaryon 97-80-1569HX Clinical Summary [place] [id number] ED Clinical Summary Person Information Name: MOE BRUCE/[place] Age: 65 Years : 1955 Sex: Female Language: Ukrainian PCP: AGUS REDD, RIP [place] Marital Status: Visit Id: Visit Reason: Vomiting; Nausea; Dizziness; NAUSEA, VOMITTING, DIZZINESS Speciality: Acuity: 3 Enc Type: Emergency Med Service: Emergency Arrival: 05/17/2021 10:05:10 Discharge: LOS: 000 06:36 Checkin: 05/17/2021 10:05:10 Checkout: 05/17/2021 16:41:08 Dispo Type: Admitted as IP to this [facility] EVENTS: Event Name Event Status Request [...] 05/17/2021 16:41:08 05/17/2021 16:41:08 05/17/2021 16:41:08 ADDRESS: [facility] [id number] PHYS DOC NOTES: MEDICAL INFORMATION: Prescriptions Given: New Medications Printed Prescriptions meclizine (meclizine 25 mg Tab) 1 Tablets By Mouth 3 times a day as needed for dizziness. Refills: 0. ondansetron (Zofran ODT 4 mg Tab-Dis) 1 Tablets By Mouth 3 times a day. Refills: 0. PATIENT EDUCATION INFORMATION: Instructions: Vertigo; Nausea and Vomiting, Adult; Labyrinthitis, Pgzi-xy-Ukle Follow up: With: Address: When: RIP [address]US [address] [place], [place] [id number] Business (1) In 3 days 05/20/2021 DIAGNOSIS: 1:Intractable vomiting; 2:Labyrinthitis of right ear; 3:VertigoNormalFisher Lynn Medical CenterED Patient Education Noteon 45-53-9718QZ Patient Education NoteENT Vertigo Vertigo is the feeling that you or your surroundings are moving when they are not. This feeling cancome and go at any time. Vertigo often [...] you feel dizzy. General instructions ? Take loih-lim-bmodxnb and prescription medicines only as told by [...] 06/29/2006 Document Revised: 08/13/2019 Document Reviewed: 08/13/2019 [email or web address] Patient Education ? 2019 [email or web address] Labyrinthitis Labyrinthitis is an infection of the [...] these instructions at home: Medicines ? Take gylh-zsz-olsplmq and prescription medicines only as told by [...] infection of the i (more content not included)...Normal [facility] Patient Summaryon 31-04-7403NV Patient Summary [place] [id number] Patient Discharge Instructions Person Information Name: MOE BRUCE Age: 65 Years Arrival Date: 05/17/2021 10:05:10 Discharge Diagnosis: 1:Intractable vomiting; 2:Labyrinthitis of right ear; 3:Vertigo Primary Care Physician: RIP GOLDSMITH MD Provider Information Primary Provider: Mihai Murguia DO Advanced Electronics Technician Apprentice:Papo Quintana PA-C The exam and treatment you received in the Emergency Department were for an urgent problem and are not intended as complete care. It is important that you follow up with a doctor, nurse practitioner,or physician?s trading assistant for ongoing care. If your symptoms [...] Follow-up Instructions: With: Address: When: RIP GOLDSMITH [address] [place] [phone] [facility] (1) In 3 days 05/20/2021 In the event that this physician does not participate in your insurance network, please consult with your insurance company to find a nearby participating provider. Patient Education Materials: Vertigo; Nausea and Vomiting, Adult; Labyrinthitis, Ydlz-pu-Onwx A MESSAGE TO ALL PATIENTS REGARDING OPIOIDS PRESCRIPTION OPIOIDS: WHAT YOU NEED TO KNOW Prescription opioids can be used to help relieve dndzvjeg-pv-mcqgxl pain and are often prescribed following a [...] and have fewer risks and side effects. Optionsmay include: ? Pain relievers such as acetaminophen, [...] unused prescription opioids: Find your community drug take- back program or yourpharmImageSpike mail-back program, or flush them down the toilet, following guidance from the Food and Drug Administration (www.fda.gov/Drugs/ResourcesForYou). ? Visit www.cdc.gov/drugoverdose to learn about the risks of opioids abuse and overdose. ? If you believe you may be struggling with addiction, tell your health care professi (more contentnot included)...[facility] Panelon 74-87-9375Hmfbrsnnu.indirect [Mass or moles/Vol]UTCAbnormal0.1-0.9[facility] AndersonComment on above:Result Comment: Result verified by Discern Rule. Performed result UTC (Unable to Calculate) was sent as an Alpha code due the inability to calculate a valid numeric value.Performed By: #### [id number] #### [facility] [address] [place] [address], [place] [address]Esbqkgc [Mass/Vol]3.8 g/dLNormal3.3-5.0[facility] AndersonComment on above:Performed By: #### [id number] #### [facility] [address] [place] [address], [place] [address]Yintxnh/Globulin (S) [Mass conc ratio]1.0Low1.1-2.2FWilson HealthComment on above:Performed By: #### [id number] #### [facility] [address] [place] [address], [place] [address]ONX [Catalytic activity/Vol]96 Int._Unit/JVydfzn12-90QtfqogOur Lady Of Mercy Hospital - AndersonComment on above:Performed By: #### [id number] #### [facility] [address], [place] [address]JSP No additional P-5'-P [Catalytic activity/Vol]19 Int._Unit/L Normal6-46[facility] AndersonComment on above:Performed By: #### 72661635 #### [facility] [address], [place] [address]GYY [Catalytic activity/Vol]21 Int._Unit/LNormal5-43[facility] AndersonComment on above:Performed By: #### 99783489 #### [facility] [address], [place] [address]Ftlnfxvrd [Mass/Vol]0.6 mg/dLNormal0.0-1.1FWilson HealthComment on above:Performed By: #### [id number] #### [facility] [address] [place] [address], [place] [address]Tnadswjyw.direct [Mass/Vol]mg/dLNormal0.1-0.4FWilson HealthComment on above:Performed By: #### [id number] #### [place] [facility] [address], [place] [address]Oudljdqf (S) [Mass/Vol]3.7 g/dLNormal1.4-4.0[facility] AndersonComment on above:Performed By: #### [id number] #### [place] [facility] [address] [place], [place] [address]Yiynfkp [Mass/Vol]7.5 g/dLNormal6.0-7.8[facility] AndersonComment on above:Performed By: #### [id number] #### [facility] [address] [place] [address], [place] [address]Lhfbqfi Recordson 61-96-8890Zortyqu Records [id number]#[id number]:127NormalOur Lady Of Mercy Hospital - AndersonProgress Note-Nurseon 47-66-7390Bxhrkjqf Note-Nursept. ambulated to the restroom, pt. states I feel unsteady. Pt. threw up in the bathroom, Dr. Florian bowles and Mariano FINLEY made aware.[facility] CenterProess Note-NursePer Mariano FINLEY, urine not needed at this time.[facility] CenterProess Note-NursePt. states her nausea and headache feel better. [facility] Medical CenterTroponin 0 Hr.on 61-93-0298Npphaxld I.cardiac [Mass/Vol]2.60 pg/mLLow10.10-27.10[facility] AndersonComment on above:Result Comment: The 95% CI (Confidence Interval) PPV (Positive Predictive Value) for myocardial infarction in females is 38 pg/mL, in males 51 pg/mL. The results should be used in conjunction with clinical conditions of myocardial infarction. (Access High Sensitivity Troponin I Instructions For Use, Caitie Mchenry, May 2018)Performed By: #### [id number] #### [place] [facility] [address], [place] [address]Yniucumw 3 Hr.on 88-65-5927Ofrntrrc I.cardiac [Mass/Vol]2.40 pg/mLLow10.10-27.10[facility] AndersonComment on above:Result Comment: The 95% CI (Confidence Interval) PPV (Positive Predictive Value) for myocardial infarction in females is 38 pg/mL, in males 51 pg/mL. The results should be used in conjunction with clinical conditions of myocardial infarction. (Access High Sensitivity Troponin I Instructions For Use, [employer], May 2018)Performed By: #### [id number] ####[facility] [address] [place], [place] [address]Olkxrwvg 6 Hr.on 30-98-7490Qrrsgugn I.cardiac [Mass/Vol]3.10 pg/mLLow10.10-27.10[facility] AndersonComment on above:Order Comment: pt on floor, in room 302.Result Comment: The 95% CI (Confidence Interval) PPV (Positive Predictive Value) for myocardial infarction in females is 38 pg/mL, in males 51 pg/mL. The results should be used in conjunction with clinical conditions of myocardial infarction. (Access High Sensitivity Troponin I Instructions For Use, [employer], May 2018)Performed By: #### [id number] #### [place] [facility] [address], [place] [address]Ecpevatm 9 Hr.on 07-51-9253Yqfxytpt I.cardiac [Mass/Vol]3.40 pg/mLLow10.10-27.10[facility] AndersonComment on above:Result Comment: The 95% CI (Confidence Interval) PPV (Positive Predictive Value) for myocardial infarction in females is 38 pg/mL, in males 51 pg/mL. The results should be used in conjunction with clinical conditions of myocardial infarction. (Access High Sensitivity Troponin I Instructions For Use, [employer], May 2018)Performed By: #### [id number] ####[facility] [address] [place], [place] [address]ZK Chest Single Viewon [id number] Chest Single ViewExam Date/Time: 05/17/2021 11:17 EDT Reason for Exam: [...] King Oconnor MD Transcribed by: SOFIYA Technologist: [facility] Medical CentereGFRon 34-03-6691SZN/1.73 sq M.predicted among blacks MDRD (S/P/Bld) [Vol rate/Area] mL/min/{1.73_m2}Normal>=59[facility] - AndersonComment on above:Order Comment: pt on floor, in room 302.Result Comment: eGFR is race adjusted. AA=.Performed By: #### [id number] #### [facility] [address] [place] [address], [place] [address]IYL/1.73 sq M.predicted among non-blacks MDRD (S/P/Bld) [Vol rate/Area]mL/min/{1.73_m2}Normal>=59[facility] AndersonComment on above: Order Comment: pt on floor, in room 302.Result Comment: Chronic kidney disease could be indicated at eGFR's of less than 60 mL/min/1.73m2. Kidney failure is indicated at less than 15 mL/min/1.73m2.Performed By: #### [id number] #### [facility] [address] [place] [address], [place] [address]Uhxsadoi Orderson 66-67-6462Hcnuglph Orders [id number] Regional Medical CenterCoding Summaryon 68-74-0045Bmihtl SummaryCODING DATE: 03/16/2018 [facility] STATUS: Home PAYOR: Commercial Insurance APC DESCRIPTION 5522 Level 2 Imaging without Contrast ADMIT DX: REASON FOR VISIT DX: M79.662 Pain in leftlower leg FINAL DX: PRINCIPAL: M79.662 Pain in left lower leg SECONDARY: PYMT PROC APC STAT DESCRIPTION DOCTOR NAME DATE NOTE: The code number assigned matches the documented diagnosis and / or procedure in the patient's chart. However, the narrative phrase printed from the coding software may appear abbreviated, or result in slightly different terminology. Coded By: Yun Cabrera Date Saved:03/16/2018 07:37 [facility] CenterRad - Other Radiology Reporton 72-15-8893Fod - Other Radiology Report [id number]#1.00OTGTIFFThe MetroHealth SystemUS LE Venous Duplex Lefton 96-20-8614UO LE Venous Duplex LeftULTRASOUND LOWER EXTREMITY VENOUS DUPLEX LEFTCLINICAL DATA: Status post left knee arthroplasty and 03/08/2018, left legpain and swelling for one dayUtilizing color flow duplex scanning and Doppler flow analysis, deep venoussystem of the left leg was evaluated. There is normal compressibility seenthroughout. There is gross patency identified. Augmentation is seen. Thereis no evidence of focal areaof increased echogenicity within the deep venoussystem to suggest thrombosis.IMPRESSION: GROSSLY UNREMARKABLE IMAGING STUDY OF THE DEEP VENOUS SYSTEM OFTHE LEFT LEG DESCRIBED, NO DEFINITE EVIDENCEOF DEEP VENOUS THROMBOSIS CANBE IDENTIFIED.Velasquez Berry MDJOB #: [id number]: 03/15/2018T: 03/15/2018 Final Dictated by: Velasquez Berry MD SDictated DT/TM: 03/15/18 6:03Signed (Electronic Signature): Velasquez Berry MD 03/15/18 8:47 amTechnologist: [facility] Vital Signs Date TimeVital SignValuePerforming XtkxhdpzrPbflbbcb78-88-7200 11:41-0400Body .6 Hnanah Goldsmith MD Work Phone: [facility] InstituteHmjzqnvnca31-57-6791 11:41-0400Body mass index (BMI) [Ratio]29.52 kg/q7KmbumgRip Goldsmith MD Work Phone: [phone] [place] [address]-29-2025 11:41-0400Body bzxvap74.02 kgRip Goldsmith MD Work Phone: [phone] HospitalThe Rehabilitation InstituteBqafjirmez88-25-6705 11:41-0400Diastolic blood eekgokfi77 mm[Hg]Rip Goldsmith MD Work Phone: [phone] [address]Ivojdtyaaj36-80-1349 11:41-0400Heart rate69 /min Rip Goldsmith MD Work Phone: [phone] [place], [place] [address]Rufrbynwwq37-18-3284 11:41-6167XlU6% (BldA) [Mass fraction]96 %Rip Goldsmith MD Work Phone: [phone] [place], [place] [address]Qmvnkwuchf91-38-0143 11:41-0400Systolic blood ppxakvtx124 mm[Hg]Rip Goldsmith MD Work Phone: [phone] [place], [place] [address]Umrvqlypzy87-32-1680 09:59-0400Body mass index (BMI) [Ratio]29.52 kg/n4LyqleRashard Baugh MD Work Phone: [phone]-[facility] InstituteHrzzxsiega04-69-8811 09:59-0400Body ufrjbl20.02 kgRashard Baugh MD Work Phone: [phone]-[facility]7[place] [address]Zzjoagmrlf11-41-4379 09:59-0400Diastolic blood teqqyegh01 mm[Hg]Rashard Baugh MD Work Phone: [place] [address]Zhwvzjsrae65-82-3849 09:59-0400Systolic blood zhqzapnl814 mm[Hg]Rashard Baugh MD Work Phone: [phone])[facility] [place], [place] [address]Ceycbeaxei71-03-4112 09:30-0400Body toggjz071.6 cmEsriram Goldsmith MD Work Phone: [facility] InstituteIeskzuagbw08-23-5486 09:30-0400Body mass index (BMI) [Ratio]28.15 kg/f6UvcxceRip Goldsmith MD Work Phone: [phone] [address]Dgpsxkzygd53-45-2295 09:30-0400Body udltrx54.39 kgRip Goldsmith MD Work Phone: [phone] [place] [address]-03-2025 09:30-0400Diastolic blood rxeuofbi90 mm[Hg]Rip Goldsmith MD Work Phone: [facility] InstituteMeavomluhl72-75-2529 09:30-0400Heart rate61 /min Rip Goldsmith MD Work Phone: [facility] InstituteMnozeyqxme25-39-2925 09:30-9833QnW3% (BldA) [Mass fraction]96 %Rip Goldsmith MD Work Phone: [facility] InstituteJevgpvkjzz44-90-0666 09:30-0400Systolic blood mm[Hg]Rip Goldsmith MD Work Phone: [facility] InstituteCdhinlwcek73-51-7066 10:56-0400Body mass index (BMI) [Ratio]28.15 kg/v2OximuRashard Baugh MD Work Phone: [facility] InstituteGnnqrltsaf22-11-9542 10:56-0400Body .39 kgRashard Baugh MD Work Phone: [facility] InstituteXbdmftraiq94-10-7036 10:56-0400Diastolic blood wuakyery62 mm[Hg]Rashard Baugh MD Work Phone: [facility] InstituteGkzsfcptip35-19-4030 10:56-0400Systolic blood pfslohlp595 mm[Hg]Rashard Baugh MD Work Phone: [facility] InstituteOejwdxdtpj00-82-0967 09:57-0400Body mass index (BMI) [Ratio]30.21 kg/m2Melissa Gandhi MD Work Phone: [facility] InstituteKvgpwpmpsm44-72-0549 09:57-0400Body pukhma81.83 kgMelissa Gandhi MD Work Phone: [facility] InstituteMqnxgevyew78-79-9520 09:02-0400Body ozpazx559.6 cmEsriram Goldsmith MD Work Phone: [facility] InstituteWqejclzome35-10-0383 09:02-0400Body mass index (BMI) [Ratio]29.87 kg/e3HinplcRip Goldsmith MD Work Phone: [phone] [place], [place] [address]Glnfxjkyqd77-45-2138 09:02-0400Body feeoih73.93 kgRip Goldsmith MD Work Phone: [phone] [place], [place] [address]Rrcpjykmrv89-70-6099 09:02-0400Heart rate81 /min Rip Goldsmith MD Work Phone: [phone] [place], [place] [address]10-08-2024 09:02-0949HoH3% (BldA) [Mass fraction]99 %Rip Goldsmith MD Work Phone: [phone] [place], [place] [address]Sbovkbxhhq62-70-1972 11:39-0400Body nydnbz736.6 cmEsriram Goldsmith MD Work Phone: [phone] [place], [place] [address]Flxkgpyhri89-39-8672 11:39-0400Body mass index (BMI) [Ratio]29.87 kg/v1MwxkkjRip Goldsmith MD Work Phone: [phone] [place], [place] [address]Qmnjpsxgee76-09-6304 11:39-0400Body ikluhg35.93 kgRip Goldsmith MD Work Phone: [phone])[facility] [place], [place] [address]Ehhizwwkyv24-78-2464 11:39-0400Diastolic blood hgtblyhq90 mm[Hg]Rip Goldsmith MD Work Phone: 1(154)[address] [place] [address]-24-2024 11:39-0400Heart rate81 /min Rip Goldsmith MD Work Phone: [phone])[address] [place] [address]-24-2024 11:39-9835YkC6% (BldA) [Mass fraction]94 %Rip Goldsmith MD Work Phone: [phone])[facility] [place] [address]-24-2024 11:39-0400Systolic blood brucdtud237 mm[Hg]Rip Goldsmith MD Work Phone: 1(015)[facility] [place], [place] [address]Wrmagbbbbu59-43-8823 11:15-0400Body lywvxo173.29 cmDawn Fitt Other [employer] Other 07-31-2023 08:45-0400Body qejdtr551.29 cmDawn Fitt Other [place] Other 07-27-2023 11:00-0400Body .29 cmArenee Jay Other [employer] Other 07-27-2023 11:00-0400Body mass index (BMI) [Ratio] 31.94 kg/t6KhxezrJacob Jay Other [employer] Other 07-27-2023 11:00-0400Body zxapgu12.1 kgJacob Jay Other [employer] Other 11-02-2021 10:27-0400Diastolic blood thpreqjw65 mm[Hg] [facility] [employer] Work Phone: 1(883) 562-910311-02-2021 10:27-0400Heart hozw705 /minM [employer] Work Phone: 1(629) 605-366211-02-2021 10:27-0400Systolic blood axlcarwx728 mm[Hg] [facility] [employer] Work Phone: Encounters Encounter DateEncounter TypeCare ProviderFacilityStart: 06-27-2025 End: 22-94-5816Ugltdradrian Goldsmith MD Work Phone: noms Smo 100 Family MedicineStart: 06-27-2025 End: 31-96-4319Aasdygadrian Goldsmith MD Work Phone: [facility] [place] 100 Family MedicineStart: 06-27-2025 End: 65-29-5374znuakyztifEJFQGV J HEMEYERNot AvailableStart: 06-27-2025 End: 67-89-1479Jrseth outpatient visit 15 minutesRip Goldsmith MD Work Phone: [facility] [place] 100 Family MedicineComment on above: Palpitations; Mixed dyslipidemia ; Non morbid obesity due to excess caloriesStart: 02-15-2025 End: 07-30-3219KepmpcNgkc E Rambasek MD Work Phone: NOMS SWS ALLComment on above:Moderate persistent asthma without complication (CMS/HCC)Start: 01-29-2025 End: 70-60-7505Izxnuf Ginna Goldsmith MD Work Phone: NOM[facility] CI FM 100Start: 01-29-2025 End: 09-58-6941Tbvjad Ginna Goldsmith MD Work Phone: [phone] CI FM 100Start: 01-29-2025 End: 98-20-0787Iorllyn encounter procedureRip Goldsmith MD Work Phone: NOMS CI FM 100Comment on above:Moderate persistent asthma without complication (CMS/HCC) (Primary Dx); Encounter for Medicare annual wellness exam; Advance directive in chart; Encounter for screening for other disorder; Screening for alcohol problem; Screening for osteoporosis; Menopause; Non morbid obesity due to excess calories; Seasonal affective disorder (CMS/HCC); Mixed dyslipidemia (CMS/HCC)Start: 01-29-2025 End: 73-91-8846gbihdojudqENCDWI J HEMEYERNot AvailableStart: 01-21-2025 End: 87-13-7683Ftthtvl encounter Himanshu Baugh MD Work Phone: NOLZ SWS OBComment on above:Thickened endometrium Start: 01-21-2025 End: 88-41-4537ifvesdfxfbCUNHR J PRINTYNot AvailableStart: 01-08-2025 End: 95-92-7526zlauxknqabGNCZQE HEMEYERNot AvailableStart: 01-03-2025 End: 26-25-2514Lybjet Ginna Goldsmith MD Work Phone: [facility] CI FM 100Start: 01-03-2025 End: 74-81-4127Rwsveo Ginna Goldsmith MD Work Phone: [facility] CI FM 100Start: 01-03-2025 End: 54-78-2108Ifmryk outpatient visit 25 minutesEdvivek Goldsmith MD Work Phone: NOMS CI FM 100Comment on above:Palpitations (Primary Dx); Mixed dyslipidemia (CMS/HCC); Moderate persistent asthma without complication (CMS/HCC); Chronic kidney disease, stage II (mild); Non morbid obesity due to excess caloriesStart: 01-03-2025 End: 29-27-9111pvlftxftprFNDSOBHuong Pugh AvailableStart: 12-26-2024 End: 02-27-4775Quadkz Chica Baugh MD Work Phone: noms SWS OBStart: 12-26-2024 End: 45-90-8275Tuhqwk Chica Baugh MD Work Phone: noms SWS OBStart: 12-26-2024 End: 07-12-2865Spjxcqn encounter procedureRashard Baugh MD Work Phone: [facility] Work Phone: start: 12-26-2024 End: 36-48-2658Qwgllsbg preventive med est patient 65yrs& olderRashard Baugh MD Work Phone: noms SWS OBComment on above:Well woman exam with routine gynecological exam (Primary Dx); Other screening mammogram; Left lower quadrant pain; Cervical cancer screening; RLQ abdominal painStart: 12-26-2024 End: 91-52-0487eiagvzcgujVAHTD J PRINTYNot AvailableStart: 12-17-2024 End: 17-69-3409Eocjmi Ginna Goldsmith MD Work Phone: [facility] CI FM 100Start: 12-17-2024 End: 26-43-2605Rohgimadrian Goldsmith MD Work Phone: N[facility] CI FM 100Start: 12-17-2024 End: 88-58-8814hbdxanhfhlZKIAGRHuong Pugh AvailableStart: 11-20-2024 End: 35-20-3741EoizxyEgbgAshely Gandhi MD Work Phone: noms SWS ALLComment on above:Moderate persistent asthma without complication (CMS/HCC)Start: 09-30-2024 End: 41-99-9175RiqzjhPvjvtk J Hemeyer MD Work Phone: NOMS BNS FMComment on above:Polyarthralgia; Acute pain of right shoulderStart: 08-10-2024 End: 36-58-8414Ibmuwyovt Result Rod Goldsmith MD Work Phone: NONL External Department UnsolicitedStart: 08-10-2024 End: 96-04-3519Xepeysslq Result Rod Goldsmith MD Work Phone: NOYV External Department UnsolicitedStart: 08-06-2024 End: 48-21-5327MbkytsHdtrkj J Hemeyer MD Work Phone: NOAW CI FM 100Comment on above:PalpitationsStart: 08-02-2024 End: 52-38-7149Dhbmls outpatient visit 15 minutesNatalie A Felter OPERATIONS ASST-ENTERTAINER OR VARIETY ARTIST Work Phone: noms SWS DERMComment on above:Seborrheic keratosis (Primary Dx); Melanocytic nevus of trunk; Epidermal inclusion cyst; Beltre angioma; Dermatofibroma of right lower extremity; Dermatofibroma of left lower extremityStart: 08-02-2024 End: 65-48-4222Vsroxf flowsheetNatalie A Felter OPERATIONS ASST-ENTERTAINER OR VARIETY ARTIST Work Phone: NORW SWS DERMStart: 08-02-2024 End: 09-40-8705Bxlzku flowsheetNatalie A Felter OPERATIONS ASST-ENTERTAINER OR VARIETY ARTIST Work Phone: NOEZ SWS DERMStart: 08-02-2024 End: 17-21-5210Pogmnoykb Rod Goldsmith MD Work Phone: NOPA CI FM 100Start: 08-02-2024 End: 01-63-6442cuujpnopasFTNHRCM A FELTERNot AvailableStart: 07-31-2024 End: 38-67-6249BhudwgBpnzma J Hemeyer MD Work Phone: NOCH BNS FMComment on above:Polyarthralgia; Acute pain of right shoulderModerate persistent asthma without complication (CMS/HCC)Start: 07-26-2024 End: 39-08-8130Wsadkx Raj Gandhi MD Work Phone: NOMS SWS ALLStart: 07-26-2024 End: 64-32-4136Zraluuadrian Gandhi MD Work Phone: NOMS SWS ALLStart: 07-26-2024 End: 58-86-5258ybdnlzsokiOEJT E RAMBASEKNot AvailableStart: 07-26-2024 End: 98-12-8023Thizax outpatient visit 25 minutesTodd Ton Gandhi MD Work Phone: NOMS SWS ALLComment on above:Asthma, allergic, mild intermittent, uncomplicated (CMS/HCC) (Primary Dx); Shellfish allergy; Moderate persistent asthma without complication (CMS/HCC); Food allergyStart: 07-10-2024 End: 55-29-5869Rzaolq Ginna Goldsmith MD Work Phone: NOM[facility] CI FM 100Start: 07-10-2024 End: 83-89-6874Pummuc Ginna Goldsmith MD Work Phone: NOM[facility] CI FM 100Start: 07-10-2024 End: 16-01-6860kvgornszwaSGMXZT J HEMEYERNot AvailableStart: 07-10-2024 End: 35-58-0567Yttyiv outpatient visit 25 minutesRip Goldsmith MD Work Phone: NOMS CI FM 100Comment on above:Palpitations; Medication side effects present, initial encounter; Chronic kidney disease, stage II (mild); Mixed dyslipidemia (CMS/HCC); Moderate persistent asthma without complication (CMS/HCC)Start: 06-26-2024 End: 51-34-1649Yzxatc Ginna Goldsmith MD Work Phone: [facility] CI FM 100Start: 06-26-2024 End: 35-99-3084Jjsnkp Ginna Goldsmith MD Work Phone: [facility]OM[facility] CI FM 100Start: 06-26-2024 End: 49-08-4650Xxximaj encounter Kat Goldsmith MD Work Phone: [facility] 100Comment on above:Encounter for Medicare annual wellness exam (Primary Dx); Advance directive in chart; Encounter for screening for other disorder; Screening for alcohol problem; Screening mammogram, encounter for; Moderate persistent asthma without complication (CMS/HCC); Mixed dyslipidemia (CMS/HCC); Seasonal affective disorder (CMS/HCC); Moderate persistent asthma with acute exacerbation (CMS/HCC)Start: 10-28-2023 End: 39-86-3590Upsntrqvo Result EncounterGeneric External Data ProviderNOMS External Department UnsolicitedStart: 10-28-2023 End: 55-19-2087Acpamaoqo Result EncounterGeneric External Data ProviderNOCT External Department UnsolicitedStart: 06-22-2023 End: 95-98-4486qcfyzrpeieKkybmr J HemeyerChamplain [employer] Other Start: 78-41-3648KIH [employer] 2-10 30MDselena [facility] Care ClinicStart: 05-23-2023 End: 34-37-1911guysnxnhzaSsnstg Smith Other [place] Other Start: 38-55-0976Vurqxjyjo encounterJacob Jay [facility] Care ClinicStart: 05-02-2023 End: 24-74-8467qxtiyfetrkVeai Fitt Other [place] Other Start: 76-02-2566OWP [employer] 2-10 30MD[facility] Coord[facility] Care ClinicStart: 85-23-0441Zraroevah encounterDawselena [facility] Care ClinicStart: 04-28-2023 End: 29-77-1148vmjfdqkgwmWskruu Smith Other [place] Other Start: 86-71-0050Lidufds evaluation of patient and reportJacob JayCarolinas Continuecare Hospital [facility] Mountainlucy Coordinated Care ClinicStart: 08-06-2022 End: 05-54-7534qbnegtnybcRO RIP AGUSFacility:G4Dpuij: 10-31-2021 End: 33-14-3369ufvphgeofiZI RIP MANRIQUETOPHERFacility:X9Wuhlm: 09-11-2021 End: 99-87-3980uipnbnsxtgPKTYSAW IRENA [facility] HOSPITALIVORYOhioHealth [facility] HospitalStart: 09-04-2021 End: 16-78-1517wpqejdhmxlSYWK S Kulwant [facility] HospitalStart: 09-04-2021 End: 27-61-0760Jukpfudoyb hospital visit by Jacquie Goldsmith MD Work Phone: mWHZ LaboratoryComment on above:Chest pain, unspecified typeStart: 08-04-2021 End: 56-26-4852vwyqgfqsdtPLWX S Kulwant [facility]ight[facility] HospitalStart: 08-04-2021 End: 34-24-7474Tsvqxxkhie hospital [facility] Stress LabComment on above:ArrivedDizziness; Syncope, unspecified syncope type; SOB (shortness of breath); Arthritis of knee; Chest pain, unspecified typeStart: 07-29-2021 End: 20-51-8000xssxjbdycbNKWE Lucy [facility]ight[facility] HospitalStart: 07-29-2021 End: 04-88-2698Anjedudzwe hospital visit by Jacquie Goldsmith MD Work Phone: mWHZ LaboratoryComment on above:Dizziness; Fatigue, unspecified type; Vitamin D deficiency diseaseStart: 07-29-2021 End: 44-20-1317ekmvhinicaETJD Lucy [facility]ight[facility] HospitalStart: 03-15-2018 End: 73-56-4970GltmsgcuhvCUOAV APLINGFacility:[facility] Procedures DateProcedureProcedure DetailPerforming ClinicianStart: 96-47-0229EVLCFRVJOPY BIOPSYRashard Baugh MD Work Phone: start: 05-64-0222UV TOMOSYNTHESIS SCREENING Dulce Goldsmith MD Work Phone: Start: 94-76-2349RpiljojuohsUoxbsl Hemeyer MD Work Phone: Start: 76-73-0415PM PULMONARY FUNCTION TESTGeneric External Data ProviderStart: 01-21-4553OrtjzeoxfuvMjxgln Hemeyer MD Work Phone: Start: 09-46-9656SeyxoghrtnpBemuxg Hemeyer MD Work Phone: Start: 30-59-5251Nagocsmatyksz metabolic panelGreg [place] Carr MD Work Phone: Start: 34-06-4383Emidy panelGreg [place] Carr MD Work Phone: Start: 86-37-5355QAFIJBD FASTING?Nicanor Carr MD Work Phone: Start: 38-72-7966Tcc routine ecg w/least 12 lds w/i&r Nicanor Carr MD Work Phone: Start: 96-24-6756Wwxibzciwm spect multiple studiesNicanor Carr MD Work Phone: Start: hydroxy includes fractions if performedNicanor Carr MD Work Phone: Screening for malignant neoplasm of colonJacob Jay Other Plan of Treatment DateCare ActivityDetailAuthorStart: 62-41-1016Zetisuzmy for malignant neoplasm of colonNOMS HealthcareStart: 04-29-2026Medicare Annual Wellness (AWV)Medicare Annual Wellness (AWV)NOMS HealthcareStart: 01-23-2026 End: 36-01-7112Ismftkq encounter procedureNOMS SWS OBStart: 03-26-2026Medicare Annual Wellness (AWV)Medicare Annual Wellness (AWV)NOMS HealthcareStart: 12-19-2025 End: 46-70-0789Oakjzwk encounter /19/2026 8:30 AM EDT Office Visit [facility]Lu[facility] [address] [address] Rip Goldsmith MD [address] [place] [address] (Fax)NOMLucy [facility] Family MedicineStart: 11-27-2025 End: 02-98-1162Ltdohzxsdumzi metabolic 2000 panel - Serum or PlasmaComprehensive metabolic panel Lab Routine Palpitations Expected: 11/27/2025, Expires: 06/27/2026NOCT Healthcare Work Phone: Comment on above:Expected: 11/27/2025, Expires: 06/27/2026Start: 11-27-2025 End: 75-69-7662Hmajr 1995 panel - Serum or PlasmaLipid panel Lab Routine Mixed dyslipidemia Expected: 11/27/2025, Expires: 06/27/2026[facility] HealthcareComment on above:Expected: 11/27/2025, Expires: 06/27/2026Start: 09-09-2025 End: 17-10-5900Ubjcskh encounter xpowyvzob72/08/2025 9:50 AM EST Office Visit [facility] [address] [place] [address] Woody Burgess APRN-ENTERTAINER OR VARIETY ARTIST [address] [place] [address] [facility] DermatologyStart: 08-11-2025 End: 19-40-2828LHB Breast - bilateral screeningBilateral screening mammogram with tomosynthesis Imaging Routine Other screening mammogram Expected: 08/11/2025, Expires: 02/19/2026[facility] Work Phone: comment on above:Expected: 08/11/2025, Expires: 02/19/2026Start: 55-87-2772Fumwxeofn for malignant neoplasm of breastMammogram [facility] HealthcareStart: 08-01-2025 End: 10-33-5968Tziyjvq encounter procedureNOMS SWS DERMStart: 06-27-2025 End: 18-09-0123Xnbodma encounter eexvsefvk07/25/2025 8:00 AM EDT Office Visit [facility] CI FM [address] [place] [address] Rip Goldsmith MD [address] [facility] [address] [place] [address] (Fax)NOMS CI FM 100Start: 09-24-2025Medicare Annual Wellness (AWV)Medicare Annual Wellness (AWV)NOMS HealthcareStart: 31-53-6123Bdlwpfilg vaccinationInfluenza Vaccine (#1)NOM[facility] HealthcareStart: 36-65-5503Ewfvdtioc vaccinationInfluenza Vaccine (#1)NOMS HealthcareComment on above:Postponed from 06/03/2024 (Patient Refused)Start: 01-29-2025 End: 42-70-5793CAG Skeletal system Views for bone densityDEXA bone density Imaging Routine Screening for osteoporosis Menopause Expected: 01/29/2025, Expires: 01/29/2026[facility] Work Phone: Comment on above:Expected: 01/29/2025, Expires: 01/29/2026Start: 01-29-2025 End: 35-35-7185Iculjvz encounter procedureNOMS CI FM 100Comment on above: Encounter for Medicare annual wellness exam; Advance directive in chart; Encounter for screening for other disorder; Screening for alcohol problem; Screening for osteoporosis; Menopause; Non morbid obesity due to excess caloriesStart: 01-24-2025 End: 29-94-5126Nrtmref encounter gcfjuscnx59/24/2025 9:40 AM EDT Office Visit [facility] SWS ALL [address] [place] [address] Melissa Gandhi MD [address] [place] [address] NOMS SWS ALLStart: 01-21-2025 End: 94-28-9470Obzgaop encounter awvmefqom77/21/2025 10:15 AM EDT Procedure Visit [facility] S[facility] OB [address] [place] [phone] Rashard Baugh MD [address] [place] [address] NOMS SWS OBStart: 01-08-2025 End: 96-66-9272Paqrorydviuf / ancillary services pluwyodydv01/08/2025 9:30 AM EDT Ancillary Procedure [facility] SWS OB [address] [place] [address] [facility] OBStart: 01-03-2025 End: 93-81-9228Cfqwcna encounter procedureNOMS CI FM 100Comment on above: Palpitations; Mixed dyslipidemia (CMS/HCC); Non morbid obesity due to excess caloriesStart: 12-26-2024 End: 51-05-0999Rbsnblc encounter procedureNOMS SWS OBComment on above:Well woman exam with routine gynecological exam; Other screening mammogramStart: 12-17-2024 End: 10-08-1894Zhylbfo encounter dyvhqehiz12/17/2025 11:45 AM EDT Office Visit [facility] CI [facility] [address] [place] [address] Rip Goldsmith MD [address] [place] [address] ArrivedNOMS CI FM 100Comment on above: ArrivedStart: 12-08-2024 End: 75-91-4849Qhpragxlaicjq metabolic 2000 panel - Serum or PlasmaComprehensive metabolic panel Lab Routine Chronic kidney disease, stage II (mild) Palpitations Expected: 12/08/2024, Expires: 07/10/2025[facility] Work Phone: Comment on above:Expected: 12/08/2024, Expires: 07/10/2025Start: 12-08-2024 End: 94-27-0833Akcvt 1996 panel - Serum or PlasmaLipid panel Lab Routine Mixed dyslipidemia (CMS/HCC) Expected: 12/08/2024, Expires: 07/10/2025[facility] Comment on above:Expected: 12/08/2024, Expires: 07/10/2025Start: 08-08-2024 Screening for malignant neoplasm of breastMammogramNOMS HealthcareStart: 08-02-2024 End: 69-67-8706Fxityuj encounter procedureNOMS [facility] DERMComment on above:Arrived Start: 07-26-2024 End: 32-44-6716Jfuouny encounter kuoeiopqv85/24/2024 9:20 AM EDT Office Visit [facility] [address] [place] [address] Melissa Gandhi MD [address] [place] [address] [facility] ALLStart: 07-10-2024 End: 24-09-4437Npodgka encounter yvvorvfkz30/08/2024 9:00 AM EDT Office Visit [facility] [address] [facility] [address] [place] [address] Rip Goldsmith MD [address] [facility] [place] [address] NOMS CI FM 100Start: 06-28-2024 End: 90-81-5811Hhechbt encounter /26/2024 8:40 AM EDT Office Visit [facility] D[facility] [address] [place] [address] Woody Burgess, OPERATIONS ASST-ENTERTAINER OR VARIETY ARTIST [address] [place] [address] [facility] DERMStart: 58-08-1630Tvyueiyyi vaccinationInfluenza Vaccine (#1)NOM HealthcareStart: 07-26-2024Medicare Annual Wellness (AWV)Medicare Annual Wellness (AWV)NOM HealthcareStart: 07-11-2022 Pneumococcal 65+ years Vaccine (1 of 1 - PPSV23)Pneumococcal 65+ years Vaccine (1 of 1 - PPSV23)[facility]Start: 09-11-2021 End: 20-95-1520Nwadqgp evaluation of patient and qjmrtw6109/11/2021 Nurse Only CardiologyMercy Cardiology SpecialistStart: 08-13-2021 End: 11-08-0769Aqezaqe encounter nzylzjxwr44/11/2021 Office Visit Cardiology Nicanor Carr MD [address] [place] [address] [phone] [facility] Cardiology SpecialistStart: 08-04-2021 End: 54-85-5190Cavnmxp encounter procedureR[facility] Start: 85-22-8286Wwfcop Wellness Visit (AWV)Annual Wellness Visit (AWV)[facility] CompanyStart: 01-49-3231Ebstwgpbi vaccinationFlu vaccine (#1)[facility] [employer] Work Phone: start: 43-27-0450Bcrwctdffeex 65+ years Vaccine (1 of 1 - PPSV23)Pneumococcal 65+ years Vaccine (1 of 1 - PPSV23)[facility] [employer] Phone: start: 57-16-8052Jwtduxsnmndv Vaccine: 65+ Years (2 of 2 - PCV)Pneumococcal Vaccine: 65+ Years (2 of 2 - PCV)[facility] InstituteStart: 03-68-4430Gyxoipzgh for osteoporosisDEXA (modify frequency per FRAX score)[facility] CompanyStart: 23-93-1350Dpplnvfnx for malignant neoplasm of breastBreast cancer screenRegency Hospital CompanyStart: 43-11-6026Eebvfybac for malignant neoplasm of colon Colon cancer screen colonoscopyRegency Hospital CompanyStart: 34-23-3746Alsimltio for malignant neoplasm of cervixRegency Hospital CompanyStart: 82-32-1574Zcugxrezl for malignant neoplasm of cervixPap smearRegency Hospital CompanyStart: 07-44-7894YLeF/Tdap/Td vaccine (1 - Tdap)DTaP/Tdap/Td vaccine (1 - Tdap)[facility] CompanyStart: 07-74-3248AZL screeningHIV [facility] PrebleStart: 43-95-4320XMSSA-19 Vaccine (1)COVID-19 Vaccine (1)[facility] CompanyStart: 08-78-8651Gfhdt panelLipid screenRegency Hospital Company Start: 13-42-3968Eohfmpbxm C screeningHepatitis C screenRegency Hospital CompanyStart: 88-93-1318Fmdkqnxmn for malignant neoplasm of colonAC[facility]IA [facility]ALTH[facility]ARE HealthcareEKG 12 LeadEKG 12 Lead ECG Routine Chest pain, unspecified type 09/04/2021 8:57 AM [facility] Work Phone: IGP,rfx Aptima HPV all pthIGP,rfx Aptima HPV all pth Pathology and Cytology Routine Cervical cancer screening Ordered: 12/26/2024[facility] [employer]comComment on above:Ordered: 12/26/2024NM MYOCARDIAL SPECT REST EXERCISE OR RXNM MYOCARDIAL SPECT REST EXERCISE OR RX Imaging Ordered: 08/06/2021[facility]: comment on above:Ordered: 08/06/2021athology Report Pathology Report Pathology and Cytology Routine Thickened endometrium Ordered: 01/21/2025[facility] [employer] Work Phone: comment on above:Ordered: 01/21/2025 End: 66-13-3997Tuxfef test, lexiscanStress test, lexiscan Cardiac Services Routine Dizziness Syncope, unspecified syncope type SOB (shortness of breath) Arthritis of knee Chest pain, unspecified type 1 Occurrences starting 08/04/2021 until 08/04/2021[facility] Phone: comment on above:1 Occurrences starting 08/04/2021 until 08/04/2021 Immunizations Immunization DateImmunizationNotesCare UudloapxYxixafvs02-80-5275zvurmjykl, high dose seasonal, preservative-freeEdvivek Goldsmith MD Work Phone: [facility] InstituteCupsopsnlb63-13-0117Lokdvkvggkbj Conjugate PCV 20 Rip Goldsmith MD Work Phone: [facility] InstituteNgzgfuncjr14-85-6460ghoscncsm virus vaccine, unspecified formulationRip Goldsmith MD Work Phone: [place] [address]Sbxomzoxbh81-86-6360Fktdammtw, High-dose Seasonal, Quadrivalent, Preservative FreeRip Goldsmith MD Work Phone: [place] [address]Dmawtlqfll53-81-6355BLR, recombinant, protein subunit RSVpreF, adjuvant reconstitu, 120mcg/0.5mL, PF (Arexvy)Rip Goldsmith MD Work Phone: [phone] [place], [place] [address]Pdjiefuwep64-70-6968zzslgadyu virus vaccine, unspecified formulationRip Goldsmith MD Work Phone: [phone] [place], [place] [address]Suifdncukv46-42-4978Vzedvuazj, Seasonal, Quadrivalent, AdjuvantedEdvivek Goldsmith MD Work Phone: [phone] [place], [place] [address]Ejnjvayttg05-08-3755Kkprpkaib, High-dose Seasonal, Quadrivalent, Preservative FreeRip Goldsmith MD Work Phone: [phone] [place], [place] [address]Tlirfnmgcj16-84-7034krcalqdnm, injectable, quadrivalent, preservative freeRip Goldsmith MD Work Phone: [phone] [place], [place] [address]Noyfggmslz95-96-8294zxkfsc vaccine recombinant Rip Goldsmith MD Work Phone: [phone] [place], [place] [address]Zythcftqzq78-02-3435Irjeniisw, injectable, [facility] Canine Kidney, preservative free, quadrivalentRip Goldsmith MD Work Phone: [phone] [place], [place] [address]Rowkkyxrik37-38-4880moxquk vaccine recombinant Rip Goldsmith MD Work Phone: [phone] [place], [place] [address]Blswxdbeqo53-39-3257qgnfqjtck, live, intranasal, quadrivalentRip Goldsmith MD Work Phone: [phone] [place], [place] [address]Yhefotspao06-35-3637xlgzqpbfo, injectable, quadrivalent, preservative freeRip Goldsmith MD Work Phone: [phone] [place], [place] [address]Kyjzcmzvgj13-84-1447wrhhpwufz, injectable, quadrivalent, preservative freeRip Goldsmith MD Work Phone: [phone] [place], [place] [address]Xtivjczrxw47-83-3668aianwewiqlzm polysaccharide vaccine, 23 valSunny Goldsmith MD Work Phone: [phone] [place], [place] [address]Kqfnajqqsf70-20-6000uyqkumpashuz polysaccharide vaccine, 23 valSunny Goldsmith MD Work Phone: [phone])[facility] [place], [place] [address]Sigvikzoed74-91-8311xphvinwk influenza, intradermal, preservative freeRip Goldsmith MD Work Phone: [facility] InstituteAkkhjkjmry47-19-6415ubjjoripi, injectable, quadrivalent, preservative Kasey Goldsmith MD Work Phone: [facility] Payers DatePayer CategoryPayerPolicy [id number]-pay2022MedicaidAETNA MEDICARE ADVANTAGE [id number] 2022MedicareAETNA MEDICARE ADVANTAGE AETNA MEDICARE REPLACEMENT [id number] 2021-Present [address] [place] [id number] [id number] [id number] [id number] [id number] 2.16.840.1.934401.3.57[id number] 2.16.840.1.754174.3.579.[id number] 2.16.840.1.932539.3.579.[id number] 2.16.840.1.415921.3.579.[id number] 2.16.840.1.549081.3.579.[id number] 2.16.840.1.561569.3.57[id number] 2.16.840.1.422054.3.57[id number] 2.16.840.1.345493.3.57[id number] 2.16.840.1.367619.3.579.[id number] 2.16.840.1.151632.3.579.[id number] 2.16.840.1.195182.3.57[id number] 2.16.840.1.719229.3.579.2.244622-64-9921Xezaujg8038150 2.16.840.1.536513.3.579.2.8[id number] 2.16.840.1.922236.3.579.[id number] 2.16.840.1.974429.3.579.2.342420-77-7732Oflmnkp2457965 2.16.840.1.076296.3.579.2.742089-78-5970Onrdgvb2021209 2.16.840.1.206641.3.579.2.880764-55-5360Cfdwsrj6204725 2.16.840.1.460870.3.579.2.766989-58-2672Aahttar7979063 2.16.840.1.727439.3.579.2.719285-33-7293Uzmygdb1175116 2..840.1.107613.3.579.2.920912-42-8823Hfcuwgq3938113 2.16.840.1.5132[id number] 2.16.840.1.668453.3.579.2.531 [id number] 1nw6m0nq-gn53-654g-[id number] [id number] Social History DateTypeDetailFacilityStart: 07-29-2021 End: 80-36-1677Kwnhkir smoking status NHISNever smokerRegency Hospital CompanyStart: 07-29-2021 End: 65-18-4634Fnorezj use and exposureNever usedSelect [facility] SpaceFaceStart: 07-29-2021 End: 28-18-4501Oghzkbb intakeCurrent drinker of alcohol (finding)[facility] [employer] Phone: start: [phone] CommentsUNC Health [employer] Phone: start: [phone] Assigned At BirthNot on [facility] CenterConnectYard Phone: start: 06-09-2023 End: 02-88-0227Akm Assigned At [facility] HospitalStart: 07-19-9381Fen Assigned At [facility] Centertart: 06-09-2023 End: 69-43-9481Ydkbthppt beverage intakeNOMercy Hospital St. LouisWithin the last year, have you been afraid of your partner or ex-partner?NoNOMS HealthcareDo you belong to any clubs or organizations such as evangelical groups, unions, fraternal or athletic groups, or school groups?YesNOMS HealthcareAre you now , , , , never or living with a partner?WidowedNOMS HealthcareHow often to you have a drink containing alcohol?Monthly or lessNOMS HealthcareHow many standard drinks containing alcohol do you have on a typical day?1 or 2NOMS HealthcareHow often do you have 6 or more drinks on 1 occasion? NeverACADIA HEALTHCARE HealthcareStart: 28-55-8529Xmn hard is it for you to pay for the very basics like food, housing, medical care, and heatingNot hard at [facility] FoundationDo you feel stress - tense, restless, nervous, or anxious, or unable to sleep at night because yourmind is troubled all the time - these days [OSQ] Not at [facility](I/We) worried whether (my/our) food would run out before (I/we) got money to buy more.Never trueThe Rehabilitation InstituteStart: 04-27-2023 Alcohol CommentCaffeine intake: more than 4 cups per day [facility] Functional Status OywsZoqcbdlakaSswrmcVcolhdhq75-68-3145Tucdiwt Health Questionnaire 2 item (PHQ- 2) [Reported]The Rehabilitation InstituteGmwkohhsad78-47-5031Njgkpwy Health Questionnaire 2 item (PHQ- 2) [Reported]The Rehabilitation InstitutePtlrwokwkw80-35-9468Jphahby Health Questionnaire 2 item (PHQ- 2) [Reported][facility] Clinical Notes 05-18-2021 to 06-27-2025 Note Date & EqalXgyrGsuhgyly15-11-8065 History of Present illness Narrative* Rip Goldsmith MD - 06/27/2025 8:00 AM EDT Images from the original note were not included. Patient ID: Moe Bruce is a 69 y.o. female who presents for: Palpitations Patient complains of none, symptoms resolved . They tend to occur randomly but it has been a long time since she had them. Cardiac risk factors include: dyslipidemia. Alleviating factors: beta claudia. Patient denies: palpitations, rapid heart beat, and slow heart beat. Hyperlipidemia Pt who presents for follow-up of dyslipidemia. A repeat fasting lipid profile was not done. The patient does not use medications that may worsen dyslipidemias (corticosteroids, progestins, anabolic steroids, diuretics, beta-blockers, amiodarone, cyclosporine, olanzapine). Exercise: three times a week. Objective The patient is pleasant and in no acute distress The patient has good eye contact and clear speech Regular heartbeat 01/29/2025 11:41 AM 01/21/2025 9:59 AM 01/03/2025 9:30 AM 12/26/2024 10:56 AM Vitals BMI 29.52 kg/m2 29.52 kg/m2 28.15 kg/m2 28.15 kg/m2 BSA (m2) 1.88 m2 1.88 m2 1.83 m2 1.83 m2 Systolic 124 124 126 122 Diastolic 68 80 72 80 Heart Rate 69 61 SpO2 96 % 96 % Height (in) 5' 4 5' 4 Weight (lb) 172 172 164 164 Visit Report Report Report Report Reviewed last year's laboratories. Allergies Allergen Reactions Beta Vulgaris Other Reaction(s): sinus congestion Chicken Allergy Unknown Dust Mite Extract Other Reaction(s): sinus congestion Shellfish-Derived Products Other Reaction(s): passes out, ER visits Starch Other Reaction(s): vomiting Current Outpatient Medications on File Prior to Visit Medication Sig Dispense Refill albuterol HFA 90 mcg/act inhaler INHALE 2 PUFFS EVERY 6 HOURS NEEDED FOR SHORTNESS OF BREATH OR FOR WHEEZE 18 g 1 albuterol (2.5 MG/3ML) 0.083% nebulizer solution Take 3 mL (2.5 mg) by nebulization every 6 (six) hours if needed for wheezing 100 mL 1 ASPIRIN 81 MG chewable tablet Chew 81 mg 3 (three) times a week. 1 tablet Orally -W- atorvastatin (Lipitor) 20 MG tablet Take 1 tablet (20 mg) by mouth at bedtime 90 tablet 1 budesonide-formoterol (Symbicort) 160-4.5 MCG/ACT inhaler Inhale 2 puffs 2 (two) times a day as needed for wheezing, shortness of breath or cough 3 each 1 cetirizine (ZyrTEC ALLERGY) 10 MG tablet Take 10 mg by mouth 1 (one) time each day at the same time. EPINEPHrine (EpiPen 2-Elmo) 0.3 MG/0.3ML injection syringe Inject 0.3 mL (0.3 mg) as directed See administration instructions as directed Injection outside of thigh prn for 1 year 4 each 1 esomeprazole (NexIUM) [address] capsule Take 20 mg by mouth in the morning. Take before meals. Do not open capsule.. nebivolol (Bystolic) 10 MG tablet Take 1 tablet (10 mg) by mouth Daily 90 tablet 1 No current facility-administered medications on file prior to visit. 1. Palpitations Chronic problem, stable, currently asymptomatic as compared prior to the nebivolol. She had a previous beta claudia that helped her but she was also having some side effects. She is pleased with the nebivolol. - nebivolol (Bystolic) 10 MG tablet; Take 1 tablet (10 mg) by mouth Daily Dispense: 90 tablet; Refill: 1 - Comprehensive metabolic panel; Future - Comprehensive metabolic panel 2. Mixed dyslipidemia Chronic problem, stable. Renew medications and check labs for next visit. - atorvastatin (Lipitor) 20 MG tablet; Take 1 tablet (20 mg) by mouth at bedtime Dispense: 90 tablet; Refill: 1 - Lipid panel; Future - Lipid panel 3. Non morbid obesity due to excess calories Encouraged lifestyle changes with decreased simple carbohydrates and increased activity and water. Please Note: Portions of this chart may have been created using voice recognition software. Occasionally a wrong-word or sound-like substitutions may have occurred due to inherent limitations of the voice recognition software. Please read the chart carefully and recognize, using context, where the substitutions may have occurred. documented in this encounterThe Rehabilitation [id number] History of Present illness Narrative* Rip Goldsmith MD - 01/29/2025 11:30 AM EDT Images from the original note were not included. Moe Bruce is a 69 y.o. female presents with chief complaint of Annual Exam HPI: History of Present Illness I have reviewed and reconciled the history and medication list with the patient today. CURRENT PCP/CARE TEAM: Patient Care Team: Rip Goldsmith MD as PCP - General (Family Medicine) Rip Goldsmith MD as PCP - Chalino Baugh MD (Obstetrics and Gynecology) Melissa Gandhi MD as Referring Physician (Allergy and Immunology) TERENCE Og as Nurse Practitioner (Dermatology) Over the past 2 weeks, how often have you been bothered by any of the following problems? Little interest or pleasure in doing things: Not at all Feeling down, depressed, or hopeless: Not at all Patient Health Questionnaire-2 Score: 0 Over the past 2 weeks, how often have you been bothered by any of the following problems? Trouble falling or staying asleep, or sleeping too much: Several days Feeling tired or having little energy: Several days Poor appetite or overeating: Not at all Feeling bad about yourself - or that you are a failure or have let yourself or your family down: Not at all Trouble concentrating on things, such as reading the newspaper or watching television: Not at all Moving or speaking so slowly that other people could have noticed? Or the opposite - being so fidgety or restless that you have been moving around a lot more than usual.: Not at all Thoughts that you would be better off or hurting yourself in some way: Not at all Patient Health Questionnaire-9 Score: 2 Health Risk Assessment Form Do you need help eating, bathing, using the toilet, dressing, or getting around your home?: No Can you prepare your own meals?: Yes Can you do your own housework without help?: Yes Can you shop for groceries or clothes without help?: Yes Do you exercise for about 20 minutes 3 or more days a week?: Yes How confident are you that you can control and manage most of your health problems?: Very confident Can you mange your money, credit cards and accounts, pay bills and taxes?: Yes Vision Screening: Yes, 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 Hearing Screening: Has some hearing loss Cognitive Screening Self Assessment: No concerns rasied by family members, friends, or caretakers Three Word Registration: Banana, [place], Chair Clock Drawing: Normal Clock - 2 Three Word Recall: All 3 words correct - 3 Total Score (0-5 Points): 5 Pain Assessment Pain Score: 0 - No pain HISTORIES: PAST MEDICAL HISTORY: Past Medical History: Diagnosis Date Allergies Asthma Bartonellosis Breast lump Bronchitis Chicken pox Dizziness Hearing loss of left ear, unspecified hearing loss type History of being hospitalized 07/2015 To [facility] in [place]: dizzines, dehydrated, abn EKG Hormone replacement therapy (HRT) Hypercholesterolemia (CMS/HCC) Inflamed seborrheic keratosis 04/19/2023 Mild intermittent asthma in adult without complication (CMS/HCC) Mild intermittent asthma with (acute) exacerbation (CMS/HCC) Moderate persistent asthma, unspecified whether complicated (CMS/HCC) Mumps Other specified hearing loss of left ear, unspecified hearing status on contralateral side Polyarthralgia Post menopausal syndrome Primary osteoarthritis of left knee Sensorineural hearing loss (SNHL) of left ear with unrestricted hearing of right ear Sudden hearing loss 1 year ago Unspecified asthma with (acute) exacerbation (CMS/HCC) [place] 05/20[place] [facility] [place] SURGICAL HISTORY: Past Surgical History: Procedure Laterality Date BREAST LUMPECTOMY Left COLONOSCOPY 05/2012 Dr Nugent [facility] [place]: normal HEART CATH 09/2021 [facility] in [place] TOTAL KNEE ARTHROPLASTY Right 01/2017 TOTAL KNEE ARTHROPLASTY Left 03/2018 Dr Pagan SOCIAL HISTORY: Social History Tobacco Use Smoking status: Never Smokeless tobacco: Never Vaping Use Vaping status: Never Used Substance Use Topics Alcohol use: Yes Alcohol/week: 2.0 standard drinks of alcohol Types: 2 Standard drinks or equivalent per week Comment: Caffeine intake: more than 4 cups per day Pop Drug use: Never Depression: Not at risk (01/29/2025) PHQ-2 PHQ-2 Score: 0 FAMILY HISTORY: Family History Problem Relation Name Age of Onset Heart disease Mother Heart disease Father Coronary artery disease Sister Coronary artery disease Brother Breast cancer Neg Hx Colon cancer Neg Hx Ovarian cancer Neg Hx MEDICATIONS: Current Outpatient Medications Medication Instructions albuterol HFA 90 mcg/act inhaler INHALE 2 PUFFS EVERY 6 HOURS NEEDED FOR SHORTNESS OF BREATH OR FOR WHEEZE albuterol 2.5 mg, Nebulization, Every 6 hours PRN aspirin (ASPIRIN) 81 mg, 3 times weekly atorvastatin (LIPITOR) 20 mg, Oral, Nightly budesonide-formoterol (Symbicort) 160-4.5 MCG/ACT inhaler 2 puffs, Inhalation, 2 times daily PRN cetirizine (ZYRTEC ALLERGY) 10 mg, Every 24 hours EPINEPHrine (EPIPEN 2-ELMO) 0.3 mg, Injection, See admin instructions, as directed Injection outsideof thigh prn for 1 year esomeprazole (NEXIUM) 20 mg, Daily before breakfast nebivolol (BYSTOLIC) 10 mg, Oral, Daily ALLERGIES: Allergies Allergen Reactions Beta Vulgaris Other Reaction(s): sinus congestion Chicken Allergy Unknown Dust Mite Extract Other Reaction(s): sinus congestion Shellfish-Derived Products Other Reaction(s): passes out, ER visits Starch Other Reaction(s): vomiting PHYSICAL EXAM: Visit Vitals BP 124/68 Pulse 69 Ht 5' 4 Wt 172 lb SpO2 96% BMI 29.52 kg/m OB Status Postmenopausal Smoking Status Never BSA 1.88 m BP Readings from Last 3 Encounters: 01/29/25 124/68 01/21/25 124/80 01/03/25 126/72 Wt Readings from Last 3 Encounters: 01/29/25 172 lb 01/21/25 172 lb 01/03/25 164 lb Physical Exam The patient is pleasant and in no acute distress. The head is normocephalic and atraumatic. Both eyes appear grossly normal without obvious lid pathology or icterus. Both ears hearing is grossly intact. The neck is supple and trachea is midline. No masses are appreciated. The anterior cervical lymphatics demonstrates shoddy bilateral nontender lymphadenopathy. There is no supraclavicular lymphadenopathy. The heart is regular rate and rhythm without S3, S4. No murmur. The patient has normal respiratory pattern. The breath sounds are mildly coarse, but otherwise symmetrical without evidence of rhonchi or rales. No wheezing. The skin is warm and dry. The lower extremities have trace to 1+ edema. Neurologic screening exam is nonfocal. The patient is alert. There is no overt gross evidence of cognitive impairment The patient has good eye contact and speech is clear. Appropriate affect. ASSESSMENT AND PLAN: Assessment/Plan 1. Encounter for Medicare annual wellness exam The patient is here for their Annual Medicare Wellness visit. Demographics were updated. Self-assessment was completed and reviewed. Past medical, family, and social history were updated. The medication list updated and reviewed by the doctor. A list of other current medical providers is established and updated. Time was spent discussing health maintenance issues, ordering testing as appropriate,and a schedule was reviewed regarding recommended screening. We discussed safety issues and fall risk. Depression screening was completed and addressed as appropriate. Fall screening was completed and addressed. Cognitive function was assessed by direct observation, cognitive screening as indicated, and assessment of ability to perform ADL's. The BMI and discussed. Major risk factors for chronic disease including family history were discussed. An after visit summary is made available to the patient 2. Advance directive in chart No changes to advanced directives 3. Encounter for screening for other disorder Clinically insignificant depression screening 4. Screening for alcohol problem Negative alcohol screening 5. Screening for osteoporosis - DEXA bone density; Future 6. Menopause - DEXA bone density; Future 7. Non morbid obesity due to excess calories I still encouraged her to decrease her sugar and simple carbohydrate consumption and develop a formal exercise program. 8. Moderate persistent asthma without complication (CMS/HCC) (Primary) Chronic problem, stable, clinically asymptomatic at this time. Monitor longitudinally in comanaged with Allergy and immunology. 9. Seasonal affective disorder (CMS/HCC) Chronic problem, stable, currently asymptomatic and monitor longitudinally. 10. Mixed dyslipidemia (CMS/HCC) Chronic problem, stable, and monitor longitudinally. documented in this encounterThe Rehabilitation [id number] History of Present illness Narrative* Rashard Baugh MD - 01/21/2025 10:15 AM EDTAssociated Order(s): Endometrial biopsy Post-Procedure Diagnose(s): Thickened endometrium Images from the original note were not included. Patient ID: Moe Bruce is a 69 y.o. female. Endometrial biopsy Date/Time: 01/21/2025 10:36 AM Performed by: Rashard Baugh MD Authorized by: Rashard Baugh MD Consent: Consent obtained: verbal Consent given by: patient Risks discussed: bleeding and pain Patient agrees, verbalizes understanding, and wants to proceed: yes Indications: Indications: thickened endometrium Pre-procedure: Urine test: N/A Procedure: Prepped with: Betadine Tenaculum used: no A local block was performed: no Cervix dilated: no Findings: Cervix: normal Specimen collected: low volume sample collected Patient tolerance: tolerated well, no immediate complications documented in this encounterThe Rehabilitation [id number] History of Present illness Narrative* Rip Goldsmith MD - 01/03/2025 9:30 AM EDT Images from the original note were not included. Patient ID: Moe Bruce is a 69 y.o. female who presents for: Palpitations Patient complains of none, symptoms resolved . They tend to occur randomly but it has been a long time since she had them. Cardiac risk factors include: dyslipidemia. Alleviating factors: beta claudia. Patient denies: palpitations, rapid heart beat, and slow heart beat. Hyperlipidemia Pt who presents for follow-up of dyslipidemia. A repeat fasting lipid profile was not done. The patient does not use medications that may worsen dyslipidemias (corticosteroids, progestins, anabolic steroids, diuretics, beta-blockers, amiodarone, cyclosporine, olanzapine). Exercise: three times a week. Review of Systems Constitutional: Negative for activity change and fatigue. Respiratory: Negative for cough, shortness of breath and wheezing. Cardiovascular: Negative for chest pain, palpitations and leg swelling. Neurological: Negative for light-headedness and headaches. Objective The patient is pleasant and in no acute distress. The neck is supple and trachea is midline. No masses are appreciated. The heart is regular rate and rhythm without S3, S4. No murmur. The patient has normal respiratory pattern. The breath sounds are symmetrical without evidence of rhonchi or rales. No wheezing. The skin is warm and dry. The lower extremities have trace edema. The patient has good eye contact and speech is clear. Appropriate affect. Visit Vitals BP 126/72 Pulse 61 Ht 5' 4 Wt 164 lb SpO2 96% BMI 28.15 kg/m OB Status Postmenopausal Smoking Status Never BSA 1.83 m Labs from December 19 reviewed. Allergies Allergen Reactions Beta Vulgaris Other Reaction(s): sinus congestion Chicken Allergy Unknown Dust Mite Extract Other Reaction(s): sinus congestion Shellfish-Derived Products Other Reaction(s): passes out, ER visits Starch Other Reaction(s): vomiting Current Outpatient Medications on File Prior to Visit Medication Sig Dispense Refill albuterol (2.5 MG/3ML) 0.083% nebulizer solution Take 3 mL (2.5 mg) by nebulization every 6 (six) hours if needed for wheezing 100 mL 1 albuterol HFA 90 mcg/act inhaler INHALE 2 PUFFS EVERY 6 HOURS NEEDED FOR SHORTNESS OF BREATH OR FOR WHEEZE 18 g 2 ASPIRIN 81 MG chewable tablet Chew 81 mg 3 (three) times a week. 1 tablet Orally M-W- cetirizine (ZyrTEC ALLERGY) 10 MG tablet Take 10 mg by mouth 1 (one) time each day at the same time. EPINEPHrine (EpiPen 2-Elmo) 0.3 MG/0.3ML injection syringe Inject 0.3 mL (0.3 mg) as directed See administration instructions as directed Injection outside of thigh prn for 1 year 4 each 1 esomeprazole (NexIUM) [address] capsule Take 20 mg by mouth in the morning. Take before meals. Do not open capsule.. No current facility-administered medications on file prior to visit. 1. Palpitations (Primary) Chronic problem, stable, occasional nonsustained palpitations. Improved since on medication. - nebivolol (Bystolic) 10 MG tablet; Take 1 tablet (10 mg) by mouth Daily Dispense: 90 tablet; Refill: 1 2. Mixed dyslipidemia (CMS/HCC) Chronic problem, stable, to goal. - atorvastatin (Lipitor) 20 MG tablet; Take 1 tablet (20 mg) by mouth at bedtime Dispense: 90 tablet; Refill: 1 3. Moderate persistent asthma without complication (CMS/HCC) Chronic problem that the patient feels she is doing better width. In prescribing a renewal to their current medication, consideration of the following encompasses moderate decision making; the current prescriptions and supplements, the current allergies and medication intolerances, current medical conditions, and potential drug interactions. Any changes to risks, benefits, and reason for renewing their current medication due to the above were discussed. The patient was given a chance to ask questions today and all questions were answered. The patient is to contact us if any other questions arise or if any problems occur. (Utilizing the original guidelines or the 2020 office/outpatient code guidelines for selecting the level of E/M service, In both sets of guidelines, prescription drug management appears in the moderate medical decision making (MDM) row. Neither the original guidelines nor the new guidelines state that a new prescription or change is needed in order to credit prescription drug management) - budesonide-formoterol (Symbicort) 160-4.5 MCG/ACT inhaler; Inhale 2 puffs 2 (two) times a day as needed for wheezing, shortness of breath or cough Dispense: 3 each; Refill: 1 4. Chronic kidney disease, stage II (mild) Chronic problem, unstable, progressing, defining the end organ damage of the nephropathy. I stressed the importance of keeping blood pressure and blood sugar to goal, staying well hydrated,and aerobic exercises as tolerated. Continue to monitor longitudinally Her EGFR has worsened from 70 to 67. Encouraged hydration and aerobic exercise. 5. Non morbid obesity due to excess calories Lifestyle changes. documented in this encounterThe Rehabilitation [id number] History of Present illness Narrative* Rashard Baugh MD - 12/26/2024 11:00 AM EDT Images from the original note were not included. Rashard Baugh MD Obstetrics and Gynecology Patient: Moe Bruce, : 1955 (69 y.o.) DOS 12/26/24 Exam Date: 12/26/2024 HPI: Yearly exam. Due for PAP She c/o RLQ pain/fullness. Not assoc with activity. Not severe Visit Vitals BP 122/80 Wt 164 lb BMI 28.15 kg/m OB Status Postmenopausal Smoking Status Never BSA 1.83 m OB History Para Term AB Living 1 1 1 0 0 1 SAB IAB Ectopic Multiple Live Births 0 0 0 0 1 # Outcome Date GA Lbr Kurt/2nd Weight Sex Type Anes PTL Lv 1 Term Obstetric Comments Pap: 12/23-Neg ROBERTO Mammo: 08/10/24-[facility] Menopausal Medication and Allergies Medication Documentation Review Audit Reviewed by Jennifer Balbuena MA (Manager Data Warehousing) on 12/26/24 at 1058 Medication Order Taking? Sig Documenting Provider Last Dose Status albuterol (2.5 MG/3ML) 0.083% nebulizer solution [id number] Take 3 mL (2.5 mg) by nebulization every 6 (six) hours if needed for wheezing Rip Goldsmith MD Active albuterol HFA 90 mcg/act inhaler [id number] INHALE 2 PUFFS EVERY 6 HOURS NEEDED FOR SHORTNESS OF BREATH OR FOR WHEEZE Melissa Gandhi MD Active ASPIRIN 81 MG chewable tablet [id number] Chew 81 mg 3 (three) times a week. 1 tablet Orally Historical Provider, Active atorvastatin (Lipitor) 20 MG tablet [id number] Take 1 tablet (20 mg) by mouth at bedtime Rip Goldsmith MD Active budesonide-formoterol (Symbicort) 160-4.5 MCG/ACT inhaler [id number] Inhale 2 puffs 2 (two) times a day as needed for wheezing, shortness of breath or cough Melissa Gandhi MD Active cetirizine (ZyrTEC ALLERGY) 10 MG tablet [id number] No Take 10 mg by mouth 1 (one) time each day at the same time. Historical Provider, Taking Active EPINEPHrine (EpiPen 2-Elmo) 0.3 MG/0.3ML injection syringe [id number] Inject 0.3 mL (0.3 mg) as directed See administration instructions as directed Injection outside of thigh prn for 1 year Melissa Gandhi MD Active esomeprazole (NexIUM) [address] capsule [id number] No Take 20 mg by mouth in the morning. Take before meals. Do not open capsule.. Historical Provider, Taking Active levoFLOXacin (Levaquin) 750 MG tablet [id number] Take 1 tablet (750 mg) by mouth Daily for 10 days Rip Goldsmith MD Active montelukast (Singulair) 10 MG tablet [id number] No Take 1 tablet (10 mg) by mouth in the morning. Melissa Gandhi MD Taking Active nebivolol (Bystolic) 10 MG tablet [id number] Take 1 tablet (10 mg) by mouth Daily Rip Goldsmith MD Active Allergies Allergen Reactions Beta Vulgaris Other Reaction(s): sinus congestion Chicken Allergy Unknown Dust Mite Extract Other Reaction(s): sinus congestion Shellfish-Derived Products Other Reaction(s): passes out, ER visits Starch Other Reaction(s): vomiting Past Medical History: Diagnosis Date Allergies Asthma (CMS/HCC) Bartonellosis Breast lump Bronchitis Chicken pox Dizziness Hearing loss of left ear, unspecified hearing loss type History of being hospitalized 07/2015 To [facility]: dizzines, dehydrated, abn EKG Hormone replacement therapy (HRT) Hypercholesterolemia (CMS/HCC) Mild intermittent asthma in adult without complication (CMS/HCC) Mild intermittent asthma with (acute) exacerbation (CMS/HCC) Moderate persistent asthma, unspecified whether complicated (CMS/HCC) Mumps Other specified hearing loss of left ear, unspecified hearing status on contralateral side Polyarthralgia Post menopausal syndrome Primary osteoarthritis of left knee Sensorineural hearing loss (SNHL) of left ear with unrestricted hearing of right ear Sudden hearing loss 1 year ago Unspecified asthma with (acute) exacerbation (CMS/HCC) [place] 05/2021 [facility] [place] Past Surgical History: Procedure Laterality Date BREAST LUMPECTOMY Left COLONOSCOPY 05/2012 Dr Nugent [facility] [place]: normal HEART CATH 09/2021 [facility] in [place] TOTAL KNEE ARTHROPLASTY Right 01/2017 TOTAL KNEE ARTHROPLASTY Left 03/2018 Dr Pagan Physical Exam: Objective Physical Exam Constitutional: Appearance: Normal appearance. Genitourinary: Vulva normal. No vaginal discharge or bleeding. Right Adnexa: not tender and not palpable. Left Adnexa: not tender and not palpable. No cervical lesion. Uterus is not enlarged or tender. Breasts: Right: Normal. Left: Normal. Pulmonary: Effort: Pulmonary effort is normal. Abdominal: General: Abdomen is flat. There is no distension. Palpations: Abdomen is soft. Tenderness: There is no abdominal tenderness. Neurological: Mental Status: She is alert. Associated Treatments and Results - ICD-10-CM 1. Well woman exam with routine gynecological exam Z01.419 2. Other screening mammogram Z12.31 Bilateral screening mammogram with tomosynthesis 3. Left lower quadrant pain R10.32 4. Cervical cancer screening Z12.4 IGP,rfx Aptima HPV all pth 5. RLQ abdominal pain R10.31 Assessment/Plan Diagnoses and all orders for this visit: Well woman exam with routine gynecological exam Other screening mammogram - Bilateral screening mammogram with tomosynthesis; Future Left lower quadrant pain Cervical cancer screening - IGP,rfx Aptima HPV all pth RLQ abdominal pain Check sono Orders Placed This Encounter Procedures Bilateral screening mammogram with tomosynthesis U/S and spot compression if indicated Standing Status: Future Standing Expiration Date: 02/19/2026 Order Specific Question: Reason for exam: Answer: screen documented in this encounterThe Rehabilitation [id number] Telephone encounter Note* Telephone Encounter - Lupe Julian - 08/02/2024 3:00 PM EDT Tata left a voicemail requesting a refill on her Nebivolol to [facility] in [place]. The Rehabilitation [id number] Miscellaneous Notes* Telephone Encounter - Lupe Julian - 08/02/2024 3:00 PM EDT Tata left a voicemail requesting a refill on her Nebivolol to [facility] in [place]. documented in this encounterThe Rehabilitation [id number] History of Present illness Narrative* Melissa Gandhi MD - 07/26/2024 9:20 AM EDT Moe Bruce returns to the office today for follow-up assessment. She has occasional mild dyspnea on exertion with stairs but otherwise her asthma has been doing well. Asthma control test today is 24. She has been taking Cetirizine metoprolol famotidine asa and Symbicort 2 puffs BID. She has been avoiding chicken potatoes and shellfish. She has epinephrine on hand and this is . She canname 3 symptoms of anaphylaxis. EXAM The patient appears comfortable in the office today. Lungs are clear to auscultation bilaterally. The oral mucosa is pink and healthy without any lesions or ulcers. The palate elevates in the midline. The nasal mucosa is pink and healthy. There is no epistaxis mucopus or nasal polyposis noted. The nasal septum is approximately in the midline. The skin is clear of any lesions, excoriations, or erythema. 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 Trained on pen. Skin testing in 6 months to shellfish chicken and potatoes. We reviewed signs and symptoms of anaphylaxis in the office today and she will continue to review these in the home environment as I gave her our handout explaining this. Mild intermittent asthma - increase exercise ride bike twice weekly. Continue Symbicort. [place] in 6months. Refill Symbicort. documented in this encounterThe Rehabilitation [id number] History of Present illness Narrative* Rip Goldsmith MD - 07/10/2024 9:00 AM EDT Images from the original note were not included. Patient ID: Moe Bruce is a 68 y.o. female who presents for: Palpitations Patient complains of none, symptoms resolved . They tend to occur randomly but it has been a long time since she had them. Cardiac risk factors include: dyslipidemia. Alleviating factors: beta claudia. Patient denies: palpitations, rapid heart beat, and slow heart beat. Hyperlipidemia Pt who presents for follow-up of dyslipidemia. A repeat fasting lipid profile was not done. The patient does not use medications that may worsen dyslipidemias (corticosteroids, progestins, anabolic steroids, diuretics, beta-blockers, amiodarone, cyclosporine, olanzapine). Exercise: three times a week. Review of Systems Constitutional: Negative for activity change and fatigue. Respiratory: Negative for cough, shortness of breath and wheezing. Cardiovascular: Negative for chest pain, palpitations and leg swelling. Neurological: Negative for light-headedness and headaches. Objective The patient is pleasant and in no acute distress. The neck is supple and trachea is midline. No masses are appreciated. The heart is regular rate and rhythm without S3, S4. No murmur. The patient has normal respiratory pattern. The breath sounds are symmetrical without evidence of rhonchi or rales. No wheezing. The skin is warm and dry. The lower extremities have trace edema. The patient has good eye contact and speech is clear. Appropriate affect. Visit Vitals Pulse 81 Ht 5' 4 Wt 174 lb SpO2 99% BMI 29.87 kg/m OB Status Postmenopausal Smoking Status Never BSA 1.89 m Allergies Allergen Reactions Beta Vulgaris Other Reaction(s): sinus congestion Chicken Allergy Unknown Dust Mite Extract Other Reaction(s): sinus congestion Shellfish-Derived Products Other Reaction(s): passes out, ER visits Starch Other Reaction(s): vomiting Current Outpatient Medications on File Prior to Visit Medication Sig Dispense Refill albuterol HFA (ProAir HFA) 90 mcg/act inhaler Inhale 2 puffs every 6 (six) hours if needed for wheezing or shortness of breath. 18 g 2 ASPIRIN 81 MG chewable tablet Chew 81 mg 3 (three) times a week. 1 tablet Orally M-W- cetirizine (ZyrTEC ALLERGY) 10 MG tablet Take 10 mg by mouth 1 (one) time each day at the same time. EpiPen 2-Elmo 0.3 MG/0.3ML injection syringe Inject 0.3 mL (0.3 mg) as directed See administration instructions. as directed Injection outside of thigh prn for 1 year 1 each 3 esomeprazole (NexIUM) [address] capsule Take 20 mg by mouth in the morning. Take before meals. Do not open capsule.. montelukast (Singulair) 10 MG tablet Take 1 tablet (10 mg) by mouth in the morning. 90 tablet 2 [DISCONTINUED] atorvastatin (Lipitor) 20 MG tablet Take 1 tablet (20 mg) by mouth at bedtime 90 tablet 1 [DISCONTINUED] budesonide-formoterol (Symbicort) 160-4.5 MCG/ACT inhaler Inhale 2 puffs 2 (two) times a day as needed for wheezing, shortness of breath or cough 1 each 11 [DISCONTINUED] metoprolol tartrate (Lopressor) 25 MG tablet Take 1 tablet (25 mg) by mouth in the morning and 1 tablet (25 mg) in the evening. Take with meals. 180 tablet 1 [DISCONTINUED] predniSONE (Deltasone) 10 MG tablet Every 2 day tapering dose; 5,5,4,4,3,3,2,2,1,1,0.5,0.5 31 tablet 0 No current facility-administered medications on file prior to visit. 1. Palpitations Chronic problem, stable, denies any recent palpitations of significance. Do see the next diagnosis for description of reason for changing from metoprolol to nebivolol. In prescribing a new medication consideration of the following encompasses moderate decision making: the current prescriptions and supplements, the current allergies and medication intolerances, the current medical conditions, and potential drug interactions. Risks, benefits, and reason for starting their medication were discussed. The patient was given a chance to ask questions today and all questions were answered. The patient is to contact us if any other questions arise or if any problems occur with the adjustment in their medication. - nebivolol (Bystolic) 10 MG tablet; Take 1 tablet (10 mg) by mouth Daily Dispense: 30 tablet; Refill: 0 - Comprehensive metabolic panel; Future - Comprehensive metabolic panel 2. Medication side effects present, initial encounter Patient specifically notes that she has felt fatigued since she has been on the metoprolol but it does seem to be worsening for her. She is asking about other treatments for her palpitations. After discussion of pros and cons we will do a trial of nebivolol. If she is having problems with this where she is not improved we can ultimately try some verapamil if needed. 3. Chronic kidney disease, stage II (mild) - Comprehensive metabolic panel; Future - Comprehensive metabolic panel 4. Mixed dyslipidemia (CMS/HCC) - atorvastatin (Lipitor) 20 MG tablet; Take 1 tablet (20 mg) by mouth at bedtime Dispense: 90 tablet; Refill: 1 - Lipid panel; Future - Lipid panel 5. Moderate persistent asthma without complication (CMS/HCC) Chronic problem, stable, overall doing well. In prescribing a renewal to their current medication, consideration of the following encompasses moderate decision making; the current prescriptions and supplements, the current allergies and medication intolerances, current medical conditions, and potential drug interactions. Any changes to risks, benefits, and reason for renewing their current medication due to the above were discussed. The patient was given a chance to ask questions today and all questions were answered. The patient is to contact us if any other questions arise or if any problems occur. (Utilizing the original guidelines or the 2020 office/outpatient code guidelines for selecting the level of E/M service, In both sets of guidelines, prescription drug management appears in the moderate medical decision making (MDM) row. Neither the original guidelines nor the new guidelines state that a new prescription or change is needed in order to credit prescription drug management) - budesonide-formoterol (Symbicort) 160-4.5 MCG/ACT inhaler; Inhale 2 puffs 2 (two) times a day as needed for wheezing, shortness of breath or cough Dispense: 1 each; Refill: 11 documented in this encounterThe Rehabilitation [id number] History of Present illness Narrative* Rip Goldsmith MD - 06/26/2024 11:30 AM EDT Images from the original note were not included. Subjective : Chief Complaint: Moe Bruce is an 68 y.o. female here for an annual wellness visit. I have reviewed and reconciled the history and medication list with the patient today. Current Outpatient Medications Medication Sig Dispense Refill albuterol HFA (ProAir HFA) 90 mcg/act inhaler Inhale 2 puffs every 6 (six) hours if needed for wheezing or shortness of breath. 18 g 2 ASPIRIN 81 MG chewable tablet Chew 81 mg 3 (three) times a week. 1 tablet Orally M-W- atorvastatin (Lipitor) 20 MG tablet Take 1 tablet (20 mg) by mouth at bedtime 90 tablet 1 cetirizine (ZyrTEC ALLERGY) 10 MG tablet Take 10 mg by mouth 1 (one) time each day at the same time. EpiPen 2-Elmo 0.3 MG/0.3ML injection syringe Inject 0.3 mL (0.3 mg) as directed See administration instructions. as directed Injection outside of thigh prn for 1 year 1 each 3 esomeprazole (NexIUM) [address] capsule Take 20 mg by mouth in the morning. Take before meals. Do not open capsule.. metoprolol tartrate (Lopressor) 25 MG tablet Take 1 tablet (25 mg) by mouth in the morning and 1 tablet (25 mg) in the evening. Take with meals. 180 tablet 1 montelukast (Singulair) 10 MG tablet Take 1 tablet (10 mg) by mouth in the morning. 90 tablet 2 budesonide-formoterol (Symbicort) 160-4.5 MCG/ACT inhaler Inhale 2 puffs 2 (two) times a day as needed for wheezing, shortness of breath or cough 1 each 11 predniSONE (Deltasone) 10 MG tablet Every 2 day tapering dose; 5,5,4,4,3,3,2,2,1,1,0.5,0.5 31 tablet 0 No current facility-administered medications for this visit. Review of SystemsUnremarkable except as mentioned List of current healthcare providers: Patient Care Team: Rip Goldsmith MD as PCP - General (Family Medicine) Rip Goldsmith MD as PCP - [employer] Annual Visit Over the past 2 weeks, how often have you been bothered by any of the following problems? Little interest or pleasure in doing things: Not at all Feeling down, depressed, or hopeless: Not at all Patient Health Questionnaire-2 Score: 0 Over the past 2 weeks, how often have you been bothered by any of the following problems? Trouble falling or staying asleep, or sleeping too much: Nearly every day Feeling tired or having little energy: Nearly every day Poor appetite or overeating: Not at all Feeling bad about yourself - or that you are a failure or have let yourself or your family down: Not at all Trouble concentrating on things, such as reading the newspaper or watching television: Not at all Moving or speaking so slowly that other people could have noticed? Or the opposite - being so fidgety or restless that you have been moving around a lot more than usual.: Several days Thoughts that you would be better off or hurting yourself in some way: Not at all Patient Health Questionnaire-9 Score: 7 Health Risk Assessment Form Do you need help eating, bathing, using the toilet, dressing, or getting around your home?: No Can you prepare your own meals?: Yes Can you do your own housework without help?: Yes Can you shop for groceries or clothes without help?: Yes Do you exercise for about 20 minutes 3 or more days a week?: Yes How confident are you that you can control and manage most of your health problems?: Very confident Can you mange your money, credit cards and accounts, pay bills and taxes?: Yes Vision Screening: Yes, 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 Hearing Screening: Yes, concerned about hearing loss Cognitive Screening Self Assessment: No concerns rasied by family members, friends, or caretakers Three Word Registration: Village, Kitchen, Baby Clock Drawing: Normal Clock - 2 Three Word Recall: All 3 words correct - 3 Total Score (0-5 Points): 5 Pain Assessment Pain Score: 2 Advance Care Planning Do you have a living will?: Yes Do you have a medical power of attorney general?: Yes Who is your medical power of attorney general?: Yun Tijerina- Daughter Objective : BP 126/72 Pulse 81 Ht 5' 4 Wt 174 lb SpO2 94% BMI 29.87 kg/m No results found. Physical Exam The patient is pleasant and in no acute distress. The head is normocephalic and atraumatic. Both eyes appear grossly normal without obvious lid pathology or icterus. Both ears hearing is grossly intact. The neck is supple and trachea is midline. No masses are appreciated. The anterior cervical lymphatics demonstrates shoddy bilateral nontender lymphadenopathy. There is no supraclavicular lymphadenopathy. The heart is regular rate and rhythm without S3, S4. No murmur. The patient has normal respiratory pattern. The breath sounds are symmetrical without evidence of rhonchi or rales. No wheezing. The skin is warm and dry. The lower extremities have trace edema. Neurologic screening exam is nonfocal. The patient is alert. There is no overt gross evidence of cognitive impairment The patient has good eye contact and speech is clear. Appropriate affect. Assessment/Plan : The following health maintenance schedule was reviewed with the patient and provided in printed form in the after visit summary: Health Maintenance Topic Date Due Pneumococcal Vaccine: 65+ Years (2 of 2 - PCV) 07/11/2018 Medicare Annual Wellness (AWV) 04/27/2024 Influenza Vaccine (1) 06/03/2024 Mammogram 08/08/2024 Colorectal Cancer Screening 04/26/2032 1. Encounter for Medicare annual wellness exam The patient is here for their Annual Medicare Wellness visit. Demographics were updated. Self-assessment was completed and reviewed. Past medical, family, and social history were updated. The medication list updated and reviewed by the doctor. A list of other current medical providers is established and updated. Time was spent discussing health maintenance issues, ordering testing as appropriate,and a schedule was reviewed regarding recommended screening. We discussed safety issues and fall risk. Depression screening was completed and addressed as appropriate. Fall screening was completed and addressed. Cognitive function was assessed by direct observation, cognitive screening as indicated, and assessment of ability to perform ADL's. The BMI and discussed. Major risk factors for chronic disease including family history were discussed. An after visit summary is made available to the patient 2. Advance directive in chart No changes to advanced directives 3. Encounter for screening for other disorder Clinically insignificant depression screening 4. Screening for alcohol problem Negative alcohol screening 5. Screening mammogram, encounter for Mammogram screening not due yet. Patient will call back when due. 6. Moderate persistent asthma without complication ([facility]/HCC) Chronic problem, stable, patient out of her medication. - budesonide-formoterol (Symbicort) 160-4.5 MCG/ACT inhaler; Inhale 2 puffs 2 (two) times a day as needed for wheezing, shortness of breath or cough Dispense: 1 each; Refill: 11 7. Mixed dyslipidemia (CMS/HCC) Chronic problem, stable, monitor longitudinally. 8. Seasonal affective disorder (CMS/HCC) Chronic problem, stable, monitor longitudinally. Minimally symptomatic at this time. 9. Moderate persistent asthma with acute exacerbation (CMS/[facility]) Chronic problem with exacerbation. In prescribing a new medication consideration of the following encompasses moderate decision making: the current prescriptions and supplements, the current allergies and medication intolerances, the current medical conditions, and potential drug interactions. Risks, benefits, and reason for starting their medication were discussed. The patient was given a chance to ask questions today and all questions were answered. The patient is to contact us if any other questions arise or if any problems occur with the adjustment in their medication. - predniSONE (Deltasone) 10 MG tablet; Every 2 day tapering dose; 5,5,4,4,3,3,2,2,1,1,0.5,0.5 Dispense: 31 tablet; Refill: 0 Electronically signed by Rip Goldsmith MD on July 10, 2024 documented in this encounterThe Rehabilitation [id number] History of Present illness Narrative* Woody Burgess, OPERATIONS ASST-ENTERTAINER OR VARIETY ARTIST - 08/02/2024 2:20 PM EDT Skin Check Location: Patient requests a full body skin examination Dermatologic history: no history of skin cancer, no history of atypical moles Last visit: 1 year ago Established patient of MARGARITO Murray All pertinent medical history, medications, and allergies were reviewed. General Exam: alert, oriented to person, place, and time, normal affect, well appearing Unaccompanied Scalp, Examined Right leg Examined Head, Face Examined Left leg Examined Neck Examined Right foot Examined Chest Examined Left foot Examined Back Examined Buttocks Examined Abdomen Examined Digits,nails: Examined Right arm Examined Patient wearing nail filipino, Denies dark streaks under finger nails Left arm Examined Lymphatics: Not examined Hands Examined 1. Seborrheic keratosis Stuck on verrucous, variably pigmented papules and plaques. Patient was counseled regarding these benign growths. Removal is normally not necessary, but they may be removed if they are symptomatic or for cosmetic reasons. 2. Melanocytic nevus of trunk Scattered benign appearing, regular brown to light brown melanocytic papules and macules with similar morphology Counseled regarding these benign growths. Rarely, a nevus can develop into malignant melanoma, so any changing nevi should be promptly re-evaluated. 3. Epidermal inclusion cyst Right Lower Leg - Posterior Subcutaneous, mobile nodule WITHOUT central punctum. Patient was counseled regarding cysts. Although benign, cysts often slowly enlarge and can occasionally become inflamed. Discussed the only way to definitively diagnose the lesion would be to have itremoved and tested. Discussed treatment options including observation vs. excision. Patient elected for observation. Notify office if lesion is enlarging or becomes symptomatic. 4. Beltre angioma (2) Abdomen (Lower Torso, Anterior), Head - Anterior (Face) Scattered beltre-red papule(s). The patient was informed that angiomas are benign growths on the the skin. No treatment is necessary. 5. Dermatofibroma of right lower extremity Right Lower Leg - Anterior Firm brown papule that dimples with lateral pressure. Discussed that these are benign scars on the skin. If lesion is changing/symptomatic, return to office to have lesion re-evaluated 6. Dermatofibroma of left lower extremity Left Lower Leg - Anterior Firm brown papule that dimples with lateral pressure. Discussed that these are benign scars on the skin. If lesion is changing/symptomatic, return to office to have lesion re-evaluated Next Visit: 1 year documented in this encounterThe Rehabilitation [id number] History of Present illness Narrative* TERENCE Og - 08/02/2024 2:20 PM EDT Skin Check Location: Patient requests a full body skin examination Dermatologic history: no history of skin cancer, no history of atypical moles Last visit: 1 year ago Established patient of MARGARITO Murray All pertinent medical history, medications, and allergies were reviewed. General Exam: alert, oriented to person, place, and time, normal affect, well appearing Unaccompanied Scalp, Examined Right leg Examined Head, Face Examined Left leg Examined Neck Examined Right foot Examined Chest Examined Left foot Examined Back Examined Buttocks Examined Abdomen Examined Digits,nails: Examined Right arm Examined Patient wearing nail filipino, Denies dark streaks under finger nails Left arm Examined Lymphatics: Not examined Hands Examined 1. Seborrheic keratosis Stuck on verrucous, variably pigmented papules and plaques. Patient was counseled regarding these benign growths. Removal is normally not necessary, but they may be removed if they are symptomatic or for cosmetic reasons. 2. Melanocytic nevus of trunk Scattered benign appearing, regular brown to light brown melanocytic papules and macules with similar morphology Counseled regarding these benign growths. Rarely, a nevus can develop into malignant melanoma, so any changing nevi should be promptly re-evaluated. 3. Epidermal inclusion cyst Right Lower Leg - Posterior Subcutaneous, mobile nodule WITHOUT central punctum. Patient was counseled regarding cysts. Although benign, cysts often slowly enlarge and can occasionally become inflamed. Discussed the only way to definitively diagnose the lesion would be to have itremoved and tested. Discussed treatment options including observation vs. excision. Patient elected for observation. Notify office if lesion is enlarging or becomes symptomatic. 4. Beltre angioma (2) Abdomen (Lower Torso, Anterior), Head - Anterior (Face) Scattered beltre-red papule(s). The patient was informed that angiomas are benign growths on the the skin. No treatment is necessary. 5. Dermatofibroma of right lower extremity Right Lower Leg - Anterior Firm brown papule that dimples with lateral pressure. Discussed that these are benign scars on the skin. If lesion is changing/symptomatic, return to office to have lesion re-evaluated 6. Dermatofibroma of left lower extremity Left Lower Leg - Anterior Firm brown papule that dimples with lateral pressure. Discussed that these are benign scars on the skin. If lesion is changing/symptomatic, return to office to have lesion re-evaluated Next Visit: 1 year [place] [id number] Evaluation note* Encounter Date Diagnosis Assessment Notes Treatment Notes Treatment Clinical Notes Jun, Obesity, unspecified classification, unspecified obesity type, unspecified whether serious comorbidity present (ICD-10 - E66.9) Jun,MI 40.0-44.9, adult (ICD-10 - Z68.41) Jun,OtherSummary of Visit: (A) Group discussion regarding topic of Beverages (B) discussed markers of hydration and general rec's for fluid / day (C) Discussed pros / cons of various beverages (D) group provided support for one another Patient set the following goals: - not reviewed today [facility] Other 07-31-2023 Evaluation note* Encounter Date Diagnosis Assessment Notes Treatment Notes Treatment Clinical Notes Apr, Obesity, unspecified classification, unspecified obesity type, unspecified whether serious comorbidity present (ICD-10 - E66.9) Apr,MI 31.0-31.9,adult (ICD-10 - Z68.31) Apr,OtherSummary of Visit: (A) Presentation of Plate Method discussed (B) Sample meal ideas reviewed (C) exercise recommendations reviewed Patient set the following goals: - patient set personal goal using given handout. [facility] Other 07-27-2023 Evaluation note* Encounter Date Diagnosis Assessment Notes Treatment Notes Treatment Clinical Notes Apr, Obesity, Class I, BMI 30-34.9 (I CD-10 - E66.9) Patient here today for an [...] 30 minutes spent on education with Pam ROGERS, JOSE. [facility] Other 05-18-2022 NoteHNO ID: [id number] Author: Ted Ayala MD Service: ? Author [...] referring physician via mail or electronic medical record.[facility]05-18-2022 NoteHNO ID: [id number] Author: TAI Castro Service: ? Author Type: Emergency Department Nurse Type: Progress Notes Filed: 02/17/2022 4:04 PM Note Text: Head and Neck [place] AUDIOLOGIC EVALUATION REPORT Name: Moe Bruce CC#: [id number] Date of Service: 02/17/2022 Date of : 1955 Age: [age] year old Referred by: [place] [id number] [place] [id number] Referred for: Evaluation of suspected change in [...] and provided written educational materials. * Call [phone] to schedule an appointment to assess your need for hearing aids. Request a HAE appointment. Tai Castro, [facility] Abbrev- iation Definition Degree of hearing sensitivity dB range WNL within normal limits WNL 0 - 20 SNHL sensorineural hearing loss Mild 20-40 CHL conductive hearing loss Moderate 40-55 MHL mixed hearing loss Moderately-Severe 55-70 WRS word recognition score Severe 70-90 ME middle ear Profound 90 + TM tympanic membraneOhiohealth Grant Medical Center11-17-2021 NoteHNO ID: [id number] Author: Ted Ayala MD Service: ? Author [...] referring physician via mail or electronic medical record.[facility]11-17-2021 NoteHNO ID: [id number] Author: TAI Castro Service: ? Author Type: Emergency Department Nurse Type: Progress Notes Filed: 08/19/2021 3:31 PM Note Text: Head and Neck [place] AUDIOLOGIC EVALUATION REPORT Name: Moe Bruce [facility]#: [id number] Date of Service: 08/19/2021 Date of : 1955 Age: [age] year old [place]erred [place]: [place] [address] [facility] [address] Referred for: Determination of the effect of [...] made. SUMMARY: Audiogram can be viewed under Forms/Audiology/[employer] [facility]. OUTER EAR: via otoscopic inspection RIGHT EAR: [...] materials. Briefly discussed CROS technology. * Call [phone] to schedule an appointment to assess your need for hearing aids. Request a HAE appointment. Tai Castro, [facility] Abbrev- iation Definition Degree of hearing sensitivity dB range WNL within normal limits WNL 0 - 20 SNHL sensorineural hearing loss Mild 20-40 CHL conductive hearing loss Moderate 40-55 MHL mixed hearing loss Moderately-Severe 55-70 WRS word recognition score Severe 70-90 ME middle ear Profound 90 + TM tympanic membraneOhiohealth Grant [facility]11-02-2021 History of Present illness Narrative* Lillie Wilson [...] verbalized understanding of test/procedure. documented in this encounterMartins Ferry HospitalAMIHO Technology Work Phone: [phone] NoteHNO ID: [id number] Author: Ted Ayala MD Service: ? Author [...] 20 minutes. ?Patient tolerated position without complication ?[facility]10-19-2021 NoteHNO ID: [id number] Author: Ted Ayala MD Service: ? Author Type: Physician Type: Progress Notes Filed: 07/21/2021 8:25 AM Note Text: cancelledOhiohealth Grant Medical Center10-04-2021 NoteHNO ID: [id number] Author: Ted Ayala MD Service: ? Author [...] 20 minutes. Patient tolerated position without complication ?[facility]09-17-2021 NoteHNO ID: [id number] Author: TAI Navarro Service: ? Author Type: Emergency Department Nurse Type: Progress Notes Filed: 06/23/2021 3:25 PM Note Text: Head and Neck [place] AUDIOLOGIC EVALUATION REPORT Name: Moe Bruce CC#: [id number] Date of Service: 06/19/2021 Date of : 1955 Age: [age] year old Referred by: Ted Ayala [address] [address] Referred for: Determination of the effect of [...] was going to pass out . The medical biller/coder was retrieved to help assess the patient [...] strategies to enhance communication ability.. Tai Shanks, [facility] Doctor of Audiology copied to: Ted Ayala MD [place] Abbrev- iation Definition Degree of hearing sensitivity dB range WNL within normal limits WNL 0 - 20 SNHL sensorineural hearing loss Mild 20-40 CHL conductive hearing loss Moderate 40-55 MHL mixed hearing loss Moderately-Severe 55-70 WRS word recognition score Severe 70-90 ME middle ear Profound 90 + TM tympanic membraneOhiohealth Grant Medical Center09-17-2021 NoteHNO ID: [id number] Author: Mer Us Service: ? Author Type: ? Type: Progress Notes Filed: 06/19/2021 12:10 PM Note Text: Pt wasn't feeling well during audiogram. Took vitals. Clammy and hot. 90/65. 98% oxygen. 81- pulse. Gave some water. Monitored. Pt sat awhile in exam room before leaving.[facility]09-17-2021 NoteHNO ID: [id number] Author: Ted Ayala MD Service: ? Author Type: Physician Type: Progress Notes Filed: 06/19/2021 12:23 PM Note Text: ANISHA Bruce is a [...] referring physician via mail or electronic medical record.[facility]09-13-2021 NoteHNO ID: [id number] Author: Theron Pablo MD Service: ? Author Type: Physician Type: Progress Notes Filed: 06/22/2021 10:52 AM Note Text: [facility] MULTIPLE SCLEROSIS NEW PATIENT EVALUATION/CONSULTATION Referral source: SELF Also followed by: No care production team leader to display PRINCIPAL NEUROLOGIC DIAGNOSIS: HISTORY OF [...] questionnaire. PHQ-9 Office Visit from 06/15/2021 in [facility] PHQ-9 Score 6 *PHQ-9 is a questionnaire for depressive symptoms, with scores 0-4 indicating none, 5-9 mild, 10-14 moderate, 15-19 moderately severe, and 20-27 severe symptoms. 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 She lives in [place], twice and newly engaged. Marital Status: FAMILY [...] Upper Extremity: Deltoid 5 (more content not included)...[facility]08-22-2021 NoteAdmission Information Admitting Physician - Michele BELTRE [...] Day Sbsq Observation Care/Day Moderate 25 min 49974 2. Nausea & vomiting, (R11.2: Nausea with vomiting, unspecified)Nausea with vomiting, unspecified Ordered: Basic Metabolic Panel Discharge Patient eGFR Extra Lav Tube Observation Care Discharge Day Sbsq Observation Care/Day Moderate 25 min 79040 3. Asthma, (J45.909: Unspecified asthma, uncomplicated)Unspecified asthma, uncomplicated Ordered: Basic Metabolic Panel Discharge Patient eGFR Extra Lav Tube Observation Care Discharge Day Sbsq Observation Care/Day Moderate 25 min 31683 4. Chronic GERD, (K21.9: Gastro-esophageal reflux disease without esophagitis)Gastro-esophageal reflux disease without esophagitis Ordered: Basic Metabolic Panel Discharge Patient eGFR Extra Lav Tube Observation Care Discharge Day Sbsq Observation Care/Day Moderate 25 min 19230 5. DVT prophylaxis, (Z29.9: Encounter for prophylactic measures, unspecified)Encounter for prophylactic measures, unspecified Ordered: Basic Metabolic Panel Discharge Patient eGFR Extra Lav Tube Observation Care Discharge Day Sbsq Observation Care/Day Moderate 25 min [id number] Orders: meclizine, 25 mg = 1 tab(s), Chewed, TID, PRN for dizziness, # 18 tab(s), Refills(s) 0, Pharmacy: [facility]/pharmacy #[id number], 163, cm, 05/17/21 10:33:00 EDT, Height/Length [...] NEU 06/15/2021 09:00 AM EDT [address] [place] [address]- Additional Instructions: RIP GOLDSMITH 05/21/2021 01:40 PM EDT [address] [place] [address] Business (1) Additional Instructions: Patient Education Vertigo Nausea and Vomiting, Adult Labyrinthitis, [id number] Lady Of Mercy Hospital - AndersonComment on above:Result Comment: Electronically Signed By: Kirt REDD, Edward\.br\Date and Time Signed: 05/24/21 13:31 [id number] NoteChief Complaint dizziness History of Present Illness 65-year-old female with past medical history of asthma, chronic GERD who presented to the ER with dizziness nausea vomiting The patient had the same presentation yesterday to ED [place] and was discharged home from the ED. [...] Lymph Auto: 10.3 % Low (05/17/21 10:53:00) [place] Auto: 5.8 % (05/17/21 10:53:00) Eos Auto: 1.7 % (05/17/21 10:53:00) Basophil Auto: 0.5 % (05/17/21 10:53:00) Neutro Absolute: 7 E9/L (05/17/21 10:53:00) Lymph Absolute: 0.9 E9/L Low (05/17/21 10:53:00) [place] Absolute: 0.5 E9/L (05/17/21 10:53:00) Eos Absolute: [...] mg/dL High (05/17/21 10:53:00) POC Device SN: [id number] (05/17/21 10:53:00) POC User ID: [id number] (05/17/21 10:53:00) POC Username: KIMBERLY GUTIERREZ (05/17/21 10:53:00) Assessment/Plan 1. Vertigo (R42: Dizziness and giddiness) Episode of dizziness with nausea vomiting, ? ear symptoms , recent sinusitis labyrint (more content not included)...[facility] AndersonComment on above:Result Comment: Electronically Signed By: Kirt REDD, Edward\.br\Date and Time Signed: 05/20/21 06:51 [id number] NotePT Evaluation completed with an AM PAC score of 18/24. Pt was able to perform bed mobility with Mi, but does have dizziness with movement. Pt was able to stand and ambulate with CGA. Would recommend pt to use a FWW for more stability due to the dizziness she is experiencing. Did perform oculomotor testing with corrective sacades with tests. Brain Hallpike then performed with a positive test on left side. Did perform Haylee x 2 on left side. Not fully convinced peripheral is the cause of dizzines s, but will await MRI results. Will follow daily. Would recommend PT services to follow to improve dizziness symptomsOur Lady Of Mercy Hospital - Anderson08-16-2021 NoteChief Complaint dizziness Reason for Consultation dizziness History of Present Illness 65-year-old female with past medical history of asthma, chronic GERD who presented to the ER with dizziness nausea vomiting. The patient had the same presentation a few days ago to ED [place] and was discharged home from the ED. [...] beating horizontal nystagmus with right lateral gaze. Elora-Hallpike negative. Diplopia when looking laterallyto the right but gaze still appears conjugate. Ocular motility seems full. CN: Facial sensation normal. Hearing acuity normal. Face without droop and with normal motor function. MOTOR: Muscle bulk normal. Muscle tone normal. Muscle strength normal. No tremors. REFLEXES: Reflexes hypoactive throughout. No pathologic reflexes. SENSORY: Light touch normal. Pinprick normal. CEREBELLAR: No limb dysmetria with ptdvar-uicw-voezqs or heel-alexis. NIHSS is 0 Assessment/Plan Room [...] at this time If MRI reveals a SCRAP CHARGER insult/lesion, further recommendations to follow 1. Vertigo [...] mL, 1000 mL, IV (more content not included)...[facility] AndersonComment on above:Result Comment: Electronically Signed By: Rema GARCIA, Janet You\.br\Date and Time Signed: 05/18/21 07:17 EDT\.br\Electronically Co-Signed By: Elvis Harrison DO\.br\Date and Time Co-Signed: 05/18/21 09:20 EDTEvaluation note* Diagnosis Dizziness Dizziness and giddiness Fatigue, unspecified type Vitamin D deficiency disease Unspecified vitamin D deficiency documented in this encounter [employer] Phone: evaluation note* Diagnosis Dizziness Dizziness and giddiness Syncope, unspecified syncope type SOB (shortness of breath) Shortness of breath Arthritis of knee Unspecified arthropathy, lower leg Chest pain, unspecified type documented in this encounter [employer] Phone: evaluation note* Diagnosis Chest pain, unspecified type documented in this encounter [employer] Phone: evaluation note* Diagnosis Chest pain, unspecified type documented in this encounter [employer] Phone: evaluation noteNo InformationNort RED - [employer] Other Evaluation noteNo assessment information available [facility] Work Phone: Evaluation note* Diagnosis Encounter for Medicare annual wellness exam- Primary Advance directive in chart Encounter for screening for other disorder Screening for alcohol problem Screening for alcoholism Screening mammogram, encounter for Moderate persistent asthma without complication (CMS/HCC) Mixed dyslipidemia (CMS/HCC) Seasonal affective disorder (CMS/HCC) Other specified episodic mood disorder Moderate persistent asthma with acute exacerbation (CMS/HCC) Mixed dyslipidemia (CMS/HCC) Chronic kidney disease, stage II (mild) Chronic kidney disease, Stage II (mild) Palpitations [facility] Diagnosis Palpitations Medication side effects present, initial encounter Chronic kidney disease, stage II (mild) Chronic kidney disease, Stage II (mild) Mixed dyslipidemia (CMS/HCC) Moderate persistent asthma without complication (CMS/HCC) [facility]* Diagnosis Asthma, allergic, mild intermittent, uncomplicated (CMS/HCC)- Primary Shellfish allergy Allergy to seafood Moderate persistent asthma without complication (CMS/HCC) 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 [facility]* Diagnosis Polyarthralgia Pain in joint, multiple sites Acute pain of right shoulder [facility] this [facility]* Diagnosis Moderate persistent asthma without complication (CMS/HCC) [facility]* Diagnosis Seborrheic keratosis- Primary Melanocytic nevus of trunk Benign neoplasm of skin of trunk, except scrotum Epidermal inclusion cyst Sebaceous cyst Beltre angioma Dermatofibroma of right lower extremity Dermatofibroma of left lower extremity documented [facility]* Diagnosis Palpitations documented in this [facility]* Diagnosis Palpitations documented [facility] this [facility]* Diagnosis Well woman exam with routine gynecological exam- Primary Routine gynecological examination Other screening mammogram Left lower quadrant pain Abdominal pain, left lower quadrant Cervical cancer screening Screening for malignant neoplasm of the cervix RLQ abdominal pain Abdominal pain, right lower quadrant documented [facility]* Diagnosis Palpitations- Primary Mixed dyslipidemia (CMS/HCC) Moderate persistent asthma without complication (CMS/HCC) Chronic kidney disease, stage II (mild) Chronic kidney disease, Stage II (mild) Non morbid obesity due to excess calories Thickened endometrium Nonspecific (abnormal) findings on radiological and other examination of genitourinary organs documented [facility]* Diagnosis Thickened endometrium Nonspecific (abnormal) findings on radiological and other examination of genitourinary organs documented [facility]* Diagnosis Moderate persistent asthma without complication (CMS/HCC)- Primary Encounter for Medicare annual wellness exam Advance directive in chart Encounter for screening for other disorder Screening for alcohol problem Screening for alcoholism Screening for osteoporosis Special screening for osteoporosis Menopause Symptomatic menopausal or female climacteric states Non morbid obesity due to excess calories Seasonal affective disorder (CMS/HCC) Other specified episodic mood disorder Mixed dyslipidemia (CMS/HCC) [facility]* Diagnosis Moderate persistent asthma without complication (CMS/HCC) documented [facility]* Diagnosis Palpitations Mixed dyslipidemia Non morbid obesity due to excess calories documented in this encounter [facility] HealthcareHistory general Narrative - Reported* Type Description Date Medical History asthma Medical HistoryGERDMedical Historyhigh cholesterolMedical Historyhigh blood pressureSurgical HistorylumpectomySurgical Historyheart [id number] Surgical Historyknee replacement, total bilateralHospitalization HistorySee Above [facility] Other Summary Purpose Family History Relationship Condition Age at Onset Recorded Date/T alex father Heart disease Unknown DeceasedUnknownNot SpecifiedDeceasedUnknownHypertensionUnknownHeart disease Unknown Advance Directives TypeDate RecordedPatient RepresentativeExplanationACP-Advance DirectiveACP-Power of AttorneyTypeDate RecordedPatient RepresentativeExplanationACP-Advance DirectiveACP-Power of AttorneyTypeDate RecordedPatient RepresentativeExplanation Advance Directives and Living Will04/27/2023 9:33 AMLiving WillPower of Rn Charge 04/27/2023 9:32 AM Reason for Referral StatusReasonSpecialtyDiagnoses / ProceduresReferred By ContactReferred To ContactPending ReviewCardiology Diagnoses Dizziness Syncope, unspecified syncope type SOB (shortness of breath) Arthritis of knee Chest pain, unspecified type R42 (ICD-10-CM) - Dizziness R55 (ICD-10-CM) - Syncope, unspecified syncope type R06.02 (ICD-10-CM) - SOB (shortness of breath) M17.10 (ICD-10-CM) - Arthritis of knee R07.9 (ICD-10-CM) - Chest pain, unspecified type Procedures Stress test, lexiscan CHG MYOCARDIAL SPECT MULTIPLE STUDIES 70969 - CHG MYOCARDIAL SPECT MULTIPLE STUDIES Vigesaa, Nicanor S, MD [address] [place] [address] [place] [address] SpecialtyDiagnoses / ProceduresReferred By ContactReferred To ContactCardiology Diagnoses Chest pain, unspecified type Procedures EKG 12 Lead Nicanor Carr MD [address] [place] [address] Referral IDStatusReasonStart DateExpiration DateVisits RequestedVisits [id number]/26/[id number]/ Additional Source Comments INFORMATION SOURCE (unrecogn ized section and content) DATE CREATED AUTHOR 03/22/2018 [facility] DATE CREATED AUTHOR AUTHOR'S ORGANIZ ATION 06/03/2021 [facility] DATE CREATED AUTHOR AUTHOR'S ORGANIZ ATION 09/05/2021 [facility] DATE CREATED AUTHOR AUTHOR'S ORGANIZ ATION 09/12/2021 [facility] DATE CREATED AUTHOR AUTHOR'S ORGANIZ ATION 02/20/2022 [facility] DATE CREATED AUTHOR AUTHOR'S ORGANIZ ATION 08/13/2022 [facility] DATE CREATED AUTHOR AUTHOR'S ORGANIZ ATION 12/20/2023 [facility] DATE CREATED AUTHOR AUTHOR'S ORGANIZ ATION 12/22/2024 [facility] DATE CREATED AUTHOR AUTHOR'S ORGANIZ ATION 06/28/2025 [facility] EPIC Reason for Visit (unrecogniz ed section and content) StatusReasonSpecialtyDiagnoses / ProceduresReferred By ContactReferred To ContactPending ReviewCardiology Diagnoses Dizziness Syncope, unspecified syncope type SOB (shortness of breath) Arthritis of knee Chest pain, unspecified type R42 (ICD-10-CM) - Dizziness R55 (ICD-10-CM) - Syncope, unspecified syncope type R06.02 (ICD-10-CM) - SOB (shortness of breath) M17.10 (ICD-10-CM) - Arthritis of knee R07.9 (ICD-10-CM) - Chest pain, unspecified type Procedures Stress test, lexiscan CHG MYOCARDIAL SPECT MULTIPLE STUDIES 73629 - CHG MYOCARDIAL SPECT MULTIPLE STUDIES Nicanor Carr MD [address] [place] [address] [facility] [address] [place] [id number] ReasonCommentsAnnual ExamReasonCommentsHyperlipidemiaPalpitationsReasonComments Follow-upNo surgeries; no hospital stays.ReasonCommentsMed RefillReasonComments Skin Check Care Teams (unrecognized sec tion and content) Team MemberRelationshipSpecialtyStart DateEnd Date Rip Goldsmith MD [address] [place] [address] PCP - General06/25/21Team MemberRelationshipSpecialtyStart DateEnd Date Rip Goldsmith MD [address] [place] [id number] PCP - General06/25/21Team MemberRelationshipSpecialtyStart DateEnd Date Rip Goldsmith MD [address] [place] [address] (Fax) PCP - Aet03/03/21 Rip Goldsmith MD [address] [place] [address] PCP - Generalmily [facility]04/14/23Team MemberRelationshipSpecialtyStart DateEnd Date Rip Goldsmith MD [address] [place] [address] (Fax) PCP - Aet03/03/21 Rip Goldsmith MD [address] [place] [address] PCP - Generalmily Medicine04/14/23Team MemberRelationshipSpecialtyStart DateEnd Date Rip Goldsmith MD [address] [place] [address] (Fax) PCP - [employer]03/03/21 Rip Goldsmith MD [address] [place] [address] [facility] - [facility]04/14/23Team MemberRelationshipSpecialtyStart DateEnd Date Rip Goldsmith MD [address] [place] [address] (Fax) PCP - [employer]03/03/21 Rip Goldsmith MD [address] [place] [address] PCP - [facility]04/14/23Team MemberRelationshipSpecialtyStart DateEnd Date Rip Goldsmith MD [address] [place] [address] (Fax) PCP - [employer]03/03/21 Rip Goldsmith MD [address] [place] [address] (Fax) [facility] - [facility]04/14/23Team MemberRelationshipSpecialtyStart DateEnd Date Rip Goldsmith MD [address] [place] [address] (Fax) PCP - [employer]6 Rip Goldsmith MD [address] [place] [address] (Fax) PCP - GeneralFamily Medicine04/14/23Team MemberRelationshipSpecialtyStart DateEnd Date Rip Goldsmith MD [address] [place] [address] (Fax) PCP - [employer]03/03/21 Rip Goldsmith MD [address] [place] [address] (Fax) PCP - GeneralFamily Medicine04/14/23Team MemberRelationshipSpecialtyStart DateEnd Date Rip Goldsmith MD [address] [place] [address] (Fax) PCP - [employer]03/03/21 Rip Goldsmith MD [address] [place] [address] (Fax) PCP - GeneralFamily Medicine04/14/23Team MemberRelationshipSpecialtyStart End Rip Goldsmith MD [address] [place] [address] (Fax) PCP - [employer]03/03/21 Rip Goldsmith MD [address] [place] [address] (Fax) PCP - GeneralFamily Medicine04/14/23Team MemberRelationshipSpecialtyStart DateEnd Date Rip Goldsmith MD [address] [place] [address] (Fax) PCP - [employer]03/03/21 Rip Goldsmith MD [address] [place] [address] (Fax) PCP - GeneralFamily Medicine04/14/23Team MemberRelationshipSpecialtyStart DateEnd Date Rip Goldsmith MD [address] [place] [address] (Fax) PCP - [employer]03/03/21 Rip Goldsmith MD [address] [facility] [place] [address] PCP - GeneralFamily Medicine04/14/23Team MemberRelationshipSpecialtyStart DateEnd Date Rip Goldsmith MD [address] [place] [address] (Fax) PCP - [employer]03/03/21 Rip Goldsmith MD [address] [place] [address] (Fax) PCP - Generalmily Medicine04/14/23Team MemberRelationshipSpecialtyStart DateEnd Date Rip Goldsmith MD [address] [place] [address] (Fax) PCP - [employer]03/03/21 Rip Goldsmith MD [address] [place] [address] (Fax) PCP - Generalmily Medicine04/14/23Team MemberRelationshipSpecialtyStart DateEnd Date Rip Goldsmith MD [address] [place] [address] (Fax) PCP - Aet03/03/21 Rip Goldsmith MD [address] [place] [address] (Fax) PCP - [facility]04/14/23Team MemberRelationshipSpecialtyStart DateEnd Date Rip Goldsmith MD [address] [place] [address] (Fax) PCP - Aet03/03/21 Rip Goldsmith MD [address] [place] [address] (Fax) PCP - [facility]04/14/23Team MemberRelationshipSpecialtyStart DateEnd Date Rip Goldsmith MD [address] [place] [address] (Fax) [facility] Rip Goldsmith MD [address] [place] [address] (Fax) PCP - [facility]04/14/23Te MemberRelationshipSpecialtyStart DateEnd Date Rip Goldsmith MD [address] [place] [address] (Fax) [facility] Rip Goldsmith MD [address] [place] [address] (Fax) PCP - [facility]04/14/23Team MemberRelationshipSpecialtyStart DateEnd Date Rip Goldsmith MD [address] [place] [address] (Fax) PCP - [employer]03/03/21 Rip Goldsmith MD [address] [place] [address] (Fax) PCP - [facility]04/14/23Team MemberRelationshipSpecialtyStart DateEnd Date Rip Goldsmith MD [address] [facility] [place] [address] (Fax) PCP - Aet03/03/21 Rip Goldsmith MD [address] [facility] [place] [address] (Fax) PCP - [facility]04/14/23Team MemberRelationshipSpecialtyStart DateEnd Date Rip Goldsmith MD [address] [facility] [place] [address] (Fax) PCP - Aet03/03/21 Rip Goldsmith MD [address] [facility] [place] [address] (Fax) [facility] - [facility]04/14/23 Rashard Baugh MD [address] [place] [address] Obstetrics and Gynecology01/29/25Team MemberRelationshipSpecialtyStart DateEnd Date Rip Goldsmith MD [address] [facility] [place] [address] (Fax) PCP - [employer]03/03/21 Rip Goldsmith MD [address] [facility] [address] [facility] [place] [address] (Fax) [facility] - [facility]04/14/23 Rashard Baugh MD [address] [place] [address] Obstetrics and Gynecology01/29/25 Melissa Gandhi MD [address] [place] [address] Referring PhysicianAllergy and Immunology02/05/25 Woody Burgess APRN-[facility] [address] [place] [address] Nurse PractitionerDermatology02/05/25Team MemberRelationshipSpecialtyStart DateEnd Date Rip Goldsmith MD [address] [address] [place] [address] (Fax) PCP - Aet03/03/21 Rip Goldsmith MD [address] [address] [place] [address] (Fax) PCP - [facility] Medicine04/14/23 Rashard Baugh MD [address] [place] [address] Obstetrics and Gynecology01/29/25 Melissa Gandhi MD [address] [place] [address] Referring PhysicianAllergy and Immunology02/05/25 Woody Burgess, OPERATIONS ASST-ENTERTAINER OR VARIETY ARTIST [address] [place] [address] Nurse PractitionerDermatology02/05/25Team MemberRelationshipSpecialtyStart DateEnd Rip Goldsmith MD [address] [place] [address] (Fax) PCP - Aet03/03/21 Rip Goldsmith MD [address] [place] [address] (Fax) PCP - [facility]04/14/23 Rashard Baugh MD [address] [place] [address] Obstetrics and Gynecology01/29/25 Melissa Gandhi MD [address] [place] [address] Referring PhysicianAllergy and Immunology02/05/25 Woody Burgess, OPERATIONS ASST-ENTERTAINER OR VARIETY ARTIST [address] [place] [address] Nurse PractitionerStarkweathertology02/05/25Te MemberRelationshipSpecialtyStart DateEnd Rip Goldsmith MD [address] [place] [address] (Fax) PCP - [facility]et03/03/21 Rip Goldsmith MD [address] [place] [address] (Fax) PCP - [facility]04/14/23 Rashard Baugh MD [address] [place] [address] Obstetrics and Gynecology01/29/25 Melissa Gandhi MD [address] [place] [address] Referring PhysicianAllergy and Immunology02/05/25 Woody Burgess, OPERATIONS ASST-ENTERTAINER OR VARIETY ARTIST [address] [place] [address] Nurse PractitionerDermatology02/05/25Team MemberRelationshipSpecialtyStart DateEnd Date Rip Goldsmith MD [address] [place] [address] PCP - [employer]03/03/21 Rip Goldsmith MD [address] [place] [address] (Fax) [facility] - [facility] Medicine04/14/23 Rashard Baugh MD [address] [place] [address] Obstetrics and Gynecology01/29/25 Melissa Gandhi MD [address] [place] [address] Referring PhysicianAllergy and Immunology02/05/25 Woody Burgess, OPERATIONS ASST-ENTERTAINER OR VARIETY ARTIST [address] [place] [address] Nurse PractitionerDermatology02/05/25 Goals (unrecognized section and content) Goals may be documented in a n alternate section FOR RECORDS PERTAINING TO PATIENTS WHO ARE [...] BE BASED ON THE PRIMARY CLINICAL RECORDS. [facility]. provides no warranty or guarantee of the accuracy or completeness of information in this document.
== END 2025-09-02 11:18 | disposition home or self-care (01) ==
LOC: MAMMO 11:17
PROVIDERS: PCP Family Medicine; Visit Provider Obstetrics & Gynecology
DX: Z12.31 Encounter for screening mammogram for malignant neoplasm of breast (principal)
CPT/HCPCS: 77063; 77067

== ENCOUNTER 2025-09-19 20:55 | Inpatient (IN) | payer MEDICARE, SELFPAY ==
--- OUTSIDE RECORDS SUMMARY | 2025-09-09 10:10 | XMS_ITS | Encounter Summary ---
Author Organization [facility] Address [address] [place] [address] Care Team Providers Care Air Quality Manager Name Role Phone Rip Matthew MD Unavailable [phone] Rip Matthew MD Primary Care Provider [phone] Rashard Zheng MD Unavailable [phone] Prabhu Gandhi MD Unavailable [phone] Jessica Burgess FIBERGLASS AUTOBODY REPAIRER-BRAKE MECHANIC Unavailable Reason for Visit * ReasonCommentsSkin Check Encounter Details DateTypeDepartmentCare Team (Latest Contact Info)Cbubqtwegzg24/08/2025 10:10 AM ESTOffice Visit [facility] [address] [facility] [address] [place] [address] Jessica Burgess, FIBERGLASS AUTOBODY REPAIRER-BRAKE MECHANIC [address] [facility] [address] [place] [address] Seborrheic keratosis (Primary Dx); Inflamed seborrheic keratosis; Actinic keratosis; Melanocytic nevus of trunk; Lentigines; Capillary angioma; Sebaceous hyperplasia; Dermatofibroma of left lower extremity; Dermatofibroma of right lower extremity Social History Tobacco UseTypesPacks/DayYears UsedDateSmoking Tobacco: NeverSmokeless Tobacco: NeverAlcohol UseStandard Drinks/WeekCommentsYes2 (1 standard drink = 0.6 oz pure alcohol)Caffeine intake: more than 4 cups per day PopHumiliation, Afraid, Rape, and Kick questionnaireAnswerDate RecordedWithin the last year, have you been afraid of your partner or ex-partner?No06/09/2023Within the last year, have you been humiliated or emotionally abused in other ways by your partner or ex-partner?No06/09/2023Within the last year, have you been kicked, hit, slapped, or otherwise physically hurt by your partner or ex-partner?No06/09/2023Within the last year, have you been raped [...] a week06/09/2023 How often do you attend tenriism or holiness services?More than 4 times per year 06/09/2023o you belong to any clubs or organizations such as tenriism groups, unions, fraternal or athletic groups, or school groups?Yes06/09/2023How often do you attend meetings of the clubs or organizations you belong to?More than 4 times per year06/09/2023re you , , , , never , or living with a partner?Plmytan9106/09/2023UDIT-CAnswerDate RecordedQ1: How often do you have a [...] hard at all06/09/2023HQ-2AnswerDate Recorded Patient Health Questionnaire-2 [id number] hospital [place] of Occupational Health - Occupational Stress QuestionnaireAnswerDate [...] steady place to sleep or slept in tehu[place]anaelter (including now)?No 06/09/2023CommentsNoSex and Gender InformationValueDate RecordedSex Assigned at BirthNot on fileLegal XirQoyuaf82/15/2023 6:52 PM EDTGender Identity Not on fileSexual OrientationNot on filedocumented as of this encounter Progress Notes * Jessica Burgess, CAYLA-MIKE - 09/09/2025 10:10 AM EST Skin Check Location: Patient requests a full body skin examination Dermatologic history: no history of skin cancer, no history of atypical moles Last visit: 1 year ago Established patient All pertinent medical history, medications, and allergies were reviewed. General Exam: alert, oriented to person, place, and time, normal affect, well appearing Unaccompanied Scalp, Examined , exam limited by hair Right leg Examined Head, Face Examined Left leg Examined Neck Examined Right foot Examined Chest Examined , limited by bra Left foot Examined Back Examined Buttocks Examined , limited by underwear Abdomen Examined Digits,nails: Examined Right arm Examined Patient wearing nail maori, Denies dark streaks under finger nails Left arm Examined Lymphatics: Not examined Hands Examined Skin Exam 1. SEBORRHEIC KERATOSIS Generalized Stuck on verrucous, variably pigmented papules and plaques. Patient was counseled regarding these benign growths. Removal is normally not necessary, but they may be removed if they are symptomatic or for cosmetic reasons. 2. INFLAMED SEBORRHEIC KERATOSIS Right Temporal Scalp Inflamed seborrheic keratoses: pink and brown stuck on verrucous scaly papule with surrounding erythema and bloody crust. The patient was informed that symptomatic seborrheic keratoses are benign growths that become inflamed, itchy, tender, traumatized, caught on clothing, or bleed. Symptomatic lesions can be treated with cryotherapy or curretage. Thicker lesions treated with cryotherapy may require more than one treatment. The patient was instructed to notify the office if abnormal redness or tenderness develops atthe treatment site. Cryotherapy today, see procedure note. Diagnosis: Inflamed seborrheic keratosis Indication: Inflamed Consent: Verbal consent was obtained and risks were discussed, including, but not limited to risks of scarring, darker or prize coordinator pigmentary changes, recurrence, incomplete removal and infection. Method: Liquid nitrogen was used to treat the lesion(s) with two 5-10 second freeze-thaw cycles Number of lesions treated: 1 Post-procedure instructions: Instructions were given orally and in writing. The office will be contacted if the lesion fails to resolve despite treatment, or if a side effect develops such as abnormal crusting, scabbing, redness or tenderness - Cryotherapy, skin lesion - Right Temporal Scalp 3. ACTINIC KERATOSIS (2) Left Upper Vermilion Lip, Right Upper Cutaneous Lip Erythematous scaly papules Patient was counseled regarding these sun-induced growths that can develop into squamous cell carcinoma if left untreated. Discussed treatment with cryotherapy. It was emphasized that any treated lesions that fail to resolve should be re- evaluated. Cryotherapy performed today; see procedure note Diagnosis: Actinic keratosis Indication: Precancerous Location: see skin exam Consent: Verbal consent was obtained and risks were discussed, including, but not limited to risks of scarring, darker or prize coordinator pigmentary changes, recurrence, incomplete removal and infection. Method: Liquid nitrogen was used to treat the lesion(s) with two 5-10 second freeze-thaw cycles. Number of lesions treated: 2 Post-procedure instructions: Instructions were given orally and in writing. The office will be contacted if the lesion fails to resolve despite treatment, or if a side effect develops such as abnormal crusting, scabbing, redness or tenderness - Cryotherapy, skin lesion - Left Upper Vermilion Lip, Right Upper Cutaneous Lip 4. MELANOCYTIC NEVUS OF TRUNK Generalized Scattered benign appearing, regular brown to light brown melanocytic papules and macules with similar morphology Counseled regarding these benign growths. Rarely, a nevus can develop into malignant melanoma, so any changing nevi should be promptly re-evaluated. 5. LENTIGINES Generalized Scattered jimenez macules in sun-exposed areas. The patient was informed that lentigines are benign pigmented lesions that occur on sun-exposed andsun-damaged skin. No treatment is necessary. Recommended regular use of broad spectrum sunscreen SPF 30 or higher 6. CAPILLARY ANGIOMA Trunk Scattered burden-red papule(s). The patient was informed that angiomas are benign growths on the the skin. No treatment is necessary. 7. SEBACEOUS HYPERPLASIA Head - Anterior (Face) Small yellow papules with a central dell. Reassure, benign. Discussed these can be removed for a cosmetic fee with the hyfrecator if desired. This Visit - Tretinoin (Altreno) 0.05 % lotion - Apply thin layer to face at bedtime 8. DERMATOFIBROMA OF LEFT LOWER EXTREMITY Left Lower Leg - Anterior Firm brown papule that dimples with lateral pressure. Discussed that these are benign scars on the skin. If lesion is changing/symptomatic, return to office to have lesion re-evaluated 9. DERMATOFIBROMA OF RIGHT LOWER EXTREMITY Right Lower Leg - Anterior Firm brown papule that dimples with lateral pressure. Discussed that these are benign scars on the skin. If lesion is changing/symptomatic, return to office to have lesion re-evaluated Next Visit: 1 year, skin check documented in this encounter Plan of Treatment DateTypeDepartmentCare Team (Latest Contact Info)Sgshuobcrcn43/19/2026 8:30 AM EDTOffice Visit [facility] [address] [place] [address] [place] [address] Rip Matthew MD [address] [place] [address] (Fax) 01/23/2026 11:15 AM EDTOffice Visit [facility] [address] [place] [address] Rashard Zheng MD [address] [place] [address] 09/08/2026 8:35 AM ESTOffice Visit [facility] [address] [place] [address] Jessica Burgess APRN-BRAKE MECHANIC [address] [place] [address] documented as of this encounter Procedures Procedure NamePriorityDate/TimeAssociated DiagnosisCommentsCRYOTHERAPY SKIN TCBNQTZhdrhxu59/08/2025 9:50 AM EST Actinic keratosis CRYOTHERAPY SKIN WTWKCLPrfxurx27/08/2025 9:50 AM EST Inflamed seborrheic keratosis documented in this encounter Results * Cryotherapy, skin lesion (09/09/2025 9:50 AM EST) Narrative Authorizing ProviderResult TypeResult StatusNatalie A Aditya FIBERGLASS AUTOBODY REPAIRER-CNPDERM PROCEDURE ORDERABLESFinal Result * Cryotherapy, skin lesion (09/09/2025 9:50 AM EST) Narrative Authorizing ProviderResult TypeResult StatusNatalie A Aditya FIBERGLASS AUTOBODY REPAIRER-CNPDERM PROCEDURE ORDERABLESFinal Result documented in this encounter Visit Diagnoses Diagnosis Seborrheic keratosis- Primary Inflamed seborrheic keratosis Actinic keratosis Melanocytic nevus of trunk Benign neoplasm of skin of trunk, except scrotum Lentigines Capillary angioma Nevus, non-neoplastic Sebaceous hyperplasia Dermatofibroma of left lower extremity Dermatofibroma of right lower extremity documented in this encounter Additional Health Concerns AssessmentNoted TimePHQ-9 Depression Total Score: 11:00 AM EDT documented as of this encounter Care Teams Team MemberRelationshipSpecialtyStart DateEnd Date Rip Matthew MD [address] [place] [address] PCP - [employer]03/03/21 Rip Matthew MD [address] [place] [address] PCP - GeneralFamily Medicine04/14/23 Rashard Zheng MD [address] [place] [address] Obstetrics and Gynecology01/29/25 Prabhu Gandhi MD [address] [place] [address] Referring PhysicianAllergy and Immunology02/05/25 Jessica Burgess APRN-BRAKE MECHANIC [address] [place] [address] Nurse PractitionerDermatology02/05/25documented as of this encounter
--- OUTSIDE RECORDS SUMMARY | 2025-09-09 10:10 | XMS_ITS | Encounter Summary ---
Author Organization [facility] Address [address] [place] [address] Care Team Providers Care Surface Plate Finisher Name Role Phone Rip Matthew MD Unavailable [phone] Rip Matthew MD Primary Care Provider [phone] Rashard Zheng MD Unavailable [phone] Prabhu Gandhi MD Unavailable [phone] Jessica Burgess INVAS TECH-STEWARD/STEWARDESS ECONOMY CLASS Unavailable Reason for Visit * ReasonCommentsSkin Check Encounter Details DateTypeDepartmentCare Team (Latest Contact Info)Kfrfwfgrzwf91/08/2025 10:10 AM ESTOffice Visit [facility] [address] [facility] [address] [place] [address] Jessica Burgess, INVAS TECH-STEWARD/STEWARDESS ECONOMY CLASS [address] [facility] [address] [place] [address] Seborrheic keratosis (Primary Dx); Inflamed seborrheic keratosis; [...] a week06/09/2023 How often do you attend worship or orthodoxy services?More than 4 times per year 06/09/2023o you belong to any clubs or organizations such as worship groups, unions, fraternal or athletic groups, or school groups?Yes06/09/2023How often do you attend meetings of the clubs or organizations you belong to?More than 4 times per year06/09/2023re you , , , , never , or living with a partner?Ojryeca8306/09/2023UDIT-CAnswerDate RecordedQ1: How often do you have a [...] hard at all06/09/2023HQ-2AnswerDate Recorded Patient Health Questionnaire-2 [id number] [place] of Occupational Health - Occupational Stress QuestionnaireAnswerDate [...] steady place to sleep or slept in [place]ter (including now)?No 06/09/2023CommentsNoSex and Gender InformationValueDate RecordedSex Assigned at BirthNot on fileLegal GllSiovkd14/15/2023 6:52 PM EDTGender Identity Not on fileSexual [...] Examined Right arm Examined Patient wearing nail swedish, Denies dark streaks under finger nails Left [...] limited to risks of scarring, darker or diabetes education coordinator pigmentary changes, recurrence, incomplete removal and [...] limited to risks of scarring, darker or diabetes education coordinator pigmentary changes, recurrence, incomplete removal and [...] Plan of Treatment DateTypeDepartmentCare Team (Latest Contact Info)Wpxfvmroqge73/19/2026 8:30 AM EDTOffice Visit [facility] [address] [place] [address] [place] [address] Rip Matthew MD [address] [place] [address] (Fax) 01/23/2026 11:15 AM EDTOffice Visit [facility] [address] [place] [address] Rashard Zheng MD [address] [place] [address] 09/08/2026 8:35 AM ESTOffice Visit [facility] [address] [place] [address] Jessica Burgess APRN-STEWARD/STEWARDESS ECONOMY CLASS [address] [place] [address] documented as of this encounter Procedures Procedure NamePriorityDate/TimeAssociated DiagnosisCommentsCRYOTHERAPY SKIN NPXHOZNnnhkho54/08/2025 9:50 AM EST Actinic keratosis CRYOTHERAPY SKIN DJNBVRIvhuqnd67/08/2025 9:50 AM EST Inflamed seborrheic keratosis documented in this encounter Results * Cryotherapy, skin lesion (09/09/2025 9:50 AM EST) Narrative Authorizing ProviderResult TypeResult StatusNatalie A Aditya INVAS TECH-CNPDERM PROCEDURE ORDERABLESFinal Result * Cryotherapy, skin lesion (09/09/2025 9:50 AM EST) Narrative Authorizing ProviderResult TypeResult StatusNatalie A Aditya INVAS TECH-CNPDERM PROCEDURE ORDERABLESFinal Result documented in this encounter [...] MemberRelationshipSpecialtyStart DateEnd Date Rip Matthew MD [address] [place] [address] PCP - [employer]03/03/21 Rip Matthew MD [address] [place] [address] PCP - GeneralFamily Medicine04/14/23 Rashard Zheng MD [address] [place] [address] Obstetrics and Gynecology01/29/25 Prabhu Gandhi MD [address] [place] [address] Referring PhysicianAllergy and Immunology02/05/25 Jessica Burgess APRN-STEWARD/STEWARDESS ECONOMY CLASS [address] [place] [address] Nurse PractitionerDermatology02/05/25documented as of this encounter
[2025-09-19] VITALS (23 sets, daily range): BP systolic 127–154; BP diastolic 66–83; PULSE 92–115; TEMP 36.7–39.1; O2SAT 88–96; BMI 28.3
--- OUTSIDE RECORDS SUMMARY | 2025-09-19 21:43 | XMS_ITS | Encounter Summary ---
Author Organization [facility] Address [address] [place] [address] Care Team Providers Care Manager Metrology Name Role Phone Rip Matthew MD Unavailable + [phone] Rip Matthew MD Primary Care Provider [phone] Rashard Zheng MD Unavailable [phone] Prabhu Gandhi MD Unavailable [phone] Jessica Burgess APRN-TAPE LIBRARIAN Unavailable Encounter Details DateTypeDepartmentCare Team (Latest Contact Info)Upwvlkgvlkn86/08/2025Travel Social History Tobacco UseTypesPacks/DayYears UsedDateSmoking Tobacco: NeverSmokeless [...] of sexual activity by your partner or ex-partner?06/09/2023Social Connection and Isolation Panel AnswerDate RecordedIn a typical week, how many times do you talk on the phone with family, friends, or neighbors?More than three times a week06/09/2023How often do you get together with friends or relatives?Three times a week06/09/2023 How often do you attend tenriism or denominational services?More than 4 times per year 06/09/2023o you belong to any clubs or organizations such as tenriism groups, unions, fraternal or athletic groups, or school groups?Yes06/09/2023How often do you attend meetings of the clubs or organizations you belong to?More than 4 times per year06/09/2023re you , , , , never , or living with a partner?Gggsasr5706/09/2023UDIT-CAnswerDate RecordedQ1: How often do you have a [...] hard at all06/09/2023HQ-2AnswerDate Recorded Patient Health Questionnaire-2 Kbzlm000Fin[facility] [place] [facility] - Occupational Stress QuestionnaireAnswerDate [...] sleep or slept in ashelter (including now)?No 06/09/2023CommentsNoSex and Gender InformationValueDate RecordedSex Assigned at BirthNot on fileLegal EphMwsrif60/15/2023 6:52 PM EDTGender Identity Not on fileSexual OrientationNot on filedocumented as of this encounter Plan of Treatment DateTypeDepartmentCare Team (Latest Contact Info)Peclntcpejn48/19/2026 8:30 AM EDTOffice Visit [facility] [address] [place] [address] Rip Matthew MD [address] [place] [address] 01/23/2026 11:15 AM EDTOffice Visit [facility] [address] [place] [address] Rashard Zheng MD [address] [place] [address] 09/08/2026 8:35 AM ESTOffice Visit [facility] [address] [place] [address] Jessica Burgess, OPERATIONS AND INTELLIGENCE ASSISTANT-TAPE LIBRARIAN [address] [place] [address] documented as of this encounter Visit Diagnoses Not on filedocumented in this encounter Additional Health Concerns AssessmentNoted TimePHQ-9 Depression Total Score: 11:00 AM EDT documented as of this encounter Care Teams Team MemberRelationshipSpecialtyStart DateEnd Date Rip Matthew MD [address] [place] [address] PCP - [employer]03/03/21 Rip Matthew MD [address] [place] [address] PCP - GeneralFamily Medicine04/14/23 Rashard Zheng MD [address] [place] [address] Obstetrics and Gynecology01/29/25 Prabhu Gandhi MD [address] [place] [address] Referring PhysicianAllergy and Immunology02/05/25 Jessica Burgess, CAYLA-TAPE LIBRARIAN [address] [place] [address] Nurse PractitionerDermatology02/05/25documented as of this encounter
--- OUTSIDE RECORDS SUMMARY | 2025-09-19 21:43 | XMS_ITS | Clinical Summary ---
Author Organization [facility] Address [address], [address] [place] [address] Care Team Providers Care Air Export Logistics Manager Name Role Phone Rip Matthew MD Primary Care Provider Allergies Active AllergyReactionsCriticalityNoted DateCommentsChicken AllergyHives 1Shellfish AllergyHives,Shortness Of MkharyRwsi12/14/2018Shellfish Protein-Containing Drug Xtawhspg33/14/2018Sweet XtletyYorucLqlb73/06/2018 Violent nausea Violent nausea Potato allergy Medications [...] InformationValueDate RecordedSex Assigned at BirthNot on fileLegal IotVudjyo22/23/2021 11:33 AM EDT Gender IdentityNot on fileSexual OrientationNot on file Last Filed Vital Signs Vital SignReadingTime TakenCommentsBlood Uqdtguev662/8408/13/2021 1:54 PM EST Spboa954608/13/2021 1:54 PM LGGIlhvobsijia82.9 ??C (98.5 ??F)07/23/2015 10:46 AM EDTRespiratory Xssv4273 10:46 AM EDTOxygen Cmwarlyegh67%08/13/2021 1:54 PM ESTInhaled Oxygen Concentration--Mcdbsu00.2 kg (179 lb)08/13/2021 1:54 PM EST Height--Body Mass Index-- Plan of Treatment Not on file Insurance Care Teams Team MemberRelationshipSpecialtyStart DateEnd Date Rip Matthew MD [facility]06/25/21
--- OUTSIDE RECORDS SUMMARY | 2025-09-19 21:43 | XMS_ITS | Clinical Summary ---
Author Organization [facility] Address [facility] [id number] [address] [place] [address] Care Team Providers Care Salon Stylist Name Role Phone Rip Matthew MD Primary Care Provider + [phone] Allergies Active AllergyReactionsCriticalityNoted FzlhLtndwlrmXvpclhEaffaigd51/06/2018 Violent nausea Shellfish Rhbvhki5402/13/2018 Medications MedicationSigDispense QuantityRefillsLast FilledStart DateEnd DateStatus cetirizine [...] Problems ProblemNoted DateDiagnosed DateOsteoarthritis of left knee03/08/2018 Dwfaftpwqakffa33/06/2018 Family History Medical HistoryRelationNameCommentsHeart diseaseFatherHeart diseaseMother RelationNameStatusCommentsFatherDeceasedMotherDeceased Social History Tobacco UseTypesPacks/DayYears UsedDateSmoking Tobacco: NeverSmokeless Tobacco: NeverAlcohol UseStandard Drinks/WeekCommentsYes0 (1 standard drink = 0.6 oz pure alcohol)sociallyChildcareAnswerDate SxsmregdZxevwkivhLdobktk52/12/2019Employment AnswerDate RsxuipnsOlnoulyvfqWrncyhm70/12/2019Purpose - LifeAnswerDate Recorded Purpose and direction in gfbxLrxjbmo83/11/2021CommentsNoSex and Gender InformationValueDate RecordedSex Assigned at BirthNot on fileLegal SexFemale 12/09/2016 1:41 PM ESTGender IdentityNot on fileSexual OrientationNot on file Last Filed Vital Signs Vital SignReadingTime TakenCommentsBlood Euhlatie768/7706 8:20 AM EDT Nufvf98229/08/2018 8:30 AM LIQYqzrckfbpgi01.7 ??C (98 ??F)03/10/2018 8:20 AM EDT Respiratory Fgjg395003/10/2018 8:30 AM EDTOxygen Lemkfbjomg14%03/10/2018 8:26 AM EDTInhaled Oxygen Concentration--Goiimo76.9 kg (176 lb 2.4 oz)03/10/2018 8:20 AM ZEETjyjbt208.6 cm (5' 4 )03/08/2018 1:30 PM EDTBody Mass Index30.24003/08/2018 1:30 PM EDT Plan of Treatment Not on file Medical Devices ImplantedTypeAreaManufacturerDevice IdentifierShelf Expiration DateModel / Serial / LotCement Bn Palacos Radpq 40g Rpl [id number] - Sna - [id number] Implanted:Qty: 2 on 03/08/2018 [facility]: KneeLeommer [id number] / NA / [id number] Artc 14mm 6-9 Cd Kn Lt - Sna - [id number] Implanted:Qty: 1 on 03/08/2018 by Kushal Pagan DO at [facility] ImplantLeft: KneeZimmer [id number] / NA / [id number] Ptlr 32mm Persona Alply - Sna - [id number] Implanted:Qty: 1 on 03/08/2018 by Kushal Pagan DO at [facility] ImplantLeft: Shreya [id number] / NA / [id number] Fem 6 Std Kn Lt Cmnt Post - Sna - [id number] Implanted:Qty: 1 on 03/08/2018 by Kushal Pagan DO at [facility] ImplantLeft: BasiaHarsh [id number] / NA / [id number] Stm 30mm 14mm Kn Tib - Sna - [id number] Implanted:Qty: 1 on 03/08/2018 by Kushal Pagan DO at [facility] ImplantLeft: BasiaHarsh [id number] / NA / [id number] Tib 5d C Kn Lt Cmnt Stm - Sna - [id number] Implanted:Qty: 1 on 03/08/2018 [facility]: BasiaLeocandelario [id number]/31/2027 77-1161-557-01 / NA / [id number]gwpreLefrqu IdentifierShelf Expiration DateModel / Serial / LotScr Gd 48mm Qd-Spr Hex Hd Mis - Sna - [id number] Explanted:Qty: 1 on 03/08/2018 [facility]: Shreya [id number]/31/202832-9063-133-48 / NA / [id number] Gd 48mm Qd-Spr Hex Hd Mis - Sna - [id number] Explanted:Qty: 1 on 03/08/2018 by [facility]: Shreya [id number]/31/202823-8596-973-48 / NA / [id number] Bn Arnav 35mm 6.5mm Hip St Rpl [id number] + [id number] + 32 - Sna - [id number] Explanted:Qty: 2 on 03/08/2018 by [facility]: Shreya [id number] / NA / [id number] Insurance Advance Directives * Full Code (Latest Code Status on File) Date ActivatedDate InactivatedComments03/08/2018 1:51 PM03/10/2018 9:29 PM Care Teams Team MemberRelationshipSpecialtyStart DateEnd Date Rip Matthew MD [facility]02/13/18
--- OUTSIDE RECORDS SUMMARY | 2025-09-19 21:43 | XMS_ITS | Clinical Summary ---
Author Organization [facility] Address [facility] [place] [address] Care Team Providers Care Art Class Model Name Role Phone Rip Matthew MD Primary Care Provider + [phone] Allergies Active AllergyReactionsCriticalityNoted DateCommentsChicken DerivedGI EucfrttllwwMhfg70/10/2021otatoGI XxhyrzsfmafMpko48/10/2021hellfish Derived EgvqotnfaggGlll21/10/2021 Medications MedicationSigDispense QuantityRefillsLast FilledStart DateEnd DateStatus predniSONE [...] Last Filed Vital Signs Vital SignReadingTime TakenCommentsBlood Txjqqdkd296/7709/11/2021 11:58 AM EST Mxtce162509/11/2021 11:58 AM JNKFyrdmyfemjc70.5 ??C (97.7 ??F)09/11/2021 7:23 AM ESTRespiratory Gnyd627411/12/2020 11:58 AM ESTOxygen Enwkpqakym77%09/11/2021 11:29 AM ESTInhaled Oxygen Concentration--Qipzgg18.8 kg (176 lb)09/11/2021 7:00 AM EST Bdsmab120.6 cm (5' 4 )09/11/2021 7:00 AM ESTBody Mass Index30. 7:00 AM EST Plan of Treatment Not on file Insurance * Guarantor: Katya Bruce TypeRelation to PatientDate of BirthPhone Billing AddressPersonal/RpkujfUcsn1955 [id number] (Home) [address] [place] [phone] Advance Directives For more information, please contact: [phone] * Full Code (Latest Code Status on File) Date ActivatedDate EajtuwqalhuVffmogvz17/10/2021 7:00 AM09/11/2021 9:42 AM Care Teams Team MemberRelationshipSpecialtyStart DateEnd Date Rip Matthew MD [address] [place] [address] PCP - GeneralFamily Doertyow37/10/21
--- OUTSIDE RECORDS SUMMARY | 2025-09-19 21:43 | XMS_ITS | Clinical Summary ---
Author Organization [facility] Address [address] [place] [address] Care Team Providers Care Board Catcher Name Role Phone Unavailable Primary Care Provider Unavailabl e Allergies Active AllergyReactionsCriticalityNoted DateCommentsChicken DerivedVomiting 06/15/20210713EvgksoBzzcidcwOkgj22/06/2018 Violent nausea Shellfish Containing ProductsHives,Shortness of Vqesta7902/13/2018 Medications MedicationSigDispense QuantityRefillsLast FilledStart DateEnd DateStatus amoxicillin [...] drink = 0.6 oz pure alcohol)occasionalPHQ-2AnswerDate RecordedPHQ-2 fcgzr3441Area Deprivation IndexAnswerDate RecordedNational Score (1-100), lower number is lower risk73 10/31/2022State Score (1-10), lower number is lower riskNot on file10/31/2022 Data from: https://www.neighborhoodatlas.[facility].edu/. Last address used for [address]/31/2022CommentsNoSex and Gender InformationValueDate RecordedSex Assigned at BirthNot on fileLegal SexFemale 06/09/2021 12:43 PM EDTGender IdentityNot on fileSexual OrientationNot on file Last Filed Vital Signs Vital SignReadingTime TakenCommentsBlood Cvualuzw27/6509 11:17 AM EDT Kioub092806/19/2021 11:17 AM EDTTemperature--Respiratory Rate--Oxygen Saturation 98%06/19/2021 11:17 AM EDTInhaled Oxygen Concentration--Ifypfb25.9 kg (171 lb 11.2 oz)06/15/2021 8:43 AM HDNUcknvz371.6 cm (5' 4 )06/15/2021 8:43 AM EDTBody Mass Index29.4709 8:43 AM EDT Plan of Treatment Health MaintenanceDue DateLast DoneCommentsAnxiety Abdwsxfhd58/15/1973Depression Jgxxgmgpd08/15/1973Hepatitis C Bjinjfucn81/15/1973DTaP,Tdap,Td Vaccine (1 - Tdap)1974Mammogram Lynbwqeqz20/15/1995CT Djiprsnbsvza91/15/2000Cologuard (FIT-DNA)09/16/20001885Gadqcwtpdip98/15/2000Colorectal Cancer Cpfimoghj80/15/2000 Fecal Occult Blood09/16/20000851Lczkllzwnyype51/15/2000Pneumococcal Vaccine: 50+ (2 of 2 - PCV), 05/27/2017Bone Density Gwfrpmohc62/15/2020 Diabetes Xdxdltuxi68/12/2020, 03/10/2018Advance Directive Discussion 5Covid-19 Vaccine (3 - 2024- season)504/06/2021, 12/12/2020 Influenza Vaccine (#1)/, 07/08/2019, 06/14/2018, Additional history existsLipid Xxrslihfc24/SV Vaccine (1 - 1-dose 75+ series)2030Shingrix HlgdzwfPrjbomjzh80/09/2019, 05/02/2019 Insurance * Guarantor: Katya Bruce TypeRelation to PatientDate of BirthPhone Billing AddressPersonal/CtblchEvnu1955 [facility] [place] [address]
--- OUTSIDE RECORDS SUMMARY | 2025-09-19 21:43 | XMS_ITS | Clinical Summary ---
Author Organization [facility] Address [address] [place] [address] Care Team Providers Care Diesel Lube Tech Name Role Phone Rip Matthew MD Unavailable [phone] Rip Matthew MD Primary Care Provider [phone] Aaron Baugh MD Unavailable [phone] Prabhu Gandhi MD Unavailable [phone] Jessica Burgess [facility] Unavailable Allergies Active AllergyReactionsCriticalityNoted DateCommentsBeta Wkuxpemx81/18/2023 Other Reaction(s): sinus congestion Chicken CffaytmFdbkkcb03/18/2023Dust Mite Vgfzufd9304/19/2023 Other Reaction(s): sinus congestion Shellfish Protein-Containing Drug Woscioev56/18/2023 Other Reaction(s): passes out, ER visits Ebohrw4404/19/2023 Other Reaction(s): vomiting Medications MedicationSigDispense QuantityRefillsLast FilledStart [...] See administration instructions as directed Injection outside [facility] prn for 1 year 4 each 4Active [...] mg) by mouth at bedtime 90 tablet 6Active Tretinoin (Altreno) 0.05 % lotion Indications:Sebaceous hyperplasiaApply thin layer to face at bedtime 45 g 1115Active Active Problems ProblemNoted DateDiagnosed DateChronic allergic eehyyszsplkgdt86/22/2025Seasonal affective duondpcc34/03/2023Food rpkskhv2105/25/2023llergic rhinitis due to xfcgxg4004/19/2023nxiety about uviuoy3004/19/2023trophy of jrecja8504/19/2023hronic fpiqudlzxllw17/18/2023iverticulosis of colon04/19/2023astro-esophageal reflux disease without odfuhgwdmax60/18/2023History of total knee stkcxlwewos61/18/2023 Overview (06/26/2024): bilateral Moderate persistent asthma without ueefzwpymson29/18/2023Non morbid obesity due to excess zbxivzfd91/18/6766Lokqctmxvusb45/18/2023Sudden idiopathic hearing loss of left ear with unrestricted hearing of right ear04/19/2023Tinnitus, left ear 04/19/2023Venous insufficiency of both lower nbsmvwkefmb08/18/2023Vestibular disequilibrium involving left inner ear04/19/2023White matter disease, dqtahyhagxb67/18/2023hronic ryvhplj3704/14/2023hronic kidney disease, stage II (mild)04/14/2023Mixed fwaegplkmipn97/13/2023 Resolved Problems ProblemNoted DateDiagnosed DateResolved DateAsthma in adult/01/2023 Balance chyztbz00/Unsteadiness on feet/01/2023 Inflamed seborrheic ybhhnnqas80/Near epoxhgr2404/19/2023 06/26/2024 Encounters DateTypeDepartmentCare CzonCowudjzokgi52/08/2025 10:10 AM ESTOffice Visit [facility] [address] [place] [address] Jessica Burgess, CELL STRIPPER-GRAB HOOKER Seborrheic keratosis (Primary Dx); Inflamed seborrheic keratosis; Actinic keratosis; Melanocytic nevus of trunk; Lentigines; Capillary angioma; Sebaceous hyperplasia; Dermatofibroma of left lower extremity; Dermatofibroma of right lower gfurgnohw34/08/2025amboo flowsheet [facility] [address] [place] [address] Jessica Burgess APRN-GRAB HOOKER 09/09/20253666Twsoxj27/01/2025linisync Result Encounter [facility] External Department Unsolicited Aaron Baugh MD 07/08/2025Orders Only [facility] [address] [place] [address] Iraida Lozada, MA Other screening /25/2025 8:00 AM EDTOffice Visit [facility] [address] [place] [address] [address] [place] [address] Rip Matthew MD Palpitations; Mixed dyslipidemia ; Non morbid obesity due to excess pkkeoahx92/25/2025amboo flowsheet [facility] [address] [place] [address] Rip Matthew MD 06/27/2025Travelfrom Last 3 Months Immunizations ImmunizationAdministration DatesNext DueInfluenza, High Dose Seasonal, Preservative Free08/13/2024Influenza, High-dose Seasonal, Quadrivalent, Preservative Free08/31/2023,08/11/2021Influenza, Seasonal, Quadrivalent, Cuznbfrsvw27/18/2022Influenza, injectable, MDCK, preservative free, quadrivalent 07/09/2019Influenza, injectable, quadrivalent, preservative free07/31/2020, 08/08/2017,07/14/2017,07/03/2015Influenza, live, intranasal, quadrivalent 06/14/2018Influenza, seasonal, intradermal, preservative free07/13/2016 Pneumococcal Conjugate PCV 4Pneumococcal Polysaccharide PPSV23 07/11/2017,05/27/2017RSV, recombinant, protein subunit RSVpreF, adjuvant reconstitu, 120mcg/0.5mL, PF (Arexvy)08/31/2023Zoster, Xguqhghsqnf31/10/2019, 05/03/2019 Family History Medical HistoryRelationNameCommentsCoronary artery diseaseBrotherHeart disease FatherHeart diseaseMotherCoronary artery diseaseSisterBreast cancerNeg HxColon cancerNeg HxOvarian cancerNeg JkHsmojqnmPxhmJrfjqlIsbhfatxWkswwxnm9FzxgtepuYoosv d1SiawxeJfvvaRbdogutn GrandmotherAliveMotherDeceasedSisterx2 Social History Tobacco UseTypesPacks/DayYears UsedDateSmoking Tobacco: [...] How often do you attend restoration or gnosticist services?More than 4 times per year 06/09/2023o you belong to any clubs or organizations such as restoration groups, unions, fraternal or athletic groups, or school groups?Yes06/09/2023How often do you attend meetings of the clubs or organizations you belong to?More than 4 times per year06/09/2023re you , , , , never , or living with a partner?Xhgjjuf7906/09/2023UDIT-CAnswerDate RecordedQ1: How often do you have a [...] hard at all06/09/2023HQ-2AnswerDate Recorded Patient Health Questionnaire-2 Ximzb695[facility] [employer] of Occupational Health - Occupational Stress QuestionnaireAnswerDate [...] steady place to sleep or slept [facility] ([facility])?No 06/09/2023CommentsNoSex and Gender InformationValueDate RecordedSex Assigned at BirthNot on fileLegal LemHtzeik96/15/2023 6:52 PM EDTGender IdentityNot on fileSexual OrientationNot on file Last Filed Vital Signs Vital SignReadingTime TakenCommentsBlood Qzccbjke024/6804 11:41 AM EDT Wcisb552301/29/2025 11:41 AM EDTTemperature--Respiratory Rate--Oxygen Saturation 96%01/29/2025 11:41 AM EDTInhaled Oxygen Concentration--Murrtf94 kg (172 lb) 01/29/2025 11:41 AM LUYSxgynq450.6 cm (5' 4 )01/29/2025 11:41 AM EDTBody Mass Index29.52001/29/2025 11:41 AM EDT Plan of Treatment DateTypeDepartmentCare Team (Latest Contact Info)Bvemoxdbcuj19/19/2026 8:30 AM EDTOffice Visit [facility] [address] [place] [address] Rip Matthew MD [address] [place] [address] (Fax) 01/23/2026 11:15 AM EDTOffice Visit [facility] [address] [place] [address] Aaron Baugh MD [address] [place] [address] 09/08/2026 8:35 AM ESTOffice Visit [facility] [address] [place] [address] Jessica Burgess, CELL STRIPPER-GRAB HOOKER [address] [place] [address] Health MaintenanceDue DateLast DoneCommentsCT Ozbyqpxinzxt1955FIT-DNA 1955FIT1955FOBT1955 6102Wrpdmjtxlzcxp1955OVID-19 Vaccine ( season)501/06/2024, 08/31/2021, 01/10/2021, Additional history existsMedicare Annual Wellness (AWV), 12/26/2024, 06/26/2024, Additional history vkvxtuAgmqodvfh96/01/202612/10/2024, 08/10/2024, 08/08/2023, Additional history prpzguIxzsyivfpfd47/25/203207/, 04/26/2022 Colorectal Cancer Hzagfqxtf56/25/2032Pneumococcal Vaccine: 65+ YearsCompleted 08/13/2024, 07/11/2017, 05/27/2017Influenza HjisxyoPypzkirny28/01/2025, 08/13/2024, 08/31/2023, Additional history exists Procedures Procedure NamePriorityDate/TimeAssociated DiagnosisCommentsCRYOTHERAPY SKIN OHGHRASxjjjjh25/08/2025 9:50 AM EST Actinic keratosis CRYOTHERAPY SKIN CNEGHBKcrhqet00/08/2025 9:50 AM EST Inflamed seborrheic keratosis MM TOMOSYNTHESIS SCREENING BI09/02/2025 2:53 PM EST CBCHMYOFEUMOadfnih76/25/2022 12:00 PM EDT Encounter for screening for malignant neoplasm of colon from Last 3 Months or Most Recently Relevant to Health Maintenance Results * Cryotherapy, skin lesion (09/09/2025 9:50 AM EST) Narrative Authorizing ProviderResult TypeResult StatusNatalie A Felter CELL STRIPPER-CNPDERM PROCEDURE ORDERABLESFinal Result * Cryotherapy, skin lesion (09/09/2025 9:50 AM EST) Narrative Authorizing ProviderResult TypeResult StatusNatalie A Felter CELL STRIPPER-CNPDERM PROCEDURE ORDERABLESFinal Result * MM TOMOSYNTHESIS SCREENING BI (09/02/2025 2:53 PM EST)Anatomical Region LateralityModalityOtherSpecimen (Source)Anatomical Location / Laterality Collection Method / VolumeCollection TimeReceived Time09/02/2025 2:53 PM EST Narrative 09/02/2025 2:54 PM EST [facility] ?[address] ? [place] [address] ? Mammography Report ? Signed ? Patient: BRUCE,CASI H ?MR#: [id number] ?? : 1955 ?Acct:[id number] ?? Age/Sex: 69 / F ?ADM Date: 12/01/25 ?? Loc: MAMMO ? Attending Dr: AARON BAUGH ? Ordering Physician: PRINTY,AARON ? Results: ? Date of Service: 09/02/25 ?Follow Up: ? Procedure(s): MM tomosynthesis screening BI ?? Accession Number(s): [id number] ? cc: RIP MATTHEW ; AARON BAUGH ? Patient Name: ? CASI BRUCE ? MR#: [id number] ? : 1955 ? Exam Date: 09/02/2025 ?? Ordering Doctor: DR AARON BAUGH ? RADIOLOGY REPORT ? PROCEDURE: ? MM TOMOSYNTHESIS SCREENING BI ? COMPARISON: ? MM TOMOSYNTHESIS SCREENING BI, 08/09/2024. ??MM TOMOSYNTHESIS ?? SCREENING BI, 08/08/2023. ??MG MAMM SCREEN 3D ADRIEN CAD, 08/06/2022. ??MG MAMM ?? SCREEN 3D ADRIEN CAD, 12/05/2017. ? INDICATIONS: ? Screening ? Calculator Name ? NCI Breast Cancer Risk Assessment Tool ?? 5 Year Breast Cancer Risk ? 1.80% ?? Lifetime Breast Cancer Risk ? 5.60% ?? Personal Breast Cancer ?No ?? Personal Ovarian Cancer ? No ?? Treatments ? None ?? Family Cancers ? None ? LOCATION: ? [facility] ? BREAST COMPOSITION: ? The breasts are heterogeneously dense, which may ?? obscure small masses. ? FINDINGS: ? RIGHT BREAST: ??No significant suspicious finding. ??Benign-appearing ?? calcifications are redemonstrated. ? LEFT BREAST: ??No significant suspicious finding. ??Benign-appearing ?? calcifications are redemonstrated. ? DIAGNOSTIC CATEGORY 2--BENIGN FINDING. NO CHANGE FROM COMPARISON. ? RECOMMENDATIONS: ? ROUTINE MAMMOGRAM AND CLINICAL EVALUATION IN 12 MONTHS. ? Dictated by: Hunter Rueda MD on 09/02/2025 at 14:49 ? Approved by: Hunter Rueda MD on 09/02/2025 at 14:53 ? Dictated By: ?Hunter Rueda M.D. ? Signed By: ?09/02/25 [facility] ? DD/ 1453 ? TD/TT: ? Scrape Gatherer: Procedure Note Radiology, Radiologist, MD - 09/02/2025 [place] [address] Mammography Report Signed Patient: CASI BRUCE HMR#: [id number] : 5Acct:[id number] Age/Sex: 69 / FADM Date: 09/02/25 Loc: MAMMO Attending Dr: AARON BAUGH Ordering Physician: AARON BAUGHResults: Date of Service: 09/02/25Follow Up: Procedure(s): MM tomosynthesis screening BI Accession Number(s): [id number] cc: RIP MATTHEW ; AARON BAUGH Patient Name: CASI BRUCE MR#: [id number] : 1955 Exam Date: 09/02/2025 Ordering Doctor: DR AARON BAUGH RADIOLOGY REPORT PROCEDURE: MM TOMOSYNTHESIS SCREENING BI COMPARISON: MM TOMOSYNTHESIS SCREENING BI, 08/09/2024. MMTOMOSYNTHESIS SCREENING BI, 08/08/2023. MG MAMM SCREEN 3D ADRIEN CAD, 08/06/2022. MG MAMM SCREEN 3D ADRIEN CAD, 12/05/2017. INDICATIONS: Screening Calculator Name NCI Breast Cancer Risk Assessment Tool 5 Year Breast Cancer Risk 1.80% Lifetime Breast Cancer Risk 5.60% Personal Breast Cancer No Personal Ovarian Cancer No Treatments None Family Cancers None LOCATION: [facility] BREAST COMPOSITION: The breasts are heterogeneously dense, which may obscure small masses. FINDINGS: RIGHT BREAST: No significant suspicious finding. Benign-appearing calcifications are redemonstrated. LEFT BREAST: No significant suspicious finding. Benign-appearing calcifications are redemonstrated. DIAGNOSTIC CATEGORY 2--BENIGN FINDING. NO CHANGE FROM COMPARISON. RECOMMENDATIONS: ROUTINE MAMMOGRAM AND CLINICAL EVALUATION IN 12 MONTHS. Dictated by: Hunter Rueda MD on 09/02/2025 at 14:49 Approved by: Hunter Rueda MD on 09/02/2025 at 14:53 Dictated By: Hunter Rueda M.D. Signed By:09/02/25 1454 DD/ 52 TD/TT: Scrape Gatherer: Authorizing ProviderResult TypeResult Ezequiel Baugh MDCLINISYNC IMAGING Final Result * Colonoscopy (04/26/2022 12:00 PM EDT)Anatomical RegionLateralityModality EndoscopySpecimen (Source)Anatomical Location / LateralityCollection Method / VolumeCollection TimeReceived Time04/26/2022 12:00 PM EDT Narrative 04/26/2022 12:00 PM EDT PERFORMED AT [facility] LOCATION:[id number] Procedure Note CONVERSION, GENERIC - 02/16/2023 PERFORMED AT [facility] LOCATION:[id number] Authorizing ProviderResult TypeResult StatusFrswathi Mckeon DOENDOSCOPY PROCEDURE ORDERABLESFinal Result from Last 3 Months or Most Recently Relevant to Health Maintenance Insurance Advance Directives TypeDate RecordedPatient RepresentativeExplanationAdvance Directives and Living Will04/27/2023 9:33 AMLiving WillPower of Attorney04/27/2023 9:32 AM Care Teams Team MemberRelationshipSpecialtyStart DateEnd Rip Matthew MD [address] [place] [address] (Fax) PCP - [employer]03/03/21 Rip Matthew MD [address] [place] [address] (Fax) [facility]23 Aaron Baugh MD [address] [place] [address] Obstetrics and Gynecology01/29/25 Prabhu Gandhi MD [address] [place] [address] Referring PhysicianAllergy and Immunology02/05/25 Jessica Burgess, CELL STRIPPER-GRAB HOOKER [address] [place] [address] Nurse PractitionerDermatology02/05/25
--- OUTSIDE RECORDS SUMMARY | 2025-09-19 21:43 | XMS_ITS | Encounter Summary ---
Author Organization [facility] Address [address] [place] [address] Care Team Providers Care Director Information Name Role Phone Rip Matthew MD Unavailable [phone] Rip Matthew MD Primary Care Provider [phone] Rashard Zheng MD Unavailable Prabhu Gandhi MD Unavailable [phone] Jessica Burgess FIELD ACCOUNT DIRECTOR-STENCIL MAKER Unavailable Encounter Details DateTypeDepartmentCare Team (Latest Contact Info)Lolzjlsyqsv31/08/2025Bamboo flowsheet [facility] [address] [place] [address] Jessica Burgess, FIELD ACCOUNT DIRECTOR-STENCIL MAKER [address] [facility] [address] [place] [address] Social History Tobacco UseTypesPacks/DayYears UsedDateSmoking Tobacco: NeverSmokeless [...] a week06/09/2023 How often do you attend anglican or gnosticism services?More than 4 times per year 06/09/2023o you belong to any clubs or organizations such as anglican groups, unions, fraternal or athletic groups, or school groups?Yes06/09/2023How often do you attend meetings of the clubs or organizations you belong to?More than 4 times per year06/09/2023re you , , , , never , or living with a partner?Wrvuivp7906/09/2023UDIT-CAnswerDate RecordedQ1: How often do you have a [...] hard at all06/09/2023HQ-2AnswerDate Recorded Patient Health Questionnaire-2 Rqzkh760[facility] [place] of [facility] Health - Occupational Stress QuestionnaireAnswerDate [...] steady place to sleep or slept in [facility] (including now)?No 06/09/2023CommentsNoSex and Gender InformationValueDate RecordedSex Assigned at BirthNot on fileLegal BfeDzhank66/15/2023 6:52 PM EDTGender Identity Not on fileSexual OrientationNot on filedocumented as of this encounter Plan of Treatment DateTypeDepartmentCare Team (Latest Contact Info)Jvuvjloayxa53/19/2026 8:30 AM EDTOffice Visit [facility] [address] [facility] [address] [place] [address] Rip Matthew MD [address] [facility] 100 [place] [address] (Fax) 01/23/2026 11:15 AM EDTOffice Visit [facility] [address] [place] [address] Rashard Zheng MD [address] [place] [address] 09/08/2026 8:35 AM ESTOffice Visit [facility] [address] [place] [address] Jessica Burgess, FIELD ACCOUNT DIRECTOR-STENCIL MAKER [address] [place] [address] documented as of this encounter Visit Diagnoses Not on filedocumented in this encounter Additional Health Concerns AssessmentNoted TimePHQ-9 Depression Total Score: 11:00 AM EDT documented as of this encounter Care Teams Team MemberRelationshipSpecialtyStart DateEnd Date Rip Matthew MD [address] [place] [address] PCP - [employer]03/03/21 Rip Matthew MD [address] [place] [address] PCP - GeneralFamily Medicine04/14/23 Rashard Zheng MD [address] [place] [address] Obstetrics and Gynecology01/29/25 Prabhu Gandhi MD [address] [place] [address] Referring PhysicianAllergy and Immunology02/05/25 Jessica Burgess, FIELD ACCOUNT DIRECTOR-STENCIL MAKER [address] [place] [address] Nurse PractitionerDermatology02/05/25documented as of this encounter
[2025-09-19] MEDS: ACETAMINOPHEN 325 MG TABLET 650 MG PO (21:45)
[2025-09-19 21:53] LABS: Hematocrit 36.9 % (36.0-48.0); Hemoglobin 12.5 g/dL (12.0-16.0); Mean Corpuscular HGB Conc 33.9 g/dL (29.9-35.2); Mean Corpuscular Hemoglobin 29.3 pg (26.7-34.0); Mean Corpuscular Volume 86.6 fL (81.0-99.0); Platelet Count 153 10^3/uL (150-450); Red Blood Count 4.26 10^6/uL (4.20-5.40); White Blood Count 5.4 10^3/uL (4.0-11.0)
[2025-09-19 21:58] LABS: Alanine Aminotransferase 29 U/L (14-59); Albumin Globulin Ratio 0.9; Albumin Level 3.3 g/dL (3.4-5.0); Alkaline Phosphatase 111 U/L (46-116); Anion Gap 7.3; Aspartate Amino Transferase 23 U/L (15-37); Blood Urea Nitrogen 9.0 mg/dL (7.0-18.0); Calcium 8.8 mg/dL (8.5-10.1); Carbon Dioxide 27.0 mmol/L (21.0-32.0); Chloride 101 mmol/L (98-107); Estimated GFR (African America >60 (>=60 mL/min/1.73m^2); Estimated GFR (Non-African Ame >60 (>=60 mL/min/1.73m^2); Globulin 3.7 g/dL; Glucose 124 mg/dL (74-106); Potassium 3.3 mmol/L (3.5-5.1); Sodium 132 mmol/L (136-145); Total Protein 7.0 g/dL (6.4-8.2)
[2025-09-19 22:02] LABS: Basophils Abs Manual 0.10 10^3/uL (0.00-0.10); Basophils Percent Manual 2.0 % (0.2-2.0); Eosinophils Absolute Manual 0.10 10^3/uL (0.00-0.70); Eosinophils Percent Manual 2.0 % (0.9-7.0); Lymphocytes Absolute Manual 0.16 10^3/uL (1.20-3.80); Lymphocytes Percent Manual 3.0 % (20.5-60.0); Monocytes Absolute Manual 0.59 10^3/uL (0.30-0.80); Monocytes Percent Manual 11.0 % (1.7-12.0); Segmented Neut Absolute Manual 4.42 10^3/uL (1.4-6.5); Segmented Neutrophils % Manual 82.0 (43.0-75.0)
[2025-09-19 22:04] LABS: SARS-CoV-2 Ag NEGATIVE (NEGATIVE)
--- NOTE | 2025-09-19 22:15 | XR_ITS ---
The [address] [address] Patient Name: MOE CAROLINA MRN: [id number] date: 1955 Sex: F Assigned Patient Location: ER Current Patient Location: ER Accession/Order Number: [id number] Exam Date: 09/19/2025 22:20 Report Date: 09/19/2025 22:36 At the request of: ANDRAE LUCIANO MD Procedure: XR chest 1V XR chest 1V 09/19/2025 10:28 PM SIGNS AND SYMPTOMS: ^fever, cough PROTOCOL: Frontal radiograph of the chest COMPARISON: 05/15/2021 FINDINGS: The trachea is midline. Atherosclerotic changes are present in the aortic arch. The heart and mediastinal structures are within normal limits. Mild airspace opacities noted in the right infrahilar region possibly representing pneumonia. The bony thorax is intact. XR/XR chest 1V IMPRESSION: Mild airspace opacities noted in the right infrahilar region possibly representing pneumonia. Impression dictated by: Hunter Rueda M.D. 09/19/2025 10:36 PM Dictation Location: [place] [address] Electronically authenticated by: [id number] Y Date: 09/19/2025 22:36
[2025-09-19] MEDS: METHYLPREDNISOLONE SOD SUCC PF 125 MG/2 ML VIAL IVP (22:17)
[2025-09-19] MEDS: 0.9 % SODIUM CHLORIDE 1,000 ML 1000 ML IV (22:17)
[2025-09-19] MEDS: IPRATROPIUM/ALBUTEROL SULFATE 3 ML AMPUL.NEB IH ×2 (22:28→23:53)
--- NOTE | 2025-09-19 22:57 | ECG_ITS ---
The [facility] Test Date: 2025-09-19 Pat Name: MOE CAROLINA Department: Room: - Gender: Female Information Assurance Manager: : 1955 Requested By: [id number] Order Number: [id number] Jose MD: ARMIDA DYSNO M.D. Measurements Intervals [place] Rate: 114 P: 39 AR: 148 QRS: 57 QRSD: 76 T: 57 QT: 318 QTc: 386 Interpretive Statements 1120 Sinus tachycardia [address] depression 9150 abnormal ECG Compared to ECG 05/15/2021 18:50:29 ST (T wave) deviation now present Sinus rhythm no longer present Electronically Signed On 09-20-2025 6:20:50 EST by ARMIDA DYSON M.D.
--- NOTE | 2025-09-19 23:11 | ED_ITS ---
HPI HPI - General Adult General Chief complaint: Fever Stated complaint: COLD, SOB, COUGH, Time Seen by Provider: 09/19/25 21:45 Source: patient Mode of arrival: walk-in Limitations: no limitations History of Present Illness HPI narrative: This 70-year-old female with a history of asthma presents for evaluation of fever, chills, body aches for the past 3 days and shortness of breath for 1 day. She has been using her inhalers without significant improvement. She denies any chest pain. She has a moist cough. She has no lower extremity pain or swelling. She denies any abdominal pain. She does not have any nausea vomiting or diarrhea. She states that her daughter and grandson who live with her have similar symptoms and recently tested positive for influenza. Related Data Allergies Allergy/AdvReac Type Severity Reaction Status Date / Time No Known Drug Allergies Allergy Verified 09/19/25 21:16 Review of Systems ROS Status of ROS 10 or more systems reviewed and unremark able except as noted in history and below PFSH PFSH Social History Little interest or pleasure in doing things: not at all Feeling down, depressed, or hopeless: not at all Exam Narrative Exam Narrative: Vital signs and Nursing Notes reviewed: Patient is febrile, tachycardic, blood pressure is stable, she is borderline hypoxic with pulse ox in the low to mid 90s General: Awake, alert, oriented, mildly ill-appearing, moist cough, no tk respiratory distress HEENT: Normocephalic atraumatic, mucous membranes are moist and pink, eyes are clear, normal conjunctiva, vision is grossly intact, posterior pharynx is slightly dry Neck: Supple, no meningeal signs, no anterior or posterior cervical lymphadenopathy Chest: Coarse breath sounds with expiratory wheezing and scattered rhonchi bilat erally, no accessory muscle use, moist cough noted CVS: Regular rate and rhythm S1-S2, tachycardic at 110 on exam no murmurs rubs or gallops, pulses are brisk and equal bilaterally ABD: Soft, nondistended, nontender, no rebound guarding or rigidity, bowel sounds are normal, no pulsatile masses appreciated Extremities: Moving all extremities, no lower extremity tenderness or swelling noted, negative Homans' sign, pulses are brisk and equal bilaterally Skin: Normal in appearance without rash,pallor, petechiae or purpura Neuro: No focal deficits Constitutional Vital Signs, click to edit/add: Last Vital Signs Temp 98.1 F 09/19/25 23:01 Pulse 102 H 09/19/25 23:00 Resp 20 09/19/25 23:00 BP 131/67 09/19/25 23:00 Pulse Ox 94 L 09/19/25 23:00 O2 Del Method Room Air 09/19/25 21:16 Course Vital Signs Vital signs: Vital Signs Blood Pressure 154/83 H 09/19/25 21:08 Temperature 98.1 F 09/19/25 23:01 Pulse Rate 102 H 09/19/25 23:00 Respiratory Rate 20 09/19/25 23:00 Blood Pressure 131/67 09/19/25 23:00 Pulse Oximetry 94 L 09/19/25 23:00 Oxygen Delivery Method Room Air 09/19/25 21:16 Medical Decision Making MDM Narrative Medical decision making narrative: 70-year-old female with history of asthma presents for evaluation of 3 days of fevers, chills, body aches and 1 day of shortness of breath. She has a nebulizer machine at home and has been using it all day but still feels short of breath. Upon arrival she was febrile and tachycardic. She has nasal congestion. She has expiratory wheezing and scattered rhonchi with a harsh cough. EKG done upon arrival was a sinus tachycardia at 114 bpm. An IV was placed and she was medicated with IV fluids, Tylenol,, Solu-Medrol and a DuoNeb. She tested positive for influenza A. Routine labs are otherwise normal with a normal white count and stable hemoglobin. Electrolytes are normal with a mildly low potassium at 3.3.. Chest x-ray shows a questionable infiltrate at the right infrahilar region concerning for pneumonia. She was medicated with IV Rocephin and Zithromax. She has episodes where she desats into the upper 80s often times coughing will help to clear this. She was given an additional DuoNeb treatment in the emergency department placed on supplemental oxygen. Case was discussed with the hospitalist and the patient accepted for admission to Med/Surg. Lab Data Lab results reviewed: Yes I reviewed the patient's lab results Labs: Lab Results 09/19/25 09/19/25 Range/Units 21:23 21:30 WBC 5.4 (4.0-11.0) 10^3/uL RBC 4.26 (4.20-5.40) 10^6/uL Hgb 12.5 (12.0-16.0) g/dL Hct 36.9 (36.0-48.0) % MCV 86.6 (81.0-99.0) fL MCH 29.3 (26.7-34.0) pg MCHC 33.9 (29.9-35.2) g/dL RDW 14.4 (11.0-15.0) % Plt Count 153 (150-450) 10^3/uL MPV 11.1 (9.5-13.5) fL Seg Neuts % (Manual) 82.0 H (43.0-75.0) Lymphocytes % (Manual) 3.0 L (20.5-60.0) % Monocytes % (Manual) 11.0 (1.7-12.0) % Eosinophils % (Manual) 2.0 (0.9-7.0) % Basophils % (Manual) 2.0 (0.2-2.0) % Neutrophils # (Manual) 4.42 (1.4-6.5) 10^3/uL Lymphocytes # (Manual) 0.16 L (1.20-3.80) 10^3/uL Monocytes # (Manual) 0.59 (0.30-0.80) 10^3/uL Eosinophils # (Manual) 0.10 (0.00-0.70) 10^3/uL Basophils # (Manual) 0.10 (0.00-0.10) 10^3/uL Sodium 132 L (136-145) mmol/L Potassium 3.3 L (3.5-5.1) mmol/L Chloride 101 (98-107) mmol/L Carbon Dioxide 27.0 (21.0-32.0) mmol/L Anion Gap 7.3 BUN 9.0 (7.0-18.0) mg/dL Creatinine 0.75 (0.55-1.02) mg/dL Est GFR ( Amer) >60 (>=60 mL/min/1.73m^2) Est GFR (Non-Af Amer) >60 (>=60 mL/min/1.73m^2) BUN/Creatinine Ratio 12.0 Glucose 124 H (74-106) mg/dL Calcium 8.8 (8.5-10.1) mg/dL Total Bilirubin 0.3 (0.2-1.0) mg/dL AST 23 (15-37) U/L ALT 29 (14-59) U/L Alkaline Phosphatase 111 (46-116) U/L Total Protein 7.0 (6.4-8.2) g/dL Albumin 3.3 L (3.4-5.0) g/dL Globulin 3.7 g/dL Albumin/Globulin Ratio 0.9 Influenza Type A Ag Positive A Influenza Type B Ag Negative SARS-CoV-2 Ag (CV2AG) Negative (NEGATIVE) Imaging Data Chest x-ray: Radiologist's impression: ITS Impressions Chest X-Ray 09/19/25 22:15 IMPRESSION: Mild airspace opacities noted in the right infrahilar region possibly representing pneumonia. Impression dictated by: Hunter Rueda M.D. 09/19/2025 10:36 PM Dictation Location: [place] [address] Electronically authenticated by: [id number] Y Date: 09/19/2025 22:36 ECG Data Attestation: I personally reviewed and interpreted this ECG as follows: (Sinus tachycardia at 114 bpm, normal axis, normal intervals, nonspecific ST changes, no acute ST segment elevation or T wave inversion) Discharge Plan Discharge Chief Complaint: Fever Clinical Impression: Influenza A, Pneumonia, Asthma exacerbation, Hypoxia Patient Disposition: Admitted as Observation Time of Disposition Decision: 23:55
[2025-09-20] VITALS (30 sets, daily range): BP systolic 103–143; BP diastolic 64–82; PULSE 77–108; TEMP 36.4–36.9; O2SAT 88–99; BMI 29.8
[2025-09-20] MEDS: OSELTAMIVIR PHOSPHATE 75 MG CAPSULE PO ×3 (00:09→21:50)
[2025-09-20] MEDS: AZITHROMYCIN 500 MG in 0.9 % SODIUM CHLORIDE 250 ML 250 MG IV ×2 (00:17→10:45)
[2025-09-20] MEDS: 0.9 % SODIUM CHLORIDE 1,000 ML 125 ML IV (00:18)
[2025-09-20] MEDS: POTASSIUM CHLORIDE 10 MEQ ER TABLET 40 MEQ PO (01:28)
[2025-09-20 05:20] LABS: Hematocrit 36.6 % (36.0-48.0); Hemoglobin 12.1 g/dL (12.0-16.0); Immature Granulocytes Abs Auto 0.02 10^3/uL (0.00-0.03); Immature Granulocytes Pct Auto 0.5 % (0.0-0.5); Lymphocytes Absolute Auto 0.2 10^3/uL (1.2-3.8); Mean Corpuscular HGB Conc 33.1 g/dL (29.9-35.2); Mean Corpuscular Hemoglobin 28.9 pg (26.7-34.0); Mean Corpuscular Volume 87.6 fL (81.0-99.0); Platelet Count 151 10^3/uL (150-450); Red Blood Count 4.18 10^6/uL (4.20-5.40); White Blood Count 4.4 10^3/uL (4.0-11.0)
[2025-09-20] MEDS: IPRATROPIUM/ALBUTEROL SULFATE 3 ML AMPUL.NEB IH (05:30)
[2025-09-20 05:36] LABS: Anion Gap 8.2; Blood Urea Nitrogen 6.0 mg/dL (7.0-18.0); Calcium 8.4 mg/dL (8.5-10.1); Carbon Dioxide 23.7 mmol/L (21.0-32.0); Chloride 108 mmol/L (98-107); Estimated GFR (African America >60 (>=60 mL/min/1.73m^2); Estimated GFR (Non-African Ame >60 (>=60 mL/min/1.73m^2); Glucose 167 mg/dL (74-106); Magnesium 1.9 mg/dL (1.8-2.4); Potassium 3.9 mmol/L (3.5-5.1); Sodium 136 mmol/L (136-145)
--- NOTE | 2025-09-20 07:58 | PM.IMHP1 ---
Internal Medicine - H&P: HPI History of Present Illness Chief complaint: INFLUENZA, ASTHMA EXACERBATION Narrative: Casi Bruce is a 70 y/o F, h/o asthma, presented to [facility] on 09/19/25 with flu like symptoms and shortness of breath, concern for asthma exacerbation, found to be influenza positive and requiring oxygen prompting medical admission. On assessment at bedside on the regular nursing floor, patient resting in bed, tired appearing but not in distress, intermittent cough and currently on supplemental O2. States has had sick contacts with family who tested positive for influenza. Does have slight diffuse chest congestion/tightness, non-substernal or radiating. Has been using home inhalers and nebulizers without significant improvement. In the emergency room, WBC 5.4, hemoglobin 12.5, platelet count 153, sodium 132, potassium 3.3, BUN 9, creatinine 0.75, chest x-ray showed mild airspace opacities in the right possibly representing pneumonia, EKG showed no ischemic changes, tested positive for influenza A negative for type B and COVID. Review of Systems ROS Status of ROS 10 or more systems reviewed and unremarkable except as noted in history and below [facility] Medical History (Updated 09/20/25 @ 00:27 by Araseli Ortega) Hypertension ?I10 - Essential (primary) hypertension (ICD-10) Hypercholesterolemia ?E78.00 - Pure hypercholesterolemia, unspecified (ICD-10) Asthma ?J45.909 - Unspecified asthma, uncomplicated (ICD-10) Surgical History (Updated 09/20/25 @ 00:52 by Karen Joaquin) H/O left breast biopsy ?Z98.890 - Other specified postprocedural states (ICD-10) History of total bilateral knee replacement ?Z96.653 - Presence of artificial knee joint, bilateral (ICD-10) Family History (Updated 09/20/25 @ 00:53 by Karen Joaquin) Mother Family history of CHF (congestive heart failure) Family history of hypertension Family history of myocardial infarction Father Family history of CHF (congestive heart failure) Family history of myocardial infarction Grandmother Family history of diabetes mellitus Family history of stroke Social History (Updated 09/20/25 @ 00:54 by Karen Joaquin) Within the past year, how often did you have a drink containing alcohol: monthly or less Smoking status: Never smoker Non-prescribed substance use: denies use Previous occupational history: retired Highest level of school completed/degree received: Bachelor's degree Are you now , , , , never or living with a partner: In a typical week, how many times do you talk on the telephone with family, friends, or neighbors: 3 or more times per week How often do you get together with friends or relatives: 3 or more times per week How often do you attend caodaism or zoroastrianism services: never Little interest or pleasure in doing things: not at all Feeling down, depressed, or hopeless: not at all Feel stressed/tense/nervous/anxious/difficulty sleeping: not at all Do you think of yourself as: straight/heterosexual Gender Identity: female Meds Home Medications and Allergies Home Medications ?Medication ?Instructions ?Recorded ?Confirmed ?Type albuterol sulfate 2.5 mg/3 mL 2.5 mg inhalation Q6H PRN wheezing 09/20/25 09/20/25 History (0.083 %) solution for nebulization albuterol sulfate 90 mcg/actuation 2 inh inhalation Q6H PRN shortness 09/20/25 09/20/25 History aerosol inhaler of breath or wheezing aspirin 81 mg tablet,delayed 81 mg PO DAILY 09/20/25 09/20/25 History release atorvastatin 20 mg tablet 20 mg PO DAILY 09/20/25 09/20/25 History budesonide-formoterol HFA 160 2 puff inhalation Q12H PRN 09/20/25 09/20/25 History mcg-4.5 mcg/actuation aerosol shortness of breath or wheezing inhaler nebivolol 10 mg tablet 10 mg PO DAILY 09/20/25 09/20/25 History Allergies Allergy/AdvReac Type Severity Reaction Status Date / Time No Known Drug Allergies Allergy Verified 09/19/25 21:16 Exam Narrative Exam Narrative: General: cooperative and tired appearing Orientation: alert, awake and oriented x3 Head: normal to inspection Neck: normal visual inspection Cardio: no JVD, regular rate, regular rhythm Chest palpation & inspection: normal inspection of the chest Resp Effort & Inspection: slightly increased respiratory effort, bilateral rhonchi Abd: soft, non-tender, non-distended Extremities: Warm well perfused, no edema Constitutional Vital Signs, click to edit/add: Last Vital Signs Temp 97.6 F 09/20/25 03:13 Pulse 90 09/20/25 06:17 Resp 18 09/20/25 05:30 BP 103/66 09/20/25 03:13 Pulse Ox 94 L 09/20/25 05:30 O2 Del Method Nasal Cannula 09/20/25 05:30 O2 Flow Rate 2 09/20/25 05:30 Internal Medicine - H&P: Reslt Labs Labs: Short CBC 09/19/25 09/20/25 Range/Units 21:30 04:54 WBC 5.4 4.4 (4.0-11.0) 10^3/uL Hgb 12.5 12.1 (12.0-16.0) g/dL Hct 36.9 36.6 (36.0-48.0) % Plt Count 153 151 (150-450) 10^3/uL BMP 09/19/25 09/20/25 21:30 04:54 Sodium 132 L 136 Potassium 3.3 L 3.9 Chloride 101 108 H Carbon Dioxide 27.0 23.7 BUN 9.0 6.0 L Creatinine 0.75 0.66 Glucose 124 H 167 H Calcium 8.8 8.4 L Liver Function 09/19/25 Range/Units 21:30 Total Bilirubin 0.3 (0.2-1.0) mg/dL AST 23 (15-37) U/L ALT 29 (14-59) U/L Alkaline Phosphatase 111 (46-116) U/L Albumin 3.3 L (3.4-5.0) g/dL Assessment and Plan Assessment and Plan (1) Asthma exacerbation: (2) Influenza A: (3) Hypoxia: (4) Pneumonia: Plan Casi Bruce is a 70 y/o F, h/o asthma, presented to [facility] on 09/19/25 with flu like symptoms and shortness of breath, concern for asthma exacerbation, found to be influenza positive and requiring oxygen prompting medical admission. 1. Asthma exacerbation and acute hypoxia 2/2 influenza A pneumonia - In the emergency room, WBC 5.4, hemoglobin 12.5, platelet count 153, sodium 132, potassium 3.3, BUN 9, creatinine 0.75, chest x-ray showed mild airspace opacities in the right possibly representing pneumonia, EKG showed no ischemic changes, tested positive for influenza A negative for type B and COVID. - tamiflu 75 mg bid for 5 day course - CAP coverage with rocephin and azithromycin - solumedrol 40 mg daily for 5 days - albuterol nebulizer q4h while awake - attempt to wean O2, anticipate minimum 48 hour stay - if worsening hypoxia will plan for transfer to tertiary care for potential ICU care Diet: regular Daily Labs: CBC, BMP Lines/Drains: PIV DVT ppx: Lovenox Code status: Full Status: inpatient for hypoxia, asthma exacerbation
--- NOTE | 2025-09-20 08:00 | ECG_ITS ---
[facility] Test Date: 2025-09-20 Pat Name: MOE CAROLINA Department: Room: [facility] Gender: Female Content Creation Manager: : 1955 Requested By: [id number] Order Number: [id number] Reading MD: ARMIDA DYSON M.D. Measurements Intervals [place] Rate: 79 P: 58 [place]: 165 QRS: 55 QRSD: 79 T: 59 QT: 397 QTc: 455 Interpretive Statements SINUS RHYTHM MINIMAL ST DEPRESSION [0.025+ mV ST DEPRESSION] Borderline ECG Compared to ECG 09/19/2025 21:13:12 Sinus tachycardia no longer present ST (T wave) deviation still present Electronically Signed On 09-20-2025 6:22:35 EST by ARMIDA DYSON M.D.
[2025-09-20] MEDS: METHYLPREDNISOLONE SOD SUCC PF 40 MG/ML VIAL IVP ×2 (09:39→09:40)
[2025-09-20] MEDS: GUAIFENESIN 200 MG/DEXTROMETHORPHAN 20 MG 10 ML UNIT DOSE CUP PO (09:40)
[2025-09-20] MEDS: ENOXAPARIN SODIUM 40 MG/0.4 ML SYRINGE SUBQ (09:40)
--- NOTE | 2025-09-20 10:08 | CM.NOTE ---
Rounds made with Dr. Youssef, discussed plan of care with pt. Pt currently requiring 2L of oxygen. Pt will not discharge today.
[2025-09-20] MEDS: ALBUTEROL SULFATE 2.5 MG/3 ML VIAL NEB IH ×4 (11:34→23:07)
--- NOTE | 2025-09-20 13:12 | SWNOTE1 ---
Important Message from Medicare reviewed and discussed with patient. Pt. verbalized understanding and signed the form. Original given to patient and copy placed in patient?s chart.
--- NOTE | 2025-09-20 13:12 | SWNOTE1 ---
Pt lives at home with family. Pt is independent and does not have any anticipated discharge needs at this time. SW to follow as needed.
[2025-09-21] VITALS (15 sets, daily range): BP systolic 110–130; BP diastolic 69–95; PULSE 67–93; TEMP 36.6; O2SAT 94–95
[2025-09-21] MEDS: ALBUTEROL SULFATE 2.5 MG/3 ML VIAL NEB IH ×2 (07:10→11:38)
[2025-09-21] MEDS: ENOXAPARIN SODIUM 40 MG/0.4 ML SYRINGE SUBQ (08:25)
[2025-09-21] MEDS: METHYLPREDNISOLONE SOD SUCC PF 40 MG/ML VIAL IVP (08:25)
[2025-09-21] MEDS: OSELTAMIVIR PHOSPHATE 75 MG CAPSULE PO (08:26)
--- OUTSIDE RECORDS SUMMARY | 2025-09-21 09:09 | XMS_ITS | Clinical Summary ---
Author Organization [facility] Address [facility] [place] [address] Care Team Providers Care Supplier Relationship Director Name Role Phone Rip Matthew MD Primary Care Provider + [phone] Allergies Active AllergyReactionsCriticalityNoted DateCommentsChicken DerivedGI SflxhvaaiaaMcid53/10/2021otatoGI WvrcgqkvdpaBfdl30/10/2021hellfish Derived AkxwdhncvcfYlhm44/10/2021 Medications MedicationSigDispense QuantityRefillsLast FilledStart DateEnd DateStatus predniSONE [...] Last Filed Vital Signs Vital SignReadingTime TakenCommentsBlood Lhcnnzvf750/7709/11/2021 11:58 AM EST Fchfb469409/11/2021 11:58 AM DCSIxvnkubfobb73.5 ??C (97.7 ??F)09/11/2021 7:23 AM ESTRespiratory Dtyt964611/12/2020 11:58 AM ESTOxygen Alzarblxke02%09/11/2021 11:29 AM ESTInhaled Oxygen Concentration--Beijje86.8 kg (176 lb)09/11/2021 7:00 AM EST Ffdqwh398.6 cm (5' 4 )09/11/2021 7:00 AM ESTBody Mass Index30. 7:00 AM EST Plan of Treatment Not on file Insurance * Guarantor: Katya Bruce TypeRelation to PatientDate of BirthPhone Billing AddressPersonal/OgigbpIbrn1955 [phone] (Home) [address] [place] [address] Advance Directives For more information, please contact: [phone] * Full Code (Latest Code Status on File) Date ActivatedDate RgntneicjpoIvxznmti80/10/2021 7:00 AM09/11/2021 9:42 AM Care Teams Team MemberRelationshipSpecialtyStart DateEnd Date Rip Matthew MD [address] [place] [address] PCP - GeneralFamily Yceezzom72/10/21
--- OUTSIDE RECORDS SUMMARY | 2025-09-21 09:10 | XMS_ITS | Clinical Summary ---
Author Organization [facility] [facility] Address [id number] [address] [place] [address] Care Team Providers Care Computer System Validation Specialist Name Role Phone Rip Matthew MD Primary Care Provider + [phone] Allergies Active AllergyReactionsCriticalityNoted HgrlChjsshywSwmzeiUpnmbeeu90/06/2018 Violent nausea Shellfish Bsqicnr4502/13/2018 Medications MedicationSigDispense QuantityRefillsLast FilledStart DateEnd DateStatus cetirizine [...] Problems ProblemNoted DateDiagnosed DateOsteoarthritis of left knee03/08/2018 Kcuoskjlsazeey61/06/2018 Family History Medical HistoryRelationNameCommentsHeart diseaseFatherHeart diseaseMother RelationNameStatusCommentsFatherDeceasedMotherDeceased Social History Tobacco UseTypesPacks/DayYears UsedDateSmoking Tobacco: NeverSmokeless Tobacco: NeverAlcohol UseStandard Drinks/WeekCommentsYes0 (1 standard drink = 0.6 oz pure alcohol)sociallyChildcareAnswerDate WowxlhwfIgyazyjhgKfxcpmd27/12/2019Employment AnswerDate YrdeyvicVokyijsdxoOfiaohk52/12/2019Purpose - LifeAnswerDate Recorded Purpose and direction in yyooFfhzvtx70/11/2021CommentsNoSex and Gender InformationValueDate RecordedSex Assigned at BirthNot on fileLegal SexFemale 12/09/2016 1:41 PM ESTGender IdentityNot on fileSexual OrientationNot on file Last Filed Vital Signs Vital SignReadingTime TakenCommentsBlood Rflhldln305/7706 8:20 AM EDT Xfocy63067/08/2018 8:30 AM BXNFuosusbtxoh13.7 ??C (98 ??F)03/10/2018 8:20 AM EDT Respiratory Lfit205003/10/2018 8:30 AM EDTOxygen Eviakbmjra53%03/10/2018 8:26 AM EDTInhaled Oxygen Concentration--Wqdvnd94.9 kg (176 lb 2.4 oz)03/10/2018 8:20 AM XXLWfyhsu472.6 cm (5' 4 )03/08/2018 1:30 PM EDTBody Mass Index30.24003/08/2018 1:30 PM EDT Plan of Treatment Not on file Medical Devices ImplantedTypeAreaManufacturerDevice IdentifierShelf Expiration DateModel / Serial / LotCement Bn Palacos Radpq 40g Rpl [id number] - Sna - [id number] Implanted:Qty: 2 on 03/08/2018 [facility] KneeLeommer [id number] / NA / [id number] Artc 14mm 6-9 Cd Kn Lt - Sna - [id number] Implanted:Qty: 1 on 03/08/2018 by Kushal Pagan DO at [facility] ImplantLeft: KneeZimmer [id number] / NA / [id number] Ptlr 32mm Persona Alply - Sna - [id number] Implanted:Qty: 1 on 03/08/2018 by Kushal Pagan DO at [facility] ImplantLeft: Shreya [id number] / NA / [id number] Fem 6 Std Kn Lt Cmnt Post - Sna - [id number] Implanted:Qty: 1 on 03/08/2018 by Kushal Pagan DO at [facility] ImplantLeft: BasiaHarsh [id number] / NA / [id number] Stm 30mm 14mm Kn Tib - Sna - [id number] Implanted:Qty: 1 on 03/08/2018 by Kushal Pagan DO at [facility] ImplantLeft: BasiaHarsh [id number] / NA / [id number] Tib 5d C Kn Lt Cmnt Stm - Sna - [id number] Implanted:Qty: 1 on 03/08/2018 [facility]: BasiaLeocandelario [id number]/31/2027 [id number] / NA / [id number]qrkyUdjqeq IdentifierShelf Expiration DateModel / Serial / LotScr Gd 48mm Qd-Spr Hex Hd Mis - Sna - [id number] Explanted:Qty: 1 on 03/08/[facility] Shreya [id number]/31/202851-1296-360-48 / NA / [id number] Gd 48mm Qd-Spr Hex Hd Mis - Sna - [id number] Explanted:Qty: 1 on 03/08/2018 by [facility]: Shreya [id number]/31/202824-6166-243-48 / NA / [id number] Bn Arnav 35mm 6.5mm Hip St Rpl [id number] + 32 - Sna - [id number] Explanted:Qty: 2 on 03/08/2018 by [facility]: Shreya [id number] / NA / [id number] Insurance Advance Directives * Full Code (Latest Code Status on File) Date ActivatedDate InactivatedComments03/08/2018 1:51 PM03/10/2018 9:29 PM Care Teams Team MemberRelationshipSpecialtyStart DateEnd Date Rip Matthew MD [facility]02/13/18
--- OUTSIDE RECORDS SUMMARY | 2025-09-21 09:10 | XMS_ITS | Patient Health Record ---
Author Organization [facility] [place] Address [address] [place] [address] Care Team Providers Care Information Technology Internship Name Role Phone Rip Matthew MD Primary Care Provider Unavail able Reason For Referral No Information Medications Medication SIG (Take, Route, Frequency, Duration) Notes Start Date End Date Status predniSONE 20 MG 1 tablet with food or milk Oral ly Twice a day 08/18/2018ActiveProAir HFA 108 (90 Base) MCG/ACT2 puffs as needed Inhalation every 4 hrs; Duration: 17ActiveEpiPen 2-Luis F 0.3 MG/0.3ML (1:1000)as directed Injection once; Duration: 30 daysUse for severe/life-threatening allergic reaction; call 911 as wellActivePepcid 20 MGOrally Once a dayActiveCetirizine HCl 10 MG1 tablet Orally Once a dayActiveSymbicort 160-4.5 MCG/ACT2 puffs Inhalation Twice a day; Duration: 30ActiveRhinocort Aqua 32 MCG/ACT2 puffs in each nostril Nasally Once a day; Duration: 30 day(s)08/04/2018Not-Taking Singulair 10 MG1 tablet Orally Once a day; Duration: 30Active Social History Tobacco Use: Social History Observation Description Date Details (start date - stop date) Never Smoker NA - NA Tobacco Use/Smoking Question Answer Notes Patient is a nonsmoker Section Notes: ;Exposure to dogs in the ming e and not in the bedroom, carpets in the living area only ;Exposure to dogs in the ming e and not in the bedroom, carpets in the living area only Problems Problem Type SNOMED Code ICD Code Onset Dates Problem Status W/U Status Risk Notes Problem Food allergy (992765942) Food allergy (Z9 1.018) ActiveconfirmedProblemPerennial allergic rhinitis (849673228)Perennial allergic rhinitis (J30.89)ActiveconfirmedProblemGastroesophageal reflux disease (disorder) (305437003)Chronic GERD (K21.9)ActiveconfirmedProblemChronic allergic conjunctivitis (28902940)Other chronic allergic conjunctivitis of both eyes (H10.45)ActiveconfirmedProblemPersistent asthma (6703533799263)Persistent asthma (J45.909)ActiveconfirmedProblemUncomplicated moderate persistent asthma (759412857)Moderate persistent asthma, unspecified whether complicated (J45.40) Activeconfirmed Plan Of Treatment Pending Test Test Name Order Date Spirometry (Pre and Post BD) Performed 0 02/13/2018 Spirometry (Pre and Post BD) Performed 0 02/05/2019 Insurance Providers Payer Name Payer Address Payer Phone Subscriber Number Group Number Insured Name Patient Relationship to Insured Coverage Start Date Coverage End Date [employer] [address] [place] [address] [id number], SusanSelf - patient is the insured Medical (General) History Medical History History ICD Code Food allergy: SHELLFISH (hiv es and anaphylaxis), POTATO (profuse vomiting - happened twice) Moderate Persistent Asthma (previous Dr. Solis pt): (01/2019) Spirometry - small airway obstruction, off Symbicort for several weeks - will Restart 160mcg 2 puffs QD w/ Singulair, ACT 01/2018 Spirometry normal; Rx Symbicort and Singulair.Allergic Rhinitis & ConjunctivitisGERD: on Ranitidine - GI consult recommendedSurgical History Surgery Date(Month/Year) total knee replacement-right Lumpectomy-left breast
--- OUTSIDE RECORDS SUMMARY | 2025-09-21 09:10 | XMS_ITS | Encounter Summary ---
Author Organization [facility] Address [address] [place] [address] Care Team Providers Care Truck Shop Mechanic Name Role Phone Rip Matthew MD Unavailable [phone] Rip Matthew MD Primary Care Provider [phone] Rashard Zheng MD Unavailable [phone] Prabhu Gandhi MD Unavailable [phone] Jessica Burgess MULTI LINE CLAIMS ADJUSTER-COORDINATOR SKILL TRAINING PROGRAM Unavailable Encounter Details DateTypeDepartmentCare Team (Latest Contact Info)Rysxuufijjm87/08/2025Bamboo flowsheet [facility] [address] [place] [phone] Jessica Burgess, MULTI LINE CLAIMS ADJUSTER-COORDINATOR SKILL TRAINING PROGRAM [address] [facility] [address] [place] [address] Social History Tobacco UseTypesPacks/DayYears UsedDateSmoking Tobacco: NeverSmokeless [...] a week06/09/2023 How often do you attend cheondoism or yazdanism services?More than 4 times per year 06/09/2023o you belong to any clubs or organizations such as cheondoism groups, unions, fraternal or athletic groups, or school groups?Yes06/09/2023How often do you attend meetings of the clubs or organizations you belong to?More than 4 times per year06/09/2023re you , , , , never , or living with a partner?Dqdighj1206/09/2023UDIT-CAnswerDate RecordedQ1: How often do you have a [...] hard at all06/09/2023HQ-2AnswerDate Recorded Patient Health Questionnaire-2 Swehx579[facility] [place] of Occupational Health - Occupational Stress QuestionnaireAnswerDate [...] steady place to sleep [facility])?No 06/09/2023CommentsNoSex and Gender InformationValueDate RecordedSex Assigned at BirthNot on fileLegal QeuZrehyr11/15/2023 6:52 PM EDTGender Identity Not on fileSexual OrientationNot on filedocumented as of this encounter Plan of Treatment DateTypeDepartmentCare Team (Latest Contact Info)Xjswaquuudr52/19/2026 8:30 AM EDTOffice Visit [facility] [address] [facility] [address] [place] [address] Rip Matthew MD [address] [facility] 100 [place] [address] (Fax) 01/23/2026 11:15 AM EDTOffice Visit [facility] [address] [place] [address] Rashard Zheng MD [address] [place] [address] 09/08/2026 8:35 AM ESTOffice Visit [facility] [place] [facility] [address] [place] [address] Jessica Burgess, MULTI LINE CLAIMS ADJUSTER-COORDINATOR SKILL TRAINING PROGRAM [address] [place] [address] documented as of this encounter Visit Diagnoses Not on filedocumented in this encounter Additional Health Concerns AssessmentNoted TimePHQ-9 Depression Total Score: 11:00 AM EDT documented as of this encounter Care Teams Team MemberRelationshipSpecialtyStart DateEnd Date Rip Matthew MD [address] [place] [address] PCP - [employer]et[employer]03/03/21 Rip Matthew MD [address] [place] [address] PCP - GeneralFamily Medicine04/14/23 Rashard Zheng MD [address] [place] [address] Obstetrics and Gynecology01/29/25 Prabhu Gandhi MD [address] [place] [address] Referring PhysicianAllergy and Immunology02/05/25 Jessica Burgess, MULTI LINE CLAIMS ADJUSTER-COORDINATOR SKILL TRAINING PROGRAM [address] [place] [address] Nurse PractitionerDermatology02/05/25documented as of this encounter
--- OUTSIDE RECORDS SUMMARY | 2025-09-21 09:10 | XMS_ITS | Clinical Summary ---
Author Organization [facility] Address [address] [facility], [address] [place] [address] Care Team Providers Care Tub Attendant Name Role Phone Rip Matthew MD Primary Care Provider [phone] Allergies Active AllergyReactionsCriticalityNoted DateCommentsChicken AllergyHives 1Shellfish AllergyHives,Shortness Of QksskjLdhq80/14/2018Shellfish Protein-Containing Drug Pmbcjsvh96/14/2018Sweet MtwoypOooueDkuw31/06/2018 Violent nausea Violent nausea Potato allergy Medications [...] InformationValueDate RecordedSex Assigned at BirthNot on fileLegal PzaBeavyd03/23/2021 11:33 AM EDT Gender IdentityNot on fileSexual OrientationNot on file Last Filed Vital Signs Vital SignReadingTime TakenCommentsBlood Ogiwhdvi670/8408/13/2021 1:54 PM EST Hvnnl889708/13/2021 1:54 PM IYSMimpenudcbg12.9 ??C (98.5 ??F)07/23/2015 10:46 AM EDTRespiratory Qzsd1544 10:46 AM EDTOxygen Qqfntmquib51%08/13/2021 1:54 PM ESTInhaled Oxygen Concentration--Xfswag98.2 kg (179 lb)08/13/2021 1:54 PM EST Height--Body Mass Index-- Plan of Treatment Not on file Insurance Care Teams Team MemberRelationshipSpecialtyStart DateEnd Date Rip Matthew MD [facility]06/25/21
--- OUTSIDE RECORDS SUMMARY | 2025-09-21 09:10 | XMS_ITS | Clinical Summary ---
Author Organization [facility] Address [address] [place] [address] Care Team Providers Care Landing Man Name Role Phone Rip Matthew MD Unavailable [phone] Rip Matthew MD Primary Care Provider [phone] Aaron Baugh MD Unavailable [phone] Prabhu Gandhi MD Unavailable [phone] Jessica Burgess DIRECTOR OF VIDEO ANALYTICSBOSTON LYING-IN HOSPITAL Unavailable Allergies Active AllergyReactionsCriticalityNoted DateCommentsBeta Rlkzfzsk98/18/2023 Other Reaction(s): sinus congestion Chicken XknohyiRckmksb23/18/2023Dust Mite Pdnjtcx3904/19/2023 Other Reaction(s): sinus congestion Shellfish Protein-Containing Drug Mftohxye09/18/2023 Other Reaction(s): passes out, ER visits Rhzhio3704/19/2023 Other Reaction(s): vomiting Medications MedicationSigDispense QuantityRefillsLast FilledStart [...] See administration instructions as directed Injection outside [facility] prn for 1 year 4 each 4Active [...] 1115Active Active Problems ProblemNoted DateDiagnosed DateChronic allergic oyunghosgwjvhk93/22/2025Seasonal affective wmeszgsj10/03/2023Food nukqrdl4005/25/2023llergic rhinitis due to tttccg5204/19/2023nxiety about bsweij8104/19/2023trophy of wgekst1604/19/2023hronic tuegskluxpyo71/18/2023iverticulosis of colon04/19/2023astro-esophageal reflux disease without yhnctpviazt93/18/2023History of total knee tmwbppohmmw91/18/2023 Overview (06/26/2024): bilateral Moderate persistent asthma without rffuvdzgaltk98/18/2023Non morbid obesity due to excess kpfxdvye98/18/0113Allwbyelkgis10/18/2023Sudden idiopathic hearing loss of left ear with unrestricted hearing of right ear04/19/2023Tinnitus, left ear 04/19/2023Venous insufficiency of both lower gavmilveuek20/18/2023Vestibular disequilibrium involving left inner ear04/19/2023White matter disease, aupooohvvur32/18/2023hronic lfnbvzb9704/14/2023hronic kidney disease, stage II (mild)04/14/2023Mixed upkmrktzwizf04/13/2023 Resolved Problems ProblemNoted DateDiagnosed DateResolved DateAsthma in adult/01/2023 Balance /Unsteadiness on feet/01/2023 Inflamed seborrheic ammdojlqe24/Near eubcfxu4004/19/2023 06/26/2024 Encounters DateTypeDepartmentCare VmbjQivnjaxwebt41/08/2025 10:10 AM ESTOffice Visit [facility] [place] [facility] [address] [place] [address] Jessica Burgess, DIRECTOR OF VIDEO ANALYTICS-BRAZE OPERATOR Seborrheic keratosis (Primary Dx); Inflamed seborrheic keratosis; Actinic keratosis; Melanocytic nevus of trunk; Lentigines; Capillary angioma; Sebaceous hyperplasia; Dermatofibroma of left lower extremity; Dermatofibroma of right lower fzxrpensp97/08/2025amboo flowsheet [facility] [place] [facility] [address] [place] [address] Jessica Burgess APRN-BRAZE OPERATOR 09/09/20250565Ezgrbz45/01/2025linisync Result Encounter [facility] External Department Unsolicited Aaron Baugh MD 07/08/2025Orders Only [facility] [place] [facility] [address] [place] [address] Iraida Lozada, MA Other screening qbfdbevjy72/25/2025 8:00 AM EDTOffice Visit [facility] [address] [place] [address] [address] [place] [address] Rip Matthew MD Palpitations; Mixed dyslipidemia ; Non morbid obesity due to excess dklfubfy12/25/2025amboo flowsheet [facility] [address] [place] [address] Rip Matthew MD 06/27/2025Travelfrom Last 3 Months Immunizations ImmunizationAdministration DatesNext DueInfluenza, High Dose Seasonal, Preservative Free08/13/2024Influenza, High-dose Seasonal, Quadrivalent, Preservative Free08/31/2023,08/11/2021Influenza, Seasonal, Quadrivalent, Sngpxrplby43/18/2022Influenza, injectable, MDCK, preservative free, quadrivalent 07/09/2019Influenza, injectable, quadrivalent, preservative free07/31/2020, 08/08/2017,07/14/2017,07/03/2015Influenza, live, intranasal, quadrivalent 06/14/2018Influenza, seasonal, intradermal, preservative free07/13/2016 Pneumococcal Conjugate PCV 4Pneumococcal Polysaccharide PPSV23 07/11/2017,05/27/2017RSV, recombinant, protein subunit RSVpreF, adjuvant reconstitu, 120mcg/0.5mL, PF (Arexvy)08/31/2023Zoster, Xlrjygaonux69/10/2019, 05/03/2019 Family History Medical HistoryRelationNameCommentsCoronary artery diseaseBrotherHeart disease FatherHeart diseaseMotherCoronary artery diseaseSisterBreast cancerNeg HxColon cancerNeg HxOvarian cancerNeg TcQfdstolpNxjvZjsqcmOfrncjqyEiznhqug5HyfdfxchZngxh j1LeuwiiWxqrjArlyibdr GrandmotherAliveMotherDeceasedSisterx2 Social History Tobacco UseTypesPacks/DayYears UsedDateSmoking Tobacco: [...] a week06/09/2023 How often do you attend anabaptism or mormon services?More than 4 times per year 06/09/2023o you belong to any clubs or organizations such as anabaptism groups, unions, fraternal or athletic groups, or school groups?Yes06/09/2023How often do you attend meetings of the clubs or organizations you belong to?More than 4 times per year06/09/2023re you , , , , never , or living with a partner?Xvyfmzv8306/09/2023UDIT-CAnswerDate RecordedQ1: How often do you have a [...] hard at all06/09/2023HQ-2AnswerDate Recorded Patient Health Questionnaire-2 Gzdtf245Fincentral [facility] [place] of Occupational Health - Occupational Stress QuestionnaireAnswerDate [...] steady place to sleep or slept in [facility] ([facility] now)?No 06/09/2023CommentsNoSex and Gender InformationValueDate RecordedSex Assigned at BirthNot on fileLegal GhvZmvlzg91/15/2023 6:52 PM EDTGender IdentityNot on fileSexual OrientationNot on file Last Filed Vital Signs Vital SignReadingTime TakenCommentsBlood Okrhqjfp141/6804 11:41 AM EDT Cdnsl527201/29/2025 11:41 AM EDTTemperature--Respiratory Rate--Oxygen Saturation 96%01/29/2025 11:41 AM EDTInhaled Oxygen Concentration--Ichpiu68 kg (172 lb) 01/29/2025 11:41 AM MVLWaijmq115.6 cm (5' 4 )01/29/2025 11:41 AM EDTBody Mass Index29.52001/29/2025 11:41 AM EDT Plan of Treatment DateTypeDepartmentCare Team (Latest Contact Info)Fxkjeywkajl08/19/2026 8:30 AM EDTOffice Visit [facility] [address] [place] [address] Rpi Matthew MD [address] [place] [address] (Fax) 01/23/2026 11:15 AM EDTOffice Visit [facility] [place] [facility] [address] [place] [address] Aaron Baugh MD [address] [place] [address] 09/08/2026 8:35 AM ESTOffice Visit [facility] [place] [facility] [address] [place] [address] Jessica Burgess, DIRECTOR OF VIDEO ANALYTICS-BRAZE OPERATOR [address] [place] [address] Health MaintenanceDue DateLast DoneCommentsCT Ofejgmhxaapd1955FIT-DNA 1955FIT1955FOBT1955 6661Itqcjrddxyevs1955OVID-19 Vaccine ( season)501/06/2024, 08/31/2021, 01/10/2021, Additional history existsMedicare Annual Wellness (AWV), 12/26/2024, 06/26/2024, Additional history dbrpamZjzyhpihf94/01/202612/10/2024, 08/10/2024, 08/08/2023, Additional history soztmsWitqlhflnla88/25/203207/, 04/26/2022 Colorectal Cancer Zwsbnbkbx43/25/2032Pneumococcal Vaccine: 65+ YearsCompleted 08/13/2024, 07/11/2017, 05/27/2017Influenza ZerymnfZwqlmrzad64/01/2025, 08/13/2024, 08/31/2023, Additional history exists Procedures Procedure NamePriorityDate/TimeAssociated DiagnosisCommentsCRYOTHERAPY SKIN ABCEBEPzottqa42/08/2025 9:50 AM EST Actinic keratosis CRYOTHERAPY SKIN FIJLHYFigwggy15/08/2025 9:50 AM EST Inflamed seborrheic keratosis MM TOMOSYNTHESIS SCREENING BI09/02/2025 2:53 PM EST JEDZBENSZRYWmmlpiv33/25/2022 12:00 PM EDT Encounter for screening for malignant neoplasm of colon from Last 3 Months or Most Recently Relevant to Health Maintenance Results * Cryotherapy, skin lesion (09/09/2025 9:50 AM EST) Narrative Authorizing ProviderResult TypeResult StatusNatalie A Felter DIRECTOR OF VIDEO ANALYTICS-CNPDERM PROCEDURE ORDERABLESFinal Result * Cryotherapy, skin lesion (09/09/2025 9:50 AM EST) Narrative Authorizing ProviderResult TypeResult StatusNatalie A Felter DIRECTOR OF VIDEO ANALYTICS-CNPDERM PROCEDURE ORDERABLESFinal Result * MM TOMOSYNTHESIS SCREENING BI (09/02/2025 2:53 PM EST)Anatomical Region LateralityModalityOtherSpecimen (Source)Anatomical Location / Laterality Collection Method / VolumeCollection TimeReceived Time09/02/2025 2:53 PM EST Narrative 09/02/2025 2:[address] [facility] ?[address] ? [place] [address] ? Mammography Report ? Signed ? Patient: BRUCE,CASI H ?MR#: [id number] ?? : 1955 ?Acct:[id number] ?? Age/Sex: 69 / F ?ADM Date: 12/01/25 ?? Loc: MAMMO ? Attending Dr: AARON BAUGH ? Ordering Physician: PRINTY,AARON ? Results: ? Date of Service: 09/02/25 ?Follow Up: ? Procedure(s): MM tomosynthesis screening BI ?? Accession Number(s): [id number] ? cc: RIP MATTHEW ; AARON BAUGH ? Patient Name: ? CASI BRUCE ? MR#: [id number] ? : 1955 ? Exam Date: 09/02/2025 [...] Cancers ? None ? LOCATION: ? [facility] ? BREAST COMPOSITION: ? The [...] ?Hunter Rueda M.D. ? Signed By: ?09/02/25 [facility] ? DD/ 1453 ? TD/TT: ? Psychiatric Lpn: Procedure Note Radiology, Radiologist, MD - 09/02/2025 [place] [address] Mammography Report Signed Patient: CASI BRUCE HMR#: [id number] : 5Acct:[id number] Age/Sex: 69 / FADM Date: 09/02/25 Loc: MAMMO Attending Dr: AARON BAUGH Ordering Physician: AARON BAUGHResults: Date of Service: 09/02/25Follow Up: Procedure(s): MM tomosynthesis screening BI Accession Number(s): [id number] cc: RIP MATTHEW ; AARON BAUGH Patient Name: CASI BRUCE MR#: [id number] : 1955 Exam Date: 09/02/2025 Ordering Doctor: [...] Treatments None Family Cancers None LOCATION: [facility] BREAST COMPOSITION: The breasts are [...] M.D. Signed By:09/02/25 1454 DD/ 52 TD/TT: Psychiatric Lpn: Authorizing ProviderResult TypeResult Ezequiel Baugh MDCLINISYNC IMAGING Final Result * Colonoscopy (04/26/2022 12:00 PM EDT)Anatomical RegionLateralityModality EndoscopySpecimen (Source)Anatomical Location / LateralityCollection Method / VolumeCollection TimeReceived Time04/26/2022 12:00 PM EDT Narrative 04/26/2022 12:00 PM EDT PERFORMED AT [facility] LOCATION:[id number] Procedure Note CONVERSION, GENERIC - 02/16/2023 PERFORMED AT [facility] LOCATION:[id number] Authorizing ProviderResult TypeResult StatusFrswathi Mckeon DOENDOSCOPY PROCEDURE ORDERABLESFinal Result from Last 3 Months or Most Recently Relevant to Health Maintenance Insurance Advance Directives TypeDate RecordedPatient RepresentativeExplanationAdvance Directives and Living Will04/27/2023 9:33 AMLiving WillPower of Attorney04/27/2023 9:32 AM Care Teams Team MemberRelationshipSpecialtyStart DateEnd Rip Matthew MD [address] [place] [address] (Fax) PCP - [employer]03/03/21 Rip Matthew MD [address] [place] [address] (Fax) [facility]/23 Aaron Baugh MD [address] [place] [address] Obstetrics and Gynecology01/29/25 Prabhu Gandhi MD [address] [place] [address] Referring PhysicianAllergy and Immunology02/05/25 Jessica Burgess, DIRECTOR OF VIDEO ANALYTICS-BRAZE OPERATOR [address] [place] [address] Nurse PractitionerDermatology02/05/25
--- OUTSIDE RECORDS SUMMARY | 2025-09-21 09:10 | XMS_ITS | Encounter Summary ---
Author Organization [facility] Address [address] [place] [address] Care Team Providers Care Head Of Acquisitions Name Role Phone Rip Matthew MD Unavailable [phone] Rip Matthew MD Primary Care Provider [phone] Rashrad Zheng MD Unavailable [phone] Prabhu Gandhi MD Unavailable [phone] Jessica Burgess APRN-NUCLEAR REACTOR TECHNICIAN Unavailable Encounter Details DateTypeDepartmentCare Team (Latest Contact Info)Vxrcvvsnnnn85/08/2025Travel Social History Tobacco UseTypesPacks/DayYears UsedDateSmoking Tobacco: NeverSmokeless [...] a week06/09/2023 How often do you attend shinto or hindu services?More than 4 times per year 06/09/2023o you belong to any clubs or organizations such as shinto groups, unions, fraternal or athletic groups, or school groups?Yes06/09/2023How often do you attend meetings of the clubs or organizations you belong to?More than 4 times per year06/09/2023re you , , , , never , or living with a partner?Dzhikos8806/09/2023UDIT-CAnswerDate RecordedQ1: How often do you have a [...] hard at all06/09/2023HQ-2AnswerDate Recorded Patient Health Questionnaire-2 Qoykm707Finsalt [facility] [place] of Occupational Health - Occupational Stress QuestionnaireAnswerDate [...] InformationValueDate RecordedSex Assigned at BirthNot on fileLegal FyhUzpjvf90/15/2023 6:52 PM EDTGender Identity Not on fileSexual OrientationNot on filedocumented as of this encounter Plan of Treatment DateTypeDepartmentCare Team (Latest Contact Info)Lsykozizpdb63/19/2026 8:30 AM EDTOffice Visit [facility] [place] [facility] [address] [place] [address] Rip Matthew MD [address] [place] [address] 01/23/2026 11:15 AM EDTOffice Visit [facility] [place] [facility] [address] [place] [address] Rashard Zheng MD [address] [place] [address] 09/08/2026 8:35 AM ESTOffice Visit [facility] [place] [facility] [address] [place] [address] Jessica Burgess, SHEET METAL ERECTOR-NUCLEAR REACTOR TECHNICIAN [address] [place] [address] documented as of this encounter Visit Diagnoses Not on filedocumented in this encounter Additional Health Concerns AssessmentNoted TimePHQ-9 Depression Total Score: 11:00 AM EDT documented as of this encounter Care Teams Team MemberRelationshipSpecialtyStart DateEnd Date Rip Matthew MD [address] [place] [address] PCP - [employer]et[employer]03/03/21 Rip Matthew MD [address] [place] [address] PCP - GeneralFamily Medicine04/14/23 Rashard Zheng MD [address] [place] [address] Obstetrics and Gynecology01/29/25 Prabhu Gandhi MD [address] [place] [address] Referring PhysicianAllergy and Immunology02/05/25 Jessica Burgess, CAYLA-NUCLEAR REACTOR TECHNICIAN [address] [place] [address] Nurse PractitionerDermatology02/05/25documented as of this encounter
--- OUTSIDE RECORDS SUMMARY | 2025-09-21 09:10 | XMS_ITS | Clinical Summary ---
Author Organization [facility] Address [address] [place] [address] Care Team Providers Care Executive Vice President Name Role Phone Unavailable Primary Care Provider Unavailabl e Allergies Active AllergyReactionsCriticalityNoted DateCommentsChicken DerivedVomiting 06/15/20214237YtxrtmOrnzjkjoMevd12/06/2018 Violent nausea Shellfish Containing ProductsHives,Shortness of Qspfak8902/13/2018 Medications MedicationSigDispense QuantityRefillsLast FilledStart DateEnd DateStatus amoxicillin [...] drink = 0.6 oz pure alcohol)occasionalPHQ-2AnswerDate RecordedPHQ-2 onnsp3631Area Deprivation IndexAnswerDate RecordedNational Score (1-100), lower number is lower risk73 10/31/2022State Score (1-10), lower number is lower riskNot on file10/31/2022 Data from: https://www.neighborhoodatlas.[facility].edu/. Last address used for mmxfyqgbl[address]10/31/2022CommentsNoSex and Gender InformationValueDate RecordedSex Assigned at BirthNot on fileLegal SexFemale 06/09/2021 12:43 PM EDTGender IdentityNot on fileSexual OrientationNot on file Last Filed Vital Signs Vital SignReadingTime TakenCommentsBlood Pxtafalv29/6509 11:17 AM EDT Ogwxl522806/19/2021 11:17 AM EDTTemperature--Respiratory Rate--Oxygen Saturation 98%06/19/2021 11:17 AM EDTInhaled Oxygen Concentration--Liikbs51.9 kg (171 lb 11.2 oz)06/15/2021 8:43 AM HRBYmlely692.6 cm (5' 4 )06/15/2021 8:43 AM EDTBody Mass Index29.4709 8:43 AM EDT Plan of Treatment Health MaintenanceDue DateLast DoneCommentsAnxiety Xekqhpshi02/15/1973Depression Qgcacasfe38/15/1973Hepatitis C Dsaktjsfn30/15/1973DTaP,Tdap,Td Vaccine (1 - Tdap)1974Mammogram Cgapzgsql61/15/1995CT Oxvnyulngfje63/15/2000Cologuard (FIT-DNA)09/16/20005305Zuookgescmq28/15/2000Colorectal Cancer Sgobjsjit60/15/2000 Fecal Occult Blood09/16/20007777Gzajxcgojjedw47/15/2000Pneumococcal Vaccine: 50+ (2 of 2 - PCV), 05/27/2017Bone Density Bickcncia43/15/2020 Diabetes Kvfsxonwz52/12/2020, 03/10/2018Advance Directive Discussion 5Covid-19 Vaccine (3 - 2024- season)504/06/2021, 12/12/2020 Influenza Vaccine (#1)/, 07/08/2019, 06/14/2018, Additional history existsLipid Ccpqzlilx06/SV Vaccine (1 - 1-dose 75+ series)2030Shingrix DnylfdzRazgloxko84/09/2019, 05/02/2019 Insurance * Guarantor: Katya Bruce TypeRelation to PatientDate of BirthPhone Billing AddressPersonal/TgduogCesq1955 [facility] [place] [address]
[2025-09-21] MEDS: ASPIRIN 81 MG TABLET.DR PO (11:11)
[2025-09-21] MEDS: NEBIVOLOL HCL 5 MG TABLET 10 MG PO (11:11)
[2025-09-21] MEDS: ATORVASTATIN CALCIUM 20 MG TABLET PO (11:11)
--- NOTE | 2025-09-21 11:52 | P.DS_ITS ---
DS: Providers Provider Date of admission: 09/20/25 00:10 Primary care physician: RADHA GOLDSMITH DS: Diagnosis Discharge Diagnosis (1) Asthma exacerbation: (2) Influenza A: (3) Acute hypoxic respiratory failure: Plan Assessment:: Acute exacerbation of asthma, due to COVID Acute influenza a bronchitis. Acute hypoxic respiratory failure, needing supplemental oxygen for about 24 hours, due to the above. DS: Summary Hospital Course Hospital Course: This is a 70-year-old woman with a history of asthma who came to the hospital and was found to be positive for influenza A. In the ER she had to be put on supplemental oxygen. She normally does not wear any oxygen. This prompted admission to the hospital. Overall, she got better much faster than expected and was able to be discharged quickly: She presented the ER just before midnight on September 19 and was ready to go home at lunchtime on September 21. She presented to the emergency room for evaluation of fevers, chills, and body- aches that were going on for 3 days and shortness of breath that had gotten really bad over 1 day. She had been using her metered-dose inhalers at home without improvement. She had gotten out a nebulizer machine that she has at home (but has not needed to use for a long time) and she wondered if the albuterol for the nebulizer machine might have been . During the hospital stay she was treated with Tamiflu. She was treated with IV corticosteroids. She was given an Acapella/flutter device. She performed her own pulmonary hygiene maneuvers. With this she did make a steady improvement. She was able to come off supplemental oxygen. She was monitored for 24 more ho urs to make sure that she would not require supplemental oxygen and she was doing well. She continues have a very productive cough with a very large amount of expectorated mucus.. She did not have any fevers. She did not have any chills. On lab work she did not have any leukocytosis. The patient was cautioned that she should monitor herself closely. She may continue to have this cough continue for 2 or even 3 weeks but it should gradually get better and eventually go all the way away. The patient was cautioned to watch herself to see if she gets secondary bacterial infections over the next few months, and if she has worsening cough, worsening purulent appearance of the sputum, or fevers or chills or systemic symptoms like confusion or body aches or muscle aches that she should see her primary care doctor right away regarding consideration of antibiotics for secondary infection. Status at Discharge Functional status at discharge: independent ambulation Overall status at discharge: patient is progressing back to baseline Time Spent with Patient Time attestation: Total time spent providing and/or coordinating discharge services: Time spent: greater than 30 minutes Specific discharge activities: 33 minutes of time was spent on the discharge process today. Exam Narrative Exam Narrative: General: Seen in her room she is sitting upright in bed. She just finished having a coughing jag. She does have plenty of expectoration of mucus. She denies fevers or chills. She denies confusion. She denies sore throat. Denies heartburn. She denies chest pain or chest pressure. No anginal symptoms. No nausea or upset stomach. No diarrhea or constipation. Appetite is good. Eat ing well. Hydrating herself very well. She says the main symptoms that bothered her when she came to the hospital was that it felt like I was breathing through a straw and she had dramatically inc reased work of breathing and that was very abnormal for her. She thinks that has been a very long time since she had an asthma exacerbation. Physical examination: Awake. Alert. Acutely neurologically intact. Pulmonary: Clear to auscultation throughout. No wheezing. No tightness. Does continue to have a productive cough. No focal areas of crackles. No rhonchi. Cardiac: No murmurs auscultation. GI: Abdomen is normal to auscultation. Skin: Warm and dry and well-perfused. Constitutional Vital Signs, click to edit/add: Last Vital Signs Temp 97.9 F 09/21/25 10:51 Pulse 79 09/21/25 11:44 Resp 20 09/21/25 11:39 BP 130/95 H 09/21/25 10:51 Pulse Ox 94 L 09/21/25 11:39 O2 Del Method Room Air 09/21/25 11:39 O2 Flow Rate 2 09/20/25 05:30 Discharge Plan Discharge Disposition: Home, Self-Care Discharge Medications: New albuterol sulfate 2.5 mg /3 mL (0.083 %) Solution For Nebulization 2.5 mg inhalation TID-QID PRN (Reason: shortness of breath or wheezing) Qty: 360 1RF oseltamivir 75 mg Capsule 75 mg PO BID 4 Days Qty: 8 0RF prednisone 10 mg tablet 10 mg PO DAILY Qty: 10 0RF Rx Instructions: 4 tablets on Tuesday, then 3 tablets on Tuesday, then 2 tablets on Tuesday, then 1 tablet on Tuesday. Take in the AM with FOOD. Continued atorvastatin 20 mg tablet 20 mg PO DAILY nebivolol 10 mg tablet 10 mg PO DAILY albuterol sulfate 2.5 mg /3 mL (0.083 %) solution for nebulization 2.5 mg inhalation Q6H PRN (Reason: wheezing) albuterol sulfate 90 mcg/actuation HFA aerosol inhaler 2 inh INHALATION Q6H PRN (Reason: shortness of breath or wheezing) budesonide-formoterol 160-4.5 mcg/actuation HFA aerosol inhaler 2 puff inhalation Q12H PRN (Reason: shortness of breath or wheezing) aspirin 81 mg tablet,delayed release (DR/EC) 81 mg PO DAILY Rx Instructions: three times per week Activity: increase activity as tolerated Diet: advance to your usual diet Print Language: [place] Patient Instructions: Albuterol (By breathing), Prednisone (By mouth), Oseltamivir (By mouth) (Tamiflu), Asthma (DC), Influenza (DC), Hypoxemia (DC) Forms: Portal Instructions Follow Up Appointments: Follow up with Dr. GOLDSMITH at [phone] on Tuesday to make a follow up appointment to be seen within 1 week of discharging from hospital. Discharge Date/Time: 09/21/25 11:55
--- NOTE | 2025-09-23 09:25 | PC.NURSE ---
Follow up appt. with Dr. Matthew on 09/30 @ 1:45pm
--- NOTE | 2025-09-23 13:06 | CM.DCFOLLOWU ---
Person spoke with: Casi How are you feeling? Better How is your pain? No pain Did you understand your discharge instructions? Yes Do you have any questions about your discharge instructions? No Were you given any prescriptions at discharge? Yes Were you able to get your prescriptions filled? Yes Do you understand how to take your medications as ordered? Yes Do you have any questions about your follow up appointment and do you plan to keep your follow up appointment? No questions. She was given her follow up appt information for for 09/30 at 1:45 pm. Is there anything else that you would like to discuss? No Questions/Comments/Concerns/Other:
== END 2025-09-21 13:05 | disposition home or self-care (01) | DRG 202 ==
LOC: ER 09-20 00:45 → MS 09-21 09:06
PROVIDERS: Admitting Provider Internal Medicine; Emergency Provider Emergency Medicine; PCP Family Medicine; Visit Provider Internal Medicine
DX: J45.901 Unspecified asthma with (acute) exacerbation (principal); J96.01 Acute respiratory failure with hypoxia; J10.1 Influenza due to other identified influenza virus with other respiratory manifestations; I10 Essential (primary) hypertension; E78.00 Pure hypercholesterolemia, unspecified; Z79.899 Other long term (current) drug therapy
CPT/HCPCS: 36415; 71045; 80048; 80053; 83735; 84100; 85007; 85025; 85027; 87804; 87811; 93005; 94640; 94667; 94668; 94761; 96365; 96368; 96375; 99285; J0456; J0696; J1650; J2919